=== PATIENT | male | born 1945 | race Caucasian/White ===

== ENCOUNTER 2017-01-08 13:01 | Inpatient (IN) | payer MEDICARE ==
[~2017-01-08] VITALS: Ht 172.7 cm; Wt 83.8 kg
[~2017-01-08 13:01] MED LIST: AMLO5TAB22 PO; CLOP75 PO; CORE25TA PO; LACTATED RINGER'S 1000 ML INJ 1,000 ML IV ONE; LEVO.15 PO; MIRA50TA PO; NEOMYCIN/POLYMYXIN 1 ML G.U. IRRIGANT IRRIGATION ONE; NEOSTIGMINE 3 MG/3 ML SYR IV ONE; ONDANSETRON HCL 4 MG/2 ML VIAL IV PUSH ONE; PAZO200T PO; PERC10TA27 PO; PROPOFOL 200 MG/20 ML AMP IV ONE; PROT40TA PO; ROSU20 PO; VENTAER INH; ZOFR4TAB3 SL
[2017-01-08 13:03] VITALS: BP 168/83; PULSE 63; RESP 18; TEMP 98; O2SAT 98
--- NOTE | 2017-01-08 13:21 | PD ---
Physical Exam Time Seen by Provider: 13:19 Narrative 71yo M c/o head pain and left hand pain. Pulled down by dog onto concrete. Hit head. Denies LOC, neck pain, back pain. Takes Plavix. Denies vomiting. Patient stable. Patient seen in triage. Awaiting bed placement. Data Data Last Documented VS Vital Signs Date Time Temp Pulse Resp B/P Pulse Ox O2 Delivery O2 Flow Rate FiO2 01/08/17 13:03 98.0 63 18 168/83 98 MDM Supervised Visit with WILLY: Lianne Vargas Jan 08, 2017 13:21
--- NOTE | 2017-01-08 14:37 | PD ---
HPI Chief Complaint: Fall Time Seen by Provider: 14:37 Travel History International Travel<30 days: No Contact w/Intl Traveler<30days: No Traveled to known affect area: No History of Present Illness HPI 71-year-old male with history of hypertension, diabetes, CVA, kidney cancer, currently undergoing chemotherapy and radiation, history of CAD with CABG, on Plavix, presents to the emergency department for evaluation following a fall. Patient states that his neighbor's pet. Out and when he attempted to put it back in the canal, the dog leg him and he tripped over a curb. He smacked his head on the concrete and injured his right hand. Patient does not believe that he lost consciousness. Denies any focal deficit or weakness. Reports head painnd 7 out of 10 pain at the right hand. Denies chest or tightness. No difficulty breathing. No nausea or vomiting since yesterday. No symptoms to report at this time. PFSH Past Medical History Hx Anticoagulant Therapy: Yes (PLAVIX) Arthritis: Yes (Hands) Asthma: No Autoimmune Disease: No Blood Disorders: No Anxiety: No Depression: No Heart Rhythm Problems: No Cancer: Yes (bladder, renal) Cardiac Catheterization: Yes Cardiovascular Problems: Yes (CABG X 3 / CHF) Chemotherapy: Yes (2014) Chest Pain: No Congestive Heart Failure: No COPD: No Cerebrovascular Accident: Yes Diabetes: Yes Diminished Hearing: No Endocrine: No Gastrointestinal Disorders: Yes GERD: Yes Glaucoma: No Genitourinary: Yes Headaches: No Hepatitis: No Hiatal Hernia: No Hypertension: Yes Immune Disorder: No Kidney Stones: No Musculoskeletal: Yes Neurologic: Yes Psychiatric: No Reproductive: No Respiratory: No Immunizations Current: No Migraines: No Myocardial Infarction: No Radiation Therapy: Yes ( RXT) Renal Failure: Yes Seizures: No Sickle Cell Disease: No Sleep Apnea: No Ulcer: No Past Surgical History Abdominal Surgery: No AICD: No Appendectomy: No Arteriovenous Shunt: No Cardiac Surgery: Yes Cholecystectomy: No Coronary Artery Bypass Graft: Yes (2008) Ear Surgery: No Endocrine Surgery: No Eye Surgery: No Genitourinary Surgery: Yes (Removed Right Kidney (cancerous tumor) 10/16/09; BLADDER SCRAPING) Gynecologic Surgery: No Insulin Pump: No Joint Replacement: No Neurologic Surgery: Yes Oral Surgery: No Pacemaker: No Thoracic Surgery: No Other Surgery: Yes (PLASTIC SX ON FACE AGE 15) Social History Alcohol Use: No Tobacco Use: No (Quit 19 years ago) Substance Use: No Allergies-Medications (Allergen,Severity, Reaction): Coded Allergies: Cipro (Unverified Allergy, Severe, Swelling, 01/08/17) Reported Meds & Prescriptions Reported Meds & Active Scripts Active Ventolin Hfa (Albuterol Sulfate) 18 Gm Aero 2 Puff INH Q6H PRN Reported Crestor (Rosuvastatin Calcium) 20 Mg Tab 20 Mg PO DAILY Myrbetriq (Mirabegron) 50 Mg Tab 50 Mg PO DAILY Zofran ODT (Ondansetron HCl) 4 Mg Tab 4 Mg SL Q6H PRN FOR NAUSEA/VOMITING Votrient (Pazopanib Hydrochloride) 200 Mg Tab 800 Mg PO DAILY Amlodipine Besylate 5 mg (Amlodipine Besylate) 5 Mg Tab 5 Mg PO DAILY Percocet 10-325 mg (Oxycodone-Acetaminophen 10-325 mg) Oxycodone 10/325 Acetaminophen Tab 1 Tab PO Q6H PRN Synthroid 150 mcg (Levothyroxine Sodium) 150 Mcg Tab 150 Mcg PO DAILY Protonix (Pantoprazole Sodium) 40 Mg Tab 40 Mg PO DAILY Plavix (Clopidogrel Bisulfate) 75 Mg Tab 75 Mg PO DAILY Coreg 25 mg (Carvedilol) 25 Mg Tab 25 Mg PO BID Review of Systems Except as stated in HPI: all other systems reviewed are Neg Physical Exam Narrative GENERAL: Well-nourished elderly male patient, brought in by wheelchair, in no acute distress SKIN: Focused skin assessment warm/dry. There is a pressure dressing over the scalp wound. Patient does have left periorbital ecchymosis developing. He has abrasions on the left elbow and ecchymosis of the left forearm. There are lacerations on the volar surface of the left fourth and fifth digits. Abrasions over the bilateral knees. HEAD: Normocephalic. EYES: Pupils equal and round. No scleral icterus. No injection or drainage. ENT: No nasal bleeding or discharge. Mucous membranes pink and moist. NECK: Trachea midline. No JVD. CARDIOVASCULAR: Regular rate and rhythm. No murmur appreciated. RESPIRATORY: No accessory muscle use. Clear to auscultation. Breath sounds equal bilaterally. GASTROINTESTINAL: Abdomen soft, non-tender, nondistended. Hepatic and splenic margins not palpable. MUSCULOSKELETAL: No obvious deformities. No clubbing. No cyanosis. Edema of the dorsal left hand.. NEUROLOGICAL: Awake and alert. No obvious cranial nerve deficits. Motor grossly within normal limits. Normal speech. PSYCHIATRIC: Appropriate mood and affect; insight and judgment normal. Data Data Last Documented VS Vital Signs Date Time Temp Pulse Resp B/P Pulse Ox O2 Delivery O2 Flow Rate FiO2 01/08/17 13:03 98.0 63 18 168/[address] Brain W/O Iv Contrast(Rout) (01/08/17 ) Ct Facial Bones W/O Iv Cont (01/08/17 ) MDM Medical Decision Making Medical Screen Exam Complete: Yes Emergency Medical Condition: Yes Medical Record Reviewed: Yes Differential Diagnosis Intracranial hemorrhage versus scalp laceration versus scalp hematoma versus minor head injury versus hand fracture versus sprain versus contusion versus dislocation Narrative Course 71-year-old male presents to the emergency department for evaluation following a trip and fall. Patient has pressure dressing of his scalp wound in place. CT imaging of the brain, cervical spine, facial bones was ordered. X-ray imaging of the left hand is ordered. Patient is inappropriate for a split flow pod and will be transferred to a medical bed. Condition: Stable Nhi Campbell Jan 08, 2017 14:37
[2017-01-08 15:33] LABS: AUTOMATED NEUTROPHIL # 3.3 TH/MM3 (1.8-7.7); BASOPHIL % 0.6 % (0.0-2.0); EOSINOPHIL # 0.1 TH/MM3 (0-0.4); EOSINOPHIL % 2.5 % (0.0-4.0); HEMATOCRIT 34.5 % (39.0-51.0); LYMPH % 13.5 % (9.0-44.0); LYMPHOCYTE # 0.6 TH/MM3 (1.0-4.8); MEAN CELL VOLUME 103.3 FL (80.0-100.0); MONO % 3.9 % (0.0-8.0); NEUT % 79.5 % (16.0-70.0); PLATELET COUNT 67 TH/MM3 (150-450); RED BLOOD COUNT 3.34 MIL/MM3 (4.50-5.90); RED CELL DISTRIBUTION WIDTH 15.7 % (11.6-17.2); WHITE BLOOD COUNT 4.2 TH/MM3 (4.0-11.0)
[2017-01-08 15:41] LABS: HEMO FLAGS AUTO DIFF
[2017-01-08 15:48] LABS: APTT (PATIENT) 27.2 SEC (24.3-30.1)
--- NOTE | 2017-01-08 15:48 | RADRPT ---
EXAM DATE/TIME: 01/08/2017 15:31 [facility] COMPARISON: No previous studies available for comparison. INDICATIONS : Left hand pain after fall. MEDICAL HISTORY : None. SURGICAL HISTORY : None. ENCOUNTER: Initial ACUITY: 1 day PAIN SCORE: 10/10 LOCATION: Left hand. FINDINGS: There is a complete fracture of the fifth proximal phalanx with slight angulation. Slight degenerativ e arthritis is present within multiple interphalangeal joints and first carpometacarpal joint. There is slight osteopenia. CONCLUSION: Fifth proximal phalangeal fracture. Britt Kincaid MD on January 08, 2017 at 15:46 Board Certified Radiologist. This report was verified electronically.
[2017-01-08 15:49] LABS: ALT (GPT) 19 U/L (12-78); ANION GAP 8 MEQ/L (5-15); AST (GOT) 25 U/L (15-37); BLOOD UREA NITROGEN 18 MG/DL (7-18); CHLORIDE 109 MEQ/L (98-107); GLOMERULAR FILTRATION RATE 33 ML/MIN (>89); POTASSIUM 4.5 MEQ/L (3.5-5.1); SODIUM (NA) 140 MEQ/L (136-145)
[2017-01-08 15:51] LABS: ALKALINE PHOSPHATASE 88 U/L (45-117); TOTAL BILIRUBIN ADULT 0.6 MG/DL (0.2-1.0)
[2017-01-08] MEDS ORDERED: FURO1TAB60 PO (16:02)
[2017-01-08] MEDS ORDERED: PERC10TA27 PO (16:02)
[2017-01-08] MEDS ORDERED: AMLO5TAB2 PO (16:02)
[2017-01-08] MEDS ORDERED: [UNRECOGNIZED DRUG - CODE] PO (16:02)
[2017-01-08] MEDS ORDERED: ROSU20 PO (16:02)
[2017-01-08] MEDS ORDERED: LEVO25TA4 PO (16:02)
[2017-01-08] MEDS ORDERED: PLAV75TA29 PO (16:02)
[2017-01-08] MEDS ORDERED: LOMO2.5T PO (16:02)
[2017-01-08] MEDS ORDERED: LEVO150T7 PO (16:02)
[2017-01-08] MEDS ORDERED: CORE25TA PO (16:02)
[2017-01-08] MEDS ORDERED: MIRA50TA PO (16:02)
--- NOTE | 2017-01-08 16:11 | RADRPT ---
EXAM DATE/TIME: 01/08/2017 15:21 [facility] COMPARISON: No previous studies available for comparison. INDICATIONS : Chest pain after fall. MEDICAL HISTORY : None. SURGICAL HISTORY : CABG. ENCOUNTER: Initial ACUITY: 1 day PAIN SCORE: 10 LOCATION: Left chest FINDINGS: Bilateral decubitus views of the chest demonstrate a normal thickness to the dependant pleura. No ev idence of free-flowing pleural effusions. CONCLUSION: No evidence of free flowing pleural effusion on either side. Darron Nolan MD on January 08, 2017 at 16:08 Board Certified Radiologist. This report was verified electronically.
[2017-01-08] MEDS ORDERED: LIDOCAINE 1%/EPINEPHrine 1:100,000 SOLN 20 ML VIAL INFIL ONE (16:15)
--- NOTE | 2017-01-08 16:29 | PD ---
Physical Exam Narrative I, Dr. Dominguez, have reviewed the advance practice practitioner's documentation and am in agreement, met with the patient face to face, made the diagnosis, and the medical decision making was done by me. *My assessment and Findings: Laceration vs. fracture vs. ICH 71yo M with PMH of renal carcinoma on chemotherapy, CAD on plavix presents to the ED with c/o laceration on left forehead and left hand after being dragged by his neighbor's dog today. Pt was running after the dog and fell forward. Pt has laceration in left forehead and left hand and is complaining of pain there. Has abrasion on left chest and bilateral knees and left shoulder but denies any pain. Denies any chest pain, sob, n/v, abdominal pain, focal weakness or numbness. Denies any LOC. Forehead laceration repair by my PA. GENERAL: 71yo M not in distress. SKIN: Focused skin assessment warm/dry. HEAD: +5cm laceration above left eyebrow. Left periorbital ecchymoses. EYES: Pupils equal and round at 3mm bilaterally. EOMI. ENT: No nasal bleeding or discharge. Mucous membranes pink and moist. NECK: No midline cervical spine ttp. CARDIOVASCULAR: Regular rate and rhythm. No murmur appreciated. RESPIRATORY: No accessory muscle use. Clear to auscultation. Breath sounds equal bilaterally. GASTROINTESTINAL: Abdomen soft, non-tender, nondistended. MUSCULOSKELETAL: Abrasion in left shoulder. FROM left shoulder. Left hand: + 3cm laceration base of fifth proximal phalange. Able to flex and extend MCP. Unable to extend 5th IP. Sensation intact. Cap refill <2 sec. +3cm laceration mid fourth proximal palange. Radial pulse intact. Bilateral knee abrasion. FROM bilateral knees with distal pulses intact. NEUROLOGICAL: Awake and alert. No obvious cranial nerve deficits. Motor grossly within normal limits. Normal speech. PSYCHIATRIC: Appropriate mood and affect; insight and judgment normal. Labs reviewed, H/H low but at baseline. Elevated creatinine also at baseline. Xray left hand showed proximal phalange fracture fifth digit. There is a laceration over the location of the fracture so this is an open fracture. Dr. Lu from hand surgery was consulted and recommended surgery, ancef and gentamicin which was given. Discussed with Dr. Oh and accepted to his service. CT brain showed no acute finding. CT maxillofacial showed no fracture. CXR negative. Data Data Last Documented VS Vital Signs Date Time Temp Pulse Resp B/P Pulse Ox O2 Delivery O2 Flow Rate FiO2 01/08/17 16:34 17 01/08/17 15:00 68 99 Room Air 01/08/17 13:03 98.0 168/[address] Brain W/O Iv Contrast(Rout) (01/08/17 ) Ct Facial Bones W/O Iv Cont (01/08/17 ) Ct Cerv Spine W/O Contrast (01/08/17 ) Iv Access Insert/Monitor (01/08/17 14:46) Complete Blood Count With Diff (01/08/17 14:46) Comprehensive Metabolic Panel (01/08/17 14:46) Coag Profile (01/08/17 14:46) Hand, Complete ([id number]) (01/08/17 14:53) Electrocardiogram (01/08/17 ) Chest, Bilateral Decubitus (01/08/17 ) Wound Care (01/08/17 16:10) Lidocai-Epi 1%-1:100,000 Inj (Xylocaine- (01/08/17 16:15) Tetanus/Diphtheria Tox Adult (Tetanus/Di (01/08/17 16:30) Morphine Inj (Morphine Inj) (01/08/17 16:30) Cefazolin Inj (Ancef Inj) (01/08/17 16:45) Gentamicin Inj (Gentamicin Inj) (01/08/17 16:45) NPO (01/08/17 16:36) Admit Order (Ed Use Only) (01/08/17 17:08) Labs Laboratory Tests Test 01/08/17 15:00 White Blood Count 4.2 TH/MM3 Red Blood Count 3.34 MIL/MM3 Hemoglobin 11.0 GM/DL Hematocrit 34.5 % Mean Corpuscular Volume 103.3 FL Mean Corpuscular Hemoglobin 33.0 PG Mean Corpuscular Hemoglobin 32.0 % Concent Red Cell Distribution Width 15.7 % Platelet Count 67 TH/MM3 Mean Platelet Volume 9.5 FL Neutrophils (%) (Auto) 79.5 % Lymphocytes (%) (Auto) 13.5 % Monocytes (%) (Auto) 3.9 % Eosinophils (%) (Auto) 2.5 % Basophils (%) (Auto) 0.6 % Neutrophils # (Auto) 3.3 TH/MM3 Lymphocytes # (Auto) 0.6 TH/MM3 Monocytes # (Auto) 0.2 TH/MM3 Eosinophils # (Auto) 0.1 TH/MM3 Basophils # (Auto) 0.0 TH/MM3 CBC Comment AUTO DIFF Differential Comment AUTO DIFF CONFIRMED Platelet Estimate LOW Platelet Morphology Comment NORMAL Ovalocytes 1+ Keratocytes OCC Prothrombin Time 11.0 SEC Prothromb Time International 1.0 RATIO Ratio Activated Partial 27.2 SEC Thromboplast Time Sodium Level 140 MEQ/L Potassium Level 4.5 MEQ/L Chloride Level 109 MEQ/L Carbon Dioxide Level 23.0 MEQ/L Anion Gap 8 MEQ/L Blood Urea Nitrogen 18 MG/DL Creatinine 2.02 MG/DL Estimat Glomerular Filtration 33 ML/MIN Rate Random Glucose 162 MG/DL Calcium Level 8.3 MG/DL Total Bilirubin 0.6 MG/DL Aspartate Amino Transf 25 U/L (AST/SGOT) Alanine Aminotransferase 19 U/L (ALT/SGPT) Alkaline Phosphatase 88 U/L Total Protein 6.3 GM/DL Albumin 2.6 GM/DL MDM Supervised Visit with WILLY: Yes Diagnosis Primary Impression: Open fracture Admitting Information Admitting Physician Requests: Admit Condition: Stable Aura Dominguez DO Jan 08, 2017 16:29
[2017-01-08] MEDS ORDERED: MORPHINE SULFATE 4 MG/ML INJ IV PUSH ONE (16:30)
[2017-01-08] MEDS ORDERED: TETANUS/DIPHTHERIA TOXOID ADULT 0.5 ML VIAL IM ONE (16:30)
--- NOTE | 2017-01-08 16:30 | RADRPT ---
EXAM DATE/TIME: 01/08/2017 15:48 [facility] COMPARISON: No previous studies available for comparison. INDICATIONS : Fell on comcrete now having pain. RADIATION DOSE: 56.37 CTDIvol (mGy) MEDICAL HISTORY : Cerebrovascular disease. Cardiovascular disease Hypertension.Bladder and renal cancer SURGICAL HISTORY : Nephrectomy, right. CABG ENCOUNTER: Initial ACUITY: 1 day PAIN SCALE: 7/10 LOCATION: cranial TECHNIQUE: Multiple contiguous axial images were obtained of the head. Using automated exposure control and adj ustment of the mA and/or kV according to patient size, radiation dose was kept as low as reasonably a chievable to obtain optimal diagnostic quality images. FINDINGS: Old right occipital and bilateral cerebellar infarcts are noted. No acute infarct, acute hemorrhage, mass effect or extra-axial fluid collections are noted. Mild central cerebral atrophy is noted. Mild periventricular and subcortical white matter small vessel ischemic changes are noted bilaterally. Min imal mucosal thickening is noted within the left frontal and anterior ethmoid sinuses. CONCLUSION: 1. Old right occipital and bilateral cerebellar infarcts are noted. 2. No acute infarct, acute hemorrhage, mass effect or extra-axial fluid collections are noted. 3. Mild central cerebral atrophy is noted. 4. Mild periventricular and subcortical white matter small vessel ischemic changes are noted bilatera lly. 5. Minimal mucosal thickening is noted within the left frontal sinus and left anterior ethmoid air ce lls. Darron Nolan MD on January 08, 2017 at 16:25 Board Certified Radiologist. This report was verified electronically.
[2017-01-08] MEDS ORDERED: GENTAMICIN INJ 80 MG in SODIUM CHLORIDE 0.9% INJ 100 ML IV ONE (16:45)
--- NOTE | 2017-01-08 17:02 | RADRPT ---
EXAM DATE/TIME: 01/08/2017 15:52 [facility] COMPARISON: No previous studies available for comparison. INDICATIONS : Fell hit head on concrete,pain. RADIATION DOSE: 24.17 CTDIvol (mGy) MEDICAL HISTORY : Cerebrovascular disease. Cardiovascular disease Hypertension.Bladder and renal cancer SURGICAL HISTORY : Nephrectomy, right. CABG ENCOUNTER: Initial ACUITY: 1 day PAIN SCALE: 7/10 LOCATION: neck TECHNIQUE: Volumetric scanning of the cervical spine was performed. Multiplanar reconstructions in the sagittal, coronal and oblique axial planes were performed. Using automated exposure control and adjustment o f the mA and/or kV according to patient size, radiation dose was kept as low as reasonably achievable to obtain optimal diagnostic quality images. FINDINGS: No significant subluxation or soft tissue swelling is seen. No definite fracture is seen for maria luisa hnique. Slight to moderate degenerative changes are seen within the disc space and facets worse at C4 -5 and C5-6. C2-C3: No appreciable compromised to the thecal sac, exiting nerve roots are seen. The neural elvira bradly are patent bilaterally. No appreciable thecal sac stenosis is seen. C3-C4: There is slight neural foramina compromise on the left due to asymmetrical bulging disc and h ypertrophic changes. C4-C5: No appreciable compromised to the thecal sac, exiting nerve roots are seen. The neural elvira bradly are patent bilaterally. No appreciable thecal sac stenosis is seen. C5-C6: No appreciable compromised to the thecal sac, exiting nerve roots are seen. The neural elvira bradly are patent bilaterally. No appreciable thecal sac stenosis is seen. C6-C7: No appreciable compromised to the thecal sac, exiting nerve roots are seen. The neural elvira bradly are patent bilaterally. No appreciable thecal sac stenosis is seen. C7-T1: No appreciable compromised to the thecal sac, exiting nerve roots are seen. The neural elvira bradly are patent bilaterally. No appreciable thecal sac stenosis is seen CONCLUSION: Slight neural foramina compromise left C3-C4. Britt Kincaid MD on January 08, 2017 at 16:56 Board Certified Radiologist. This report was verified electronically.
--- NOTE | 2017-01-08 17:08 | RADRPT ---
EXAM DATE/TIME: 01/08/2017 15:52 [facility] COMPARISON: No previous studies available for comparison. INDICATIONS : Fell hit face on concrete. RADIATION DOSE: 21.96 CTDIvol (mGy) MEDICAL HISTORY : Cerebrovascular disease. Cardiovascular disease Hypertension.Bladder and renal cancer SURGICAL HISTORY : Nephrectomy, right. CABG ENCOUNTER: Initial ACUITY: 1 day PAIN SCORE: 7/10 LOCATION: facial TECHNIQUE: Volumetric scanning of the facial bones was performed. Using automated exposure control and adjustme nt of the mA and/or kV according to patient size, radiation dose was kept as low as reasonably achiev able to obtain optimal diagnostic quality images. FINDINGS: No definite fractures, or dislocations are identified. No definite lytic or sclerotic lesion is seen . There is slight mucoperiosteal thickening in the left anterior eithmoid air cells. CONCLUSION: No definite fracture is seen for technique. Britt Kincaid MD on January 08, 2017 at 17:00 Board Certified Radiologist. This report was verified electronically.
--- NOTE | 2017-01-08 17:26 | PD ---
Physical Exam Date Seen by Provider: Jan 08, 2017 Time Seen by Provider: 17:25 Narrative 71-year-old male that presents to the ED for evaluation of fall. I was is in my attending properly laceration to the forehead. Please refer to her note. Data Data Last Documented VS Vital Signs Date Time Temp Pulse Resp B/P Pulse Ox O2 Delivery O2 Flow Rate FiO2 01/08/17 16:34 17 01/08/17 15:00 68 99 Room Air 01/08/17 13:03 98.0 168/[address] Brain W/O Iv Contrast(Rout) (01/08/17 ) Ct Facial Bones W/O Iv Cont (01/08/17 ) Ct Cerv Spine W/O Contrast (01/08/17 ) Iv Access Insert/Monitor (01/08/17 14:46) Complete Blood Count With Diff (01/08/17 14:46) Comprehensive Metabolic Panel (01/08/17 14:46) Coag Profile (01/08/17 14:46) Hand, Complete ([id number]) (01/08/17 14:53) Electrocardiogram (01/08/17 ) Chest, Bilateral Decubitus (01/08/17 ) Wound Care (01/08/17 16:10) Lidocai-Epi 1%-1:100,000 Inj (Xylocaine- (01/08/17 16:15) Tetanus/Diphtheria Tox Adult (Tetanus/Di (01/08/17 16:30) Morphine Inj (Morphine Inj) (01/08/17 16:30) Cefazolin Inj (Ancef Inj) (01/08/17 16:45) Gentamicin Inj (Gentamicin Inj) (01/08/17 16:45) NPO (01/08/17 16:36) Admit Order (Ed Use Only) (01/08/17 17:08) Hemoglobin (Hgb) A1c (01/09/17 06:00) Admit To Inpatient (01/08/17 ) Vital Signs (Adult) Q4H (01/08/17 17:17) Activity Oob With Assistance (01/08/17 17:17) Diet Npo (01/08/17 Dinner) Sodium Chlor 0.9% 1000 Ml Inj (Ns 1000 M (01/08/17 17:17) Sodium Chloride 0.9% Flush (Ns Flush) (01/08/17 17:30) Sodium Chloride 0.9% Flush (Ns Flush) (01/08/17 21:00) Acetaminophen (Tylenol) (01/08/17 17:30) Ondansetron Inj (Zofran Inj) (01/08/17 17:30) Basic Metabolic Panel (Bmp) (01/09/17 06:00) Complete Blood Count With Diff (01/09/17 06:00) Heparin Inj (Heparin Inj) (01/08/17 17:30) Naloxone Inj (Narcan Inj) (01/08/17 17:30) Inpatient Certification (01/08/17 ) Amlodipine (Norvasc) (01/09/17 09:00) Carvedilol (Coreg) (01/08/17 21:00) Diphenoxylate/Atropine Tab (Lomotil Tab) (01/08/17 17:30) Furosemide (Lasix) (01/09/17 09:00) Levothyroxine (Synthroid) (01/09/17 09:00) Levothyroxine (Synthroid) (01/09/17 09:00) Oxycodone-Acetamin 10-325 Mg (Percocet 1 (01/08/17 17:30) (Nf) Mirabegron (Myrbetriq) (01/09/17 09:00) (Nf) Pazopanib Hcl (Votrient) (01/09/17 09:00) (Nf) Rosuvastatin (Crestor) (01/09/17 09:00) Labs Laboratory Tests Test 01/08/17 15:00 White Blood Count 4.2 TH/MM3 Red Blood Count 3.34 MIL/MM3 Hemoglobin 11.0 GM/DL Hematocrit 34.5 % Mean Corpuscular Volume 103.3 FL Mean Corpuscular Hemoglobin 33.0 PG Mean Corpuscular Hemoglobin 32.0 % Concent Red Cell Distribution Width 15.7 % Platelet Count 67 TH/MM3 Mean Platelet Volume 9.5 FL Neutrophils (%) (Auto) 79.5 % Lymphocytes (%) (Auto) 13.5 % Monocytes (%) (Auto) 3.9 % Eosinophils (%) (Auto) 2.5 % Basophils (%) (Auto) 0.6 % Neutrophils # (Auto) 3.3 TH/MM3 Lymphocytes # (Auto) 0.6 TH/MM3 Monocytes # (Auto) 0.2 TH/MM3 Eosinophils # (Auto) 0.1 TH/MM3 Basophils # (Auto) 0.0 TH/MM3 CBC Comment AUTO DIFF Prothrombin Time 11.0 SEC Prothromb Time International 1.0 RATIO Ratio Activated Partial 27.2 SEC Thromboplast Time Sodium Level 140 MEQ/L Potassium Level 4.5 MEQ/L Chloride Level 109 MEQ/L Carbon Dioxide Level 23.0 MEQ/L Anion Gap 8 MEQ/L Blood Urea Nitrogen 18 MG/DL Creatinine 2.02 MG/DL Estimat Glomerular Filtration 33 ML/MIN Rate Random Glucose 162 MG/DL Calcium Level 8.3 MG/DL Total Bilirubin 0.6 MG/DL Aspartate Amino Transf 25 U/L (AST/SGOT) Alanine Aminotransferase 19 U/L (ALT/SGPT) Alkaline Phosphatase 88 U/L Total Protein 6.3 GM/DL Albumin 2.6 GM/DL MDM Medical Record Reviewed: Yes Supervised Visit with WILLY: No Procedures Procedure Narrative LACERATION LOCATION: left forehead LENGTH: 7 cm NUMBER OF STITCHES/LUCIANO: 17 sutures REPAIR: The area of the laceration was prepped with Betadine and sterilely draped. The laceration was infiltrated with 1% Xylocaine. The wound was copiously irrigated and explored without evidence of foreign body, tendon injury or neurovascular injury. The wound was closed using 4-0 Ethilone. This was a 1 layer repair. A sterile dressing was applied. The patient was advised to keep the dressing clean and dry. Patient tolerated the procedure well. Condition: Stable Virgil Huang Jan 08, 2017 17:26
[2017-01-08 17:29] LABS: PLATELET ESTIMATE SMEAR LOW (NORMAL); PLATELET MORPHOLOGY NORMAL (NORMAL); SCAN/DIFF AUTO DIFF CONFIRMED
[2017-01-08 17:30] LABS: KERATOCYTES OCC (NORMAL); OVALOCYTES 1+ (NORMAL)
[2017-01-08] MEDS ORDERED: SODIUM CHLORIDE 0.9% FLUSH 10 ML FLUSH IV FLUSH PRN (17:30)
[2017-01-08] MEDS ORDERED: NALOXONE HCL 0.4 MG/ML AMP IV PRN (17:30)
[2017-01-08] MEDS ORDERED: ONDANSETRON HCL 4 MG/2 ML VIAL IVP PRN (17:30)
[2017-01-08] MEDS ORDERED: ACETAMINOPHEN 325 MG TAB PO PRN (17:30)
[2017-01-08] MEDS ORDERED: DIPHENOXYLATE/ATROPINE 2.5 MG/0.025 MG TAB PO PRN (17:30)
--- NOTE | 2017-01-08 17:36 | HHI.HP ---
HPI Service [facility] Primary Care Physician Nicolas Fuller DO Admission Diagnosis Open fracture left fifth proximal phalange Diagnoses: Travel History International Travel<30 Days: No Contact w/Intl Traveler <30 Da: No Traveled to Known Affected Are: No History of Present Illness This 71-year-old gentleman who sees Dr. Nicolas Fuller as his primary physician. He also sees Dr. Yousif as his oncologist. He has renal cell carcinoma. He was following his dog on a leash today. The dog pulled him and patient fell hitting left side of his head also injuring his left hand. He presented to the emergency department at [facility] with a wound at the base of his left fifth finger and the laceration on his left eyebrow. He received 12 sutures in the emergency department for his left eyebrow. He was found to have fractures in both left fourth and fifth fingers. He is being taken to the operating room tonight by the hand surgeon supervisor dairy sanitation to fix his left hand laceration. He was seen by the undersigned in room C26. He is alert and oriented. He does not have any problems with his vision. He had an old stroke. He is documented as diabetic. [facility] which he denies. Review of Systems Other 10 systems reviewed and otherwise negative Past Family Social History Past Medical History Right side Renal cell carcinoma Status post radiation Back pain Hypertension Hypothyroidism Stroke Coronary disease Heart failure Former smoker Blood transfusion of 5 units during kidney surgery Past Surgical History CABG X3 2009 Right nephrectomy in 2009 Bladder scraping in 2009 Back surgery in 2009 Allergies: Coded Allergies: Cipro (Verified Allergy, Severe, Swelling, 01/08/17) Active Ordered Medications Reported Meds & Active Scripts Active Reported Crestor (Rosuvastatin Calcium) 20 Mg Tab 20 Mg PO DAILY Myrbetriq (Mirabegron) 50 Mg Tab 50 Mg PO DAILY Plavix (Clopidogrel Bisulfate) 75 Mg Tab 75 Mg PO DAILY Coreg (Carvedilol) 25 Mg Tab 25 Mg PO BID Votrient (Pazopanib HCl) 200 Mg Tab 800 Mg PO DAILY Lomotil (Diphenoxylate-Atropine) 2.5-0.025 Mg Tab 1 Tab PO Q6H PRN Percocet (Oxycodone-Acetaminophen) 10-325 mg Tab 1 Tab PO QID PRN Amlodipine (Amlodipine Besylate) 5 Mg Tab 5 Mg PO DAILY Lasix (Furosemide) 40 Mg Tab 40 Mg PO DAILY Levothyroxine (Levothyroxine Sodium) 150 Mcg Tab 175 Mcg PO DAILY Take 1 tablet (150mcg) with 25mcg tab for a total dose of 175mcg Levothyroxine (Levothyroxine Sodium) 25 Mcg Tab 175 Mcg PO DAILY Take 1 tablet (25mcg) with 150mcg tab for a total dose of 175mcg Family History Reviewed but not contributory Social History Former smoker, no excessive alcohol or illicit drug use Physical Exam Vital Signs Vital Signs Date Time Temp Pulse Resp B/P Pulse Ox O2 Delivery O2 Flow Rate FiO2 01/08/17 16:34 17 01/08/17 15:00 68 16 99 Room Air 01/08/17 13:03 98.0 63 18 168/83 98 Physical Exam GENERAL: This is a well-nourished, well-developed patient, in no apparent distress. SKIN: No rashes, ecchymoses or lesions. Cool and dry. HEAD: Atraumatic. Normocephalic. No temporal or scalp tenderness. EYES: Pupils equal round and reactive. Extraocular motions intact. No scleral icterus. No injection or drainage. Laceration over his left eyebrow, already sutured ENT: Nose without bleeding, purulent drainage or septal hematoma. Throat without erythema, tonsillar hypertrophy or exudate. Uvula midline. Airway patent. NECK: Trachea midline. No JVD or lymphadenopathy. Supple, nontender, no meningeal signs. CARDIOVASCULAR: Regular rate and rhythm without murmurs, gallops, or rubs. RESPIRATORY: Clear to auscultation. Breath sounds equal bilaterally. No wheezes , rales, or rhonchi. GASTROINTESTINAL: Abdomen soft, non-tender, nondistended. No hepato-splenomegaly , or palpable masses. No guarding. MUSCULOSKELETAL: Laceration of the base of his left fifth finger, swelling and tenderness of both left fourth and fifth fingers NEUROLOGICAL: Awake and alert. Cranial nerves II through XII intact. Normal speech. Laboratory Laboratory Tests Test 01/08/17 15:00 White Blood Count 4.2 Red Blood Count 3.34 Hemoglobin 11.0 Hematocrit 34.5 Mean Corpuscular Volume 103.3 Mean Corpuscular Hemoglobin 33.0 Mean Corpuscular Hemoglobin 32.0 Concent Red Cell Distribution Width 15.7 Platelet Count 67 Mean Platelet Volume 9.5 Neutrophils (%) (Auto) 79.5 Lymphocytes (%) (Auto) 13.5 Monocytes (%) (Auto) 3.9 Eosinophils (%) (Auto) 2.5 Basophils (%) (Auto) 0.6 Neutrophils # (Auto) 3.3 Lymphocytes # (Auto) 0.6 Monocytes # (Auto) 0.2 Eosinophils # (Auto) 0.1 Basophils # (Auto) 0.0 CBC Comment AUTO DIFF Prothrombin Time 11.0 Prothromb Time International 1.0 Ratio Activated Partial 27.2 Thromboplast Time Sodium Level 140 Potassium Level 4.5 Chloride Level 109 Carbon Dioxide Level 23.0 Anion Gap 8 Blood Urea Nitrogen 18 Creatinine 2.02 Estimat Glomerular Filtration 33 Rate Random Glucose 162 Calcium Level 8.3 Total Bilirubin 0.6 Aspartate Amino Transf 25 (AST/SGOT) Alanine Aminotransferase 19 (ALT/SGPT) Alkaline Phosphatase 88 Total Protein 6.3 Albumin 2.6 Result Diagram: 01/08/17 1500 01/08/17 1500 Imaging Last Impressions Hand X-Ray 01/08/17 1453 Signed Impressions: Service Date/Time: December 15:31 - CONCLUSION: Fifth proximal phalangeal fracture. Britt Kincaid MD Maxillofacial CT 01/08/17 0000 Signed Impressions: Service Date/Time: December 15:52 - CONCLUSION: No definite fracture is seen for technique. Britt Kincaid MD Head CT 01/08/17 0000 Signed Impressions: Service Date/Time: December 15:48 - CONCLUSION: 1. Old right occipital and bilateral cerebellar infarcts are noted. 2. No acute infarct, acute hemorrhage, mass effect or extra-axial fluid collections are noted. 3. Mild central cerebral atrophy is noted. 4. Mild periventricular and subcortical white matter small vessel ischemic changes are noted bilaterally. 5. Minimal mucosal thickening is noted within the left frontal sinus and left anterior ethmoid air cells. Darron Nolan MD Chest X-Ray 01/08/17 0000 Signed Impressions: Service Date/Time: December 15:21 - CONCLUSION: No evidence of free flowing pleural effusion on either side. Darron Nolan MD Cervical Spine CT 01/08/17 0000 Signed Impressions: Service Date/Time: December 15:52 - CONCLUSION: Slight neural foramina compromise left C3-C4. K. Fer Kincaid MD Assessment and Plan Assessment and Plan Assessment Status post fall Laceration left eyebrow Status post suturing of the above Laceration base of left fifth finger Fracture of the left fifth proximal phalanx Thrombocytopenia Chronic kidney disease Mild anemia Macrocytosis On Plavix for prior stroke On chemotherapy for history of renal cell carcinoma Management Admit to telemetry Nothing by mouth Surgery tonight Plavix on hold Pain control Antibiotics Continue home medications DVT prophylaxis with low-dose heparin postoperatively Hand surgeon already consulted Discussed with patient Discussed with nurse Discussed with emergency physician 40 minutes Discussed With: Nurse Shwetha Oh MD Jan 08, 2017 17:36
[2017-01-08] MEDS: SODIUM CHLOR 0.9% 1000 ML INJ 1,000 ML IV SCH (17:49)
[2017-01-08 17:55] VITALS: BP 150/68; PULSE 67; RESP 16; TEMP 97.8; O2SAT 99
[2017-01-08] MEDS: VANCOMYCIN INJ 1,000 MG in SODIUM CHLOR 0.9% 250 ML INJ 250 ML IV SCH (18:05)
[2017-01-08] MEDS ORDERED: BUPIVACAINE HCL PF 0.5% 30 ML VIAL ONE (19:05)
[2017-01-08] MEDS ORDERED: LIDOCAINE HCL 2% 50 ML VIAL ONE (19:05)
[2017-01-08] MEDS ORDERED: fentaNYL CITRATE 250 MCG/5 ML AMP ONE (19:24)
[2017-01-08] MEDS ORDERED: SUGAMMADEX SODIUM 200 MG/2 ML VIAL IV PUSH ONE ×2 (20:53)
[2017-01-08] MEDS: SODIUM CHLORIDE 0.9% FLUSH 10 ML FLUSH IV FLUSH SCH (21:00)
--- NOTE | 2017-01-08 21:21 | MB ---
cc: JOSE ALEXANDRE MD DATE OF CONSULTATION 01/08/17 HISTORY OF PRESENT ILLNESS The patient is a 71-year old [id number] with an extensive medical history who presented to the emergency room for evaluation after a fall. He was walking a pit bull when the dog pulled and he tripped on a curb, fell down and hit his head on the curb but denies losing any consciousness. He states the injury to his left hand is from the leash handle which was molded plastic. He has an open fracture of the left fifth proximal phalanx and then a laceration to the ring finger. He states all his sensation is intact. PAST MEDICAL HISTORY 1. Arthritis. 2. Kidney and bladder cancer, 3. Coronary artery bypass grafting for coronary artery disease 4. History of chemotherapy and radiation therapy 5. Diabetes, 6. Gastroesophageal reflux PAST SURGICAL HISTORY 1. Coronary artery bypass grafting x3 in 2008 2. Right nephrectomy in 2009 3. Bladder scraping surgery 4. Facial plastic surgery at the age of 15. SOCIAL HISTORY He does not smoke. He did not drink alcohol. Does not use any illicit drugs. ALLERGIES CIPRO. MEDICATIONS 1. Ventolin 2. Crestor 3. 4. Zofran 5. Votrient 6. Amlodipine 7. Percocet 10 mg 8. Synthroid 150 mcg. 9. Protonix. 10. Plavix 75 mg p.o. daily. 11. Coreg 25 mg p.o. b.i.d. REVIEW OF SYSTEMS The patient is not complaining of any headaches, blurry or double vision. He is not complaining of any coughing, wheezing or shortness breath. He is not complaining of any chest pain or palpitations. He is not complaining of any nausea, vomiting or abdominal pain. He is not complaining of any burning, frequency or urgency with urination. He is not complaining of spine, neck or back pain. He is not complaining of any weakness or dizziness. He is not complaining of any anxiety, depression or suicidal ideations. He is not complaining of any lesions, rashes or eruptions on his skin. IMAGING STUDIES X-rays were performed and reviewed here in the hospital today. X-ray of his left hand reveals fifth proximal phalangeal fracture with slight angulation and slight osteopenia. CT of the cervical spine revealed slight neural foramina compromise left C3-C4. Chest x-ray reveals no evidence of free flowing pleural effusion on either side. A head CT revealed old right occipital and bilateral cerebellar infarcts noted. No acute infarct, acute hemorrhage, mass effect or extra-axial fluid collections are noted. Mild central cerebral atrophy is noted. Mild periventricular and subcortical white matter small vessel ischemic changes are noted bilaterally. Minimal mucosal thickening is noted within the left frontal sinus and left anterior ethmoid air cells. LABORATORY DATA White blood cell count 4.2000, H&H 11.0 and 34.5, platelet count of 67,000. Coagulation studies are within normal limits. BUN, creatinine are 18 and 2.02. PHYSICAL EXAMINATION General: He is well-developed, well-nourished in no apparent distress very pleasant, lying in his bed awake, alert and oriented. VITAL SIGNS: Temperature max 98.0, blood pressure 150/68, heart rate 67, respiratory rate 16, pulse ox 99% on room air. Examination of left upper extremity reveals he is moving his shoulder, elbow and wrist. His left small finger is slightly ecchymotic volarly. There is a tear om the skin volarly at the MP flexion crease. There is a another tear in the ring finger over the proximal phalanx volarly. Flexor and extensor tendons appear to be intact when isolated and functional. Capillary refill is 2 seconds in all fingertips. There is a fainted palpable radial pulse. (There is microcalcification noted in the vessels and hand x-ray). There is no concern at all for compartment syndrome. There are no other areas of injury that I can identify. IMPRESSION 1. Left fifth finger proximal phalangeal open fracture. 2. Left ring finger laceration. PLAN Go emergently to the operating room. I have discussed this with the patient and his daughter and they agree and wish to proceed. He is being admitted. I agree with his for 24 hours for IV antibiotics as well as for observation. I explained the operative plan and he agrees and requests that we proceed. MD MONICO Mcgrath III/ /7:28 PM /8:54 PM
[2017-01-08] MEDS ORDERED: *RESP: ALBUTEROL 2.5 MG/3 ML NEB (PRN) PERIprocedural Use ONLY NEB ONE (21:22)
[2017-01-08] MEDS ORDERED: hydrALAZINE HCL 20 MG/ML VIAL ONE (21:25)
[2017-01-08] MEDS ORDERED: hydrALAZINE HCL 20 MG/ML VIAL IV ONE (21:25)
[2017-01-08] MEDS ORDERED: *morphine SULFATE 8 MG/ML PERIprocedure ONLY ONE (21:26)
[2017-01-08] MEDS ORDERED: DO NOT ADM ANY ANTICOAGULANT DRUGS PRN (22:00)
[2017-01-08] MEDS: CARVEDILOL 12.5 MG TAB PO SCH (23:13)
[2017-01-08] MEDS: MORPHINE SULFATE 4 MG/ML INJ IV PUSH PRN (23:14)
[2017-01-09 00:50] VITALS: BP 160/70; PULSE 79; RESP 17; TEMP 96.8; O2SAT 93
[2017-01-09] MEDS: MORPHINE SULFATE 4 MG/ML INJ IV PUSH PRN ×3 (02:15→08:19)
[2017-01-09] MEDS: SODIUM CHLOR 0.9% 1000 ML INJ 1,000 ML IV SCH ×2 (03:17→13:17)
[2017-01-09] MEDS: oxyCODONE/ACETAMINOPHEN 10 MG/325 MG TAB PO PRN ×3 (04:17→16:22)
[2017-01-09 04:46] LABS: AUTOMATED NEUTROPHIL # 3.6 TH/MM3 (1.8-7.7); BASOPHIL % 0.6 % (0.0-2.0); EOSINOPHIL % 0.2 % (0.0-4.0); HEMATOCRIT 32.2 % (39.0-51.0); LYMPH % 12.5 % (9.0-44.0); LYMPHOCYTE # 0.5 TH/MM3 (1.0-4.8); MEAN CELL VOLUME 104.1 FL (80.0-100.0); MEAN CORPUSCULAR HEMOGLOBIN 33.9 PG (27.0-34.0); MEAN CORPUSCULAR HGB CONC 32.6 % (32.0-36.0); MONO % 5.5 % (0.0-8.0); NEUT % 81.2 % (16.0-70.0); PLATELET COUNT 60 TH/MM3 (150-450); RED CELL DISTRIBUTION WIDTH 15.6 % (11.6-17.2); WHITE BLOOD COUNT 4.4 TH/MM3 (4.0-11.0)
[2017-01-09 04:47] LABS: HEMO FLAGS AUTO DIFF
[2017-01-09 04:50] VITALS: BP 152/73; PULSE 75; RESP 17; TEMP 98.3; O2SAT 93
[2017-01-09 05:10] LABS: ANION GAP 8 MEQ/L (5-15); BICARBONATE 22.4 MEQ/L (21.0-32.0); BLOOD UREA NITROGEN 18 MG/DL (7-18); CHLORIDE 111 MEQ/L (98-107); GLOMERULAR FILTRATION RATE 38 ML/MIN (>89); POTASSIUM 4.5 MEQ/L (3.5-5.1); SODIUM (NA) 141 MEQ/L (136-145)
[2017-01-09] MEDS ORDERED: LEVOTHYROXINE SODIUM 25 MCG TAB PO SCH (06:00)
[2017-01-09] MEDS ORDERED: LEVOTHYROXINE SODIUM 150 MCG TAB PO SCH (06:00)
[2017-01-09 06:51] LABS: BANDS 1 % (0-6); EOSINOPHILS 1 % (0-4); NEUTROPHIL # MANUAL DIFF 3.8 TH/MM3 (1.8-7.7); PLATELET ESTIMATE SMEAR LOW (NORMAL); PLATELET MORPHOLOGY NORMAL (NORMAL); POLYS (SEG NEUTROPHILS) 85 % (16-70); SCAN/DIFF FINAL DIFF MANUAL; WBC DIFF SAMPLE 100
[2017-01-09 07:36] VITALS: BP 147/67; PULSE 70; RESP 19; TEMP 98.3; O2SAT 92
[2017-01-09] MEDS: CARVEDILOL 12.5 MG TAB PO SCH (08:19)
[2017-01-09] MEDS: PIPERACIL-TAZO 2.25 GM PREMIX 50 ML IV SCH ×2 (08:20→16:22)
[2017-01-09] MEDS: SODIUM CHLORIDE 0.9% FLUSH 10 ML FLUSH IV FLUSH SCH (08:23)
[2017-01-09] MEDS ORDERED: amLODIPine BESYLATE 5 MG TAB PO SCH (09:00)
[2017-01-09] MEDS ORDERED: FUROSEMIDE 40 MG TAB PO SCH (09:00)
[2017-01-09] MEDS ORDERED: ATORVASTATIN 40 MG TAB PO SCH (09:00)
[2017-01-09] MEDS ORDERED: TOLTERODINE TARTRATE 4 MG CAP LA PO SCH (09:00)
[2017-01-09] MEDS ORDERED: HEPARIN SODIUM - SQ 10,000 UNITS/ML VIAL SQ SCH (09:00)
[2017-01-09] MEDS ORDERED: VOTRIENT 200 MG PO SCH (09:00)
[2017-01-09 10:37] VITALS: BP 143/63; PULSE 67; RESP 16; TEMP 97; O2SAT 92
--- NOTE | 2017-01-09 13:27 | HHI.PR ---
Subjective Subjective Remarks sitting up in chair left hand pain improved no fever no cp no sob asking if he's going home today Review of Systems Constitutional Constitutional Remarks 12 point ROS completed, neg. except as noted above Vitals/Results Intake & Output 01/08/17 01/08/17 01/09/17 15:00 23:00 07:00 Intake Total 1550 ml 240 ml Output Total 25 ml Balance 1525 ml 240 ml Intake Oral 350 ml 240 ml Other 1200 ml Output Stool Total 0 ml Estimated Blood Loss 25 ml # Voids 5 # Bowel Movements 0 Vital Signs Vital Signs Date Time Temp Pulse Resp B/P Pulse Ox O2 Delivery O2 Flow Rate FiO2 01/09/17 10:37 97.0 67 16 143/63 92 01/09/17 07:36 98.3 70 19 147/67 92 01/09/17 04:50 98.3 75 17 152/73 93 01/09/17 00:50 96.8 79 17 160/70 93 01/08/17 22:20 98.3 89 16 161/75 94 Nasal Cannula 3 01/08/17 22:10 82 14 149/77 92 Nasal Cannula 3 01/08/17 22:00 95 15 156/75 93 Nasal Cannula 4 01/08/17 22:00 17 01/08/17 21:45 98 14 173/81 93 Nasal Cannula 4 01/08/17 21:30 90 15 190/87 94 Simple Mask 8 01/08/17 21:15 89 18 187/85 88 Aerosol Mask 8 01/08/17 21:05 97.5 96 16 177/95 86 Simple Mask 8 01/08/17 17:55 97.8 67 16 150/68 99 Room Air 01/08/17 16:34 17 01/08/17 15:00 68 16 99 Room Air CBC/BMP: 01/09/17 0420 01/09/17 0420 Lab Results Laboratory Tests Test 01/08/17 01/09/17 15:00 04:20 White Blood Count 4.2 TH/MM3 4.4 TH/MM3 Red Blood Count 3.34 MIL/MM3 3.10 MIL/MM3 Hemoglobin 11.0 GM/DL 10.5 GM/DL Hematocrit 34.5 % 32.2 % Mean Corpuscular Volume 103.3 FL 104.1 FL Mean Corpuscular Hemoglobin 33.0 PG 33.9 PG Mean Corpuscular Hemoglobin 32.0 % 32.6 % Concent Red Cell Distribution Width 15.7 % 15.6 % Platelet Count 67 TH/MM3 60 TH/MM3 Mean Platelet Volume 9.5 FL 9.8 FL Neutrophils (%) (Auto) 79.5 % 81.2 % Lymphocytes (%) (Auto) 13.5 % 12.5 % Monocytes (%) (Auto) 3.9 % 5.5 % Eosinophils (%) (Auto) 2.5 % 0.2 % Basophils (%) (Auto) 0.6 % 0.6 % Neutrophils # (Auto) 3.3 TH/MM3 3.6 TH/MM3 Lymphocytes # (Auto) 0.6 TH/MM3 0.5 TH/MM3 Monocytes # (Auto) 0.2 TH/MM3 0.2 TH/MM3 Eosinophils # (Auto) 0.1 TH/MM3 0.0 TH/MM3 Basophils # (Auto) 0.0 TH/MM3 0.0 TH/MM3 CBC Comment AUTO DIFF AUTO DIFF Differential Comment AUTO DIFF FINAL DIFF CONFIRMED MANUAL Platelet Estimate LOW LOW Platelet Morphology Comment NORMAL NORMAL Ovalocytes 1+ Keratocytes OCC Prothrombin Time 11.0 SEC Prothromb Time International 1.0 RATIO Ratio Activated Partial 27.2 SEC Thromboplast Time Sodium Level 140 MEQ/L 141 MEQ/L Potassium Level 4.5 MEQ/L 4.5 MEQ/L Chloride Level 109 MEQ/L 111 MEQ/L Carbon Dioxide Level 23.0 MEQ/L 22.4 MEQ/L Anion Gap 8 MEQ/L 8 MEQ/L Blood Urea Nitrogen 18 MG/DL 18 MG/DL Creatinine 2.02 MG/DL 1.77 MG/DL Estimat Glomerular Filtration 33 ML/MIN 38 ML/MIN Rate Random Glucose 162 MG/DL 111 MG/DL Calcium Level 8.3 MG/DL 7.8 MG/DL Total Bilirubin 0.6 MG/DL Aspartate Amino Transf 25 U/L (AST/SGOT) Alanine Aminotransferase 19 U/L (ALT/SGPT) Alkaline Phosphatase 88 U/L Total Protein 6.3 GM/DL Albumin 2.6 GM/DL Differential Total Cells 100 Counted Neutrophils % (Manual) 85 % Band Neutrophils % 1 % Lymphocytes % 10 % Monocytes % 3 % Eosinophils % 1 % Neutrophils # (Manual) 3.8 TH/MM3 Physical Exam General General Appearance: Well Developed, Well Nourished, No Acute Distress, Comfortable Eyes Eye Exam: Pupils Equal, Pupils Reactive Eye Remarks left eyebrow laceration, sutured, left periorbital swelling and bruising Ears & Nose Ears & Nose Exam: Nasal Mucosa [place] Throat Throat Exam: Oral Mucosa [place] & Moist Neck Neck Exam: Neck Supple, Trachea Midline Pulmonary Resp Exam: Clear Bilaterally, No Distress Cardiology CV Exam: Regular, Good Perfusion, Murmur Gastrointestinal/Abdomen GI Exam: Soft, Non-Tender, Bowel Sounds Present, Non-Distended Musculoskeletal MS Remarks left hand with bulky dressing and splint intact Integumentary Skin Exam: Warm, Dry Skin Remarks bruising to left chest wall Extremeties Extremities Exam: No Edema, Pedal Pulses Palpable Neurologic Neuro Exam: Alert, Awake, Oriented, Speech Clear Psychiatric Psych Exam: Appropriate Responses VTE Prophylaxis VTE Prophylaxis Device: SCDs VTE Prophylaxis Meds: Heparin Assessment/Plan Assessment/Plan Status post fall Laceration left eyebrow, Status post suturing of the above Laceration base of left fifth finger Fracture of the left fifth proximal phalanx S/P Open reduction, pinning and I/D of left fifth prox phalanx 01/08 Thrombocytopenia Chronic kidney disease Mild anemia Macrocytosis On Plavix for prior stroke On chemotherapy for history of renal cell carcinoma Management Laceration base of left fifth finger & Fracture of the left fifth proximal phalanx S/P Open reduction, pinning and I/D of left fifth prox phalanx 01/[address] Lu's input continue with pain management continue abx Continuous telemetry continue to hold Plavix Continue home meds Monitor platelets, 60,000 renal function stable, improving continue with IVF DVT prophylaxis with low-dose heparin postoperatively Monitor CBC CM for dc planning, poss. home tomorrow when cleared by hand surgery Discussed with patient Discussed with nurse Discussed with Dr. Oh This patient was seen by myself and Dr. Oh, this note is written on his behalf. Michelle Brito Jan 09, 2017 13:27
--- NOTE | 2017-01-09 13:28 | HHI.FF ---
Face to Face Verification Diagnosis: (1) Open fracture Home Health Nursing Order: Medical education Wound care and dressing changes Nursing assessment with vital signs I have seen patient Israel Solano on 01/09/17. My clinical findings support the need for the requested home health care services because: Limited ability to care for self High risk of falls I certify that my clinical findings support that this patient is homebound because: Unsteady gait/balance Need for psychosocial assistance Michelle BritoP Jan 09, 2017 13:28
[2017-01-09] MEDS ORDERED: HYDR-3288 PO (13:46)
[2017-01-09] MEDS ORDERED: CEPH-460 PO (13:46)
--- NOTE | 2017-01-09 13:49 | HHI.PR ---
Subjective Remarks pt is comfortable; no new complaints Objective Vital Signs Date Time Temp Pulse Resp B/P Pulse Ox O2 Delivery O2 Flow Rate FiO2 01/09/17 10:37 97.0 67 16 143/63 92 01/09/17 07:36 98.3 70 19 147/67 92 01/09/17 04:50 98.3 75 17 152/73 93 01/09/17 00:50 96.8 79 17 160/70 93 01/08/17 22:20 98.3 89 16 161/75 94 Nasal Cannula 3 01/08/17 22:10 82 14 149/77 92 Nasal Cannula 3 01/08/17 22:00 95 15 156/75 93 Nasal Cannula 4 01/08/17 22:00 17 01/08/17 21:45 98 14 173/81 93 Nasal Cannula 4 01/08/17 21:30 90 15 190/87 94 Simple Mask 8 01/08/17 21:15 89 18 187/85 88 Aerosol Mask 8 01/08/17 21:05 97.5 96 16 177/95 86 Simple Mask 8 01/08/17 17:55 97.8 67 16 150/68 99 Room Air 01/08/17 16:34 17 01/08/17 15:00 68 16 99 Room Air I/O 01/08/17 01/08/17 01/08/17 01/09/17 01/09/17 01/09/17 07:00 15:00 23:00 07:00 15:00 23:00 Intake Total 1550 ml 240 ml Output Total 25 ml Balance 1525 ml 240 ml Intake Oral 350 ml 240 ml Other 1200 ml Output Stool Total 0 ml Estimated Blood Loss 25 ml # Voids 5 # Bowel Movements 0 Result Diagram: 01/09/17 0420 01/09/17 0420 Objective Remarks sitting comfortably in chair eating; comfortable able to wiggle left hand fingers all finger tips pink, soft CR<2 sec splint completely intact Assessment and Plan Problem List: (1) Open fracture Status: Acute Plan: ok to d/c from hand surgery standpoint and f/u in office in about 10 days po abx for7 days; RX on chart pain meds prn; RX on chart keep left hand elevated Tony Lu III, MD Jan 09, 2017 13:49
[2017-01-09 14:43] LABS: HEMOGLOBIN A1a 1.2 %; HEMOGLOBIN A1b 0.8 %; HEMOGLOBIN Ao 84.5 %; HEMOGLOBIN LA1C 2.1 %; HEMOGLOBIN P3 5.5 %
--- NOTE | 2017-01-09 14:45 | HHI.DCPOC ---
Discharge Care Plan Diagnosis: (1) Open fracture Your Health Problems Are: Skin Breakdown Inflammation Swelling Goals to Promote Your Health * To prevent worsening of your condition and complications * To maintain your health at the optimal level Directions to Meet Your Goals Take your medications as prescribed Follow your dietary instruction Follow activity as directed Keep your appointments as scheduled Take your immunizations and boosters as scheduled If your symptoms worsen call your PCP, if no PCP go to Urgent Care Center or Emergency Room Smoking is Dangerous to Your Health. Avoid second hand smoke Call the 24-hour hour crisis hotline for domestic abuse at Michelle Brito [facility] Jan 09, 2017 14:45
[2017-01-09 15:22] VITALS: BP 112/56; PULSE 67; RESP 19; TEMP 96.1; O2SAT 99
[2017-01-09] MEDS: VANCOMYCIN INJ 1,000 MG in SODIUM CHLOR 0.9% 250 ML INJ 250 ML IV SCH (16:25)
--- NOTE | 2017-01-09 19:50 | EKG ---
Date Performed: 01/08/2017 Time Performed: 15:05:49 PTAGE: 71 years EKG: Sinus rhythm with First Degree AV Block MODERATE INTRAVENTRICULAR CONDUCTION DELAY MINIMAL ST DEPRESSION Compared to prior tracing no significant change ABNORMAL ECG PREVIOUS TRACING : 08/12/2015 16.27 DOCTOR: Gabriel Holley Interpretating Date/Time 01/09/2017 19:49:32
--- NOTE | 2017-01-10 17:23 | HHI.DS ---
Discharge Summary Admission Date Jan 08, 2017 at 17:10 Discharge Date: Jan 09, 2017 Admitting Diagnosis Open fracture left fifth proximal phalange Procedures Hand surgery Brief History This was a 71-year-old gentleman who saw Dr. Nicolas Fuller as his primary physician. He also saw Dr. Yousif as his oncologist. He had renal cell carcinoma. He was following his dog on a leash today. The dog pulled him and patient fell hitting left side of his head also injuring his left hand. He presented to the emergency department at [facility] with a wound at the base of his left fifth finger and the laceration on his left eyebrow. He received 12 sutures in the emergency department for his left eyebrow. He was found to have fractures in both left fourth and fifth fingers. He was being taken to the operating room tonight by the hand surgeon infection control coordinator to fix his left hand laceration. He was seen by the undersigned in room C26. He was alert and oriented. He did not have any problems with his vision. He had an old stroke. He was documented as diabetic. CBC/BMP: 01/09/17 0420 01/09/17 0420 Significant Findings Laboratory Tests Test 01/08/17 01/09/17 15:00 04:20 Red Blood Count 3.34 MIL/MM3 3.10 MIL/MM3 (4.50-5.90) (4.50-5.90) Hemoglobin 11.0 GM/DL 10.5 GM/DL (13.0-17.0) (13.0-17.0) Hematocrit 34.5 % 32.2 % (39.0-51.0) (39.0-51.0) Mean Corpuscular Volume 103.3 FL 104.1 FL (80.0-100.0) (80.0-100.0) Platelet Count 67 TH/MM3 60 TH/MM3 (150-450) (150-450) Neutrophils (%) (Auto) 79.5 % 81.2 % (16.0-70.0) (16.0-70.0) Lymphocytes # (Auto) 0.6 TH/MM3 0.5 TH/MM3 (1.0-4.8) (1.0-4.8) Platelet Estimate LOW (NORMAL) LOW (NORMAL) Ovalocytes 1+ (NORMAL) Chloride Level 109 MEQ/L 111 MEQ/L (98-107) (98-107) Creatinine 2.02 MG/DL 1.77 MG/DL (0.60-1.30) (0.60-1.30) Estimat Glomerular Filtration 33 ML/MIN (>89) 38 ML/MIN (>89) Rate Random Glucose 162 MG/DL 111 MG/DL (74-106) (74-106) Calcium Level 8.3 MG/DL 7.8 MG/DL (8.5-10.1) (8.5-10.1) Total Protein 6.3 GM/DL (6.4-8.2) Albumin 2.6 GM/DL (3.4-5.0) Neutrophils % (Manual) 85 % (16-70) Imaging Last Impressions Hand X-Ray 01/08/17 1453 Signed Impressions: Service Date/Time: December 15:31 - CONCLUSION: Fifth proximal phalangeal fracture. Britt Kincaid MD Maxillofacial CT 01/08/17 0000 Signed Impressions: Service Date/Time: December 15:52 - CONCLUSION: No definite fracture is seen for technique. Britt Kincaid MD Head CT 01/08/17 0000 Signed Impressions: Service Date/Time: December 15:48 - CONCLUSION: 1. Old right occipital and bilateral cerebellar infarcts are noted. 2. No acute infarct, acute hemorrhage, mass effect or extra-axial fluid collections are noted. 3. Mild central cerebral atrophy is noted. 4. Mild periventricular and subcortical white matter small vessel ischemic changes are noted bilaterally. 5. Minimal mucosal thickening is noted within the left frontal sinus and left anterior ethmoid air cells. Darron Nolan MD Chest X-Ray 01/08/17 0000 Signed Impressions: Service Date/Time: December 15:21 - CONCLUSION: No evidence of free flowing pleural effusion on either side. Darron Nolan MD Cervical Spine CT 01/08/17 0000 Signed Impressions: Service Date/Time: December 15:52 - CONCLUSION: Slight neural foramina compromise left C3-C4. Britt Kincaid MD PE at Discharge General Appearance: Well Developed, Well Nourished, No Acute Distress, Comfortable Eyes Eye Exam: Pupils Equal, Pupils Reactive Eye Remarks left eyebrow laceration, sutured, left periorbital swelling and bruising Ears & Nose Ears & Nose Exam: Nasal Mucosa [place] Throat Throat Exam: Oral Mucosa [place] & Moist Neck Neck Exam: Neck Supple, Trachea Midline Pulmonary Resp Exam: Clear Bilaterally, No Distress Cardiology CV Exam: Regular, Good Perfusion, Murmur Gastrointestinal/Abdomen GI Exam: Soft, Non-Tender, Bowel Sounds Present, Non-Distended Musculoskeletal MS Remarks left hand with bulky dressing and splint intact Integumentary Skin Exam: Warm, Dry Skin Remarks bruising to left chest wall Extremeties Extremities Exam: No Edema, Pedal Pulses Palpable Neurologic Neuro Exam: Alert, Awake, Oriented, Speech Clear Psychiatric Psych Exam: Appropriate Responses VTE Prophylaxis VTE Prophylaxis Device: SCDs VTE Prophylaxis Meds: Heparin Assessment/Plan Assessment/Plan Status post fall Laceration left eyebrow, Status post suturing of the above Laceration base of left fifth finger Fracture of the left fifth proximal phalanx S/P Open reduction, pinning and I/D of left fifth prox phalanx 01/08 Thrombocytopenia Chronic kidney disease Mild anemia Macrocytosis On Plavix for prior stroke On chemotherapy for history of renal cell carcinoma Management Laceration base of left fifth finger & Fracture of the left fifth proximal phalanx S/P Open reduction, pinning and I/D of left fifth prox phalanx 01/[address] Lu's input continue with pain management continue abx Continuous telemetry continue to hold Plavix Continue home meds Monitor platelets, 60,000 renal function stable, improving continue with IVF DVT prophylaxis with low-dose heparin postoperatively Monitor CBC CM for dc planning, poss. home tomorrow when cleared by hand surgery Discussed with patient Discussed with nurse Discussed with Dr. Oh This patient was seen by myself and Dr. Oh, this note is written on his behalf. Michelle Brito Jan 09, 2017 13:27 Addendum: Shwetha Oh MD on 01/09/17 @ 17:59 seen, examined by myself, Dr Oh, today Discussed with patient He is to be on Keflex for 1 week Follow-up with hand surgeon Follow-up with his own primary physician next week to remove the sutures from the left eyebrow He needs to have a workup for his microcytosis with his paper finisher if not already done He was recommended to at least make sure that he has a B-12 and a folate level done soon, he verbalized understanding Discussed with mid level provider The exam, history, and the medical decision-making described in the above note were completed with the assistance of the mid-level provider. I reviewed the findings presented. I attest that I had a [id number] encounter with the patient on the same day, and personally performed and documented my assessment and findings in the medical record. Hospital Course These are the diagnoses that were used for the plan of care and treatment for this patient during this hospital stay. Status post fall Laceration left eyebrow, Status post suturing of the above Laceration base of left fifth finger Fracture of the left fifth proximal phalanx S/P Open reduction, pinning and I/D of left fifth prox phalanx 01/08 Thrombocytopenia Chronic kidney disease Mild anemia Macrocytosis On Plavix for prior stroke On chemotherapy for history of renal cell carcinoma Management used; Laceration base of left fifth finger & Fracture of the left fifth proximal phalanx S/P Open reduction, pinning and I/D of left fifth prox phalanx done on 01/[address] 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 home tomorrow when cleared by hand surgery Patient was seen, examined by myself, Dr Oh, today Discussed with patient He is to be on Keflex for 1 week Follow-up with hand surgeon Follow-up with his own primary physician next week to remove the sutures from the left eyebrow He needs to have a workup for his microcytosis with his paper finisher if not already done He was recommended to at least make sure that he has a B-12 and a folate level done soon, he verbalized understanding Discussed with mid level provider The exam, history, and the medical decision-making described in the above note were completed with the assistance of the mid-level provider. I reviewed the findings presented. I attest that I had a [id number] encounter with the patient on the same day, and personally performed and documented my assessment and findings in the medical record. Patient was medically stable for discharge. Pt Condition on Discharge: Stable Discharge Disposition: Discharge Home Discharge Instructions DIET: Follow Instructions for: Heart Healthy Diet Activities you can perform: Weight Bearing as Terrie Other Activity Instructions: fall risk Follow up Referrals: Hand Surgery - 1 Week with Tony Lu III, MD PCP Follow-up - 1 Week New Medications: Cephalexin (Keflex) 500 Mg Cap 500 MG PO Q8H Infection #21 Ref 0 CAP Hydrocodone-Acetaminophen ([place]) 7.5-325 mg Tab 1 TAB PO Q6H PRN PAIN #15 Ref 0 TAB Continued Medications: Amlodipine (Amlodipine) 5 Mg Tab 5 MG PO DAILY Blood Pressure Management #30 Ref 0 TAB Carvedilol (Coreg) 25 Mg Tab 25 MG PO BID #60 Ref 0 TAB Clopidogrel (Plavix) 75 Mg Tab 75 MG PO DAILY Blood Clot Prevention #30 Ref 0 TAB Diphenoxylate-Atropine (Lomotil) 2.5-0.025 Mg Tab 1 TAB PO Q6H PRN DIARRHEA Ref 0 TAB Furosemide (Lasix) 40 Mg Tab 40 MG PO DAILY #30 Ref 0 TAB Levothyroxine (Levothyroxine) 25 Mcg Tab 175 MCG PO DAILY Take 1 tablet (25mcg) with 150mcg tab for a total dose of 175mcg Thyroid #30 Ref 0 TAB Levothyroxine (Levothyroxine) 150 Mcg Tab 175 MCG PO DAILY Take 1 tablet (150mcg) with 25mcg tab for a total dose of 175mcg Thyroid #30 Ref 0 TAB Mirabegron (Myrbetriq) 50 Mg Tab 50 MG PO DAILY Urinary Symptom Managemen #30 Ref 0 TAB Oxycodone-Acetaminophen (Percocet) 10-325 mg Tab 1 TAB PO QID PRN BREAKTHROUGH PAIN Ref 0 TAB Pazopanib HCl (Votrient) 200 Mg Tab 800 MG PO DAILY Rosuvastatin (Crestor) 20 Mg Tab 20 MG PO DAILY Cholesterol Management #30 Ref 0 TAB Emily Alegre Jan 10, 2017 17:23
--- NOTE | 2017-01-11 20:30 | MP ---
cc: TONY LU III, M.D. DATE OF SURGERY: 01/08/2017. PREOPERATIVE DIAGNOSIS: 1. Left proximal phalanx open fracture. 2. Left ring finger complex wound. OPERATIVE PROCEDURE PERFORMED: 1. Debridement of open fracture, left fifth finger. 2. Left fifth proximal phalanx open reduction and pinning. 3. Left ring finger complex wound closure 2 cm. 4. Use of image intensifier SURGEON: Tony Lu III, MD. DESCRIPTION OF THE PROCEDURE IN DETAIL: The patient was brought to the operating room and placed supine on the operating table. After the correct site and side of surgery were verified by members of each team in the room multiple times including the patient and myself and after adequate preoperative markings and preoperative written consent were verified by everyone and after adequate preoperative time-out was performed to everyone's satisfaction and after adequate general anesthesia had been achieved, the left upper extremity was prepped and draped in the traditional sterile surgical fashion. Using a mini C-arm, the site of the intended procedure was verified. The wounds in the fourth and fifth fingers were retracted open and the 2 liters-worth of saline irrigation was used to thoroughly flush out the wounds. There was no vital structure injured deep to the skin in the ring finger and this was then closed using interrupted 4-0 chromic sutures piecing the edges of the wound back together carefully. The devitalized skin was excised. Exploration into the fifth finger of the volar wound was performed and it did appear that there was connection between the outside world and the proximal phalanx but it did not appear that the bone could have traversed the distance and come out and then back in. In either event, it was treated the same way as a savage fracture and the devitalized area therefore debrided. The fracture site itself was exposed and thoroughly irrigated and gently debrided. All devitalized tissue which was minimal was excised. The skin edges were cleaned and the skin edges reapproximated using running and interrupted 4-0 chromic sutures. Using the 0.035-cm and 0.045-cm K-wires in an antegrade fashion, the proximal phalanx was reduced and the three K-wires were at differing angles. They were tailored to length, cut and bent. Mikhail balls were applied. Final x-rays were obtained. Reduction was near anatomic. Additional local anesthetic was injected deeply to provide for postoperative pain control. Xeroform was applied around the pin sites. Betadine and Adaptic was applied around the dressings. The axillary tourniquet was released and the hand and all the fingers became immediately soft, pink, warm and had brisk capillary refill of less than 2 seconds. There was no evidence of any hematoma anywhere. A bulky soft dressing was then applied to the whole hand and then a volar immobilizing ulnar-sided splint out to the tips of the third, fourth and fifth fingers was made in the usual fashion. The patient was awakened from anesthesia and transported to the post-anesthesia care unit awake and in stable condition at the end of the case. Sponge, needle and instrument counts were correct at the end of the case as reported by the nurses in the room. MD MONICO Mcgrath III/[place] /9:13 PM /8:21 PM
[2017-02-25] MEDS ORDERED: PRIL20TA2 PO (13:49)
[2017-02-25] MEDS ORDERED: ZOFR4TAB PO (13:49)
== END 2017-01-09 17:51 | disposition home or self-care (01) | DRG 513 ==
LOC: HOR 13:01 → NEDA 17:10 → HPAC 19:03 → N06B 22:56
PROVIDERS: ADMIT Specialist; ATTEND Specialist
PROC: 0HQGXZZ Repair Left Hand Skin, External Approach (ICD-10-PCS; 2017-01-08)
PROC: 0HQ1XZZ Repair Face Skin, External Approach (ICD-10-PCS; 2017-01-08)
PROC: 0PSV04Z Reposition Left Finger Phalanx with Internal Fixation Device, Open Approach (ICD-10-PCS; principal; 2017-01-08 19:32)
DX: S62.611A Displaced fracture of proximal phalanx of left index finger, initial encounter for closed fracture (principal); C64.9 Malignant neoplasm of unspecified kidney, except renal pelvis; E11.9 Type 2 diabetes mellitus without complications; I12.9 Hypertensive chronic kidney disease with stage 1 through stage 4 chronic kidney disease, or unspecified chronic kidney disease; E03.9 Hypothyroidism, unspecified; D63.1 Anemia in chronic kidney disease; S61.215A Laceration without foreign body of left ring finger without damage to nail, initial encounter; S01.81XA Laceration without foreign body of other part of head, initial encounter; W18.39XA Other fall on same level, initial encounter; Y93.K1 Activity, walking an animal; N18.9 Chronic kidney disease, unspecified; I25.10 Atherosclerotic heart disease of native coronary artery without angina pectoris; Z95.1 Presence of aortocoronary bypass graft; Z92.21 Personal history of antineoplastic chemotherapy; Z92.3 Personal history of irradiation; K21.9 Gastro-esophageal reflux disease without esophagitis; Z90.5 Acquired absence of kidney; Z86.73 Personal history of transient ischemic attack (TIA), and cerebral infarction without residual deficits; Z87.891 Personal history of nicotine dependence; Z79.899 Other long term (current) drug therapy; Z85.51 Personal history of malignant neoplasm of bladder
CPT/HCPCS: 12014; 36415; 36591; 70450; 70486; 71035; 72125; 73130; 76000; 80048; 80053; 83036; 84443; 85007; 85025; 85027; 85610; 85730; 90471; 90714; 93005; 94664; 96365; 96368; 96375; 99212; 99214; G0463; J0360; J0690; J1580; J1644; J2270; J2405; J2543; J2710; J3010; J3370; J7030; J7050; J7120; J7613

== ENCOUNTER → 2017-03-30 | Day surgery (SDC) | payer MEDICARE ==
[~2017-03-30] VITALS: Ht 172.7 cm; Wt 81.8 kg
[~2017-03-30] MED LIST changes: +AMLO5TAB2 PO; -AMLO5TAB22 PO; +CEPH-459 PO; +CHLORHEXIDINE GLUCONATE 2 % 1 PACK (2 CLOTHS) TOPICAL PRN; -CLOP75 PO; +DO NOT ADM ANY ANTICOAGULANT DRUGS PRN; +INSULIN HUMAN REGULAR 1,000 UNITS/10 ML VIAL SQ PRN; +IOHEXOL 350 MG/ML 10 ML VIAL (for RAD DIAG) ONE; -LACTATED RINGER'S 1000 ML INJ 1,000 ML IV ONE; +LACTATED RINGER'S 1000 ML IV PRN; -LEVO.15 PO; +LEVO150T7 PO; +LEVO175T2 PO; +LOMO2.5T PO; +METOPROLOL TARTRATE 25 MG TAB PO PRN; +MORPHINE SULFATE 4 MG/ML INJ ONE; -NEOMYCIN/POLYMYXIN 1 ML G.U. IRRIGANT IRRIGATION ONE; -NEOSTIGMINE 3 MG/3 ML SYR IV ONE; +ONDANSETRON HCL 4 MG/2 ML VIAL IV PUSH PRN; -PAZO200T PO; +PERC5TAB12 PO; +PHENYLEPH/NS 1000 MCG/10 ML SYR IV ONE; +PLAV75TA29 PO; +POVIDONE IODINE 5% (ANTISEPSIS KIT) 4 APPLICATIONS EACH NARE PRN; +PRIL20TA2 PO; -PROT40TA PO; +SODIUM CHLORID 0.9% 500 ML IV PRN; +SODIUM CHLORIDE 0.9% FLUSH 10 ML FLUSH IV FLUSH PRN; -VENTAER INH; +ZOFR4TAB PO; -ZOFR4TAB3 SL; +[UNRECOGNIZED DRUG - CODE] PO; +ceFAZolin 2 GM PREMIX 50 ML IV SCH; +oxyCODONE/ACETAMINOPHEN 5 MG/325 MG TAB PO PRN
[2017-03-30 06:51] VITALS: BP 164/68; PULSE 70; RESP 22; TEMP 97.6; O2SAT 93
[2017-03-30 07:04] LABS: AUTOMATED NEUTROPHIL # 2.2 TH/MM3 (1.8-7.7); BASOPHIL % 0.4 % (0.0-2.0); EOSINOPHIL # 0.1 TH/MM3 (0-0.4); EOSINOPHIL % 3.9 % (0.0-4.0); HEMATOCRIT 32.9 % (39.0-51.0); LYMPH % 17.8 % (9.0-44.0); LYMPHOCYTE # 0.6 TH/MM3 (1.0-4.8); MEAN CELL VOLUME 102.3 FL (80.0-100.0); MEAN CORPUSCULAR HEMOGLOBIN 32.8 PG (27.0-34.0); MEAN CORPUSCULAR HGB CONC 32.1 % (32.0-36.0); NEUT % 70.9 % (16.0-70.0); PLATELET COUNT 59 TH/MM3 (150-450); RED BLOOD COUNT 3.21 MIL/MM3 (4.50-5.90); RED CELL DISTRIBUTION WIDTH 16.3 % (11.6-17.2); WHITE BLOOD COUNT 3.1 TH/MM3 (4.0-11.0)
[2017-03-30 07:08] LABS: HEMO FLAGS AUTO DIFF
[2017-03-30 07:35] LABS: SCAN/DIFF AUTO DIFF CONFIRMED
--- NOTE | 2017-03-30 09:07 | PD.OP ---
Operative Report Date of Surgery: Mar 30, 2017 Preoperative Diagnosis: (1) History of bladder cancer Postoperative Diagnosis: (1) History of bladder cancer Procedure: Cystoscopy Anesthesia: General Surgeon: Richie Vallejo Editor In Chief(s): None Operation and Findings: Indication for procedure: Case of a pleasant 71-year-old gentleman with history metastatic renal CA as well as bladder cancer treated with chemotherapy and radiation therapy approximately 2 years ago. Patient presents now for follow up cystoscopic evaluation. His last cystoscopy was greater than 1 year ago. Preoperative laboratory studies performed earlier this morning demonstrated a persistently low platelet count thus a biopsy will not be performed unless there is a suspicious finding on today's exam. Operative procedure in detail: Patient was brought to the operating room suite and placed supine on the cystoscopy table. He was then placed under general anesthesia. He was then repositioned in the dorsolithotomy position and prepped and draped in normal sterile fashion. After appropriate timeout was undertaken I proceeded with cystoscopic evaluation utilizing the rigid cystoscope with the 30 lens and 20 [place] sheath. There was some mild narrowing of the pendulous urethra which was easily dilated with male sounds. This narrowed segment was sequentially dilated starting at 14 [place] and dilating to 20 [place] without difficulty. I next was easily able to advance the cystoscope. The prostatic urethra was nonobstructing. Further passage of the scope within the urinary bladder revealed a single remaining ureteral orifice to be effluxing clear yellow urine. There were no bladder mucosal lesions suspicious for recurrent bladder tumor formation. No calculi were seen. The bladder wall was somewhat thickened consistent with prior radiation therapy. The bladder was drained of irrigant fluid and the cystoscope was withdrawn. The patient tolerated the procedure without complications and was transferred to the PACU in satisfactory condition. Richie Vallejo MD Mar 30, 2017 09:07
[2017-03-30 11:16] VITALS: BP 135/56; PULSE 76; RESP 18; TEMP 97.4; O2SAT 96
== END | disposition home or self-care (01) ==
LOC: HSDC 05:46
PROVIDERS: ATTEND Urology
DX: Z85.51 Personal history of malignant neoplasm of bladder (principal); Z85.528 Personal history of other malignant neoplasm of kidney; J44.9 Chronic obstructive pulmonary disease, unspecified; K21.9 Gastro-esophageal reflux disease without esophagitis; E03.9 Hypothyroidism, unspecified; N18.9 Chronic kidney disease, unspecified; Z92.21 Personal history of antineoplastic chemotherapy; Z92.3 Personal history of irradiation
CPT/HCPCS: 00910; 52000; 85025; J0690; J1642; J2270; J2370; J2405; J3010; J7120; Q9967

== ENCOUNTER → 2017-11-30 | Day surgery (SDC) | payer MEDICARE, MEDICAID ==
[~2017-11-30] VITALS: Ht 172.7 cm; Wt 79.4 kg
[~2017-11-30] MED LIST changes: +DEXAMETHASONE SOD PHOS 4 MG/ML VIAL IV ONE; -INSULIN HUMAN REGULAR 1,000 UNITS/10 ML VIAL SQ PRN; -IOHEXOL 350 MG/ML 10 ML VIAL (for RAD DIAG) ONE; -MORPHINE SULFATE 4 MG/ML INJ ONE; +ONDANSETRON HCL 4 MG/2 ML VIAL IV ONE; -ONDANSETRON HCL 4 MG/2 ML VIAL IV PUSH ONE; -PHENYLEPH/NS 1000 MCG/10 ML SYR IV ONE; +TIOT1AER INH; +TRIAM.1%T TOPICAL
[2017-11-30 08:03] LABS: AUTOMATED NEUTROPHIL # 3.4 TH/MM3 (1.8-7.7); BASOPHIL % 0.4 % (0.0-2.0); EOSINOPHIL # 0.1 TH/MM3 (0-0.4); EOSINOPHIL % 2.4 % (0.0-4.0); HEMATOCRIT 27.3 % (39.0-51.0); HEMOGLOBIN 9.2 GM/DL (13.0-17.0); LYMPH % 14.1 % (9.0-44.0); LYMPHOCYTE # 0.6 TH/MM3 (1.0-4.8); MEAN CELL VOLUME 108.1 FL (80.0-100.0); MEAN CORPUSCULAR HEMOGLOBIN 36.5 PG (27.0-34.0); MEAN CORPUSCULAR HGB CONC 33.7 % (32.0-36.0); MEAN PLATELET VOLUME 9.7 FL (7.0-11.0); MONO % 4.7 % (0.0-8.0); MONOCYTE # 0.2 TH/MM3 (0-0.9); NEUT % 78.4 % (16.0-70.0); PLATELET COUNT 63 TH/MM3 (150-450); RED BLOOD COUNT 2.52 MIL/MM3 (4.50-5.90); RED CELL DISTRIBUTION WIDTH 18.1 % (11.6-17.2); WHITE BLOOD COUNT 4.3 TH/MM3 (4.0-11.0)
--- NOTE | 2017-11-30 09:02 | PD.OP ---
Operative Report Date of Surgery: Nov 30, 2017 Preoperative Diagnosis: (1) Urethral stricture Postoperative Diagnosis: (1) Urethral stricture Procedure: Cystoscopy, direct visual internal urethrotomy, bladder biopsy with fulguration Anesthesia: General Surgeon: Richie Vallejo Computer Customer Support Specialist(s): None Operation and Findings: Indication for procedures: Case of a pleasant 72-year-old gentleman with history metastatic renal CA as well as bladder cancer status post radiation therapy who was recently discovered to have a urethral stricture during office cystoscopic evaluation. Patient presents today for cystoscopy with direct visual internal urethrotomy. Operative procedure in detail: Patient was brought to the operating room suite and placed supine on the OR table. He was then placed under general anesthesia. He was then repositioned in the dorsolithotomy position and prepped and draped in normal sterile fashion. After appropriate timeout was undertaken I proceeded with cystoscopic evaluation utilizing the rigid cystoscope with the 19 [place] sheath and 30 lens. Once again the patient was noted to have a circumferential urethral stricture involving the anterior urethra. I next exchanged the cystoscope for the direct visual internal urethrotome with the straight blade and proceeded to perform a direct visual internal urethrotomy by cutting at the 12 o'clock position. Subsequent to this the cystoscope was reintroduced and a full cystoscopic evaluation performed. There was a area of mildly heaped up tissue involving the right posterior wall of the bladder which I was uncertain whether this was inflammatory nature or a recurrent bladder tumor. I proceeded with a biopsy of this area with subsequent fulguration. The remainder of the bladder had patchy erythema consistent with patient's known history of radiation therapy. The bladder was drained of all irrigant fluid and the cystoscope was withdrawn. A 16 [place] 10 cc Blas catheter was then placed and connected to gravity drainage. The patient tolerated the procedures without complications and was transferred to the PACU in satisfactory condition. Richie Vallejo MD Nov 30, 2017 09:02
[2017-11-30 10:25] VITALS: BP 146/56; PULSE 67; RESP 20; TEMP 98; O2SAT 92
== END | disposition home or self-care (01) ==
LOC: HSDC 05:46
PROVIDERS: ATTEND Urology
DX: N35.9 Urethral stricture, unspecified (principal); D49.4 Neoplasm of unspecified behavior of bladder
CPT/HCPCS: 00910; 52276; 85025; 88305; J0690; J1100; J2405; J3010

== ENCOUNTER 2017-12-23 11:41 | Inpatient (IN) | payer MEDICAID, MEDICARE ==
[2017-12-23] VITALS (8 sets, daily range): BP systolic 133–159; BP diastolic 63–76; PULSE 73–95; RESP 18–25; TEMP 97.4–98.9; O2SAT 91–96
[~2017-12-23] VITALS: Ht 172.7 cm; Wt 86.1 kg
[~2017-12-23 11:41] MED LIST changes: -CHLORHEXIDINE GLUCONATE 2 % 1 PACK (2 CLOTHS) TOPICAL PRN; -DEXAMETHASONE SOD PHOS 4 MG/ML VIAL IV ONE; -DO NOT ADM ANY ANTICOAGULANT DRUGS PRN; -LACTATED RINGER'S 1000 ML IV PRN; -METOPROLOL TARTRATE 25 MG TAB PO PRN; -ONDANSETRON HCL 4 MG/2 ML VIAL IV ONE; -ONDANSETRON HCL 4 MG/2 ML VIAL IV PUSH PRN; -POVIDONE IODINE 5% (ANTISEPSIS KIT) 4 APPLICATIONS EACH NARE PRN; -PROPOFOL 200 MG/20 ML AMP IV ONE; -SODIUM CHLORID 0.9% 500 ML IV PRN; -SODIUM CHLORIDE 0.9% FLUSH 10 ML FLUSH IV FLUSH PRN; -ceFAZolin 2 GM PREMIX 50 ML IV SCH; -oxyCODONE/ACETAMINOPHEN 5 MG/325 MG TAB PO PRN
--- NOTE | 2017-12-23 12:22 | PD ---
HPI Chief Complaint: Edema Time Seen by Provider: 12:02 Travel History International Travel<30 days: No Contact w/Intl Traveler<30days: No Traveled to known affect area: No History of Present Illness HPI Patient family member gives a history of a bladder surgery open (sounds like a possible cystoscopy with removal of scar tissue and biopsy, per Dr. Matthews biopsies negative for recurrence of cancer) that was performed earlier in November , after which he had a Blas placed and has been placed since then. Initially there was some bleeding which resolved. But now the bleeding has restarted and the Blas seems to be clogged over the last few days. However the family has been noted that over the last 3 weeks the patient has increased in weight and swelling to his extremities has been noted. Today she went to the patient's primary care physician who measured his weight and he is 30 pounds heavier than he was [address] Matthews who is the urologist advised the patient to come to the emergency department to get some blood work and evaluate if there is some sort of a platelet dysfunction and may be leading to him now having blood in his Blas bag.... Although patient is not complaining off he is noted to be short of breath States allergic to Cipro Past medical history significant for hypothyroidism, tonsillectomy, CVA, CABG, congestive heart failure, hyperlipidemia, hypertension, COPD, GERD, irritable bowel syndrome, kidney cancer with nephrectomy, now he only has one kidney left. PFSH Past Medical History Hx Anticoagulant Therapy: Yes (PLAVIX) Arthritis: Yes (Hands) Asthma: No Autoimmune Disease: No Blood Disorders: No Anxiety: No Depression: No Heart Rhythm Problems: No Cancer: Yes (KIDNEY) Cardiac Catheterization: Yes Cardiovascular Problems: Yes Chemotherapy: Yes (2014) Chest Pain: No Congestive Heart Failure: Yes COPD: No Cerebrovascular Accident: Yes Diabetes: No Diminished Hearing: No Endocrine: Yes Gastrointestinal Disorders: Yes GERD: Yes Glaucoma: No Genitourinary: Yes Headaches: No Hepatitis: No Hiatal Hernia: No Hypertension: Yes Immune Disorder: No Kidney Stones: No Musculoskeletal: Yes (ARTHRITIS) Neurologic: Yes (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) Psychiatric: Yes Reproductive: No Respiratory: Yes Immunizations Current: No Migraines: No Myocardial Infarction: No Radiation Therapy: Yes ( RXT) Renal Failure: Yes Seizures: No Sickle Cell Disease: No Sleep Apnea: No Thyroid Disease: Yes Ulcer: No Past Surgical History Abdominal Surgery: No AICD: No Appendectomy: No Arteriovenous Shunt: No Body Medical Devices: STERNAL WIRES Cardiac Surgery: Yes (CABG X3 VES) Cholecystectomy: No Coronary Artery Bypass Graft: Yes (triple 2009) Ear Surgery: No Endocrine Surgery: No Eye Surgery: Yes (CATARACT SURGERY) Genitourinary Surgery: Yes (R NEPHRECTOMY FOR CANCER, BLADDER) Gynecologic Surgery: No Insulin Pump: No Joint Replacement: No Neurologic Surgery: Yes Oral Surgery: No Pacemaker: No Thoracic Surgery: No Other Surgery: Yes (PLASTIC SX ON FACE AGE 15) Social History Alcohol Use: No Tobacco Use: No (Quit 19 years ago) Substance Use: No Allergies-Medications (Allergen,Severity, Reaction): Coded Allergies: ciprofloxacin (Verified Allergy, Severe, Swelling, 12/23/17) Reported Meds & Prescriptions Reported Meds & Active Scripts Active Reported Triamcinolone Topical (Triamcinolone Acetonide) 0.1 % Oint 1 Applic TOPICAL QID RASH ON BACK,ABD,LEGS Stiolto Respimat Inh (Tiotropium-Olodaterol Inh) 2.5-2.5 Mcg/Act Aero 1 Puff INH DAILY Levothyroxine (Levothyroxine Sodium) 175 Mcg Tab 175 Mcg PO SUTUTHSA Take 1 tablet (175mcg) daily on Thursday,Thursday, and Thursday Prilosec (Omeprazole Magnesium) 20 Mg Tab 20 Mg PO DAILY Zofran (Ondansetron HCl) 4 Mg Tab 4 Mg PO Q12HR PRN Crestor (Rosuvastatin Calcium) 20 Mg Tab 20 Mg PO DAILY Myrbetriq (Mirabegron) 50 Mg Tab 50 Mg PO DAILY Plavix (Clopidogrel Bisulfate) 75 Mg Tab 75 Mg PO DAILY Coreg (Carvedilol) 25 Mg Tab 25 Mg PO BID Lomotil (Diphenoxylate-Atropine) 2.5-0.025 Mg Tab 1 Tab PO Q6H PRN Percocet (Oxycodone-Acetaminophen) 10-325 mg Tab 1 Tab PO QID PRN Amlodipine (Amlodipine Besylate) 5 Mg Tab 5 Mg PO DAILY Levothyroxine (Levothyroxine Sodium) 150 Mcg Tab 150 Mcg PO MOWEFR Take 1 tablet (150mcg) daily on Thursday,Thursday and Thursday Review of Systems General / Constitutional: No: Fever Eyes: No: Visual changes HENT: No: Headaches Cardiovascular: Positive: Dyspnea on exertion, Edema Respiratory: No: Shortness of Breath Gastrointestinal: No: Abdominal Pain Genitourinary: Positive: Hematuria Musculoskeletal: No: Pain Skin: No Rash Neurologic: No: Weakness Psychiatric: No: Depression Endocrine: No: Polydipsia Hematologic/Lymphatic: No: Easy Bruising Physical Exam Narrative GENERAL: SKIN: Warm and dry. HEAD: Atraumatic. Normocephalic. EYES: Pupils equal and round. No scleral icterus. No injection or drainage. ENT: No nasal bleeding or discharge. Mucous membranes pink and moist. NECK: Trachea midline. No JVD. CARDIOVASCULAR: Regular rate and rhythm. 3+ pitting edema but laterally to lower extremities, upper extremities also noted to have 1+ edema, his abdomen also seems to have pitting edema as well of 1+. No apparent fluid wave to suggest ascites. RESPIRATORY: accessory muscle use. BIbasilar crackles heard. 3 word dyspnea, tripoding GASTROINTESTINAL: Abdomen soft, non-tender, nondistended. MUSCULOSKELETAL: Extremities without clubbing, cyanosis, or edema. No obvious deformities. NEUROLOGICAL: Awake and alert. No obvious cranial nerve deficits. Motor grossly within normal limits. Five out of 5 muscle strength in the arms and legs. Normal speech. PSYCHIATRIC: Appropriate mood and affect; insight and judgment normal. Data Data Last Documented VS Vital Signs Date Time Temp Pulse Resp B/P (MAP) Pulse Ox O2 Delivery O2 Flow Rate FiO2 12/23/17 14:00 75 22 133/63 (86) 94 Nasal Cannula 2.00 12/23/17 11:53 98.9 Orders Orders Complete Blood Count With Diff (12/23/17 12:08) Comprehensive Metabolic Panel (12/23/17 12:08) Troponin I (12/23/17 12:08) B-Type Natriuretic Peptide (12/23/17 12:08) Prothrombin Time / Inr (Pt) (12/23/17 12:08) Act Partial Throm Time (Ptt) (12/23/17 12:08) Lipase (12/23/17 12:08) Urinalysis - C+S If Indicated (12/23/17 12:08) Bladder/Catheter Irrigation (12/23/17 12:22) Furosemide Inj (Lasix Inj) (12/23/17 12:30) Nitroglycerin 2% Oint (Nitroglycerin 2% (12/23/17 12:30) Urine Culture (12/23/17 12:31) Chest, Single Ap (12/23/17 13:34) Ceftriaxone Inj (Rocephin Inj) (12/23/17 14:05) Place In Observation (12/23/17 ) Vital Signs (Adult) Q4H (12/23/17 14:16) Historic Preservationist / Telemetry CARLOS.Q8H (12/23/17 14:16) Intake + Output CARLOS.Q8H (12/23/17 14:16) ^ Restrictions (12/23/17 14:16) Teaching Record: Cardiac Educa CARLOS.Q12H (12/23/17 14:16) Diet Heart Healthy (12/23/17 Dinner) Echo 2d Comp With Doppler (12/23/17 ) Resp Oxygen Dheeraj C Titrat 1-4 L (12/23/17 ) Sodium Chloride 0.9% Flush (Ns Flush) (12/23/17 14:30) Sodium Chloride 0.9% Flush (Ns Flush) (12/23/17 21:00) Furosemide Inj (Lasix Inj) (12/23/17 18:00) Scd Bilateral/Knee High CARLOS.BID (12/23/17 14:16) Consult Urology (12/23/17 ) ^ Other Nursing Orders (12/23/17 14:16) Activity Oob With Assistance (12/23/17 14:26) Consult Pt Eval & Tx Oob (12/23/17 14:26) Piperacil-Tazo 2.25 Gm Premix (Zosyn 2.2 (12/23/17 18:00) Acetaminophen (Tylenol) (12/23/17 14:30) Ondansetron Inj (Zofran Inj) (12/23/17 14:30) Basic Metabolic Panel (Bmp) (12/24/17 06:00) Complete Blood Count With Diff (12/24/17 06:00) Acetaminophen (Tylenol) (12/23/17 14:30) Naloxone Inj (Narcan Inj) (12/23/17 14:30) Docusate Sodium-Senna (Chikis-Colace) (12/23/17 21:00) Sennosides (Senokot) (12/23/17 14:30) Bisacodyl Supp (Dulcolax Supp) (12/23/17 14:30) Lactulose Liq (Lactulose Liq) (12/23/17 14:30) Admit Order (Ed Use Only) (12/23/17 14:29) Amlodipine (Norvasc) (12/24/17 09:00) Carvedilol (Coreg) (12/23/17 21:00) Diphenoxylate/Atropine Tab (Lomotil Tab) (12/23/17 14:30) Levothyroxine (Synthroid) (12/23/17 14:30) Oxycodone-Acetamin 10-325 Mg (Percocet 1 (12/23/17 14:30) Triamcinolone 0.1% Oint (Aristocort 0.1% (12/23/17 18:00) (Nf) Levothyroxine (12/24/17 14:30) (Nf) Mirabegron (Myrbetriq) (12/24/17 09:00) (Nf) Omeprazole Magnesium (Prilosec) (12/24/17 09:00) (Nf) Rosuvastatin (Crestor) (12/24/17 09:00) (Nf) Tiotropium-Olodaterol Inh (Stiolto (12/24/17 09:00) Labs Laboratory Tests Test 12/23/17 12:31 White Blood Count 4.2 TH/MM3 Red Blood Count 2.24 MIL/MM3 Hemoglobin 8.0 GM/DL Hematocrit 23.6 % Mean Corpuscular Volume 105.4 FL Mean Corpuscular Hemoglobin 35.6 PG Mean Corpuscular Hemoglobin Concent 33.8 % Red Cell Distribution Width 17.1 % Platelet Count 83 TH/MM3 Mean Platelet Volume 9.4 FL Neutrophils (%) (Auto) 78.6 % Lymphocytes (%) (Auto) 9.9 % Monocytes (%) (Auto) 9.4 % Eosinophils (%) (Auto) 1.4 % Basophils (%) (Auto) 0.7 % Neutrophils # (Auto) 3.3 TH/MM3 Lymphocytes # (Auto) 0.4 TH/MM3 Monocytes # (Auto) 0.4 TH/MM3 Eosinophils # (Auto) 0.1 TH/MM3 Basophils # (Auto) 0.0 TH/MM3 CBC Comment AUTO DIFF Differential Comment AUTO DIFF CONFIRMED Platelet Estimate LOW Platelet Morphology Comment NORMAL Prothrombin Time 10.7 SEC Prothromb Time International Ratio 1.1 RATIO Activated Partial Thromboplast Time 32.7 SEC Urine Color DARK-RED Urine Turbidity HAZY Urine pH 7.0 Urine Specific [place] 1.013 Urine Protein 100 mg/dL Urine Glucose (UA) NEG mg/dL Urine Ketones 40 mg/dL Urine Occult Blood LARGE Urine Nitrite POS Urine Bilirubin NEG Urine Urobilinogen 4.0 MG/DL Urine Leukocyte Esterase LARGE Urine RBC /hpf Urine WBC /hpf Urine Bacteria RARE /hpf Microscopic Urinalysis Comment CULTURE INDICATED Blood Urea Nitrogen 35 MG/DL Creatinine 2.49 MG/DL Random Glucose 107 MG/DL Total Protein 5.9 GM/DL Albumin 2.2 GM/DL Calcium Level 8.4 MG/DL Alkaline Phosphatase 95 U/L Aspartate Amino Transf (AST/SGOT) 38 U/L Alanine Aminotransferase (ALT/SGPT) 24 U/L Total Bilirubin 0.5 MG/DL Sodium Level 127 MEQ/L Potassium Level 3.8 MEQ/L Chloride Level 90 MEQ/L Carbon Dioxide Level 29.6 MEQ/L Anion Gap 7 MEQ/L Estimat Glomerular Filtration Rate 26 ML/MIN Troponin I LESS THAN 0.02 NG/ML B-Type Natriuretic Peptide 798 PG/ML Lipase 47 U/L MDM Medical Decision Making Medical Screen Exam Complete: Yes Emergency Medical Condition: Yes Medical Record Reviewed: Yes Differential Diagnosis Gross hematuria due to UTI versus platelet dysfunction versus mechanical cause of the bleeding Pitting edema secondary to renal failure versus congestive heart failure Narrative Course CBC shows no leukocytosis, however there is anemia of 8/24, megaloblastic with an MCV of 105, no left shift, and relative thrombocYtopenia of 83,000 Coagulation profile is within normal limits patient was found to have hyponatremia 127, hypochloremia of 90, BUN and creatinine that were elevated BUN of 35, creatinine of 2.49, GFR 26, troponin negative at point less than 0.02, however low albumin of 2.2, and an elevated beta natruretic peptide is 798 UA shows large blood nitrite positive large leukocyte esterase, culture is recommended Chest x-ray as read by the radiologist shows asymmetric interstitial prominence on the left mid and lower lobe without focal areas of consolidation Diagnosis Primary Impression: Acute exacerbation of CHF (congestive heart failure) Qualified Codes: I50.9 - Heart failure, unspecified Additional Impression: Gross hematuria with indwelling Blas Admitting Information Admitting Physician Requests: Admit Jona Roe MD Dec 23, 2017 12:22
[2017-12-23] MEDS ORDERED: NITROGLYCERIN 2% OINT 1 GM PACKET TOP ONE (12:30)
[2017-12-23] MEDS ORDERED: FUROSEMIDE 20 MG/2 ML VIAL IV PUSH ONE (12:30)
[2017-12-23 12:44] LABS: AUTOMATED NEUTROPHIL # 3.3 TH/MM3 (1.8-7.7); BASOPHIL % 0.7 % (0.0-2.0); EOSINOPHIL # 0.1 TH/MM3 (0-0.4); EOSINOPHIL % 1.4 % (0.0-4.0); HEMATOCRIT 23.6 % (39.0-51.0); LYMPH % 9.9 % (9.0-44.0); LYMPHOCYTE # 0.4 TH/MM3 (1.0-4.8); MEAN CELL VOLUME 105.4 FL (80.0-100.0); MEAN CORPUSCULAR HEMOGLOBIN 35.6 PG (27.0-34.0); MEAN CORPUSCULAR HGB CONC 33.8 % (32.0-36.0); MEAN PLATELET VOLUME 9.4 FL (7.0-11.0); MONO % 9.4 % (0.0-8.0); MONOCYTE # 0.4 TH/MM3 (0-0.9); NEUT % 78.6 % (16.0-70.0); PLATELET COUNT 83 TH/MM3 (150-450); RED BLOOD COUNT 2.24 MIL/MM3 (4.50-5.90); RED CELL DISTRIBUTION WIDTH 17.1 % (11.6-17.2); WHITE BLOOD COUNT 4.2 TH/MM3 (4.0-11.0)
[2017-12-23 12:50] LABS: INTERNATIONAL NORMALIZED RATIO 1.1 RATIO; PROTHROMBIN TIME - PATIENT 10.7 SEC (9.8-11.6)
[2017-12-23 12:59] LABS: ALBUMIN 2.2 GM/DL (3.4-5.0); AST (GOT) 38 U/L (15-37); BICARBONATE 29.6 MEQ/L (21.0-32.0); BLOOD UREA NITROGEN 35 MG/DL (7-18); CALCIUM 8.4 MG/DL (8.5-10.1); CHLORIDE 90 MEQ/L (98-107); CREATININE 2.49 MG/DL (0.60-1.30); GLOMERULAR FILTRATION RATE 26 ML/MIN (>89); GLUCOSE,RANDOM 107 MG/DL (74-106); SODIUM (NA) 127 MEQ/L (136-145)
[2017-12-23 13:00] LABS: ALT (GPT) 24 U/L (12-78)
[2017-12-23 13:04] LABS: ALKALINE PHOSPHATASE 95 U/L (45-117); TOTAL BILIRUBIN ADULT 0.5 MG/DL (0.2-1.0); TOTAL PROTEIN 5.9 GM/DL (6.4-8.2); TROPONIN I LESS THAN 0.02 NG/ML (0.02-0.05)
[2017-12-23 13:08] LABS: BACTERIA, URINE RARE /hpf; BLOOD, URINE LARGE (NEG); GLUCOSE,URINE NEG (NEG); KETONE, URINE 40 mg/dL (NEG); NITRITE,URINE POS (NEG); URINE LEUKOCYTE ESTERASE LARGE (NEG)
[2017-12-23 13:10] LABS: BILIRUBIN, URINE NEG (NEG); URINE COLOR DARK-RED (YELLW/STRAW)
[2017-12-23] MEDS ORDERED: cefTRIAXone INJ 1,000 MG in SODIUM CHLORIDE 0.9% INJ 100 ML IV ONE (14:05)
--- NOTE | 2017-12-23 14:18 | RADRPT ---
EXAM DATE/TIME: 12/23/2017 13:38 [facility] COMPARISON: CHEST SINGLE AP, August 12, 2015, 17:04. INDICATIONS : Short of breath. MEDICAL HISTORY : Cerebrovascular disease. Cardiovascular disease Hypertension.Bladder and renal cancer SURGICAL HISTORY : Nephrectomy, right. CABG ENCOUNTER: Initial ACUITY: 1 day PAIN SCORE: 0/10 LOCATION: Bilateral chest FINDINGS: [id number] catheter tip in the distal superior vena cava. Evidence of prior median sternotomy. T he right lung is clear. There is scattered areas of prominent interstitial markings in the mid and l ower left lung, similar to prior, with out focal areas of consolidation or infiltrate. Both hemidiap hragms are well delineated. The heart is mildly enlarged. CONCLUSION: Asymmetric interstitial prominence left mid and lower lobe without focal areas of consolidation. Flaquito Velasquez MD on December 23, 2017 at 14:15 Board Certified Radiologist. This report was verified electronically.
[2017-12-23] MEDS ORDERED: SENNOSIDES 8.6 MG TAB PO PRN (14:30)
[2017-12-23] MEDS ORDERED: LACTULOSE SYRUP 20 GM/30 ML CUP PO PRN (14:30)
[2017-12-23] MEDS ORDERED: BISACODYL 10 MG SUPP RECTAL PRN (14:30)
[2017-12-23] MEDS ORDERED: ONDANSETRON HCL 4 MG/2 ML VIAL IVP PRN (14:30)
[2017-12-23] MEDS ORDERED: SODIUM CHLORIDE 0.9% FLUSH 10 ML FLUSH IV FLUSH PRN (14:30)
[2017-12-23] MEDS ORDERED: DIPHENOXYLATE/ATROPINE 2.5 MG/0.025 MG TAB PO PRN (14:30)
[2017-12-23] MEDS ORDERED: ACETAMINOPHEN 325 MG TAB PO PRN ×2 (14:30)
[2017-12-23] MEDS ORDERED: NALOXONE HCL 0.4 MG/ML AMP IV PUSH PRN (14:30)
[2017-12-23] MEDS: LEVOTHYROXINE SODIUM 150 MCG TAB PO SCH (16:34)
[2017-12-23] MEDS: oxyCODONE/ACETAMINOPHEN 10 MG/325 MG TAB PO PRN (16:34)
--- NOTE | 2017-12-23 16:52 | PD.CONS ---
[facility] Service Urology Consult Requested By Dr. Macias Reason for Consult Gross hematuria Primary Care Physician Nicolas Fuller DO Diagnosis: History of Present Illness 72-year-old gentleman with history metastatic renal cell carcinoma who status post a right radical nephrectomy with removal of tumor thrombus back in September 2009. Patient also was noted to have a small mass involving the left kidney confirmed to be renal cell carcinoma via biopsy and managed since that time with chemotherapy. Patient was diagnosed with bladder cancer approximately 2-1/ 2 years ago and treated with both radiation and chemotherapy. Patient recently underwent cystoscopic evaluation several weeks ago and was noted to have a urethral stricture which was subsequently treated with a direct visual internal urethrotomy. He also was noted to have a small bladder lesion which was biopsied during the same operative setting with final pathology negative for malignancy. Since the recent urologic procedures were performed the patient has been having problems with intermittent gross hematuria and ended up having a Blas catheter replaced. Patient presented to my office this morning for follow-up and did not appear well. He was using oxygen to facilitate breathing and was noted to have market edema involving the genitalia and lower extremities. The patient also appeared very pale. I suggested that he go to the emergency room for further evaluation. He agreed to my suggestion and preliminary workup in the emergency room was consistent with exacerbation of CHF with anemia and thrombocytopenia. Patient also was noted to have metabolic abnormalities with low serum sodium levels. A urology consult is now placed regarding recommendations regarding the ongoing hematuria. Review of Systems Constitutional: COMPLAINS OF: Fatigue, Weight gain (30 pounds) Cardiovascular: DENIES: Chest pain Gastrointestinal: DENIES: Abdominal pain Genitourinary: COMPLAINS OF: Hematuria, Testicular Swelling Except as stated in HPI: all other systems reviewed are Neg Past Family Social History Past Medical History Metastatic renal cell cancer Bladder cancer Hypothyroidism COPD Hypertension Hyperlipidemia GERD IBS Gout Osteoarthritis Past Surgical History Status post right radical nephrectomy with removal of tumor thrombus Status post coronary artery bypass grafting surgery Reported Medications Refer to EMR Allergies: Coded Allergies: ciprofloxacin (Verified Allergy, Severe, Swelling, 12/23/17) Active Ordered Medications Refer to EMR Family History Family history significant for ovarian cancer in patient's mother and hypertension in patient's father Social History Denies tobacco, alcohol or intravenous drug abuse Physical Exam Vital Signs Date Time Temp Pulse Resp B/P (MAP) Pulse Ox O2 Delivery O2 Flow Rate FiO2 12/23/17 16:09 97.4 95 20 137/64 (88) 94 12/23/17 15:37 76 24 134/76 (95) 92 Nasal Cannula 2.00 12/23/17 14:00 75 22 133/63 (86) 94 Nasal Cannula 2.00 12/23/17 13:00 75 18 133/63 (86) 93 Nasal Cannula 2.00 12/23/17 12:30 81 22 147/67 (93) 91 Nasal Cannula 2.00 12/23/17 12:10 77 25 159/71 (100) 96 Room Air 12/23/17 12:10 100 Nasal Cannula 2.00 12/23/17 11:53 98.9 73 18 144/63 (90) 93 Physical Exam GENERAL: Appears older than stated age and looks chronically ill SKIN: Pale HEAD: Atraumatic. Normocephalic. No temporal or scalp tenderness. EYES: Pupils equal round and reactive. Extraocular motions intact. No scleral icterus. No injection or drainage. ENT: Nose without bleeding, purulent drainage or septal hematoma. Throat without erythema, tonsillar hypertrophy or exudate. Uvula midline. Airway patent. NECK: Trachea midline. No JVD or lymphadenopathy. Supple, nontender, no meningeal signs. GASTROINTESTINAL: Abdomen soft, non-tender, nondistended. GENITOURINARY: Indwelling Blas catheter draining light red urine without clots , genitalia edematous MUSCULOSKELETAL: Marked pitting edema to bilateral lower extremities NEUROLOGICAL: Awake and alert. Motor and sensory grossly within normal limits. Normal speech. Lab results reviewed: Yes Laboratory Tests Test 12/23/17 12:31 White Blood Count 4.2 Red Blood Count 2.24 Hemoglobin 8.0 Hematocrit 23.6 Mean Corpuscular Volume 105.4 Mean Corpuscular Hemoglobin 35.6 Mean Corpuscular Hemoglobin Concent 33.8 Red Cell Distribution Width 17.1 Platelet Count 83 Mean Platelet Volume 9.4 Neutrophils (%) (Auto) 78.6 Lymphocytes (%) (Auto) 9.9 Monocytes (%) (Auto) 9.4 Eosinophils (%) (Auto) 1.4 Basophils (%) (Auto) 0.7 Neutrophils # (Auto) 3.3 Lymphocytes # (Auto) 0.4 Monocytes # (Auto) 0.4 Eosinophils # (Auto) 0.1 Basophils # (Auto) 0.0 CBC Comment AUTO DIFF Differential Comment AUTO DIFF CONFIRMED Platelet Estimate LOW Platelet Morphology Comment NORMAL Prothrombin Time 10.7 Prothromb Time International Ratio 1.1 Activated Partial Thromboplast Time 32.7 Urine Color DARK-RED Urine Turbidity HAZY Urine pH 7.0 Urine Specific [place] 1.013 Urine Protein 100 Urine Glucose (UA) NEG Urine Ketones 40 Urine Occult Blood LARGE Urine Nitrite POS Urine Bilirubin NEG Urine Urobilinogen 4.0 Urine Leukocyte Esterase LARGE Urine RBC Urine WBC Urine Bacteria RARE Microscopic Urinalysis Comment CULTURE INDICATED Blood Urea Nitrogen 35 Creatinine 2.49 Random Glucose 107 Total Protein 5.9 Albumin 2.2 Calcium Level 8.4 Alkaline Phosphatase 95 Aspartate Amino Transf (AST/SGOT) 38 Alanine Aminotransferase (ALT/SGPT) 24 Total Bilirubin 0.5 Sodium Level 127 Potassium Level 3.8 Chloride Level 90 Carbon Dioxide Level 29.6 Anion Gap 7 Estimat Glomerular Filtration Rate 26 Troponin I LESS THAN 0.02 B-Type Natriuretic Peptide 798 Lipase 47 Date/Time Source Procedure Growth Status 12/23/17 12:31 Urine Random Urine Urine Culture Pending Received Result Diagram: 12/23/17 1231 12/23/17 1231 Imaging Last Impressions Chest X-Ray 12/23/17 1334 Signed Impressions: Service Date/Time: Saturday, December 23, 2017 13:38 - CONCLUSION: Asymmetric interstitial prominence left mid and lower lobe without focal areas of consolidation. Flaquito Velasquez MD Assessment and Plan Assessment and Plan Urologic impression: 1. History metastatic renal CA being followed by oncology 2. History bladder cancer status post chemo and radiation therapy 3. Status post recent direct visual internal urethrotomy of urethral stricture and bladder biopsy which was negative 4. Ongoing intermittent gross hematuria since his recent urologic procedures likely related to low platelet count Recommendations: 1. Continue with indwelling Blas catheter until urine remains clear yellow for at least 48 hours 2. Irrigate Blas catheter as needed 3. Consider hematology evaluation for thrombocytopenia Richei Vallejo MD Dec 23, 2017 16:52
[2017-12-23] MEDS ORDERED: MORPHINE SULFATE 2 MG/ML SYRINGE IV PUSH ONE (17:45)
--- NOTE | 2017-12-23 18:16 | HHI.HP ---
[facility] Nicolas Fuller DO Admission Diagnosis CHF EXACERBATION, GROSS HEMATURIA WITH MICHAEL Diagnoses: Chief Complaint: SOB Travel History International Travel<30 Days: No Contact w/Intl Traveler <30 Da: No Traveled to Known Affected Are: No Sepsis Criteria SIRS Criteria (2 or more): Heart rate over 90, RR > 20 or PaCO2 < 32 Sepsis Criteria (SIRS+source): Infect source susp/known Criteria Outcome: Meets sepsis criteria History of Present Illness This is a 72-year-old male who was sent from his urologist office because of edema. Patient states that for the past 3 weeks he has developed bilateral lower extremity edema including his genitalia. He also complains of dyspnea on exertion. States he has been advised to increase fluid intake secondary to hematuria in his Michael catheter. He is compliant with salt restriction and has been taking Lasix daily. He has a history of chronic respiratory failure on nasal cannula, CHF and COPD. Denies fever, chills, cough, wheezing and chest pain. Patient has a history of metastatic renal cell carcinoma status post right radical nephrectomy with removal of tumor thrombus in September 2009. Also noted to have left renal cell carcinoma on chemotherapy. He also has bladder cancer diagnosed over 2 years ago and received radiation and chemotherapy. Last November 30, 2017, he underwent cystoscopy and was noted to have urethral stricture status post urethrotomy. He also had a small bladder lesion was biopsied negative for malignancy. Since the procedure, patient has been having intermittent gross hematuria. Denies being on antiplatelets and anticoagulants. He was taken off Plavix 1 week before the procedure. All other systems reviewed negative Past Family Social History Past Medical History As previously mentioned. Pancytopenia secondary to chemotherapy (Votrient) hypothyroidism, hypertension, hyperlipidemia, GERD, IBS, gout and osteoarthritis Past Surgical History As previously mentioned, coronary artery bypass grafting Reported Medications Triamcinolone Topical (Triamcinolone Acetonide) 0.1 % Oint 1 Applic TOPICAL QID RASH ON BACK,ABD,LEGS Stiolto Respimat Inh (Tiotropium-Olodaterol Inh) 2.5-2.5 Mcg/Act Aero 1 Puff INH DAILY Levothyroxine (Levothyroxine Sodium) 175 Mcg Tab 175 Mcg PO SUTUTHSA Take 1 tablet (175mcg) daily on Thursday,Thursday, and Thursday Prilosec (Omeprazole Magnesium) 20 Mg Tab 20 Mg PO DAILY Zofran (Ondansetron HCl) 4 Mg Tab 4 Mg PO Q12HR PRN Crestor (Rosuvastatin Calcium) 20 Mg Tab 20 Mg PO DAILY Myrbetriq (Mirabegron) 50 Mg Tab 50 Mg PO DAILY Plavix (Clopidogrel Bisulfate) 75 Mg Tab 75 Mg PO DAILY Coreg (Carvedilol) 25 Mg Tab 25 Mg PO BID Lomotil (Diphenoxylate-Atropine) 2.5-0.025 Mg Tab 1 Tab PO Q6H PRN Percocet (Oxycodone-Acetaminophen) 10-325 mg Tab 1 Tab PO QID PRN Amlodipine (Amlodipine Besylate) 5 Mg Tab 5 Mg PO DAILY Levothyroxine (Levothyroxine Sodium) 150 Mcg Tab 150 Mcg PO MOWEFR Take 1 tablet (150mcg) daily on Thursday,Thursday and Thursday Allergies: Coded Allergies: ciprofloxacin (Verified Allergy, Severe, Swelling, 12/23/17) Family History Hypertension Social History Does not smoke or drink anymore Physical Exam Vital Signs Vital Signs Date Time Temp Pulse Resp B/P (MAP) Pulse Ox O2 Delivery O2 Flow Rate FiO2 12/23/17 16:09 97.4 95 20 137/64 (88) 94 12/23/17 15:37 76 24 134/76 (95) 92 Nasal Cannula 2.00 12/23/17 14:00 75 22 133/63 (86) 94 Nasal Cannula 2.00 12/23/17 13:00 75 18 133/63 (86) 93 Nasal Cannula 2.00 12/23/17 12:30 81 22 147/67 (93) 91 Nasal Cannula 2.00 12/23/17 12:10 77 25 159/71 (100) 96 Room Air 12/23/17 12:10 100 Nasal Cannula 2.00 12/23/17 11:53 98.9 73 18 144/63 (90) 93 Physical Exam GENERAL: This is a well-nourished, well-developed patient, in no apparent distress. SKIN: No rashes, ecchymoses or lesions. Cool and dry. HEAD: Atraumatic. Normocephalic. No temporal or scalp tenderness. EYES: Pupils equal round and reactive. Extraocular motions intact. No scleral icterus. No injection or drainage. ENT: Nose without bleeding, purulent drainage or septal hematoma. Throat without erythema, tonsillar hypertrophy or exudate. Uvula midline. Airway patent. NECK: Trachea midline. No JVD or lymphadenopathy. Supple, nontender, no meningeal signs. CARDIOVASCULAR: Regular rate and rhythm without murmurs, gallops, or rubs. RESPIRATORY: Clear to auscultation. Breath sounds equal bilaterally. No wheezes , rales, or rhonchi. GASTROINTESTINAL: Abdomen soft, non-tender, nondistended. No hepato-splenomegaly , or palpable masses. No guarding. MUSCULOSKELETAL: Extremities without clubbing, cyanosis, or edema. No joint tenderness, effusion, or edema noted. No calf tenderness. Negative Homans sign bilaterally. NEUROLOGICAL: Awake and alert. Cranial nerves II through XII intact. Motor and sensory grossly within normal limits. Five out of 5 muscle strength in all muscle groups. Normal speech. Laboratory Laboratory Tests Test 12/23/17 12:31 White Blood Count 4.2 Red Blood Count 2.24 Hemoglobin 8.0 Hematocrit 23.6 Mean Corpuscular Volume 105.4 Mean Corpuscular Hemoglobin 35.6 Mean Corpuscular Hemoglobin Concent 33.8 Red Cell Distribution Width 17.1 Platelet Count 83 Mean Platelet Volume 9.4 Neutrophils (%) (Auto) 78.6 Lymphocytes (%) (Auto) 9.9 Monocytes (%) (Auto) 9.4 Eosinophils (%) (Auto) 1.4 Basophils (%) (Auto) 0.7 Neutrophils # (Auto) 3.3 Lymphocytes # (Auto) 0.4 Monocytes # (Auto) 0.4 Eosinophils # (Auto) 0.1 Basophils # (Auto) 0.0 CBC Comment AUTO DIFF Differential Comment AUTO DIFF CONFIRMED Platelet Estimate LOW Platelet Morphology Comment NORMAL Prothrombin Time 10.7 Prothromb Time International Ratio 1.1 Activated Partial Thromboplast Time 32.7 Urine Color DARK-RED Urine Turbidity HAZY Urine pH 7.0 Urine Specific [place] 1.013 Urine Protein 100 Urine Glucose (UA) NEG Urine Ketones 40 Urine Occult Blood LARGE Urine Nitrite POS Urine Bilirubin NEG Urine Urobilinogen 4.0 Urine Leukocyte Esterase LARGE Urine RBC Urine WBC Urine Bacteria RARE Microscopic Urinalysis Comment CULTURE INDICATED Blood Urea Nitrogen 35 Creatinine 2.49 Random Glucose 107 Total Protein 5.9 Albumin 2.2 Calcium Level 8.4 Alkaline Phosphatase 95 Aspartate Amino Transf (AST/SGOT) 38 Alanine Aminotransferase (ALT/SGPT) 24 Total Bilirubin 0.5 Sodium Level 127 Potassium Level 3.8 Chloride Level 90 Carbon Dioxide Level 29.6 Anion Gap 7 Estimat Glomerular Filtration Rate 26 Troponin I LESS THAN 0.02 B-Type Natriuretic Peptide 798 Lipase 47 Date/Time Source Procedure Growth Status 12/23/17 12:31 Urine Random Urine Urine Culture Pending Received Result Diagram: 12/23/17 1231 12/23/17 1231 Caprini VTE Risk Assessment Caprini VTE Risk Assessment: Mod/High Risk (score >= 2) Caprini Risk Assessment Model Point Value = 1 Point Value = 2 Point Value = 3 Point Value = 5 Age 41-60 Minor surgery BMI > 25 kg/m2 Swollen legs Varicose veins or History of unexplained or recurrent spontaneous Oral contraceptives or hormone replacement Sepsis (< 1 month) Serious lung disease, including pneumonia (< 1 month) Abnormal pulmonary function Acute myocardial infarction Congestive heart failure (< 1 month) History of inflammatory bowel disease Medical patient at bed rest Age 61-74 Arthroscopic surgery Major open surgery (> 45 min) Laparoscopic surgery (> 45 min) Malignancy Confined to bed (> 72 hours) Immobilizing plaster cast Central venous access Age >= 75 History of VTE Family history of VTE Factor V Leiden Prothrombin [id number] Lupus anticoagulant Anticardiolipin antibodies Elevated serum homocysteine Heparin-induced thrombocytopenia Other congenital or acquired thrombophilia Stroke (< 1 month) Elective arthroplasty Hip, pelvis, or leg fracture Acute spinal cord injury (< 1 month) Prophylaxis Regimen Total Risk Factor Score Risk Level Prophylaxis Regimen 0-1 Low Early ambulation 2 Moderate Order ONE of the following: *Sequential Compression Device (SCD) *Heparin 5000 units SQ BID 3-4 Higher Order ONE of the following medications: *Heparin 5000 units SQ TID *Enoxaparin/Lovenox 40 mg SQ daily (WT < 150 kg, CrCl > 30 mL/min) *Enoxaparin/Lovenox 30 mg SQ daily (WT < 150 kg, CrCl > 10-29 mL/min) *Enoxaparin/Lovenox 30 mg SQ BID (WT < 150 kg, CrCl > 30 mL/min) AND/OR *Sequential Compression Device (SCD) 5 or more Highest Order ONE of the following medications: *Heparin 5000 units SQ TID (Preferred with Epidurals) *Enoxaparin/Lovenox 40 mg SQ daily (WT < 150 kg, CrCl > 30 mL/min) *Enoxaparin/Lovenox 30 mg SQ daily (WT < 150 kg, CrCl > 10-29 mL/min) *Enoxaparin/Lovenox 30 mg SQ BID (WT < 150 kg, CrCl > 30 mL/min) AND *Sequential Compression Device (SCD) Assessment and Plan Problem List: (1) Hematuria, gross ICD Code: R31.0 - Gross hematuria Status: Acute Assessment and Plan This is a 72-year-old male who was sent from his urologist office because of edema. Patient states that for the past 3 weeks he has developed bilateral lower extremity edema including his genitalia. He also complains of dyspnea on exertion. States he has been advised to increase fluid intake secondary to hematuria in his Michael catheter. He is compliant with salt restriction and has been taking Lasix daily. CHF exacerbation likely secondary to increased fluid intake. Continue diuresis with IV Lasix, CHF education, I/O and monitor weight. 1.5 L fluid restriction. Obtain 2D echo Chronic kidney disease stage IV with hyponatremia. He is asymptomatic. Nonoliguric. Consider nephrology consult. Avoid nephrotoxins Pancytopenia on Votrient with worsening anemia secondary to acute blood loss. Repeat CBC in the morning keep hemoglobin at least 8 with history of CAD Chronic respiratory failure on nasal cannula, CHF and COPD. Continue oxygen keep saturations at least 92% Gross hematuria with a history of metastatic renal cell carcinoma status post right radical nephrectomy with removal of tumor thrombus in September 2009. left renal cell carcinoma on chemotherapy Votrient and bladder cancer diagnosed over 2 years ago and received radiation and chemotherapy. Last November 30, 2017, he underwent cystoscopy and was noted to have urethral stricture status post urethrotomy. He also had a small bladder lesion was biopsied negative for malignancy. Since the procedure, patient has been having intermittent gross hematuria. Denies being on antiplatelets and anticoagulants. He was taken off Plavix 1 week before the procedure. Patient had a Michael exchanged by Dr. Huddleston today. He also has abnormal urinalysis suggestive of UTI and meets criteria for sepsis. Will start IV Zosyn. I will not be able to hydrate patient because of CHF exacerbation. Check blood cultures Multiple medical conditions PAD, hypothyroidism, hypertension, hyperlipidemia, GERD, IBS, gout and osteoarthritis. Continue outpatient medications as appropriate DVT prophylaxis with SCD. Pharmacological prophylaxis contraindicated at this time secondary to gross bleeding Discussed Condition With Patient, , ER staff and Vasu Castro MD Dec 23, 2017 18:16
[2017-12-23] MEDS: FUROSEMIDE 40 MG/4 ML VIAL IVP SCH (19:17)
[2017-12-23] MEDS: PIPERACIL-TAZO 2.25 GM PREMIX 50 ML IV SCH (19:17)
[2017-12-23] MEDS: CARVEDILOL 12.5 MG TAB PO SCH (20:38)
[2017-12-23] MEDS: DOCUSATE SODIUM 50 MG/SENNA 8.6 MG TAB PO SCH (20:39)
[2017-12-23] MEDS: SODIUM CHLORIDE 0.9% FLUSH 10 ML FLUSH IV FLUSH SCH (20:39)
[2017-12-23] MEDS: TRIAMCINOLONE ACETONIDE 0.1% OINT 15 GM TUBE TOPICAL SCH ×2 (20:39→20:40)
[2017-12-24] VITALS (11 sets, daily range): BP systolic 116–140; BP diastolic 56–83; PULSE 67–99; RESP 16–22; TEMP 98.1–98.8; O2SAT 92–97
[2017-12-24] MEDS: PIPERACIL-TAZO 2.25 GM PREMIX 50 ML IV SCH ×4 (01:13→18:03)
[2017-12-24] MEDS: oxyCODONE/ACETAMINOPHEN 10 MG/325 MG TAB PO PRN ×4 (01:13→23:54)
[2017-12-24] MEDS: LEVOTHYROXINE SODIUM 75 MCG TAB PO SCH (06:02)
[2017-12-24] MEDS: LEVOTHYROXINE SODIUM 100 MCG TAB PO SCH (06:03)
[2017-12-24 06:59] LABS: AUTOMATED NEUTROPHIL # 2.6 TH/MM3 (1.8-7.7); BASOPHIL % 0.9 % (0.0-2.0); EOSINOPHIL # 0.1 TH/MM3 (0-0.4); EOSINOPHIL % 2.9 % (0.0-4.0); HEMATOCRIT 22.8 % (39.0-51.0); HEMOGLOBIN 7.8 GM/DL (13.0-17.0); LYMPH % 12.7 % (9.0-44.0); LYMPHOCYTE # 0.4 TH/MM3 (1.0-4.8); MEAN CELL VOLUME 106.2 FL (80.0-100.0); MEAN CORPUSCULAR HEMOGLOBIN 36.3 PG (27.0-34.0); MEAN CORPUSCULAR HGB CONC 34.2 % (32.0-36.0); MEAN PLATELET VOLUME 8.5 FL (7.0-11.0); MONO % 9.9 % (0.0-8.0); MONOCYTE # 0.3 TH/MM3 (0-0.9); NEUT % 73.6 % (16.0-70.0); PLATELET COUNT 78 TH/MM3 (150-450); RED BLOOD COUNT 2.15 MIL/MM3 (4.50-5.90); RED CELL DISTRIBUTION WIDTH 16.9 % (11.6-17.2); WHITE BLOOD COUNT 3.5 TH/MM3 (4.0-11.0)
[2017-12-24 07:39] LABS: BICARBONATE 30.7 MEQ/L (21.0-32.0); CALCIUM 8.1 MG/DL (8.5-10.1); CREATININE 2.5 MG/DL (0.60-1.30)
[2017-12-24 08:17] LABS: OVALOCYTES 1+ (NORMAL)
[2017-12-24] MEDS ORDERED: NON-FORMULARY DRUG (Omeprazole Magnesium (Prilosec) 20 MG) PO SCH (09:00)
[2017-12-24] MEDS ORDERED: TIOTROPIUM OLODATEROL INH SCH (09:00)
[2017-12-24] MEDS ORDERED: NON-FORMULARY DRUG (Rosuvastatin (Crestor) 20 MG) PO SCH (09:00)
[2017-12-24] MEDS ORDERED: NON-FORMULARY DRUG (Mirabegron (Myrbetriq) 50 MG) PO SCH (09:00)
[2017-12-24] MEDS ORDERED: PT:MYRBETRIQ 50 MG PO SCH (09:00)
[2017-12-24] MEDS ORDERED: PT:STIOLTO RESPIMAT INH SCH (09:00)
[2017-12-24] MEDS: ATORVASTATIN 40 MG TAB PO SCH (09:28)
[2017-12-24] MEDS: CARVEDILOL 12.5 MG TAB PO SCH ×2 (09:28→22:46)
[2017-12-24] MEDS: PANTOPRAZOLE SOD 20 MG DELAYED RELEASE TAB PO SCH (09:28)
[2017-12-24] MEDS: amLODIPine BESYLATE 5 MG TAB PO SCH (09:28)
[2017-12-24] MEDS: SODIUM CHLORIDE 0.9% FLUSH 10 ML FLUSH IV FLUSH SCH ×2 (09:29→22:46)
[2017-12-24] MEDS: FUROSEMIDE 40 MG/4 ML VIAL IVP SCH ×2 (09:29→18:03)
[2017-12-24] MEDS: DOCUSATE SODIUM 50 MG/SENNA 8.6 MG TAB PO SCH ×2 (09:30→21:00)
[2017-12-24] MEDS: TRIAMCINOLONE ACETONIDE 0.1% OINT 15 GM TUBE TOPICAL SCH ×4 (09:31→22:46)
--- NOTE | 2017-12-24 13:56 | HHI.PR ---
Subjective Patient symptoms today Lying quietly in bed. Does not appear to be in any distress. Objective Vital Signs Vital Signs Date Time Temp Pulse Resp B/P (MAP) Pulse Ox O2 Delivery O2 Flow Rate FiO2 12/24/17 13:01 98.2 77 20 137/62 (87) 97 12/24/17 09:24 98.1 81 18 123/58 (79) 94 12/24/17 08:18 96 Nasal Cannula 3.00 12/24/17 07:44 79 12/24/17 04:56 67 12/24/17 03:51 98.8 74 16 116/56 (76) 92 12/24/17 03:20 73 12/23/17 20:23 97.8 88 18 135/65 (88) 95 12/23/17 16:09 97.4 95 20 137/64 (88) 94 12/23/17 15:37 76 24 134/76 (95) 92 Nasal Cannula 2.00 12/23/17 14:00 75 22 133/63 (86) 94 Nasal Cannula 2.00 Intake & Output 12/24/17 12/24/17 07:00 19:00 Intake Total 50 ml Output Total 8000 ml Balance -7950 ml Intake Oral 50 ml Output Urine Total 8000 ml Result Diagram: 12/24/17 0630 12/24/17 0630 Objective Remarks Blas catheter draining blood-tinged urine without clots Bladder not distended Medications and IVs Current Medications Medications (Trade) Dose Ordered Sig/Richie Route Start Time Stop Time Status Last Admin (NS Flush) 2 ml UNSCH PRN IV FLUSH 12/23/17 14:30 (NS Flush) 2 ml BID IV FLUSH 12/23/17 21:00 12/24/17 09:29 (Lasix Inj) 40 mg BID@09,18 IVP 12/23/17 18:00 12/24/17 09:29 Piperacillin Sod/ Tazobactam Sod 50 ml @ 100 mls/hr Q6H IV 12/23/17 18:00 12/24/17 12:42 (Tylenol) 650 mg Q4H PRN PO 12/23/17 14:30 (Zofran Inj) 4 mg Q6H PRN IVP 12/23/17 14:30 (Tylenol) 650 mg Q6H PRN PO 12/23/17 14:30 (Narcan Inj) 0.4 mg UNSCH PRN IV PUSH 12/23/17 14:30 (Chikis-Colace) 1 tab BID PO 12/23/17 21:00 (Senokot) 17.2 mg Q12H PRN PO 12/23/17 14:30 (Dulcolax Supp) 10 mg DAILY PRN RECTAL 12/23/17 14:30 (Lactulose Liq) 30 ml DAILY PRN PO 12/23/17 14:30 (Norvasc) 5 mg DAILY PO 12/24/17 09:00 12/24/17 09:28 (Coreg) 25 mg BID PO 12/23/17 21:00 12/24/17 09:28 (Lomotil Tab) 1 tab Q6H PRN PO 12/23/17 14:30 (Synthroid) 150 mcg MoWeFr@0600 PO 12/23/17 16:30 12/23/17 16:34 (Percocet 10-325 Mg) 1 tab QID PRN PO 12/23/17 14:30 12/24/17 07:30 (Aristocort 0.1% Oint) 1 applic QID TOPICAL 12/23/17 18:00 12/24/17 09:31 (Synthroid) 75 mcg SuTuThSa@0600 PO 12/24/17 06:00 12/24/17 06:02 (Synthroid) 100 mcg SuTuThSa@0600 PO 12/24/17 06:00 12/24/17 06:03 Patient Own Medication PT OWN MED: MYRBET... DAILY PO 12/24/17 09:00 Future Hold (Protonix) 20 mg DAILY PO 12/24/17 09:00 12/24/17 09:28 (Lipitor) 40 mg DAILY PO 12/24/17 09:00 12/24/17 09:28 Patient Own Medication PT OWN MED: STIOLTO RESPIMAT--... DAILY INH 12/24/17 09:00 Future Hold (B & O Supp) 60 mg Q6H PRN RECTAL 12/23/17 18:00 Assessment and Plan Assessment and Plan Urologic impression: 1. History metastatic renal CA being followed by oncology 2. History bladder cancer status post chemo and radiation therapy 3. Status post recent direct visual internal urethrotomy of urethral stricture and bladder biopsy which was negative 4. Slowly resolving gross hematuria related to his recent urologic procedures and exacerbated by a low platelet count Recommendations: 1. Continue with indwelling Blas catheter until urine remains clear yellow for at least 48 hours 2. Irrigate Blas catheter as needed 3. Consider hematology evaluation for thrombocytopenia Richie Vallejo MD Dec 24, 2017 13:56
[2017-12-24] MEDS ORDERED: NON-FORMULARY DRUG (Levothyroxine 175 MCG) PO SCH (14:30)
[2017-12-24] MEDS ORDERED: MORPHINE SULFATE 4 MG/ML INJ IV PUSH ONE (15:35)
--- NOTE | 2017-12-24 17:57 | HHI.PR ---
Subjective Remarks Patient says he is feeling all right. Reports Blas pain. Denies any chest pain or shortness of breath. Denies any nausea or vomiting Objective Vital Signs Date Time Temp Pulse Resp B/P (MAP) Pulse Ox O2 Delivery O2 Flow Rate FiO2 12/24/17 17:14 98.1 87 22 140/65 (90) 93 12/24/17 13:01 98.2 77 20 137/62 (87) 97 12/24/17 09:24 98.1 81 18 123/58 (79) 94 12/24/17 08:18 96 Nasal Cannula 3.00 12/24/17 07:44 79 12/24/17 04:56 67 12/24/17 03:51 98.8 74 16 116/56 (76) 92 12/24/17 03:20 73 12/23/17 20:23 97.8 88 18 135/65 (88) 95 I/O 12/23/17 12/23/17 12/23/17 12/24/17 12/24/17 12/24/17 07:00 15:00 23:00 07:00 15:00 23:00 Intake Total 50 ml Output Total 450 ml 2500 ml 5500 ml Balance -450 ml -2500 ml -5450 ml Intake Oral 50 ml Output Urine Total 450 ml 2500 ml 5500 ml Result Diagram: 12/24/17 0630 12/24/17 0630 Objective Remarks GENERAL: sitting up in bed. Appears comfortable. SKIN: Warm and dry. HEAD: Normocephalic. EYES: No scleral icterus. No injection or drainage. NECK: Supple, trachea midline. No JVD. CARDIOVASCULAR: Regular rate and rhythm without murmurs, gallops, or rubs. RESPIRATORY: Breath sounds equal bilaterally. No accessory muscle use. GASTROINTESTINAL: Abdomen soft, non-tender, nondistended. MUSCULOSKELETAL: No cyanosis. trace bilateral lower extremity edema. BACK: Nontender without obvious deformity. No CVA tenderness. A/P Assessment and Plan This is a 72-year-old male who was sent from his urologist office because of edema. Patient states that for the past 3 weeks he has developed bilateral lower extremity edema including his genitalia. He also complains of dyspnea on exertion. States he has been advised to increase fluid intake secondary to hematuria in his Blas catheter. He is compliant with salt restriction and has been taking Lasix daily. //CHF exacerbation likely secondary to increased fluid intake. Continue diuresis with IV Lasix, CHF education, I/O and monitor weight. 1.5 L fluid restriction. Obtain 2D echo = Echo pending. Continue IV Lasix, fluid restrictions. Continue to monitor closely. //Chronic kidney disease stage IV with hyponatremia. He is asymptomatic. Nonoliguric. Consider nephrology consult. Avoid nephrotoxins = Creatinine stable. //Pancytopenia on Votrient with worsening anemia secondary to acute blood loss. Repeat CBC in the morning keep hemoglobin at least 8 with history of CAD = Consult patient's oncologist for pancytopenia. Appreciate assistance. //Chronic respiratory failure on nasal cannula, CHF and COPD. Continue oxygen keep saturations at least 92% //Gross hematuria //Sepsis //complex UTI =with a history of metastatic renal cell carcinoma status post right radical nephrectomy with removal of tumor thrombus in September 2009. left renal cell carcinoma on chemotherapy Votrient and bladder cancer diagnosed over 2 years ago and received radiation and chemotherapy. Last November 30, 2017, he underwent cystoscopy and was noted to have urethral stricture status post urethrotomy. He also had a small bladder lesion was biopsied negative for malignancy. Since the procedure, patient has been having intermittent gross hematuria. Denies being on antiplatelets and anticoagulants. He was taken off Plavix 1 week before the procedure. Patient had a Blas exchanged by Dr. Huddleston today. He also has abnormal urinalysis suggestive of UTI and meets criteria for sepsis. Will start IV Zosyn. I will not be able to hydrate patient because of CHF exacerbation. Check blood cultures = 12/24. Sepsis Leukopenia, tachypnea, complicated UTI. Continue Zosyn. gram- negative rods on urine culture.Follow up cultures. Continue bladder irrigation. Still with blood. //Multiple medical conditions PAD, hypothyroidism, hypertension, hyperlipidemia , GERD, IBS, gout and osteoarthritis. Continue outpatient medications as appropriate //DVT prophylaxis with SCD. Pharmacological prophylaxi Discharge Planning admit due to sepsis. Bladder irrigation We'll need hemoglobin stable Will need antibiotics for UTI Hematology and urology following Trevon Barrow MD Dec 24, 2017 17:57
[2017-12-24 18:45] LABS: RETIC % 3.3 % (0.4-3.0)
[2017-12-24 18:47] LABS: % SATURATION IRON PROFILE 11.5 % (20-50); IRON (FE) 27 MCG/DL (65-175); TOTAL IRON BINDING CAPACITY 235 MCG/DL (250-450)
--- NOTE | 2017-12-24 18:47 | MB ---
cc: Ernesto Yousif MD DATE: 12/24/2017 REASON FOR CONSULTATION: Hematology concerned. The patient with thrombocytopenia, anemia, as well as history of metastatic renal cell cancer. HISTORY OF PRESENT ILLNESS: The patient is a very pleasant 72-year-old male with a history of metastatic renal cell carcinoma and bladder cancer, admitted to the hospital with increased edema of the lower extremities and scrotum. He had a cystoscopy on 11/30/2017. He had a urethrotomy. After the procedure, he had persistent hematuria. He stated he was told to drink fluid to flush the bladder and he started having increased edema. He put on 30 pounds. He went to his urologist's office and was directed to the emergency room. He has increased shortness of breath and occasional cough, mostly nonproductive. Denies any chest pain. He stopped taking the Votrient and Plavix before his procedure. He denies taking any [id number] NSAIDs. He has no fever or chills. He denies any nausea, vomiting or diarrhea. PAST MEDICAL HISTORY: 1. Metastatic renal cell carcinoma. 2. Congestive heart failure. 3. Chronic obstructive pulmonary disease, oxygen dependent. 4. Bladder cancer. 5. Urethral stricture. 6. Pancytopenia. 7. Hypertension. 8. Hypothyroidism. 9. Hyperlipidemia. 10. Gastroesophageal reflux disease. 11. Osteoarthritis. 12. Gout. PAST SURGICAL HISTORY: 1. Right radical nephrectomy. 2. Coronary artery bypass graft surgery. 3. Multiple cystoscopy. 4. Urethrotomy. 5. Tonsillectomy. 6. Facial plastic surgery. FAMILY HISTORY: Father of lung cancer. Mother of renal cell carcinoma. SOCIAL HISTORY: He has a [id number] smoking history, quit 36 years ago. He also quit alcohol. ALLERGIES: CIPROFLOXACIN. CURRENT MEDICATIONS: Norvasc, Protonix, Lipitor, Synthroid, Chikis-Colace, Coreg, Lasix, Zosyn. REVIEW OF SYSTEMS: CONSTITUTIONAL: As above. EYES: Negative. ENT: Negative. CARDIOVASCULAR: As above. RESPIRATORY: As above. GASTROINTESTINAL: Denies nausea, vomiting, diarrhea or abdominal pain. GENITOURINARY: As above. MUSCULOSKELETAL: Negative. HEMATOLOGIC: As above. ENDOCRINE: Negative. DERMATOLOGIC: Negative. PSYCHIATRIC: Negative. NEUROLOGIC: Negative. PHYSICAL EXAMINATION: VITAL SIGNS: Temperature 98.1, blood pressure 140/65, O2 saturation 93%. GENERAL: He is alert, oriented x3, in no acute distress. HEENT: Atraumatic, normocephalic. Pupils are equal, round, regular, reactive to light. Extraocular muscles intact. No scleral icterus. Oropharynx: Dry mucosa, no lesion, no thrush or mucositis. NECK: No thyromegaly. No palpable mass. LYMPHATIC: No palpable cervical, clavicular, axillary or inguinal lymph node. CARDIOVASCULAR: Regular S1, S2. No murmur. LUNGS: Clear to auscultation anteriorly. ABDOMEN: Soft, nontender. Could not palpate liver or spleen. EXTREMITIES: He has 2+ lower extremity edema. No calf tenderness. SKIN: No rash or petechiae. NEUROLOGIC: Nonfocal. LABORATORY DATA: WBC 3.5, hemoglobin 7.8, platelet count of 78,000. INR 1.1, aPTT 32.7, creatinine 2.5. ASSESSMENT AND PLAN: 1. Pancytopenia which is chronic. It is partly due to Votrient. The Votrient, however, was stopped about 3 weeks ago. He also has significant anemia, which I think is due to chronic kidney disease as well as chronic inflammatory disease. The hemoglobin may have trended lower because of the hematuria. His white blood cell count is fluctuating. His platelet count has been quite stable over the last 1 year. I think he likely also has a consumptive process with the hematuria. I am going to repeat his iron study and vitamin study. We can also give him Epogen for anemia of chronic kidney disease. At this point, his hematuria seems to have improved. If he still has bleeding, can consider giving him a platelet transfusion. 2. Metastatic renal cell carcinoma. He presented with bilateral renal cell carcinoma and had right nephrectomy in February 2010. 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 There was extensive tumor thrombus in the vena cava. He had a biopsy of the left kidney mass, which also showed renal cell carcinoma. He started Votrient, with good response. The Votrient was held for awhile when he was receiving treatment for bladder cancer. He recently was found to have progression of disease and restarted Votrient at the end of 2014. He had CT scan done in early November which did not show clear evidence of progression of disease. The Votrient has been on hold since the urologic procedure. Continue monitoring for now. 3. Bladder invasive transitional cell carcinoma, treated with radiation and chemotherapy. He had another cystoscopy 3 weeks ago with biopsy which did not show any recurrent disease. 4. Hematuria due to recent cystoscopy and urethrotomy. He is now on bladder irrigation. Some clot was extracted earlier today. His catheter output now is clear. Urology is following. 5. Congestive heart failure exacerbation: He has been increasing oral fluid intake and he gained 30 pounds. He is now on a diuretic. 6. Chronic kidney disease. 7. Chronic obstructive pulmonary disease, on chronic oxygen. PLAN: 1. Check iron and vitamin study. 2. Will give him Epogen. 3. Consider giving him platelet transfusion if he has persistent hematuria. 4. Review of CT scan with the patient. 5. SCDs for deep venous thrombosis prophylaxis. Thank you, Dr. Macias, for asking me to see this patient. MD MOISÉS Atkinson/MARILYN , 05:42 PM , 06:46 PM [facility]
[2017-12-24 19:12] LABS: FERRITIN 144 NG/ML (26-388); FOLATE 17.1 NG/ML (3.1-17.5)
--- NOTE | 2017-12-24 19:27 | ECHRPT ---
Indication: Heart Failure CONCLUSIONS Normal left ventricular size. Mild concentric left ventricular hypertrophy. The left ventricular systolic function is normal with an estimated ejection fraction in the range of 60-65%. No definite wall motion abnormalities. Probably trileaflet aortic valve. Diffuse moderate calcification and thickening of the aortic valve. Moderate aortic valve stenosis. Aortic valve mean gradient is 30 mmHg. Trace aortic valve regurgitation. Structurally normal tricuspid valve. There is mild tricuspid regurgitation. The estimated pulmonary arterial pressure is 55 mmHg. BP: / HR: 83 Rhythm: Sinus MEASUREMENTS (Male / Female) Normal Values Technical Quality:Fair 2D ECHO LV Diastolic Diameter PLAX 5.1 cm 4.2 - 5.9 / 3.9 - 5.3 cm LV Systolic Diameter PLAX 4.2 cm IVS Diastolic Thickness 1.0 cm 0.6 - 1.0 / 0.6 - 0.9 cm LVPW Diastolic Thickness 1.0 cm 0.6 - 1.0 / 0.6 - 0.9 cm LV Relative Wall Thickness 0.4 RV Internal Dim ED PLAX 4.4 cm LVOT Diameter 2.5 cm LA Systolic Diameter LX 4.9 cm 3.0 - 4.0 / 2.7 - 3.8 cm M-MODE Aortic Root Diameter MM 3.4 cm LA Systolic Diameter MM 4.4 cm LA Ao Ratio MM 1.3 AV Cusp Separation MM 1.2 cm DOPPLER AV Peak Velocity 363.0 cm/s AV Peak Gradient 52.7 mmHg AV Mean Gradient 30.0 mmHg AV Velocity Time Integral 89.4 cm AI Peak Velocity 372.5 cm/s AI Peak Gradient 55.5 mmHg AI Pressure Half Time 237.7 ms LVOT Peak Velocity 88.7 cm/s LVOT Peak Gradient 3.1 mmHg LVOT Velocity Time Integral 22.5 cm LVOT Cardiac Index 4340.4 cm/minm AV Area Cont Eq vti 1.2 cm AV Area Cont Eq pk 1.2 cm MV Area PHT 4.5 cm Mitral E Point Velocity 111.0 cm/s Mitral A Point Velocity 110.0 cm/s Mitral E to A Ratio 1.0 LV E' Lateral Velocity 11.3 cm/s Mitral E to LV E' Lateral Ratio 9.8 LV E' Septal Velocity 9.8 cm/s Mitral E to LV E' Septal Ratio 11.3 TR Peak Velocity 344.0 cm/s TR Peak Gradient 47.3 mmHg Right Atrial Pressure 10.0 mmHg Pulmonary Artery Systolic Pressu 57.3 mmHg Right Ventricular Systolic Press 57.3 mmHg FINDINGS LEFT VENTRICLE Normal left ventricular size. Mild concentric left ventricular hypertrophy. The left ventricular systolic function is normal with an estimated ejection fraction in the range of 60-65%. No definite wall motion abnormalities. RIGHT VENTRICLE Normal right ventricular size and systolic function. LEFT ATRIUM The left atrial size is mildly dilated. RIGHT ATRIUM The right atrial size is normal. ATRIAL SEPTUM Normal atrial septal thickness without atrial level shunting by limited color doppler interrogation. AORTA The aortic root and proximal ascending aorta are normal in size on limited imaging. MITRAL VALVE Structurally normal mitral valve. Trace mitral valve regurgitation. AORTIC VALVE Probably trileaflet aortic valve. Diffuse moderate calcification and thickening of the aortic valve. Moderate aortic valve stenosis. Aortic valve mean gradient is 30 mmHg. Trace aortic valve regurgitation. TRICUSPID VALVE Structurally normal tricuspid valve. There is mild tricuspid regurgitation. The estimated pulmonary arterial pressure is 55 mmHg. PULMONARY VALVE Trivial pulmonary valve regurgitation. VESSELS The inferior vena cava is normal in size. PERICARDIUM No pericardial effusion. Alexys Sanchez MD (Electronically Signed) Final Date:24 December 2017 19:26
[2017-12-24] MEDS ORDERED: EPOETIN ALFA 20,000 UNITS/ML VIAL SQ ONE (20:00)
[2017-12-24] MEDS: CALCIUM CARBONATE 500 MG CHEWABLE TAB CHEW PRN (23:53)
[2017-12-25] VITALS (8 sets, daily range): BP systolic 125–159; BP diastolic 58–72; PULSE 74–100; RESP 16–20; TEMP 96.7–99.3; O2SAT 90–98
[2017-12-25] MEDS: PIPERACIL-TAZO 2.25 GM PREMIX 50 ML IV SCH ×4 (00:31→18:14)
[2017-12-25 05:50] LABS: AUTOMATED NEUTROPHIL # 2.2 TH/MM3 (1.8-7.7); EOSINOPHIL # 0.2 TH/MM3 (0-0.4); HEMOGLOBIN 8.1 GM/DL (13.0-17.0); LYMPH % 14.8 % (9.0-44.0); LYMPHOCYTE # 0.5 TH/MM3 (1.0-4.8); MEAN CELL VOLUME 107.1 FL (80.0-100.0); MEAN CORPUSCULAR HEMOGLOBIN 35.9 PG (27.0-34.0); MEAN CORPUSCULAR HGB CONC 33.6 % (32.0-36.0); MEAN PLATELET VOLUME 8.5 FL (7.0-11.0); MONO % 10.9 % (0.0-8.0); MONOCYTE # 0.4 TH/MM3 (0-0.9); NEUT % 67.3 % (16.0-70.0); PLATELET COUNT 84 TH/MM3 (150-450); RED BLOOD COUNT 2.24 MIL/MM3 (4.50-5.90); RED CELL DISTRIBUTION WIDTH 17.4 % (11.6-17.2); WHITE BLOOD COUNT 3.3 TH/MM3 (4.0-11.0)
[2017-12-25] MEDS: oxyCODONE/ACETAMINOPHEN 10 MG/325 MG TAB PO PRN ×2 (06:02→11:20)
[2017-12-25] MEDS: LEVOTHYROXINE SODIUM 150 MCG TAB PO SCH (06:02)
[2017-12-25 06:15] LABS: ALBUMIN 1.9 GM/DL (3.4-5.0); CREATININE 2.66 MG/DL (0.60-1.30); PHOSPHORUS 3.9 MG/DL (2.5-4.9)
[2017-12-25] MEDS: PANTOPRAZOLE SOD 20 MG DELAYED RELEASE TAB PO SCH (09:11)
[2017-12-25] MEDS: ATORVASTATIN 40 MG TAB PO SCH (09:11)
[2017-12-25] MEDS: FUROSEMIDE 40 MG/4 ML VIAL IVP SCH ×2 (09:11→18:14)
[2017-12-25] MEDS: DOCUSATE SODIUM 50 MG/SENNA 8.6 MG TAB PO SCH ×2 (09:11→21:00)
[2017-12-25] MEDS: amLODIPine BESYLATE 5 MG TAB PO SCH (09:12)
[2017-12-25] MEDS: CARVEDILOL 12.5 MG TAB PO SCH (09:12)
[2017-12-25] MEDS: TRIAMCINOLONE ACETONIDE 0.1% OINT 15 GM TUBE TOPICAL SCH ×3 (09:13→18:15)
[2017-12-25] MEDS: SODIUM CHLORIDE 0.9% FLUSH 10 ML FLUSH IV FLUSH SCH (09:13)
--- NOTE | 2017-12-25 09:57 | HHI.PR ---
Subjective Patient symptoms today Blas replaced yesterday. Presently reports feeling better. Objective Vital Signs Vital Signs Date Time Temp Pulse Resp B/P (MAP) Pulse Ox O2 Delivery O2 Flow Rate FiO2 12/25/17 07:30 93 Nasal Cannula 4.00 12/25/17 04:35 99.0 77 16 125/58 (80) 96 12/25/17 03:22 86 12/25/17 00:58 18 12/25/17 00:07 86 12/24/17 23:49 85 18 138/64 (88) 95 12/24/17 20:04 86 12/24/17 20:02 98.7 99 18 127/83 (98) 94 12/24/17 17:14 98.1 87 22 140/65 (90) 93 12/24/17 13:01 98.2 77 20 137/62 (87) 97 Intake & Output 12/25/17 12/25/17 07:00 19:00 Intake Total 290 ml Output Total 6200 ml Balance -5910 ml Intake Oral 240 ml IV Total 50 ml Output Urine Total 6200 ml Result Diagram: 12/25/17 0529 12/25/17 05 Objective Remarks Blas catheter draining blood-tinged urine without clots Bladder not distended Lower extremities less edematous Medications and IVs Current Medications Medications (Trade) Dose Ordered Sig/Richie Route Start Time Stop Time Status Last Admin (NS Flush) 2 ml UNSCH PRN IV FLUSH 12/23/17 14:30 (NS Flush) 2 ml BID IV FLUSH 12/23/17 21:00 12/25/17 09:13 (Lasix Inj) 40 mg BID@,18 IVP 12/23/17 18:00 12/25/17 09:11 Piperacillin Sod/ Tazobactam Sod 50 ml @ 100 mls/hr Q6H IV 12/23/17 18:00 12/25/17 06:03 (Tylenol) 650 mg Q4H PRN PO 12/23/17 14:30 (Zofran Inj) 4 mg Q6H PRN IVP 12/23/17 14:30 (Tylenol) 650 mg Q6H PRN PO 12/23/17 14:30 (Narcan Inj) 0.4 mg UNSCH PRN IV PUSH 12/23/17 14:30 (Chikis-Colace) 1 tab BID PO 12/23/17 21:00 12/25/17 09:11 (Senokot) 17.2 mg Q12H PRN PO 12/23/17 14:30 (Dulcolax Supp) 10 mg DAILY PRN RECTAL 12/23/17 14:30 (Lactulose Liq) 30 ml DAILY PRN PO 12/23/17 14:30 (Norvasc) 5 mg DAILY PO 12/24/17 09:00 12/25/17 09:12 (Coreg) 25 mg BID PO 12/23/17 21:00 12/25/17 09:12 (Lomotil Tab) 1 tab Q6H PRN PO 12/23/17 14:30 (Synthroid) 150 mcg MoWeFr@0600 PO 12/23/17 16:30 12/25/17 06:02 (Percocet 10-325 Mg) 1 tab QID PRN PO 12/23/17 14:30 12/25/17 06:02 (Aristocort 0.1% Oint) 1 applic QID TOPICAL 12/23/17 18:00 12/24/17 22:46 (Synthroid) 75 mcg SuTuThSa@0600 PO 12/24/17 06:00 12/24/17 06:02 (Synthroid) 100 mcg SuTuThSa@0600 PO 12/24/17 06:00 12/24/17 06:03 Patient Own Medication PT OWN MED: MYRBET... DAILY PO 12/24/17 09:00 Future Hold (Protonix) 20 mg DAILY PO 12/24/17 09:00 12/25/17 09:11 (Lipitor) 40 mg DAILY PO 12/24/17 09:00 12/25/17 09:11 Patient Own Medication PT OWN MED: STIOLTO RESPIMAT--... DAILY INH 12/24/17 09:00 Future Hold (B & O Supp) 60 mg Q6H PRN RECTAL 12/23/17 18:00 (Tums Chew) 500 mg Q2H PRN CHEW 12/24/17 23:45 12/24/17 23:53 Assessment and Plan Assessment and Plan Urologic impression: 1. History metastatic renal CA being followed by oncology 2. History bladder cancer status post chemo and radiation therapy 3. Status post recent direct visual internal urethrotomy of urethral stricture and bladder biopsy which was negative 4. Slowly resolving gross hematuria related to his recent urologic procedures and exacerbated by a low platelet count Recommendations: 1. Continue with indwelling Blas catheter until urine remains clear yellow for at least 48 hours 2. Irrigate Blas catheter as necessary 3. Nothing further to add at this time. Richie Vallejo MD Dec 25, 2017 09:57
[2017-12-25] MEDS ORDERED: NALOXONE HCL 0.4 MG/ML AMP IV PUSH PRN (10:15)
--- NOTE | 2017-12-25 10:19 | HHI.PR ---
Subjective Remarks Patient says he is feeling all right. Reports Blas pain continues, but has not received any belladonna suppositories. Denies any chest pain or shortness of breath. Objective Vital Signs Date Time Temp Pulse Resp B/P (MAP) Pulse Ox O2 Delivery O2 Flow Rate FiO2 12/25/17 07:30 93 Nasal Cannula 4.00 12/25/17 04:35 99.0 77 16 125/58 (80) 96 12/25/17 03:22 86 12/25/17 00:58 18 12/25/17 00:07 86 12/24/17 23:49 85 18 138/64 (88) 95 12/24/17 20:04 86 12/24/17 20:02 98.7 99 18 127/83 (98) 94 12/24/17 17:14 98.1 87 22 140/65 (90) 93 12/24/17 13:01 98.2 77 20 137/62 (87) 97 I/O 12/24/17 12/24/17 12/24/17 12/25/17 12/25/17 12/25/17 07:00 15:00 23:00 07:00 15:00 23:00 Intake Total 50 ml 290 ml Output Total 5500 ml 1600 ml 6200 ml Balance -5450 ml -1600 ml -5910 ml Intake Oral 50 ml 240 ml IV Total 50 ml Output Urine Total 5500 ml 1600 ml 6200 ml Result Diagram: 12/25/17 0529 12/25/17 0529 Objective Remarks GENERAL: sitting up in bed. Appears comfortable. SKIN: Warm and dry. HEAD: Normocephalic. EYES: No scleral icterus. No injection or drainage. NECK: Supple, trachea midline. No JVD. CARDIOVASCULAR: Regular rate and rhythm without murmurs, gallops, or rubs. RESPIRATORY: Breath sounds equal bilaterally. No accessory muscle use. GASTROINTESTINAL: Abdomen soft, non-tender, nondistended. MUSCULOSKELETAL: No cyanosis. trace bilateral lower extremity edema. Genitourinary. Still with hematuria, however improving. BACK: Nontender without obvious deformity. No CVA tenderness. A/P Assessment and Plan This is a 72-year-old male who was sent from his urologist office because of edema. Patient states that for the past 3 weeks he has developed bilateral lower extremity edema including his genitalia. He also complains of dyspnea on exertion. States he has been advised to increase fluid intake secondary to hematuria in his Blas catheter. He is compliant with salt restriction and has been taking Lasix daily. //CHF exacerbation likely secondary to increased fluid intake. Continue diuresis with IV Lasix, CHF education, I/O and monitor weight. 1.5 L fluid restriction. Obtain 2D echo = Echo pending. Continue IV Lasix, fluid restrictions. Continue to monitor closely. = 12/25. Moderate aortic stenosis on echo. Consult cardiology. //Chronic kidney disease stage IV with hyponatremia. He is asymptomatic. Nonoliguric. Consider nephrology consult. Avoid nephrotoxins = Creatinine continues stable around previous baseline. //Pancytopenia on Votrient with worsening anemia secondary to acute blood loss. Repeat CBC in the morning keep hemoglobin at least 8 with history of CAD = Consult patient's oncologist for pancytopenia. Appreciate assistance. = 12/25. Oncology following. Appreciate assistance. //Chronic respiratory failure on nasal cannula, CHF and COPD. Continue oxygen keep saturations at least 92% //Hypokalemia. 3.3. Replace. Magnesium WNL //Gross hematuria //Sepsis //complex UTI =with a history of metastatic renal cell carcinoma status post right radical nephrectomy with removal of tumor thrombus in September 2009. left renal cell carcinoma on chemotherapy Votrient and bladder cancer diagnosed over 2 years ago and received radiation and chemotherapy. Last November 30, 2017, he underwent cystoscopy and was noted to have urethral stricture status post urethrotomy. He also had a small bladder lesion was biopsied negative for malignancy. Since the procedure, patient has been having intermittent gross hematuria. Denies being on antiplatelets and anticoagulants. He was taken off Plavix 1 week before the procedure. Patient had a Blas exchanged by Dr. Huddleston today. He also has abnormal urinalysis suggestive of UTI and meets criteria for sepsis. Will start IV Zosyn. I will not be able to hydrate patient because of CHF exacerbation. Check blood cultures = 12/24. Sepsis Leukopenia, tachypnea, complicated UTI. Continue Zosyn. gram- negative rods on urine culture.Follow up cultures. Continue bladder irrigation. Still with blood. = 12/25. Hematuria improving. Urology following. Follow-up urine culture results. //Multiple medical conditions PAD, hypothyroidism, hypertension, hyperlipidemia , GERD, IBS, gout and osteoarthritis. Continue outpatient medications as appropriate //DVT prophylaxis with SCD. Pharmacological prophylaxis held due to bleeding Discharge Planning Bladder irrigation We'll need hemoglobin stable Will need antibiotics for UTI Cardiology following for aortic stenosis Hematology and urology following Trevon Barrow MD Dec 25, 2017 10:19
[2017-12-25] MEDS ORDERED: POTASSIUM CHLORIDE 10 MEQ CAP PO ONE (11:00)
[2017-12-25] MEDS: BELLADONNA ALKALOIDS/OPIUM 60 MG SUPP RECTAL PRN ×2 (11:16→18:14)
--- NOTE | 2017-12-25 11:33 | PD.CONS ---
HPI Consult Requested By Primary Care Physician Nicolas Fuller DO History of Present Illness 72-year-old male with a past medical history CAD status post CABG 2008, HTN, HLD , hypothyroidism, GERD COPD, diastolic CHF, heart murmur, solitary kidney who was sent from urologist office for lower extremity and scrotal edema. The patient states he has been receiving IV Lasix here and reports his lower extremity swelling is much improved. He reports his breathing was doing well except for his last cystoscopy here and reports his breathing is a little worse after the anesthesia. He reports his coronary disease has been stable and has not required any stenting, follows with Dr. Valle. He has some dyspepsia and chest discomfort last night, had an EKG done which he reports was unremarkable. EKG on my review shows some minimal lateral ST depressions. Initial troponin upon admission was 0.02, no repeat troponins drawn since then. Patient reports he is not having any further chest discomfort and has had no chest discomfort prior to last night. An echocardiogram was done which shows moderate , normal EF, patient reports history of heart murmur. We are consulted for CHF exacerbation and . Of note patient is having gross hematuria and being followed by urology here and currently receiving bladder irrigation. Review of Systems Negative except as stated in the HPI Past Family Social History Allergies: Coded Allergies: ciprofloxacin (Verified Allergy, Severe, Swelling, 12/23/17) Past Medical History CAD status post CABG 2008, HTN, HLD, hypothyroidism, GERD COPD, diastolic CHF, heart murmur, solitary kidney Past Surgical History Patient has a history of metastatic renal cell carcinoma status post right radical nephrectomy with removal of tumor thrombus in September 2009. Also noted to have left renal cell carcinoma on chemotherapy. He also has bladder cancer diagnosed over 2 years ago and received radiation and chemotherapy. Last November 30, 2017, he underwent cystoscopy and was noted to have urethral stricture status post urethrotomy. He also had a small bladder lesion was biopsied negative for malignancy. Reported Medications Reported Meds & Active Scripts Active Reported Triamcinolone Topical (Triamcinolone Acetonide) 0.1 % Oint 1 Applic TOPICAL QID RASH ON BACK,ABD,LEGS Stiolto Respimat Inh (Tiotropium-Olodaterol Inh) 2.5-2.5 Mcg/Act Aero 1 Puff INH DAILY Levothyroxine (Levothyroxine Sodium) 175 Mcg Tab 175 Mcg PO SUTUTHSA Take 1 tablet (175mcg) daily on Thursday,Thursday, and Thursday Prilosec (Omeprazole Magnesium) 20 Mg Tab 20 Mg PO DAILY Zofran (Ondansetron HCl) 4 Mg Tab 4 Mg PO Q12HR PRN Crestor (Rosuvastatin Calcium) 20 Mg Tab 20 Mg PO DAILY Myrbetriq (Mirabegron) 50 Mg Tab 50 Mg PO DAILY Plavix (Clopidogrel Bisulfate) 75 Mg Tab 75 Mg PO DAILY Coreg (Carvedilol) 25 Mg Tab 25 Mg PO BID Lomotil (Diphenoxylate-Atropine) 2.5-0.025 Mg Tab 1 Tab PO Q6H PRN Percocet (Oxycodone-Acetaminophen) 10-325 mg Tab 1 Tab PO QID PRN Amlodipine (Amlodipine Besylate) 5 Mg Tab 5 Mg PO DAILY Levothyroxine (Levothyroxine Sodium) 150 Mcg Tab 150 Mcg PO MOWEFR Take 1 tablet (150mcg) daily on Thursday,Thursday and Thursday Active Ordered Medications Current Medications Medications (Trade) Dose Ordered Sig/Richie Route Start Time Stop Time Status Last Admin (NS Flush) 2 ml UNSCH PRN IV FLUSH 12/23/17 14:30 (NS Flush) 2 ml BID IV FLUSH 12/23/17 21:00 12/25/17 09:13 (Lasix Inj) 40 mg BID@,18 IVP 12/23/17 18:00 12/25/17 09:11 Piperacillin Sod/ Tazobactam Sod 50 ml @ 100 mls/hr Q6H IV 12/23/17 18:00 12/25/17 06:03 (Tylenol) 650 mg Q4H PRN PO 12/23/17 14:30 (Zofran Inj) 4 mg Q6H PRN IVP 12/23/17 14:30 (Tylenol) 650 mg Q6H PRN PO 12/23/17 14:30 (Chikis-Colace) 1 tab BID PO 12/23/17 21:00 12/25/17 09:11 (Senokot) 17.2 mg Q12H PRN PO 12/23/17 14:30 (Dulcolax Supp) 10 mg DAILY PRN RECTAL 12/23/17 14:30 (Lactulose Liq) 30 ml DAILY PRN PO 12/23/17 14:30 (Norvasc) 5 mg DAILY PO 12/24/17 09:00 12/25/17 09:12 (Coreg) 25 mg BID PO 12/23/17 21:00 12/25/17 09:12 (Lomotil Tab) 1 tab Q6H PRN PO 12/23/17 14:30 (Synthroid) 150 mcg MoWeFr@0600 PO 12/23/17 16:30 12/25/17 06:02 (Aristocort 0.1% Oint) 1 applic QID TOPICAL 12/23/17 18:00 12/24/17 22:46 (Synthroid) 75 mcg SuTuThSa@0600 PO 12/24/17 06:00 12/24/17 06:02 (Synthroid) 100 mcg SuTuThSa@0600 PO 12/24/17 06:00 12/24/17 06:03 Patient Own Medication PT OWN MED: MYRBET... DAILY PO 12/24/17 09:00 Future Hold (Protonix) 20 mg DAILY PO 12/24/17 09:00 12/25/17 09:11 (Lipitor) 40 mg DAILY PO 12/24/17 09:00 12/25/17 09:11 Patient Own Medication PT OWN MED: STIOLTO RESPIMAT--... DAILY INH 12/24/17 09:00 Future Hold (B & O Supp) 60 mg Q6H PRN RECTAL 12/23/17 18:00 12/25/17 11:16 (Tums Chew) 500 mg Q2H PRN CHEW 12/24/17 23:45 12/24/17 23:53 (Percocet 5-325 Mg) 1 tab Q6H PRN PO 12/25/17 11:00 (Percocet 10-325 Mg) 1 tab Q6H PRN PO 12/25/17 11:00 (Morphine Inj) 4 mg Q3H PRN IV PUSH 12/25/17 11:00 (Narcan Inj) 0.4 mg UNSCH PRN IV PUSH 12/25/17 10:15 Family History Hypertension Social History Does not smoke or drink anymore Physical Exam Vital Signs Vital Signs Date Time Temp Pulse Resp B/P (MAP) Pulse Ox O2 Delivery O2 Flow Rate FiO2 4/6/18 07:30 93 Nasal Cannula 4.00 12/25/17 04:35 99.0 77 16 125/58 (80) 96 12/25/17 03:22 86 12/25/17 00:58 18 12/25/17 00:07 86 12/24/17 23:49 85 18 138/64 (88) 95 12/24/17 20:04 86 12/24/17 20:02 98.7 99 18 127/83 (98) 94 12/24/17 17:14 98.1 87 22 140/65 (90) 93 12/24/17 13:01 98.2 77 20 137/62 (87) 97 Physical Exam GENERAL: Well-developed well-nourished. In no acute distress. NECK: No carotid bruits. No JVD. CARDIOVASCULAR: Regular rate and rhythm. 2/6 systolic ejection murmur appreciated. RESPIRATORY: No accessory muscle use. Clear to auscultation. Breath sounds equal bilaterally. MUSCULOSKELETAL: Venous stasis changes lower extremity. Trace edema. NEUROLOGICAL: Awake and alert. Normal speech. Laboratory Laboratory Tests Test 12/25/17 05:29 White Blood Count 3.3 Red Blood Count 2.24 Hemoglobin 8.1 Hematocrit 24.0 Mean Corpuscular Volume 107.1 Mean Corpuscular Hemoglobin 35.9 Mean Corpuscular Hemoglobin Concent 33.6 Red Cell Distribution Width 17.4 Platelet Count 84 Mean Platelet Volume 8.5 Neutrophils (%) (Auto) 67.3 Lymphocytes (%) (Auto) 14.8 Monocytes (%) (Auto) 10.9 Eosinophils (%) (Auto) 6.0 Basophils (%) (Auto) 1.0 Neutrophils # (Auto) 2.2 Lymphocytes # (Auto) 0.5 Monocytes # (Auto) 0.4 Eosinophils # (Auto) 0.2 Basophils # (Auto) 0.0 CBC Comment AUTO DIFF Differential Comment AUTO DIFF CONFIRMED Platelet Estimate LOW Platelet Morphology Comment NORMAL Blood Urea Nitrogen 37 Creatinine 2.66 Random Glucose 99 Albumin 1.9 Calcium Level 8.0 Phosphorus Level 3.9 Magnesium Level 2.0 Sodium Level 133 Potassium Level 3.3 Chloride Level 92 Carbon Dioxide Level 32.0 Anion Gap 9 Estimat Glomerular Filtration Rate 24 Date/Time Source Procedure Growth Status 12/24/17 08:55 Blood Peripheral Aerobic Blood Culture - Preliminary NO GROWTH IN 1 DAY Resulted 4/5/18 08:55 Blood Peripheral Anaerobic Blood Culture - Preliminary NO GROWTH IN 1 DAY Resulted 12/23/17 12:31 Urine Random Urine Urine Culture - Preliminary Klebsiella Pneumoniae Group D Enterococcus Resulted Result Diagram: 12/25/17 0529 12/25/17 0529 Imaging Last Impressions Chest X-Ray 12/23/17 1334 Signed Impressions: Service Date/Time: Saturday, December 23, 2017 13:38 - CONCLUSION: Asymmetric interstitial prominence left mid and lower lobe without focal areas of consolidation. Flaquito Velasquez MD Assessment and Plan Assessment and Plan 72-year-old male with a past medical history CAD status post CABG 2008, HTN, HLD , hypothyroidism, GERD COPD, diastolic CHF, heart murmur, solitary kidney who was sent from urologist office for lower extremity and scrotal edema Possible diastolic CHF exacerbation: Currently patient appears well compensated after diuresis. Will stop amlodipine with lower extremity edema. Continue cautious diuresis with CKD 4. Moderate aortic stenosis: Echocardiogram with only moderate aortic stenosis, continue follow-up with patient's primary shell grader. Atypical chest discomfort: Possibly GI related. Regardless, patient is a poor interventional candidate with advanced renal disease and urologic bleeding. Recommend medical management at this time and will add Imdur. Nothing further to add from a cardiology standpoint at this time, will sign off. Please feel free to call with any questions Asaf Dominguez Dec 25, 2017 11:33
--- NOTE | 2017-12-25 14:25 | PD.ONC.PN ---
Subjective Subjective Remarks Afebrile overnight. patient resting in room. tired of being in the hospital. +persistent hematuria. Objective Data Date Time Temp Pulse Resp B/P (MAP) Pulse Ox O2 Delivery O2 Flow Rate FiO2 12/25/17 13:57 96.8 87 16 138/67 (90) 92 12/25/17 07:30 93 Nasal Cannula 4.00 12/25/17 04:35 99.0 77 16 125/58 (80) 96 12/25/17 03:22 86 12/25/17 00:58 18 12/25/17 00:07 86 12/24/17 23:49 85 18 138/64 (88) 95 12/24/17 20:04 86 12/24/17 20:02 98.7 99 18 127/83 (98) 94 12/24/17 17:14 98.1 87 22 140/65 (90) 93 12/25/17 12/25/17 12/25/17 07:00 15:00 23:00 Intake Total 290 ml Output Total 6200 ml Balance -5910 ml Result Diagram: 12/25/17 0529 12/25/17 0529 Laboratory Results Laboratory Tests Test 12/25/17 05:29 White Blood Count 3.3 TH/MM3 Red Blood Count 2.24 MIL/MM3 Hemoglobin 8.1 GM/DL Hematocrit 24.0 % Mean Corpuscular Volume 107.1 FL Mean Corpuscular Hemoglobin 35.9 PG Mean Corpuscular Hemoglobin Concent 33.6 % Red Cell Distribution Width 17.4 % Platelet Count 84 TH/MM3 Mean Platelet Volume 8.5 FL Neutrophils (%) (Auto) 67.3 % Lymphocytes (%) (Auto) 14.8 % Monocytes (%) (Auto) 10.9 % Eosinophils (%) (Auto) 6.0 % Basophils (%) (Auto) 1.0 % Neutrophils # (Auto) 2.2 TH/MM3 Lymphocytes # (Auto) 0.5 TH/MM3 Monocytes # (Auto) 0.4 TH/MM3 Eosinophils # (Auto) 0.2 TH/MM3 Basophils # (Auto) 0.0 TH/MM3 CBC Comment AUTO DIFF Differential Comment AUTO DIFF CONFIRMED Platelet Estimate LOW Platelet Morphology Comment NORMAL Blood Urea Nitrogen 37 MG/DL Creatinine 2.66 MG/DL Random Glucose 99 MG/DL Albumin 1.9 GM/DL Calcium Level 8.0 MG/DL Phosphorus Level 3.9 MG/DL Magnesium Level 2.0 MG/DL Sodium Level 133 MEQ/L Potassium Level 3.3 MEQ/L Chloride Level 92 MEQ/L Carbon Dioxide Level 32.0 MEQ/L Anion Gap 9 MEQ/L Estimat Glomerular Filtration Rate 24 ML/MIN Culture Results Microbiology Date/Time Source Procedure Growth Status 12/24/17 08:55 Blood Peripheral Aerobic Blood Culture - Preliminary NO GROWTH IN 1 DAY Resulted 12/24/17 08:55 Blood Peripheral Anaerobic Blood Culture - Preliminary NO GROWTH IN 1 DAY Resulted 12/24/17 08:50 Blood Peripheral Aerobic Blood Culture - Preliminary NO GROWTH IN 1 DAY Resulted 12/24/17 08:50 Blood Peripheral Anaerobic Blood Culture - Preliminary NO GROWTH IN 1 DAY Resulted 12/23/17 12:31 Urine Random Urine Urine Culture - Preliminary Klebsiella Pneumoniae Group D Enterococcus Resulted Administered Medications Medications (Trade) Dose Ordered Sig/Richie Route PRN Reason Start Time Stop Time Status Last Admin Dose Admin Sodium Chloride (NS Flush) 2 ml BID IV FLUSH 12/23/17 21:00 12/25/17 09:13 Furosemide (Lasix Inj) 40 mg BID@ IVP 12/23/17 18:00 12/25/17 09:11 Piperacillin Sod/ Tazobactam Sod 50 ml @ 100 mls/hr Q6H IV 12/23/17 18:00 12/25/17 12:15 Senna/Docusate Sodium (Chikis-Colace) 1 tab BID PO 12/23/17 21:00 12/25/17 09:11 Carvedilol (Coreg) 25 mg BID PO 12/23/17 21:00 12/25/17 09:12 Levothyroxine Sodium (Synthroid) 150 mcg MoWeFr@0600 PO 12/23/17 16:30 12/25/17 06:02 Triamcinolone Acetonide (Aristocort 0.1% Oint) 1 applic QID TOPICAL 12/23/17 18:00 12/25/17 12:58 Levothyroxine Sodium (Synthroid) 75 mcg SuTuThSa@0600 PO 12/24/17 06:00 12/24/17 06:02 Levothyroxine Sodium (Synthroid) 100 mcg SuTuThSa@0600 PO 12/24/17 06:00 12/24/17 06:03 Pantoprazole Sodium (Protonix) 20 mg DAILY PO 12/24/17 09:00 12/25/17 09:11 Atorvastatin Calcium (Lipitor) 40 mg DAILY PO 12/24/17 09:00 12/25/17 09:11 Belladonna Alkaloids/Opium (B & O Supp) 60 mg Q6H PRN RECTAL bladder spasm 12/23/17 18:00 12/25/17 11:16 Calcium Carbonate (Tums Chew) 500 mg Q2H PRN CHEW indigestion 12/24/17 23:45 12/24/17 23:53 Oxycodone/ Acetaminophen (Percocet 10-325 Mg) 1 tab Q6H PRN PO PAIN SCALE 6 TO 10 12/25/17 11:00 12/25/17 11:20 Objective Remarks GENERAL: Elderly male, lying in bed in nad. SKIN: Warm and dry. HEAD: Normocephalic. EYES: No injection or drainage. NECK: Supple, trachea midline. CARDIOVASCULAR: Regular rate and rhythm : gill in place, +bloody urine RESPIRATORY: anterior garcia clear. GASTROINTESTINAL: Abdomen soft, non-tender, nondistended. EXTREMITIES: No cyanosis NEUROLOGICAL: awake and alert. normal speech. moving extremities. Assessment/Plan Problem List: (1) Hematuria, gross ICD Codes: R31.0 - Gross hematuria Status: Acute Plan: --due to recent cystoscopy and urethrotomy. --on bladder irrigation. Urology following. (2) Pancytopenia ICD Codes: D61.818 - Other pancytopenia Plan: ++partly due to Votrient-->Votrient was stopped about 3 weeks ago. ++significant anemia likely due to chronic kidney disease as well as chronic inflammatory disease. --given Epogen on 12/24 --B12 low, will replace and start on folate daily (3) Metastatic renal cell carcinoma ICD Codes: C64.9 - Malignant neoplasm of unspecified kidney, except renal pelvis Plan: --continue monitoring for now. History: --presented with bilateral renal cell carcinoma and had right nephrectomy in February 2010. 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 --had a biopsy of the left kidney mass, which also showed renal cell carcinoma. He started Votrient, with good response. The Votrient was held for awhile when he was receiving treatment for bladder cancer. --recently was found to have progression of disease and restarted Votrient at the end of 2014. CT scan done in early November which did not show clear evidence of progression of disease. The Votrient has been on hold since the urologic procedure. (4) Bladder cancer ICD Codes: C67.9 - Malignant neoplasm of urinary bladder Status: Acute Plan: -- Bladder invasive transitional cell carcinoma, treated with radiation and chemotherapy. --had another cystoscopy 3 weeks ago with biopsy which did not show any recurrent disease. Assessment 72y/o male with thrombocytopenia, anemia and history of metastatic renal cell cancer. h/o Congestive heart failure. Chronic obstructive pulmonary disease, oxygen dependent. Bladder cancer. Urethral stricture. Pancytopenia. Hypertension. Hypothyroidism. Hyperlipidemia. Gastroesophageal reflux disease. Osteoarthritis. Gout Plan 1. monitor CBC 2. give B12 3. patient can be discharged from hematology/oncology perspective when cleared by urology and cardiology. Attending Statement The exam, history, and the medical decision-making described in the above note were completed with the assistance of the mid-level provider. I reviewed and agree with the findings presented. I attest that I had a [id number] encounter with the patient on the same day, and personally performed and documented my assessment and findings in the medical record. Urine is pinkish, no clots. Hgb trended up slightly. Had Epogen x1 yesterday. B12 is low and start B12 supplement. Monitor CBC. Can transfuse platelet if he has worsening bleed. Can be d/c when clear by urology. Continue to hold Votrient. Desire Samuels Dec 25, 2017 14:25 Ernesto Yousif MD Dec 25, 2017 18:11
[2017-12-25] MEDS: MORPHINE SULFATE 2 MG/ML SYRINGE IV PUSH PRN ×2 (14:38→18:15)
[2017-12-25] MEDS ORDERED: CYANOCOBALAMIN 1000 MCG/ML VIAL IM SCH (15:00)
--- NOTE | 2017-12-25 16:16 | EKG ---
Date Performed: 12/24/2017 Time Performed: 22:44:08 PTAGE: 72 years EKG: Sinus rhythm WITH FIRST DEGREE AV BLOCK WITH OCCASIONAL VENTRICULAR PREMATURE COMPLEXES NONSPECIFIC INTRAVENTRICU LAR CONDUCTION DELAY NONSPECIFIC ST ABNORMALITY ABNORMAL ECG NO PREVIOUS TRACING DOCTOR: Alexys Sanchez Interpretating Date/Time 12/25/2017 16:14:37
[2017-12-26] VITALS (17 sets, daily range): BP systolic 95–140; BP diastolic 51–67; PULSE 76–110; RESP 18–24; TEMP 97.3–98.6; O2SAT 90–98
[2017-12-26] MEDS: CALCIUM CARBONATE 500 MG CHEWABLE TAB CHEW PRN ×3 (00:03→20:02)
[2017-12-26] MEDS: SODIUM CHLORIDE 0.9% FLUSH 10 ML FLUSH IV FLUSH SCH ×3 (00:18→19:58)
[2017-12-26] MEDS: TRIAMCINOLONE ACETONIDE 0.1% OINT 15 GM TUBE TOPICAL SCH ×5 (00:19→19:59)
[2017-12-26] MEDS: CARVEDILOL 12.5 MG TAB PO SCH ×3 (00:19→19:58)
[2017-12-26] MEDS: PIPERACIL-TAZO 2.25 GM PREMIX 50 ML IV SCH ×5 (01:04→23:13)
[2017-12-26] MEDS ORDERED: RESP: ALBUTEROL 2.5 MG/IPRATROPIUM 0.5 MG NEB (PRN) NEB (05:45)
[2017-12-26] MEDS: oxyCODONE/ACETAMINOPHEN 10 MG/325 MG TAB PO PRN ×3 (06:12→17:36)
--- NOTE | 2017-12-26 06:26 | RADRPT ---
EXAM DATE/TIME: 12/26/2017 05:42 [facility] COMPARISON: CHEST SINGLE AP, December 23, 2017, 13:38. INDICATIONS : Short of breath. MEDICAL HISTORY : Cerebrovascular disease. Cardiovascular disease Hypertension.Bladder and renal cancer SURGICAL HISTORY : Nephrectomy, right. CABG ENCOUNTER: Initial ACUITY: 1 day PAIN SCORE: 0/10 LOCATION: Bilateral chest FINDINGS: 2 AP views of the chest. Right IJ central venous catheter remains in place. Median sternotomy wires a re present. Mild cardiac silhouette enlargement. Bilateral lower lung zone opacity and central pulmon jayden vasculature prominence likely representing pulmonary edema, slightly more prominent on the compar kristi study. CONCLUSION: Bilateral pulmonary opacity likely representing pulmonary edema, slightly increased from the comparis on study. Adrian Black MD on December 26, 2017 at 6:24 Board Certified Radiologist. This report was verified electronically.
[2017-12-26] MEDS: FUROSEMIDE 40 MG/4 ML VIAL IVP SCH ×2 (06:38→17:29)
[2017-12-26] MEDS: LEVOTHYROXINE SODIUM 75 MCG TAB PO SCH (07:06)
[2017-12-26] MEDS: ISOSORBIDE MONONITRATE 30 MG CR TAB (IMDUR) PO SCH (07:06)
[2017-12-26] MEDS: LEVOTHYROXINE SODIUM 100 MCG TAB PO SCH (07:06)
[2017-12-26] MEDS: DOCUSATE SODIUM 50 MG/SENNA 8.6 MG TAB PO SCH ×2 (09:00→19:58)
[2017-12-26] MEDS: FOLIC ACID 1 MG TAB PO SCH (09:50)
[2017-12-26] MEDS: ATORVASTATIN 40 MG TAB PO SCH (09:50)
[2017-12-26] MEDS: PANTOPRAZOLE SOD 20 MG DELAYED RELEASE TAB PO SCH (09:50)
[2017-12-26] MEDS: CYANOCOBALAMIN 1,000 MCG TAB PO SCH (09:50)
--- NOTE | 2017-12-26 10:31 | PD.CARD.PN ---
Subjective Subjective Remarks Had episode of worsening shortness of breath last night and has been on Venti mask. Had 10 minutes of chest discomfort as well. I's and O's show large negative fluid balance since admission, however unsure if this is secondary to bladder irrigation as well. 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 Objective Medications Current Medications Medications (Trade) Dose Ordered Sig/Richie Route Start Time Stop Time Status Last Admin (NS Flush) 2 ml UNSCH PRN IV FLUSH 12/23/17 14:30 (NS Flush) 2 ml BID IV FLUSH 12/23/17 21:00 12/26/17 09:51 (Lasix Inj) 40 mg BID@,18 IVP 12/23/17 18:00 12/26/17 06:38 Piperacillin Sod/ Tazobactam Sod 50 ml @ 100 mls/hr Q6H IV 12/23/17 18:00 12/26/17 06:45 (Tylenol) 650 mg Q4H PRN PO 12/23/17 14:30 (Zofran Inj) 4 mg Q6H PRN IVP 12/23/17 14:30 (Tylenol) 650 mg Q6H PRN PO 12/23/17 14:30 (Chikis-Colace) 1 tab BID PO 12/23/17 21:00 12/25/17 09:11 (Senokot) 17.2 mg Q12H PRN PO 12/23/17 14:30 (Dulcolax Supp) 10 mg DAILY PRN RECTAL 12/23/17 14:30 (Lactulose Liq) 30 ml DAILY PRN PO 12/23/17 14:30 (Coreg) 25 mg BID PO 12/23/17 21:00 12/26/17 09:51 (Lomotil Tab) 1 tab Q6H PRN PO 12/23/17 14:30 (Synthroid) 150 mcg MoWeFr@0600 PO 12/23/17 16:30 12/25/17 06:02 (Aristocort 0.1% Oint) 1 applic QID TOPICAL 12/23/17 18:00 12/26/17 00:19 (Synthroid) 75 mcg SuTuThSa@0600 PO 12/24/17 06:00 12/26/17 07:06 (Synthroid) 100 mcg SuTuThSa@0600 PO 12/24/17 06:00 12/26/17 07:06 Patient Own Medication PT OWN MED: MYRBET... DAILY PO 12/24/17 09:00 Future Hold (Protonix) 20 mg DAILY PO 12/24/17 09:00 12/26/17 09:50 (Lipitor) 40 mg DAILY PO 12/24/17 09:00 12/26/17 09:50 Patient Own Medication PT OWN MED: STIOLTO RESPIMAT--... DAILY INH 12/24/17 09:00 Future Hold (B & O Supp) 60 mg Q6H PRN RECTAL 12/23/17 18:00 12/25/17 18:14 (Tums Chew) 500 mg Q2H PRN CHEW 12/24/17 23:45 12/26/17 06:12 (Percocet 5-325 Mg) 1 tab Q6H PRN PO 12/25/17 11:00 (Percocet 10-325 Mg) 1 tab Q6H PRN PO 12/25/17 11:00 12/26/17 06:12 (Morphine Inj) 4 mg Q3H PRN IV PUSH 12/25/17 11:00 12/25/17 18:15 (Narcan Inj) 0.4 mg UNSCH PRN IV PUSH 12/25/17 10:15 (Imdur) 30 mg DAILY@07 PO 12/26/17 07:00 12/26/17 07:06 (Vitamin B12 Inj) 1,000 mcg Q30D IM 12/25/17 15:00 12/25/17 14:45 (Folate) 1 mg DAILY PO 12/26/17 09:00 12/26/17 09:50 (Vitamin B12) 1,000 mcg DAILY PO 12/26/17 09:00 12/26/17 09:50 (Duoneb Neb) 1 ampule Q4HR NEB PRN NEB 12/26/17 05:45 Vital Signs / I&O Vital Signs Date Time Temp Pulse Resp B/P (MAP) Pulse Ox O2 Delivery O2 Flow Rate FiO2 12/26/17 09:05 90 Venturi Mask 6.00 50 12/26/17 08:15 97.9 88 24 119/59 (79) 90 12/26/17 08:15 88 12/26/17 04:31 97.7 90 18 140/64 (89) 98 12/26/17 00:15 91 Venturi Mask 50 12/26/17 00:00 97.3 110 24 140/64 (89) 92 12/25/17 21:58 99.3 100 20 159/72 (101) 95 12/25/17 20:55 90 Nasal Cannula 5.00 12/25/17 18:18 96.7 74 16 152/71 (98) 98 12/25/17 13:57 96.8 87 16 138/67 (90) 92 I/O 12/25/17 12/25/17 12/25/17 12/26/17 12/26/17 12/26/17 07:00 15:00 23:00 07:00 15:00 23:00 Intake Total 290 ml Output Total 6200 ml 1900 ml 6400 ml 1200 ml Balance -5910 ml -1900 ml -6400 ml -1200 ml Intake Oral 240 ml IV Total 50 ml Output Urine Total 6200 ml 1900 ml 6400 ml 1200 ml # Bowel Movements 1 1 Physical Exam GENERAL: Well-developed well-nourished. In no acute distress. NECK: No carotid bruits. No JVD. CARDIOVASCULAR: Regular rate and rhythm. 2/6 systolic ejection murmur appreciated. RESPIRATORY: No accessory muscle use. Clear to auscultation. Breath sounds equal bilaterally. MUSCULOSKELETAL: Venous stasis changes lower extremity. Trace edema. NEUROLOGICAL: Awake and alert. Normal speech. Laboratory Laboratory Tests Test 12/26/17 05:50 Blood Gas Puncture Site RT FEMORAL Blood Gas Patient Temperature 98.6 Blood Gas HCO3 35 mmol/L Blood Gas Base Excess 10.9 mmol/L Blood Gas Oxygen Saturation 89 % Arterial Blood pH 7.51 Arterial Blood Partial Pressure CO2 44 mmHg Arterial Blood Partial Pressure O2 56 mmHG Arterial Blood Oxygen Content 10.9 Vol % Arterial Blood Carboxyhemoglobin 2.4 % Arterial Blood Methemoglobin 0.4 % Blood Gas Hemoglobin 8.7 G/DL Oxygen Delivery Device Venti Mask Blood Gas Inspired Oxygen 50 % Imaging Last 24 hours Impressions Chest X-Ray 12/26/17 0000 Signed Impressions: Service Date/Time: Tuesday, December 26, 2017 05:42 - CONCLUSION: Bilateral pulmonary opacity likely representing pulmonary edema, slightly increased from the comparison study. Adrian Black MD Assessment and Plan Assessment and Plan 72-year-old male with a past medical history CAD status post CABG 2008, HTN, HLD , hypothyroidism, GERD COPD, diastolic CHF, heart murmur, solitary kidney who was sent from urologist office for lower extremity and scrotal edema ARDS vs Diastolic CHF exacerbation: Episode of respiratory distress last night with chest x-ray showing diffuse edema, however reportedly good output with diuresis. Continue cautious diuresis with CKD 4 and consult nephrology. Moderate aortic stenosis: Echocardiogram with only moderate aortic stenosis, continue follow-up with patient's primary before school. Atypical chest discomfort: Possibly GI related. Regardless, patient is a poor interventional candidate with advanced renal disease and urologic bleeding. Recommend medical management at this time, added Imdur. Discussed Condition With Patient seen with Asaf Arboleda Dec 26, 2017 10:30
--- NOTE | 2017-12-26 13:03 | PD.ONC.PN ---
Subjective Subjective Remarks Afebrile Breathing improved Happy to have food from outside of the hospital brought into him Objective Data Date Time Temp Pulse Resp B/P (MAP) Pulse Ox O2 Delivery O2 Flow Rate FiO2 12/26/17 12:56 22 12/26/17 09:05 90 Venturi Mask 6.00 50 12/26/17 08:15 97.9 88 24 119/59 (79) 90 12/26/17 08:15 88 12/26/17 04:31 97.7 90 18 140/64 (89) 98 12/26/17 00:15 91 Venturi Mask 50 12/26/17 00:00 97.3 110 24 140/64 (89) 92 12/25/17 21:58 99.3 100 20 159/72 (101) 95 12/25/17 20:55 90 Nasal Cannula 5.00 12/25/17 18:18 96.7 74 16 152/71 (98) 98 12/25/17 13:57 96.8 87 16 138/67 (90) 92 12/26/17 12/26/17 12/26/17 07:00 15:00 23:00 Output Total 6400 ml 1200 ml Balance -6400 ml -1200 ml Result Diagram: 12/25/17 0529 12/25/17 0529 Laboratory Results Laboratory Tests Test 12/26/17 05:50 Blood Gas Puncture Site RT FEMORAL Blood Gas Patient Temperature 98.6 Blood Gas HCO3 35 mmol/L Blood Gas Base Excess 10.9 mmol/L Blood Gas Oxygen Saturation 89 % Arterial Blood pH 7.51 Arterial Blood Partial Pressure CO2 44 mmHg Arterial Blood Partial Pressure O2 56 mmHG Arterial Blood Oxygen Content 10.9 Vol % Arterial Blood Carboxyhemoglobin 2.4 % Arterial Blood Methemoglobin 0.4 % Blood Gas Hemoglobin 8.7 G/DL Oxygen Delivery Device Venti Mask Blood Gas Inspired Oxygen 50 % Culture Results Microbiology Date/Time Source Procedure Growth Status 12/24/17 08:55 Blood Peripheral Aerobic Blood Culture - Preliminary NO GROWTH IN 2 DAYS Resulted 12/24/17 08:55 Blood Peripheral Anaerobic Blood Culture - Preliminary NO GROWTH IN 2 DAYS Resulted 12/24/17 08:50 Blood Peripheral Aerobic Blood Culture - Preliminary NO GROWTH IN 2 DAYS Resulted 12/24/17 08:50 Blood Peripheral Anaerobic Blood Culture - Preliminary NO GROWTH IN 2 DAYS Resulted Imaging Studies Last 24 hours Impressions Chest X-Ray 12/26/17 0000 Signed Impressions: Service Date/Time: Tuesday, December 26, 2017 05:42 - CONCLUSION: Bilateral pulmonary opacity likely representing pulmonary edema, slightly increased from the comparison study. Adrian Black MD Administered Medications Medications (Trade) Dose Ordered Sig/Richie Route PRN Reason Start Time Stop Time Status Last Admin Dose Admin Sodium Chloride (NS Flush) 2 ml BID IV FLUSH 12/23/17 21:00 12/26/17 09:51 Furosemide (Lasix Inj) 40 mg BID@ IVP 12/23/17 18:00 12/26/17 06:38 Piperacillin Sod/ Tazobactam Sod 50 ml @ 100 mls/hr Q6H IV 12/23/17 18:00 12/26/17 12:05 Senna/Docusate Sodium (Chikis-Colace) 1 tab BID PO 12/23/17 21:00 12/25/17 09:11 Carvedilol (Coreg) 25 mg BID PO 12/23/17 21:00 12/26/17 09:51 Levothyroxine Sodium (Synthroid) 150 mcg MoWeFr@0600 PO 12/23/17 16:30 12/25/17 06:02 Triamcinolone Acetonide (Aristocort 0.1% Oint) 1 applic QID TOPICAL 12/23/17 18:00 12/26/17 12:07 Levothyroxine Sodium (Synthroid) 75 mcg SuTuThSa@0600 PO 12/24/17 06:00 12/26/17 07:06 Levothyroxine Sodium (Synthroid) 100 mcg SuTuThSa@0600 PO 12/24/17 06:00 12/26/17 07:06 Pantoprazole Sodium (Protonix) 20 mg DAILY PO 12/24/17 09:00 12/26/17 09:50 Atorvastatin Calcium (Lipitor) 40 mg DAILY PO 12/24/17 09:00 12/26/17 09:50 Belladonna Alkaloids/Opium (B & O Supp) 60 mg Q6H PRN RECTAL bladder spasm 12/23/17 18:00 12/25/17 18:14 Calcium Carbonate (Tums Chew) 500 mg Q2H PRN CHEW indigestion 12/24/17 23:45 12/26/17 06:12 Oxycodone/ Acetaminophen (Percocet 10-325 Mg) 1 tab Q6H PRN PO PAIN SCALE 6 TO 10 12/25/17 11:00 12/26/17 12:03 Morphine Sulfate (Morphine Inj) 4 mg Q3H PRN IV PUSH BREAKTHROUGH PAIN 12/25/17 11:00 12/25/17 18:15 Isosorbide Mononitrate (Imdur) 30 mg DAILY@07 PO 12/26/17 07:00 12/26/17 07:06 Cyanocobalamin (Vitamin B12 Inj) 1,000 mcg Q30D IM 12/25/17 15:00 12/25/17 14:45 Folic Acid (Folate) 1 mg DAILY PO 12/26/17 09:00 12/26/17 09:50 Cyanocobalamin (Vitamin B12) 1,000 mcg DAILY PO 12/26/17 09:00 12/26/17 09:50 Objective Remarks GENERAL: Elderly male, lying in bed eating a chicken sandwich that his has brought in SKIN: Warm and dry. HEAD: Normocephalic. EYES: No injection or drainage. NECK: Supple, trachea midline. CARDIOVASCULAR: Regular rate and rhythm : Continuous irrigation ongoing. He continues to have hematuria RESPIRATORY: Clear anteriorly. On 50% Ventimask. GASTROINTESTINAL: Abdomen soft, non-tender, nondistended. EXTREMITIES: Swelling much improved. He has purpura on bilateral lower extremities NEUROLOGICAL: Moving all extremities. No obvious focal deficit. Assessment/Plan Problem List: (1) Hematuria, gross ICD Codes: R31.0 - Gross hematuria Status: Acute Plan: --due to recent cystoscopy and urethrotomy. --on bladder irrigation. Urology following. (2) Pancytopenia ICD Codes: D61.818 - Other pancytopenia Plan: ++partly due to Votrient-->Votrient was stopped about 3 weeks ago. ++significant anemia likely due to chronic kidney disease as well as chronic inflammatory disease. --given Epogen on 12/24 --B12 low, will replace and start on folate daily (3) Metastatic renal cell carcinoma ICD Codes: C64.9 - Malignant neoplasm of unspecified kidney, except renal pelvis Plan: --continue monitoring for now. History: --presented with bilateral renal cell carcinoma and had right nephrectomy in February 2010. 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 --had a biopsy of the left kidney mass, which also showed renal cell carcinoma. He started Votrient, with good response. The Votrient was held for awhile when he was receiving treatment for bladder cancer. --recently was found to have progression of disease and restarted Votrient at the end of 2014. CT scan done in early November which did not show clear evidence of progression of disease. The Votrient has been on hold since the urologic procedure. (4) Bladder cancer ICD Codes: C67.9 - Malignant neoplasm of urinary bladder Status: Acute Plan: -- Bladder invasive transitional cell carcinoma, treated with radiation and chemotherapy. --had another cystoscopy 3 weeks ago with biopsy which did not show any recurrent disease. Assessment 72y/o male with thrombocytopenia, anemia and history of metastatic renal cell cancer. h/o Congestive heart failure. Chronic obstructive pulmonary disease, oxygen dependent. Bladder cancer. Urethral stricture. Pancytopenia. Hypertension. Hypothyroidism. Hyperlipidemia. Gastroesophageal reflux disease. Osteoarthritis. Gout Plan 1. Continue to monitor CBC 2. Hold off on resuming Votrient until hematuria is cleared-will discuss outpatient 3. Clear for discharge from oncology standpoint Attending Statement The exam, history, and the medical decision-making described in the above note were completed with the assistance of the mid-level provider. I reviewed and agree with the findings presented. I attest that I had a [id number] encounter with the patient on the same day, and personally performed and documented my assessment and findings in the medical record. PT seen and examined. Resting, happy to be in a room not in ED. Follow thrombocytopenia- hematuria with [facility]. Votrient on hold. Ruba Thomas Dec 26, 2017 13:03 Florinda Cantrell MD Dec 26, 2017 17:24
[2017-12-26 13:25] LABS: AUTOMATED NEUTROPHIL # 2.2 TH/MM3 (1.8-7.7); BASOPHIL % 0.8 % (0.0-2.0); EOSINOPHIL # 0.3 TH/MM3 (0-0.4); EOSINOPHIL % 9.3 % (0.0-4.0); HEMATOCRIT 22.9 % (39.0-51.0); HEMOGLOBIN 7.5 GM/DL (13.0-17.0); LYMPH % 10.3 % (9.0-44.0); LYMPHOCYTE # 0.3 TH/MM3 (1.0-4.8); MEAN CELL VOLUME 107.9 FL (80.0-100.0); MEAN CORPUSCULAR HEMOGLOBIN 35.3 PG (27.0-34.0); MEAN CORPUSCULAR HGB CONC 32.7 % (32.0-36.0); MEAN PLATELET VOLUME 8.5 FL (7.0-11.0); MONO % 11.1 % (0.0-8.0); MONOCYTE # 0.4 TH/MM3 (0-0.9); NEUT % 68.5 % (16.0-70.0); PLATELET COUNT 88 TH/MM3 (150-450); RED BLOOD COUNT 2.13 MIL/MM3 (4.50-5.90); RED CELL DISTRIBUTION WIDTH 17.5 % (11.6-17.2); WHITE BLOOD COUNT 3.2 TH/MM3 (4.0-11.0)
[2017-12-26 13:43] LABS: ALBUMIN 1.8 GM/DL (3.4-5.0); BICARBONATE 37.7 MEQ/L (21.0-32.0); CALCIUM 8.2 MG/DL (8.5-10.1); CREATININE 2.6 MG/DL (0.60-1.30); MAGNESIUM 2.1 MG/DL (1.5-2.5); PHOSPHORUS 3.5 MG/DL (2.5-4.9)
--- NOTE | 2017-12-26 14:56 | EKG ---
Date Performed: 12/25/2017 Time Performed: 14:55:59 PTAGE: 72 years EKG: Sinus rhythm WITH FIRST DEGREE AV BLOCK MODERATE INTRAVENTRICULAR CONDUCTION DELAY MINIMAL ST DEPRESSION ABNORMAL ECG PREVIOUS TRACING : 12/25/2017 14.53 Since previous tracing, the PVCs are no longer present, oth erwise no significant change. DOCTOR: Dominic Loyd Interpretating Date/Time 12/28/2017 07:18:54
[2017-12-26] MEDS ORDERED: POTASSIUM CHLORIDE 20 MEQ CONTROLLED RELEASE TAB PO ONE (15:00)
--- NOTE | 2017-12-26 15:00 | HHI.PR ---
Subjective Remarks This is a 72-year-old male who was sent from his urologist office because of edema. Patient states that for the past 3 weeks he has developed bilateral lower extremity edema including his genitalia. He also complains of dyspnea on exertion. States he has been advised to increase fluid intake secondary to hematuria in his Blas catheter. He is compliant with salt restriction and has been taking Lasix daily. He has a history of chronic respiratory failure on nasal cannula, CHF and COPD. Denies fever, chills, cough, wheezing and chest pain. Patient has a history of metastatic renal cell carcinoma status post right radical nephrectomy with removal of tumor thrombus in September 2009. Also noted to have left renal cell carcinoma on chemotherapy. He also has bladder cancer diagnosed over 2 years ago and received radiation and chemotherapy. Last November 30, 2017, he underwent cystoscopy and was noted to have urethral stricture status post urethrotomy. He also had a small bladder lesion was biopsied negative for malignancy. Since the procedure, patient has been having intermittent gross hematuria. Denies being on antiplatelets and anticoagulants. He was taken off Plavix 1 week before the procedure. All other systems reviewed negative 4-5 Patient says he is feeling all right. Reports Blas pain. Denies any chest pain or shortness of breath. Denies any nausea or vomiting 4-6 Patient says he is feeling all right. Reports Blas pain continues, but has not received any belladonna suppositories. Denies any chest pain or shortness of breath. 4-7 off of bipap BREATHING A LITTLE BETTER LEGS LESS RED STILL HAS CBI IN PLACE FRUIT PUNCH APPEARANCE AM LABS INCREASE ACTIVITY DW RN AND PT INCENTIVE SPIROMETRY MUCINEX Objective Vitals Vital Signs Date Time Temp Pulse Resp B/P (MAP) Pulse Ox O2 Delivery O2 Flow Rate FiO2 12/26/17 14:01 89 12/26/17 13:52 84 12/26/17 12:56 22 12/26/17 12:00 82 12/26/17 11:50 84 12/26/17 11:50 98 Venturi Mask 6.00 50 12/26/17 11:50 98.2 84 22 127/63 (84) 98 12/26/17 09:05 90 Venturi Mask 6.00 50 12/26/17 08:15 97.9 88 24 119/59 (79) 90 12/26/17 08:15 88 12/26/17 04:31 97.7 90 18 140/64 (89) 98 12/26/17 00:15 91 Venturi Mask 50 12/26/17 00:00 97.3 110 24 140/64 (89) 92 12/25/17 21:58 99.3 100 20 159/72 (101) 95 12/25/17 20:55 90 Nasal Cannula 5.00 12/25/17 18:18 96.7 74 16 152/71 (98) 98 I/O 12/25/17 12/25/17 12/25/17 12/26/17 12/26/17 12/26/17 07:00 15:00 23:00 07:00 15:00 23:00 Intake Total 290 ml Output Total 6200 ml 1900 ml 6400 ml 1200 ml Balance -5910 ml -1900 ml -6400 ml -1200 ml Intake Oral 240 ml IV Total 50 ml Output Urine Total 6200 ml 1900 ml 6400 ml 1200 ml # Bowel Movements 1 1 Result Diagram: 12/26/17 1208 12/26/17 1208 Other Results Laboratory Tests Test 12/24/17 06:30 12/25/17 05:29 12/26/17 05:50 12/26/17 12:08 White Blood Count 3.5 TH/MM3 3.3 TH/MM3 3.2 TH/MM3 Red Blood Count 2.15 MIL/MM3 2.24 MIL/MM3 2.13 MIL/MM3 Hemoglobin 7.8 GM/DL 8.1 GM/DL 7.5 GM/DL Hematocrit 22.8 % 24.0 % 22.9 % Mean Corpuscular Volume 106.2 FL 107.1 FL 107.9 FL Mean Corpuscular Hemoglobin 36.3 PG 35.9 PG 35.3 PG Mean Corpuscular Hemoglobin Concent 34.2 % 33.6 % 32.7 % Red Cell Distribution Width 16.9 % 17.4 % 17.5 % Platelet Count 78 TH/MM3 84 TH/MM3 88 TH/MM3 Mean Platelet Volume 8.5 FL 8.5 FL 8.5 FL Neutrophils (%) (Auto) 73.6 % 67.3 % 68.5 % Lymphocytes (%) (Auto) 12.7 % 14.8 % 10.3 % Monocytes (%) (Auto) 9.9 % 10.9 % 11.1 % Eosinophils (%) (Auto) 2.9 % 6.0 % 9.3 % Basophils (%) (Auto) 0.9 % 1.0 % 0.8 % Neutrophils # (Auto) 2.6 TH/MM3 2.2 TH/MM3 2.2 TH/MM3 Lymphocytes # (Auto) 0.4 TH/MM3 0.5 TH/MM3 0.3 TH/MM3 Monocytes # (Auto) 0.3 TH/MM3 0.4 TH/MM3 0.4 TH/MM3 Eosinophils # (Auto) 0.1 TH/MM3 0.2 TH/MM3 0.3 TH/MM3 Basophils # (Auto) 0.0 TH/MM3 0.0 TH/MM3 0.0 TH/MM3 CBC Comment AUTO DIFF AUTO DIFF AUTO DIFF Differential Comment AUTO DIFF CONFIRMED AUTO DIFF CONFIRMED AUTO DIFF CONFIRMED Platelet Estimate LOW LOW LOW Platelet Morphology Comment NORMAL NORMAL ENLARGED Ovalocytes 1+ Reticulocyte Count 3.3 % Absolute Reticulocyte Count 72.0 MIL/L Blood Urea Nitrogen 38 MG/DL 37 MG/DL 35 MG/DL Creatinine 2.50 MG/DL 2.66 MG/DL 2.60 MG/DL Random Glucose 96 MG/DL 99 MG/DL 128 MG/DL Calcium Level 8.1 MG/DL 8.0 MG/DL 8.2 MG/DL Sodium Level 132 MEQ/L 133 MEQ/L 136 MEQ/L Potassium Level 3.7 MEQ/L 3.3 MEQ/L 3.3 MEQ/L Chloride Level 91 MEQ/L 92 MEQ/L 92 MEQ/L Carbon Dioxide Level 30.7 MEQ/L 32.0 MEQ/L 37.7 MEQ/L Anion Gap 10 MEQ/L 9 MEQ/L 6 MEQ/L Estimat Glomerular Filtration Rate 25 ML/MIN 24 ML/MIN 24 ML/MIN Iron Level 27 MCG/DL Total Iron Binding Capacity 235 MCG/DL Percent Iron Saturation 11.5 % Ferritin 144 NG/ML Vitamin B12 Level 214 PG/ML Folate 17.1 NG/ML Albumin 1.9 GM/DL 1.8 GM/DL Phosphorus Level 3.9 MG/DL 3.5 MG/DL Magnesium Level 2.0 MG/DL 2.1 MG/DL Blood Gas Puncture Site RT FEMORAL Blood Gas Patient Temperature 98.6 Blood Gas HCO3 35 mmol/L Blood Gas Base Excess 10.9 mmol/L Blood Gas Oxygen Saturation 89 % Arterial Blood pH 7.51 Arterial Blood Partial Pressure CO2 44 mmHg Arterial Blood Partial Pressure O2 56 mmHG Arterial Blood Oxygen Content 10.9 Vol % Arterial Blood Carboxyhemoglobin 2.4 % Arterial Blood Methemoglobin 0.4 % Blood Gas Hemoglobin 8.7 G/DL Oxygen Delivery Device Venti Mask Blood Gas Inspired Oxygen 50 % Imaging Last Impressions Chest X-Ray 12/26/17 0000 Signed Impressions: Service Date/Time: Tuesday, December 26, 2017 05:42 - CONCLUSION: Bilateral pulmonary opacity likely representing pulmonary edema, slightly increased from the comparison study. Adrian Black MD Objective Remarks GENERAL: Awake alert and oriented 3 talkative and cooperative in mild distress SKIN: Warm and dry. Bilateral lower extremity erythema and skin changes appears peripheral vascular occlusive disease HEAD: Atraumatic. Normocephalic. EYES: Pupils equal and round. No scleral icterus. No injection or drainage. Extraocular muscles intact ENT: No nasal bleeding or discharge. Mucous membranes pink and moist. Tongue is midline NECK: Trachea midline. No JVD. Supple CARDIOVASCULAR: Regular rate and rhythm. S1-S2 no S3 or S4 RESPIRATORY: No accessory muscle use. Clear to auscultation. Breath sounds equal bilaterally. Few scattered rhonchi and some rales at base GASTROINTESTINAL: Abdomen soft, non-tender, nondistended. Hepatic and splenic margins not palpable. MUSCULOSKELETAL: Extremities without clubbing, cyanosis, or edema. No obvious deformities. Maybe +1 lower extremity edema with some redness and erythema bilateral lower extremities NEUROLOGICAL: Awake and alert. No obvious cranial nerve deficits. Motor grossly within normal limits. 4 out of 5 muscle strength in the arms and legs. Normal speech. PSYCHIATRIC: Appropriate mood and affect; insight and judgment normal. Procedures CBI BIPAP Medications and IVs Current Medications Furosemide (Lasix Inj) 60 mg ONCE ONCE IV PUSH Last administered on 12/23/17at 13:21; Start 12/23/17 at 12:30; Stop 12/23/17 at 12:31; Status DC Nitroglycerin (Nitroglycerin 2% Oint) 0.5 inch ONCE ONCE TOP Last administered on 12/23/17at 13:21; Start 12/23/17 at 12:30; Stop 12/23/17 at 12:31; Status DC Ceftriaxone Sodium 1000 mg/ Sodium Chloride 100 ml @ 200 mls/hr ONCE ONCE IV Last administered on 12/23/17at 14:44; Start 12/23/17 at 14:05; Stop 12/23/17 at 14: 34; Status DC Sodium Chloride (NS Flush) 2 ml UNSCH PRN IV FLUSH FLUSH AFTER USING IV ACCESS ; Start 12/23/17 at 14:30 Sodium Chloride (NS Flush) 2 ml BID IV FLUSH Last administered on 12/26/17at 09: 51; Start 12/23/17 at 21:00 Furosemide (Lasix Inj) 40 mg BID@,18 IVP Last administered on 12/26/17at 06:38 ; Start 12/23/17 at 18:00 Piperacillin Sod/ Tazobactam Sod 50 ml @ 100 mls/hr Q6H IV Last administered on 12/26/17at 12:05; Start 12/23/17 at 18:00 Acetaminophen (Tylenol) 650 mg Q4H PRN PO TEMP > 100.4; Start 12/23/17 at 14:30 Ondansetron HCl (Zofran Inj) 4 mg Q6H PRN IVP NAUSEA OR VOMITING; Start at 14:30 Acetaminophen (Tylenol) 650 mg Q6H PRN PO PAIN SCALE 1 TO 2; Start 12/23/17 at 14:30 Naloxone HCl (Narcan Inj) 0.4 mg UNSCH PRN IV PUSH SEE LABEL COMMENTS; Start at 14:30; Stop 12/25/17 at 10:55; Status DC Senna/Docusate Sodium (Chikis-Colace) 1 tab BID PO Last administered on 12/25/17at 09:11; Start 12/23/17 at 21:00 Sennosides (Senokot) 17.2 mg Q12H PRN PO Moderate constipation; Start 12/23/17 at 14:30 Bisacodyl (Dulcolax Supp) 10 mg DAILY PRN RECTAL SEVERE CONSITIPATION; Start at 14:30 Lactulose (Lactulose Liq) 30 ml DAILY PRN PO SEVERE CONSITIPATION; Start at 14:30 Amlodipine Besylate (Norvasc) 5 mg DAILY PO Last administered on 12/25/17at 09:12 ; Start 12/24/17 at 09:00; Stop 12/25/17 at 11:26; Status DC Carvedilol (Coreg) 25 mg BID PO Last administered on 12/26/17at 09:51; Start 12/23 at 21:00 Diphenoxylate HCl/ Atropine (Lomotil Tab) 1 tab Q6H PRN PO DIARRHEA; Start 12/23 at 14:30 Levothyroxine Sodium (Synthroid) 150 mcg MoWeFr@0600 PO Last administered on 12/25/17at 06:02; Start 12/23/17 at 16:30 Oxycodone/ Acetaminophen (Percocet 10-325 Mg) 1 tab QID PRN PO BREAKTHROUGH PAIN Last administered on 12/25/17at 06:02; Start 12/23/17 at 14:30; Stop 12/25/17 at 10:13; Status DC Triamcinolone Acetonide (Aristocort 0.1% Oint) 1 applic QID TOPICAL Last administered on 12/26/17at 12:07; Start 12/23/17 at 18:00 Non-Formulary Medication 175 mcg SuTuThSa PO ; Start 12/24/17 at 14:30; Stop 12/24 at 14:30; Status DC Non-Formulary Medication 50 mg DAILY PO ; Start 12/24/17 at 09:00; Status UNV Non-Formulary Medication 20 mg DAILY PO ; Start 12/24/17 at 09:00; Status UNV Non-Formulary Medication 20 mg DAILY PO ; Start 12/24/17 at 09:00; Status UNV Non-Formulary Medication 1 puff DAILY INH ; Start 12/24/17 at 09:00; Status UNV Levothyroxine Sodium (Synthroid) 75 mcg SuTuThSa@0600 PO Last administered on at 07:06; Start 12/24/17 at 06:00 Levothyroxine Sodium (Synthroid) 100 mcg SuTuThSa@0600 PO Last administered on 12/26/17at 07:06; Start 12/24/17 at 06:00 Patient Own Medication PT OWN MED: MYRBET... DAILY PO ; Start 12/24/17 at 09:00; Status Future Hold Pantoprazole Sodium (Protonix) 20 mg DAILY PO Last administered on 12/26/17at 09: 50; Start 12/24/17 at 09:00 Atorvastatin Calcium (Lipitor) 40 mg DAILY PO Last administered on 12/26/17 09: 50; Start 12/24/17 at 09:00 Patient Own Medication PT OWN MED: STIOLTO RESPIMAT--... DAILY INH ; Start at 09:00; Status Future Hold Morphine Sulfate (Morphine Inj) 2 mg ONCE ONCE IV PUSH Last administered on 17:54; Start 12/23/17 at 17:45; Stop 12/23/17 at 17:49; Status DC Belladonna Alkaloids/Opium (B & O Supp) 60 mg Q6H PRN RECTAL bladder spasm Last administered on 12/25/17at 18:14; Start 12/23/17 at 18:00 Morphine Sulfate (Morphine Inj) 4 mg ONCE ONCE IV PUSH Last administered on 15:57; Start 12/24/17 at 15:35; Stop 12/24/17 at 15:36; Status DC Epoetin [place] (Epogen Inj) 20,000 units ONCE ONCE SQ Last administered on at 22:47; Start 12/24/17 at 20:00; Stop 12/24/17 at 20:01; Status DC Calcium Carbonate (Tums Chew) 500 mg Q2H PRN CHEW indigestion Last administered on 12/26/17at 06:12; Start 12/24/17 at 23:45 Oxycodone/ Acetaminophen (Percocet 5-325 Mg) 1 tab Q6H PRN PO PAIN SCALE 3 TO 5; Start 12/25/17 at 11:00 Oxycodone/ Acetaminophen (Percocet 10-325 Mg) 1 tab Q6H PRN PO PAIN SCALE 6 TO 10 Last administered on 12/26/17at 12:03; Start 12/25/17 at 11:00 Morphine Sulfate (Morphine Inj) 4 mg Q3H PRN IV PUSH BREAKTHROUGH PAIN Last administered on 12/25/17at 18:15; Start 12/25/17 at 11:00 Naloxone HCl (Narcan Inj) 0.4 mg UNSCH PRN IV PUSH SEE LABEL COMMENTS; Start at 10:15 Potassium Chloride (KCl) 10 meq ONCE ONCE PO Last administered on 12/25/17at 11: 20; Start 12/25/17 at 11:00; Stop 12/25/17 at 11:01; Status DC Isosorbide Mononitrate (Imdur) 30 mg DAILY@07 PO Last administered on 12/26/17at 07:06; Start 12/26/17 at 07:00 Cyanocobalamin (Vitamin B12 Inj) 1,000 mcg Q30D IM Last administered on at 14:45; Start 12/25/17 at 15:00 Folic Acid (Folate) 1 mg DAILY PO Last administered on 12/26/17at 09:50; Start at 09:00 Cyanocobalamin (Vitamin B12) 1,000 mcg DAILY PO Last administered on 12/26/17at 09:50; Start 12/26/17 at 09:00 Albuterol/ Ipratropium (Duoneb Neb) 1 ampule Q4HR NEB PRN NEB SOB/WHEEZING; Start 12/26/17 at 05:45 A/P Problem List: (1) Hematuria, gross ICD Code: R31.0 - Gross hematuria Status: Acute (2) Chronic kidney disease (CKD) ICD Code: N18.9 - Chronic kidney disease Status: Acute (3) Acute exacerbation of CHF (congestive heart failure) ICD Code: I50.9 - Heart failure, unspecified Status: Acute Assessment and Plan This is a 72-year-old male who was sent from his urologist office because of edema. Patient states that for the past 3 weeks he has developed bilateral lower extremity edema including his genitalia. He also complains of dyspnea on exertion. States he has been advised to increase fluid intake secondary to hematuria in his Blas catheter. He is compliant with salt restriction and has been taking Lasix daily. //CHF exacerbation likely secondary to increased fluid intake. Continue diuresis with IV Lasix, CHF education, I/O and monitor weight. 1.5 L fluid restriction. Obtain 2D echo = Echo pending. Continue IV Lasix, fluid restrictions. Continue to monitor closely. = 12/25. Moderate aortic stenosis on echo. Consult cardiology. Recommended continued medical management //Chronic kidney disease stage IV with hyponatremia. He is asymptomatic. Nonoliguric. Consider nephrology consult. Avoid nephrotoxins = Creatinine continues stable around previous baseline. //Pancytopenia on Votrient with worsening anemia secondary to acute blood loss. Repeat CBC in the morning keep hemoglobin at least 8 with history of CAD = Consult patient's oncologist for pancytopenia. Appreciate assistance. = 4/6. Oncology following. Appreciate assistance. //Chronic respiratory failure on nasal cannula, CHF and COPD. Continue oxygen keep saturations at least 92% //Hypokalemia. 3.3. Replace. Will replace again magnesium WNL //Gross hematuria //Sepsis //complex UTI =with a history of metastatic renal cell carcinoma status post right radical nephrectomy with removal of tumor thrombus in September 2009. left renal cell carcinoma on chemotherapy Votrient and bladder cancer diagnosed over 2 years ago and received radiation and chemotherapy. Last November 30, 2017, he underwent cystoscopy and was noted to have urethral stricture status post urethrotomy. He also had a small bladder lesion was biopsied negative for malignancy. Since the procedure, patient has been having intermittent gross hematuria. Denies being on antiplatelets and anticoagulants. He was taken off Plavix 1 week before the procedure. Patient had a Blas exchanged by Dr. Huddleston today. He also has abnormal urinalysis suggestive of UTI and meets criteria for sepsis. Will start IV Zosyn. I will not be able to hydrate patient because of CHF exacerbation. Check blood cultures = 12/24. Sepsis Leukopenia, tachypnea, complicated UTI. Continue Zosyn. gram- negative rods on urine culture.Follow up cultures. Continue bladder irrigation. Still with blood. = 12/25. Hematuria improving. Urology following. Follow-up urine culture results. //Multiple medical conditions PAD, hypothyroidism, hypertension, hyperlipidemia , GERD, IBS, gout and osteoarthritis. Continue outpatient medications as appropriate //DVT prophylaxis with SCD. Pharmacological prophylaxis held due to bleeding Discharge Planning Bladder irrigation We'll need hemoglobin stable Will need antibiotics for UTI Cardiology following for aortic stenosis recommend continue same Hematology and urology following Discharge Planning Await clearance from urology already has clearance from cardiology no clearance yet from nephrology Problem Qualifiers (1) Acute exacerbation of CHF (congestive heart failure): Qualified Codes: I50.9 - Heart failure, unspecified Evens Butcher DO Dec 26, 2017 15:00
--- NOTE | 2017-12-26 19:01 | PD.CONS ---
HPI Service Nephrology Consult Requested By Dr. Butcher Reason for Consult Acute renal disease and chronic kidney disease Primary Care Physician Nicolas Fuller DO History of Present Illness Patient is 72-year-old white male with history of metastatic kidney cancer, renal cell carcinoma in the left kidney as well he is status post right nephrectomy he was under care of oncology and treated with Votrient, he has been diagnosed in 2009 with RCC and then he developed bladder cancer recently, this was treated with radiation and chemotherapy and restarted on Votrient, and it is on hold for the past 3 weeks due to low blood counts Patient now has hematuria Creatinine is 2.5-2.6 He is getting bladder irrigation Review of Systems Constitutional: COMPLAINS OF: Fatigue Respiratory: COMPLAINS OF: Shortness of breath Cardiovascular: COMPLAINS OF: Lower Extremity Edema Genitourinary: COMPLAINS OF: Hematuria Neurologic: COMPLAINS OF: Abnormal gait Past Family Social History Allergies: Coded Allergies: ciprofloxacin (Verified Allergy, Severe, Swelling, 12/23/17) Past Medical History Chronic kidney disease Renal cell cancer bladder cancer History of smoking Rheumatoid arthritis Anemia Hematuria Coronary artery disease Hypertension Past Surgical History Right nephrectomy Bladder tumor resection I&D left hand Cataract CABG Back surgery Facial surgery Reported Medications Reported Meds & Active Scripts Active Reported Triamcinolone Topical (Triamcinolone Acetonide) 0.1 % Oint 1 Applic TOPICAL QID RASH ON BACK,ABD,LEGS Stiolto Respimat Inh (Tiotropium-Olodaterol Inh) 2.5-2.5 Mcg/Act Aero 1 Puff INH DAILY Levothyroxine (Levothyroxine Sodium) 175 Mcg Tab 175 Mcg PO SUTUTHSA Take 1 tablet (175mcg) daily on Thursday,Thursday, and Thursday Prilosec (Omeprazole Magnesium) 20 Mg Tab 20 Mg PO DAILY Zofran (Ondansetron HCl) 4 Mg Tab 4 Mg PO Q12HR PRN Crestor (Rosuvastatin Calcium) 20 Mg Tab 20 Mg PO DAILY Myrbetriq (Mirabegron) 50 Mg Tab 50 Mg PO DAILY Plavix (Clopidogrel Bisulfate) 75 Mg Tab 75 Mg PO DAILY Coreg (Carvedilol) 25 Mg Tab 25 Mg PO BID Lomotil (Diphenoxylate-Atropine) 2.5-0.025 Mg Tab 1 Tab PO Q6H PRN Percocet (Oxycodone-Acetaminophen) 10-325 mg Tab 1 Tab PO QID PRN Amlodipine (Amlodipine Besylate) 5 Mg Tab 5 Mg PO DAILY Levothyroxine (Levothyroxine Sodium) 150 Mcg Tab 150 Mcg PO MOWEFR Take 1 tablet (150mcg) daily on Thursday,Thursday and Thursday Active Ordered Medications Current Medications Medications (Trade) Dose Ordered Sig/Richie Route Start Time Stop Time Status Last Admin (NS Flush) 2 ml UNSCH PRN IV FLUSH 12/23/17 14:30 (NS Flush) 2 ml BID IV FLUSH 12/23/17 21:00 12/26/17 09:51 (Lasix Inj) 40 mg BID@ IVP 12/23/17 18:00 12/26/17 17:29 Piperacillin Sod/ Tazobactam Sod 50 ml @ 100 mls/hr Q6H IV 12/23/17 18:00 12/26/17 17:29 (Tylenol) 650 mg Q4H PRN PO 12/23/17 14:30 (Zofran Inj) 4 mg Q6H PRN IVP 12/23/17 14:30 (Tylenol) 650 mg Q6H PRN PO 12/23/17 14:30 (Chikis-Colace) 1 tab BID PO 12/23/17 21:00 12/25/17 09:11 (Senokot) 17.2 mg Q12H PRN PO 12/23/17 14:30 (Dulcolax Supp) 10 mg DAILY PRN RECTAL 12/23/17 14:30 (Lactulose Liq) 30 ml DAILY PRN PO 12/23/17 14:30 (Coreg) 25 mg BID PO 12/23/17 21:00 12/26/17 09:51 (Lomotil Tab) 1 tab Q6H PRN PO 12/23/17 14:30 (Synthroid) 150 mcg MoWeFr@0600 PO 12/23/17 16:30 12/25/17 06:02 (Aristocort 0.1% Oint) 1 applic QID TOPICAL 12/23/17 18:00 12/26/17 17:29 (Synthroid) 75 mcg SuTuThSa@0600 PO 12/24/17 06:00 4/7/18 07:06 (Synthroid) 100 mcg SuTuThSa@0600 PO 12/24/17 06:00 12/26/17 07:06 Patient Own Medication PT OWN MED: MYRBET... DAILY PO 12/24/17 09:00 Future Hold (Protonix) 20 mg DAILY PO 12/24/17 09:00 12/26/17 09:50 (Lipitor) 40 mg DAILY PO 12/24/17 09:00 12/26/17 09:50 Patient Own Medication PT OWN MED: STIOLTO RESPIMAT--... DAILY INH 12/24/17 09:00 Future Hold (B & O Supp) 60 mg Q6H PRN RECTAL 12/23/17 18:00 12/25/17 18:14 (Tums Chew) 500 mg Q2H PRN CHEW 12/24/17 23:45 12/26/17 06:12 (Percocet 5-325 Mg) 1 tab Q6H PRN PO 12/25/17 11:00 (Percocet 10-325 Mg) 1 tab Q6H PRN PO 12/25/17 11:00 12/26/17 17:36 (Morphine Inj) 4 mg Q3H PRN IV PUSH 12/25/17 11:00 12/25/17 18:15 (Narcan Inj) 0.4 mg UNSCH PRN IV PUSH 12/25/17 10:15 (Imdur) 30 mg DAILY@07 PO 12/26/17 07:00 12/26/17 07:06 (Vitamin B12 Inj) 1,000 mcg Q30D IM 12/25/17 15:00 12/25/17 14:45 (Folate) 1 mg DAILY PO 12/26/17 09:00 12/26/17 09:50 (Vitamin B12) 1,000 mcg DAILY PO 12/26/17 09:00 12/26/17 09:50 (Duoneb Neb) 1 ampule Q4HR NEB PRN NEB 12/26/17 05:45 (Mucinex Er) 600 mg BID PO 12/26/17 21:00 Family History Noncontributory Social History Remote history of smoking Physical Exam Vital Signs Vital Signs Date Time Temp Pulse Resp B/P (MAP) Pulse Ox O2 Delivery O2 Flow Rate FiO2 12/26/17 18:21 16 12/26/17 18:15 81 12/26/17 17:07 82 12/26/17 16:19 76 12/26/17 15:04 81 12/26/17 15:04 98.6 84 18 95/51 (66) 98 12/26/17 15:04 98 Nasal Cannula 5.00 12/26/17 14:01 89 12/26/17 13:52 84 12/26/17 12:00 82 12/26/17 11:50 84 12/26/17 11:50 98 Venturi Mask 6.00 50 12/26/17 11:50 98.2 84 22 127/63 (84) 98 12/26/17 09:05 90 Venturi Mask 6.00 50 12/26/17 08:15 97.9 88 24 119/59 (79) 90 12/26/17 08:15 88 12/26/17 04:31 97.7 90 18 140/64 (89) 98 12/26/17 00:15 91 Venturi Mask 50 12/26/17 00:00 97.3 110 24 140/64 (89) 92 12/25/17 21:58 99.3 100 20 159/72 (101) 95 12/25/17 20:55 90 Nasal Cannula 5.00 Physical Exam GENERAL: Well-nourished, well-developed patient. SKIN: Warm and dry. HEAD: Normocephalic. EYES: No scleral icterus. No injection or drainage. NECK: Supple, trachea midline. No JVD or lymphadenopathy. CARDIOVASCULAR: Regular rate and rhythm 3 / 6 systolic murmurs, gallops, or rubs. RESPIRATORY: Breath diminished at bases with crepitations GASTROINTESTINAL: Abdomen soft, non-tender, nondistended. EXTREMITIES: No cyanosis, chronic 2+ edema. NEUROLOGICAL: Awake, alert, and oriented x 3. Non-focal. Laboratory Laboratory Tests Test 12/26/17 05:50 12/26/17 12:08 Blood Gas Puncture Site RT FEMORAL Blood Gas Patient Temperature 98.6 Blood Gas HCO3 35 Blood Gas Base Excess 10.9 Blood Gas Oxygen Saturation 89 Arterial Blood pH 7.51 Arterial Blood Partial Pressure CO2 44 Arterial Blood Partial Pressure O2 56 Arterial Blood Oxygen Content 10.9 Arterial Blood Carboxyhemoglobin 2.4 Arterial Blood Methemoglobin 0.4 Blood Gas Hemoglobin 8.7 Oxygen Delivery Device Venti Mask Blood Gas Inspired Oxygen 50 White Blood Count 3.2 Red Blood Count 2.13 Hemoglobin 7.5 Hematocrit 22.9 Mean Corpuscular Volume 107.9 Mean Corpuscular Hemoglobin 35.3 Mean Corpuscular Hemoglobin Concent 32.7 Red Cell Distribution Width 17.5 Platelet Count 88 Mean Platelet Volume 8.5 Neutrophils (%) (Auto) 68.5 Lymphocytes (%) (Auto) 10.3 Monocytes (%) (Auto) 11.1 Eosinophils (%) (Auto) 9.3 Basophils (%) (Auto) 0.8 Neutrophils # (Auto) 2.2 Lymphocytes # (Auto) 0.3 Monocytes # (Auto) 0.4 Eosinophils # (Auto) 0.3 Basophils # (Auto) 0.0 CBC Comment AUTO DIFF Differential Comment AUTO DIFF CONFIRMED Platelet Estimate LOW Platelet Morphology Comment ENLARGED Blood Urea Nitrogen 35 Creatinine 2.60 Random Glucose 128 Albumin 1.8 Calcium Level 8.2 Phosphorus Level 3.5 Magnesium Level 2.1 Sodium Level 136 Potassium Level 3.3 Chloride Level 92 Carbon Dioxide Level 37.7 Anion Gap 6 Estimat Glomerular Filtration Rate 24 Date/Time Source Procedure Growth Status 12/24/17 08:55 Blood Peripheral Aerobic Blood Culture - Preliminary NO GROWTH IN 2 DAYS Resulted 12/24/17 08:55 Blood Peripheral Anaerobic Blood Culture - Preliminary NO GROWTH IN 2 DAYS Resulted 12/23/17 12:31 Urine Random Urine Urine Culture - Final Klebsiella Pneumoniae Enterococcus Faecalis Complete Result Diagram: 12/26/17 1208 12/26/17 1208 Imaging Last Impressions Chest X-Ray 12/26/17 0000 Signed Impressions: Service Date/Time: Tuesday, December 26, 2017 05:42 - CONCLUSION: Bilateral pulmonary opacity likely representing pulmonary edema, slightly increased from the comparison study. Adrian Black MD Assessment and Plan Problem List: (1) Acute renal failure ICD Codes: N17.9 - Acute kidney failure, unspecified Plan: Patient is on Lasix 40 mg IV twice a day He is on bladder irrigation Potassium was replaced Hematuria continues He has advanced metastatic renal cell cancer Prognosis appears guarded to poor (2) Metastatic renal cell carcinoma ICD Codes: C64.9 - Malignant neoplasm of unspecified kidney, except renal pelvis Plan: Treated by oncology (3) Hyponatremia ICD Codes: E87.1 - Hyponatremia Status: Acute Plan: Improved to 136 (4) Hematuria, gross ICD Codes: R31.0 - Gross hematuria Status: Acute Plan: On continuous bladder irrigation Noel Dykes MD Dec 26, 2017 19:01
[2017-12-26] MEDS: guaiFENesin E.R. 600 MG TAB PO SCH (19:57)
[2017-12-26] MEDS: MORPHINE SULFATE 2 MG/ML SYRINGE IV PUSH PRN ×2 (20:03→23:22)
[2017-12-27] VITALS (23 sets, daily range): BP systolic 102–141; BP diastolic 47–72; PULSE 76–95; RESP 17–20; TEMP 98–98.6; O2SAT 92–100
[2017-12-27] MEDS: LEVOTHYROXINE SODIUM 150 MCG TAB PO SCH (05:27)
[2017-12-27] MEDS: PIPERACIL-TAZO 2.25 GM PREMIX 50 ML IV SCH ×3 (05:27→18:00)
[2017-12-27] MEDS: LEVOTHYROXINE SODIUM 75 MCG TAB PO SCH (05:27)
[2017-12-27] MEDS: LEVOTHYROXINE SODIUM 100 MCG TAB PO SCH (05:30)
[2017-12-27] MEDS: ISOSORBIDE MONONITRATE 30 MG CR TAB (IMDUR) PO SCH (05:31)
[2017-12-27] MEDS: MORPHINE SULFATE 2 MG/ML SYRINGE IV PUSH PRN ×2 (05:32→12:24)
[2017-12-27 07:58] LABS: AUTOMATED NEUTROPHIL # 1.7 TH/MM3 (1.8-7.7); BASOPHIL % 1.2 % (0.0-2.0); EOSINOPHIL # 0.4 TH/MM3 (0-0.4); EOSINOPHIL % 12.8 % (0.0-4.0); HEMATOCRIT 21.3 % (39.0-51.0); LYMPH % 18.7 % (9.0-44.0); LYMPHOCYTE # 0.6 TH/MM3 (1.0-4.8); MEAN CELL VOLUME 107.1 FL (80.0-100.0); MEAN CORPUSCULAR HEMOGLOBIN 35.2 PG (27.0-34.0); MEAN CORPUSCULAR HGB CONC 32.9 % (32.0-36.0); MEAN PLATELET VOLUME 8.4 FL (7.0-11.0); MONO % 11.5 % (0.0-8.0); MONOCYTE # 0.3 TH/MM3 (0-0.9); NEUT % 55.8 % (16.0-70.0); PLATELET COUNT 80 TH/MM3 (150-450); RED BLOOD COUNT 1.99 MIL/MM3 (4.50-5.90); RED CELL DISTRIBUTION WIDTH 17.2 % (11.6-17.2)
[2017-12-27 08:06] LABS: INTERNATIONAL NORMALIZED RATIO 1.1 RATIO; PROTHROMBIN TIME - PATIENT 11.3 SEC (9.8-11.6)
[2017-12-27 08:27] LABS: ALBUMIN 1.8 GM/DL (3.4-5.0); ALT (GPT) 18 U/L (12-78); AST (GOT) 23 U/L (15-37); BICARBONATE 33.8 MEQ/L (21.0-32.0); BLOOD UREA NITROGEN 35 MG/DL (7-18); CALCIUM 7.8 MG/DL (8.5-10.1); CHLORIDE 93 MEQ/L (98-107); CREATININE 2.84 MG/DL (0.60-1.30); GLOMERULAR FILTRATION RATE 22 ML/MIN (>89); GLUCOSE,RANDOM 137 MG/DL (74-106); MAGNESIUM 1.9 MG/DL (1.5-2.5); PHOSPHORUS 2.9 MG/DL (2.5-4.9); SODIUM (NA) 135 MEQ/L (136-145)
[2017-12-27] MEDS ORDERED: SODIUM CHLOR 0.9% 250 ML INJ 250 ML IV ONE (08:30)
[2017-12-27] MEDS ORDERED: ACETAMINOPHEN 325 MG TAB PO PRN (08:30)
[2017-12-27] MEDS ORDERED: diphenhydrAMINE HCL 25 MG CAP PO PRN (08:30)
[2017-12-27 08:36] LABS: ALKALINE PHOSPHATASE 79 U/L (45-117); FREE T4 1.58 NG/DL (0.76-1.46); TOTAL BILIRUBIN ADULT 0.5 MG/DL (0.2-1.0); TOTAL PROTEIN 5.5 GM/DL (6.4-8.2)
[2017-12-27] MEDS: TRIAMCINOLONE ACETONIDE 0.1% OINT 15 GM TUBE TOPICAL SCH ×4 (09:00→20:22)
[2017-12-27] MEDS: FUROSEMIDE 40 MG/4 ML VIAL IVP SCH (09:00)
[2017-12-27] MEDS: ATORVASTATIN 40 MG TAB PO SCH (09:03)
[2017-12-27] MEDS: CARVEDILOL 12.5 MG TAB PO SCH ×2 (09:03→20:21)
[2017-12-27] MEDS: DOCUSATE SODIUM 50 MG/SENNA 8.6 MG TAB PO SCH ×2 (09:03→20:21)
[2017-12-27] MEDS: FOLIC ACID 1 MG TAB PO SCH (09:03)
[2017-12-27] MEDS: CYANOCOBALAMIN 1,000 MCG TAB PO SCH (09:03)
[2017-12-27] MEDS: PANTOPRAZOLE SOD 20 MG DELAYED RELEASE TAB PO SCH (09:03)
[2017-12-27] MEDS: SODIUM CHLORIDE 0.9% FLUSH 10 ML FLUSH IV FLUSH SCH ×2 (09:03→20:21)
[2017-12-27] MEDS: guaiFENesin E.R. 600 MG TAB PO SCH ×2 (09:03→20:21)
[2017-12-27] MEDS: oxyCODONE/ACETAMINOPHEN 10 MG/325 MG TAB PO PRN ×2 (09:04→20:25)
--- NOTE | 2017-12-27 09:09 | PD.CARD.PN ---
Subjective Subjective Remarks Breathing is improved some and now on nasal cannula. No further chest pain. Edema has improved some. Getting transfused 1 unit PRBCs this morning. (Asaf Dominguez) Objective Medications Current Medications Medications (Trade) Dose Ordered Sig/Richie Route Start Time Stop Time Status Last Admin (NS Flush) 2 ml UNSCH PRN IV FLUSH 12/23/17 14:30 (NS Flush) 2 ml BID IV FLUSH 12/23/17 21:00 12/26/17 19:58 (Lasix Inj) 40 mg BID@,18 IVP 12/23/17 18:00 12/26/17 17:29 Piperacillin Sod/ Tazobactam Sod 50 ml @ 100 mls/hr Q6H IV 12/23/17 18:00 12/27/17 05:27 (Tylenol) 650 mg Q4H PRN PO 12/23/17 14:30 (Zofran Inj) 4 mg Q6H PRN IVP 12/23/17 14:30 (Tylenol) 650 mg Q6H PRN PO 12/23/17 14:30 (Chikis-Colace) 1 tab BID PO 12/23/17 21:00 12/25/17 09:11 (Senokot) 17.2 mg Q12H PRN PO 12/23/17 14:30 (Dulcolax Supp) 10 mg DAILY PRN RECTAL 12/23/17 14:30 (Lactulose Liq) 30 ml DAILY PRN PO 12/23/17 14:30 (Coreg) 25 mg BID PO 12/23/17 21:00 12/26/17 19:58 (Lomotil Tab) 1 tab Q6H PRN PO 12/23/17 14:30 (Synthroid) 150 mcg MoWeFr@0600 PO 12/23/17 16:30 12/27/17 05:27 (Aristocort 0.1% Oint) 1 applic QID TOPICAL 12/23/17 18:00 12/26/17 19:59 (Synthroid) 75 mcg SuTuThSa@0600 PO 12/24/17 06:00 12/27/17 05:27 (Synthroid) 100 mcg SuTuThSa@0600 PO 12/24/17 06:00 12/27/17 05:30 Patient Own Medication PT OWN MED: MYRBET... DAILY PO 12/24/17 09:00 Future Hold (Protonix) 20 mg DAILY PO 12/24/17 09:00 12/26/17 09:50 (Lipitor) 40 mg DAILY PO 12/24/17 09:00 12/26/17 09:50 Patient Own Medication PT OWN MED: STIOLTO RESPIMAT--... DAILY INH 12/24/17 09:00 Future Hold (B & O Supp) 60 mg Q6H PRN RECTAL 12/23/17 18:00 12/25/17 18:14 (Tums Chew) 500 mg Q2H PRN CHEW 12/24/17 23:45 12/26/17 20:02 (Percocet 5-325 Mg) 1 tab Q6H PRN PO 12/25/17 11:00 (Percocet 10-325 Mg) 1 tab Q6H PRN PO 12/25/17 11:00 12/26/17 17:36 (Morphine Inj) 4 mg Q3H PRN IV PUSH 12/25/17 11:00 12/27/17 05:32 (Narcan Inj) 0.4 mg UNSCH PRN IV PUSH 12/25/17 10:15 (Imdur) 30 mg DAILY@07 PO 12/26/17 07:00 12/27/17 05:31 (Vitamin B12 Inj) 1,000 mcg Q30D IM 12/25/17 15:00 12/25/17 14:45 (Folate) 1 mg DAILY PO 12/26/17 09:00 12/26/17 09:50 (Vitamin B12) 1,000 mcg DAILY PO 12/26/17 09:00 12/26/17 09:50 (Duoneb Neb) 1 ampule Q4HR NEB PRN NEB 12/26/17 05:45 (Mucinex Er) 600 mg BID PO 12/26/17 21:00 12/26/17 19:57 Sodium Chloride 250 ml @ 15 mls/hr ONCE ONCE IV 12/27/17 08:30 12/28/17 01:09 12/27/17 08:30 (Tylenol) 650 mg Q4H PRN PO 12/27/17 08:30 12/27/17 23:59 (Benadryl) 25 mg Q4H PRN PO 12/27/17 08:30 12/27/17 23:59 Vital Signs / I&O Vital Signs Date Time Temp Pulse Resp B/P (MAP) Pulse Ox O2 Delivery O2 Flow Rate FiO2 12/27/17 06:00 78 12/27/17 05:00 88 12/27/17 04:00 90 12/27/17 04:00 98.0 90 20 120/72 (88) 94 12/27/17 04:00 Nasal Cannula 5.00 12/27/17 03:00 84 12/27/17 02:00 80 12/27/17 01:00 82 12/27/17 00:00 81 12/27/17 00:00 Nasal Cannula 5.00 12/27/17 00:00 98.2 81 20 141/66 (91) 92 12/26/17 23:00 80 12/26/17 22:00 78 12/26/17 21:00 87 12/26/17 20:00 78 12/26/17 20:00 98 Nasal Cannula 5.00 12/26/17 20:00 98.1 78 20 137/67 (90) 96 12/26/17 19:12 98 Nasal Cannula 5.00 12/26/17 18:21 16 12/26/17 18:15 81 12/26/17 17:07 82 12/26/17 16:19 76 12/26/17 15:04 81 12/26/17 15:04 98.6 84 18 95/51 (66) 98 12/26/17 15:04 98 Nasal Cannula 5.00 12/26/17 14:01 89 12/26/17 13:52 84 12/26/17 12:00 82 12/26/17 11:50 84 12/26/17 11:50 98 Venturi Mask 6.00 50 12/26/17 11:50 98.2 84 22 127/63 (84) 98 I/O 12/26/17 12/26/17 12/26/17 12/27/17 12/27/17 12/27/17 07:00 15:00 23:00 07:00 15:00 23:00 Intake Total 530 ml 300 ml Output Total 6400 ml 950 ml Balance -6400 ml -420 ml 300 ml Intake Oral 480 ml 200 ml IV Total 50 ml 100 ml Output Urine Total 6400 ml 950 ml # Bowel Movements 1 1 0 Physical Exam GENERAL: Well-developed well-nourished. In no acute distress. NECK: No carotid bruits. No JVD. CARDIOVASCULAR: Regular rate and rhythm. 2/6 systolic ejection murmur appreciated. RESPIRATORY: No accessory muscle use. Clear to auscultation with better aeration today. No crackles MUSCULOSKELETAL: Venous stasis changes lower extremities. No edema. NEUROLOGICAL: Awake and alert. Normal speech. Laboratory Laboratory Tests Test 12/26/17 12:08 12/27/17 07:40 White Blood Count 3.2 TH/MM3 3.0 TH/MM3 Red Blood Count 2.13 MIL/MM3 1.99 MIL/MM3 Hemoglobin 7.5 GM/DL 7.0 GM/DL Hematocrit 22.9 % 21.3 % Mean Corpuscular Volume 107.9 FL 107.1 FL Mean Corpuscular Hemoglobin 35.3 PG 35.2 PG Mean Corpuscular Hemoglobin Concent 32.7 % 32.9 % Red Cell Distribution Width 17.5 % 17.2 % Platelet Count 88 TH/MM3 80 TH/MM3 Mean Platelet Volume 8.5 FL 8.4 FL Neutrophils (%) (Auto) 68.5 % 55.8 % Lymphocytes (%) (Auto) 10.3 % 18.7 % Monocytes (%) (Auto) 11.1 % 11.5 % Eosinophils (%) (Auto) 9.3 % 12.8 % Basophils (%) (Auto) 0.8 % 1.2 % Neutrophils # (Auto) 2.2 TH/MM3 1.7 TH/MM3 Lymphocytes # (Auto) 0.3 TH/MM3 0.6 TH/MM3 Monocytes # (Auto) 0.4 TH/MM3 0.3 TH/MM3 Eosinophils # (Auto) 0.3 TH/MM3 0.4 TH/MM3 Basophils # (Auto) 0.0 TH/MM3 0.0 TH/MM3 CBC Comment AUTO DIFF AUTO DIFF Differential Comment AUTO DIFF CONFIRMED AUTO DIFF CONFIRMED Platelet Estimate LOW Platelet Morphology Comment ENLARGED Blood Urea Nitrogen 35 MG/DL 35 MG/DL Creatinine 2.60 MG/DL 2.84 MG/DL Random Glucose 128 MG/DL 137 MG/DL Albumin 1.8 GM/DL 1.8 GM/DL Calcium Level 8.2 MG/DL 7.8 MG/DL Phosphorus Level 3.5 MG/DL 2.9 MG/DL Magnesium Level 2.1 MG/DL 1.9 MG/DL Sodium Level 136 MEQ/L 135 MEQ/L Potassium Level 3.3 MEQ/L 3.5 MEQ/L Chloride Level 92 MEQ/L 93 MEQ/L Carbon Dioxide Level 37.7 MEQ/L 33.8 MEQ/L Anion Gap 6 MEQ/L 8 MEQ/L Estimat Glomerular Filtration Rate 24 ML/MIN 22 ML/MIN Prothrombin Time 11.3 SEC Prothromb Time International Ratio 1.1 RATIO Activated Partial Thromboplast Time 31.0 SEC Total Protein 5.5 GM/DL Alkaline Phosphatase 79 U/L Aspartate Amino Transf (AST/SGOT) 23 U/L Alanine Aminotransferase (ALT/SGPT) 18 U/L Total Bilirubin 0.5 MG/DL B-Type Natriuretic Peptide 932 PG/ML Free Thyroxine 1.58 NG/DL Thyroid Stimulating Hormone 3rd Gen 4.030 uIU/ML Imaging Last Impressions Chest X-Ray 12/26/17 0000 Signed Impressions: Service Date/Time: Tuesday, December 26, 2017 05:42 - CONCLUSION: Bilateral pulmonary opacity likely representing pulmonary edema, slightly increased from the comparison study. Adrian Black MD (Asaf Dominguez) Assessment and Plan Assessment and Plan 72-year-old male with a past medical history CAD status post CABG 2008, HTN, HLD , hypothyroidism, GERD COPD, diastolic CHF, heart murmur, solitary kidney who was sent from urologist office for lower extremity and scrotal edema ARDS vs Diastolic CHF exacerbation: Dyspnea and edema are improving and creatinine is increasing, decrease Lasix dose. Nephrology on board with CKD 4 and solitary kidney. Moderate aortic stenosis: Echocardiogram with only moderate aortic stenosis, continue follow-up with patient's primary account management specialist. Atypical chest discomfort: No further episodes overnight. Primarily related with dyspepsia and patient feels this is GI related. Patient is a poor interventional candidate with advanced renal disease, anemia, and continued urologic bleeding. Recommend medical management at this time, added Imdur. Discussed Condition With Patient with RN at bedside (Asaf Dominguez) Assessment and Plan will sign off call with further questions (Nico Hart MD) Asaf Dominguez Dec 27, 2017 09:09 Nico Hart MD Dec 27, 2017 12:10
[2017-12-27] MEDS: FUROSEMIDE 20 MG/2 ML VIAL IV PUSH SCH ×2 (09:18→18:00)
--- NOTE | 2017-12-27 11:38 | HHI.PR ---
Subjective Remarks This is a 72-year-old male who was sent from his urologist office because of edema. Patient states that for the past 3 weeks he has developed bilateral lower extremity edema including his genitalia. He also complains of dyspnea on exertion. States he has been advised to increase fluid intake secondary to hematuria in his Blas catheter. He is compliant with salt restriction and has been taking Lasix daily. He has a history of chronic respiratory failure on nasal cannula, CHF and COPD. Denies fever, chills, cough, wheezing and chest pain. Patient has a history of metastatic renal cell carcinoma status post right radical nephrectomy with removal of tumor thrombus in September 2009. Also noted to have left renal cell carcinoma on chemotherapy. He also has bladder cancer diagnosed over 2 years ago and received radiation and chemotherapy. Last November 30, 2017, he underwent cystoscopy and was noted to have urethral stricture status post urethrotomy. He also had a small bladder lesion was biopsied negative for malignancy. Since the procedure, patient has been having intermittent gross hematuria. Denies being on antiplatelets and anticoagulants. He was taken off Plavix 1 week before the procedure. All other systems reviewed negative 4-5 Patient says he is feeling all right. Reports Blas pain. Denies any chest pain or shortness of breath. Denies any nausea or vomiting 4-6 Patient says he is feeling all right. Reports Blas pain continues, but has not received any belladonna suppositories. Denies any chest pain or shortness of breath. 4-7 off of bipap BREATHING A LITTLE BETTER LEGS LESS RED STILL HAS CBI IN PLACE FRUIT PUNCH APPEARANCE AM LABS INCREASE ACTIVITY SHAW RN AND PT INCENTIVE SPIROMETRY MUCINEX 4-8 SEEN BY CARDIOLOGY BEING TRANSFUSED STILL HAS CBI SHAW RN AND PT AND FAMILY AND AM LABS Objective Vitals Vital Signs Date Time Temp Pulse Resp B/P (MAP) Pulse Ox O2 Delivery O2 Flow Rate FiO2 12/27/17 11:20 98.3 76 18 104/54 98 12/27/17 11:15 98.4 81 18 104/47 94 12/27/17 11:10 98.1 77 18 110/51 98 12/27/17 11:07 98.1 78 18 102/54 100 12/27/17 10:41 95 Nasal Cannula 5.00 12/27/17 10:06 94 12/27/17 09:58 18 12/27/17 09:57 92 12/27/17 08:00 90 12/27/17 08:00 98.5 91 20 130/66 (87) 95 12/27/17 08:00 95 Nasal Cannula 5.00 12/27/17 06:00 78 12/27/17 05:00 88 12/27/17 04:00 90 12/27/17 04:00 98.0 90 20 120/72 (88) 94 12/27/17 04:00 Nasal Cannula 5.00 12/27/17 03:00 84 12/27/17 02:00 80 12/27/17 01:00 82 12/27/17 00:00 81 12/27/17 00:00 Nasal Cannula 5.00 12/27/17 00:00 98.2 81 20 141/66 (91) 92 12/26/17 23:00 80 12/26/17 22:00 78 12/26/17 21:00 87 12/26/17 20:00 78 12/26/17 20:00 98 Nasal Cannula 5.00 12/26/17 20:00 98.1 78 20 137/67 (90) 96 12/26/17 19:12 98 Nasal Cannula 5.00 12/26/17 18:15 81 12/26/17 17:07 82 12/26/17 16:19 76 12/26/17 15:04 81 12/26/17 15:04 98.6 84 18 95/51 (66) 98 12/26/17 15:04 98 Nasal Cannula 5.00 12/26/17 14:01 89 12/26/17 13:52 84 12/26/17 12:00 82 12/26/17 11:50 84 12/26/17 11:50 98 Venturi Mask 6.00 50 12/26/17 11:50 98.2 84 22 127/63 (84) 98 I/O 12/26/17 12/26/17 12/26/17 12/27/17 12/27/17 12/27/17 07:00 15:00 23:00 07:00 15:00 23:00 Intake Total 530 ml 300 ml 100 ml Output Total 6400 ml 950 ml Balance -6400 ml -420 ml 300 ml 100 ml Intake Oral 480 ml 200 ml IV Total 50 ml 100 ml Blood Product IV Normal Saline Flush 100 ml Output Urine Total 6400 ml 950 ml # Bowel Movements 1 1 0 1 Result Diagram: 12/27/17 0740 12/27/17 0740 Other Results Laboratory Tests Test 12/25/17 05:29 12/26/17 05:50 12/26/17 12:08 12/27/17 07:40 White Blood Count 3.3 TH/MM3 3.2 TH/MM3 3.0 TH/MM3 Red Blood Count 2.24 MIL/MM3 2.13 MIL/MM3 1.99 MIL/MM3 Hemoglobin 8.1 GM/DL 7.5 GM/DL 7.0 GM/DL Hematocrit 24.0 % 22.9 % 21.3 % Mean Corpuscular Volume 107.1 FL 107.9 FL 107.1 FL Mean Corpuscular Hemoglobin 35.9 PG 35.3 PG 35.2 PG Mean Corpuscular Hemoglobin Concent 33.6 % 32.7 % 32.9 % Red Cell Distribution Width 17.4 % 17.5 % 17.2 % Platelet Count 84 TH/MM3 88 TH/MM3 80 TH/MM3 Mean Platelet Volume 8.5 FL 8.5 FL 8.4 FL Neutrophils (%) (Auto) 67.3 % 68.5 % 55.8 % Lymphocytes (%) (Auto) 14.8 % 10.3 % 18.7 % Monocytes (%) (Auto) 10.9 % 11.1 % 11.5 % Eosinophils (%) (Auto) 6.0 % 9.3 % 12.8 % Basophils (%) (Auto) 1.0 % 0.8 % 1.2 % Neutrophils # (Auto) 2.2 TH/MM3 2.2 TH/MM3 1.7 TH/MM3 Lymphocytes # (Auto) 0.5 TH/MM3 0.3 TH/MM3 0.6 TH/MM3 Monocytes # (Auto) 0.4 TH/MM3 0.4 TH/MM3 0.3 TH/MM3 Eosinophils # (Auto) 0.2 TH/MM3 0.3 TH/MM3 0.4 TH/MM3 Basophils # (Auto) 0.0 TH/MM3 0.0 TH/MM3 0.0 TH/MM3 CBC Comment AUTO DIFF AUTO DIFF AUTO DIFF Differential Comment AUTO DIFF CONFIRMED AUTO DIFF CONFIRMED AUTO DIFF CONFIRMED Platelet Estimate LOW LOW Platelet Morphology Comment NORMAL ENLARGED Blood Urea Nitrogen 37 MG/DL 35 MG/DL 35 MG/DL Creatinine 2.66 MG/DL 2.60 MG/DL 2.84 MG/DL Random Glucose 99 MG/DL 128 MG/DL 137 MG/DL Albumin 1.9 GM/DL 1.8 GM/DL 1.8 GM/DL Calcium Level 8.0 MG/DL 8.2 MG/DL 7.8 MG/DL Phosphorus Level 3.9 MG/DL 3.5 MG/DL 2.9 MG/DL Magnesium Level 2.0 MG/DL 2.1 MG/DL 1.9 MG/DL Sodium Level 133 MEQ/L 136 MEQ/L 135 MEQ/L Potassium Level 3.3 MEQ/L 3.3 MEQ/L 3.5 MEQ/L Chloride Level 92 MEQ/L 92 MEQ/L 93 MEQ/L Carbon Dioxide Level 32.0 MEQ/L 37.7 MEQ/L 33.8 MEQ/L Anion Gap 9 MEQ/L 6 MEQ/L 8 MEQ/L Estimat Glomerular Filtration Rate 24 ML/MIN 24 ML/MIN 22 ML/MIN Blood Gas Puncture Site RT FEMORAL Blood Gas Patient Temperature 98.6 Blood Gas HCO3 35 mmol/L Blood Gas Base Excess 10.9 mmol/L Blood Gas Oxygen Saturation 89 % Arterial Blood pH 7.51 Arterial Blood Partial Pressure CO2 44 mmHg Arterial Blood Partial Pressure O2 56 mmHG Arterial Blood Oxygen Content 10.9 Vol % Arterial Blood Carboxyhemoglobin 2.4 % Arterial Blood Methemoglobin 0.4 % Blood Gas Hemoglobin 8.7 G/DL Oxygen Delivery Device Venti Mask Blood Gas Inspired Oxygen 50 % Prothrombin Time 11.3 SEC Prothromb Time International Ratio 1.1 RATIO Activated Partial Thromboplast Time 31.0 SEC Total Protein 5.5 GM/DL Alkaline Phosphatase 79 U/L Aspartate Amino Transf (AST/SGOT) 23 U/L Alanine Aminotransferase (ALT/SGPT) 18 U/L Total Bilirubin 0.5 MG/DL B-Type Natriuretic Peptide 932 PG/ML Free Thyroxine 1.58 NG/DL Thyroid Stimulating Hormone 3rd Gen 4.030 uIU/ML Imaging Last Impressions Chest X-Ray 12/26/17 0000 Signed Impressions: Service Date/Time: Tuesday, December 26, 2017 05:42 - CONCLUSION: Bilateral pulmonary opacity likely representing pulmonary edema, slightly increased from the comparison study. Adrian Black MD Objective Remarks GENERAL: Awake alert and oriented 3 talkative and cooperative in mild distress SKIN: Warm and dry. Bilateral lower extremity erythema and skin changes appears peripheral vascular occlusive disease HEAD: Atraumatic. Normocephalic. EYES: Pupils equal and round. No scleral icterus. No injection or drainage. Extraocular muscles intact ENT: No nasal bleeding or discharge. Mucous membranes pink and moist. Tongue is midline NECK: Trachea midline. No JVD. Supple CARDIOVASCULAR: Regular rate and rhythm. S1-S2 no S3 or S4 RESPIRATORY: No accessory muscle use. Clear to auscultation. Breath sounds equal bilaterally. Few scattered rhonchi and some rales at base GASTROINTESTINAL: Abdomen soft, non-tender, nondistended. Hepatic and splenic margins not palpable. MUSCULOSKELETAL: Extremities without clubbing, cyanosis, or edema. No obvious deformities. Maybe +1 lower extremity edema with some redness and erythema bilateral lower extremities NEUROLOGICAL: Awake and alert. No obvious cranial nerve deficits. Motor grossly within normal limits. 4 out of 5 muscle strength in the arms and legs. Normal speech. PSYCHIATRIC: Appropriate mood and affect; insight and judgment normal. Procedures CBI BIPAP Medications and IVs Current Medications Furosemide (Lasix Inj) 60 mg ONCE ONCE IV PUSH Last administered on 12/23/17 13:21; Start 12/23/17 at 12:30; Stop 12/23/17 at 12:31; Status DC Nitroglycerin (Nitroglycerin 2% Oint) 0.5 inch ONCE ONCE TOP Last administered on 12/23/17 13:21; Start 12/23/17 at 12:30; Stop 12/23/17 at 12:31; Status DC Ceftriaxone Sodium 1000 mg/ Sodium Chloride 100 ml @ 200 mls/hr ONCE ONCE IV Last administered on 12/23/17at 14:44; Start 12/23/17 at 14:05; Stop 12/23/17 at 14: 34; Status DC Sodium Chloride (NS Flush) 2 ml UNSCH PRN IV FLUSH FLUSH AFTER USING IV ACCESS ; Start 12/23/17 at 14:30 Sodium Chloride (NS Flush) 2 ml BID IV FLUSH Last administered on 12/27/17at 09: 03; Start 12/23/17 at 21:00 Furosemide (Lasix Inj) 40 mg BID@09,18 IVP Last administered on 12/26/17at 17:29 ; Start 12/23/17 at 18:00; Stop 12/27/17 at 09:06; Status DC Piperacillin Sod/ Tazobactam Sod 50 ml @ 100 mls/hr Q6H IV Last administered on 12/27/17at 05:27; Start 12/23/17 at 18:00 Acetaminophen (Tylenol) 650 mg Q4H PRN PO TEMP > 100.4; Start 12/23/17 at 14:30 Ondansetron HCl (Zofran Inj) 4 mg Q6H PRN IVP NAUSEA OR VOMITING; Start at 14:30 Acetaminophen (Tylenol) 650 mg Q6H PRN PO PAIN SCALE 1 TO 2; Start 12/23/17 at 14:30 Naloxone HCl (Narcan Inj) 0.4 mg UNSCH PRN IV PUSH SEE LABEL COMMENTS; Start at 14:30; Stop 12/25/17 at 10:55; Status DC Senna/Docusate Sodium (Chikis-Colace) 1 tab BID PO Last administered on 12/27/17at 09:03; Start 12/23/17 at 21:00 Sennosides (Senokot) 17.2 mg Q12H PRN PO Moderate constipation; Start 12/23/17 at 14:30 Bisacodyl (Dulcolax Supp) 10 mg DAILY PRN RECTAL SEVERE CONSITIPATION; Start at 14:30 Lactulose (Lactulose Liq) 30 ml DAILY PRN PO SEVERE CONSITIPATION; Start at 14:30 Amlodipine Besylate (Norvasc) 5 mg DAILY PO Last administered on 12/25/17at 09:12 ; Start 12/24/17 at 09:00; Stop 12/25/17 at 11:26; Status DC Carvedilol (Coreg) 25 mg BID PO Last administered on 12/27/17at 09:03; Start 12/23 at 21:00 Diphenoxylate HCl/ Atropine (Lomotil Tab) 1 tab Q6H PRN PO DIARRHEA; Start 12/23 at 14:30 Levothyroxine Sodium (Synthroid) 150 mcg MoWeFr@0600 PO Last administered on 12/27/17at 05:27; Start 12/23/17 at 16:30 Oxycodone/ Acetaminophen (Percocet 10-325 Mg) 1 tab QID PRN PO BREAKTHROUGH PAIN Last administered on 12/25/17at 06:02; Start 12/23/17 at 14:30; Stop 12/25/17 at 10:13; Status DC Triamcinolone Acetonide (Aristocort 0.1% Oint) 1 applic QID TOPICAL Last administered on 12/27/17at 09:00; Start 12/23/17 at 18:00 Non-Formulary Medication 175 mcg SuTuThSa PO ; Start 12/24/17 at 14:30; Stop 12/24 at 14:30; Status DC Non-Formulary Medication 50 mg DAILY PO ; Start 12/24/17 at 09:00; Status UNV Non-Formulary Medication 20 mg DAILY PO ; Start 12/24/17 at 09:00; Status UNV Non-Formulary Medication 20 mg DAILY PO ; Start 12/24/17 at 09:00; Status UNV Non-Formulary Medication 1 puff DAILY INH ; Start 12/24/17 at 09:00; Status UNV Levothyroxine Sodium (Synthroid) 75 mcg SuTuThSa@0600 PO Last administered on at 05:27; Start 12/24/17 at 06:00 Levothyroxine Sodium (Synthroid) 100 mcg SuTuThSa@0600 PO Last administered on 12/27/17at 05:30; Start 12/24/17 at 06:00 Patient Own Medication PT OWN MED: MYRBET... DAILY PO ; Start 12/24/17 at 09:00; Status Future Hold Pantoprazole Sodium (Protonix) 20 mg DAILY PO Last administered on 12/27/17at 09: 03; Start 12/24/17 at 09:00 Atorvastatin Calcium (Lipitor) 40 mg DAILY PO Last administered on 12/27/17at 09: 03; Start 12/24/17 at 09:00 Patient Own Medication PT OWN MED: STIOLTO RESPIMAT--... DAILY INH ; Start at 09:00; Status Future Hold Morphine Sulfate (Morphine Inj) 2 mg ONCE ONCE IV PUSH Last administered on 12/23/17at 17:54; Start 12/23/17 at 17:45; Stop 12/23/17 at 17:49; Status DC Belladonna Alkaloids/Opium (B & O Supp) 60 mg Q6H PRN RECTAL bladder spasm Last administered on 12/25/17 18:14; Start 12/23/17 at 18:00 Morphine Sulfate (Morphine Inj) 4 mg ONCE ONCE IV PUSH Last administered on 15:57; Start 12/24/17 at 15:35; Stop 12/24/17 at 15:36; Status DC Epoetin Alton (Epogen Inj) 20,000 units ONCE ONCE SQ Last administered on 22:47; Start 12/24/17 at 20:00; Stop 12/24/17 at 20:01; Status DC Calcium Carbonate (Tums Chew) 500 mg Q2H PRN CHEW indigestion Last administered on 12/26/17 20:02; Start 12/24/17 at 23:45 Oxycodone/ Acetaminophen (Percocet 5-325 Mg) 1 tab Q6H PRN PO PAIN SCALE 3 TO 5; Start 12/25/17 at 11:00 Oxycodone/ Acetaminophen (Percocet 10-325 Mg) 1 tab Q6H PRN PO PAIN SCALE 6 TO 10 Last administered on 12/27/17 09:04; Start 12/25/17 at 11:00 Morphine Sulfate (Morphine Inj) 4 mg Q3H PRN IV PUSH BREAKTHROUGH PAIN Last administered on 12/27/17 05:32; Start 12/25/17 at 11:00 Naloxone HCl (Narcan Inj) 0.4 mg UNSCH PRN IV PUSH SEE LABEL COMMENTS; Start at 10:15 Potassium Chloride (KCl) 10 meq ONCE ONCE PO Last administered on 12/25/17at 11: 20; Start 12/25/17 at 11:00; Stop 12/25/17 at 11:01; Status DC Isosorbide Mononitrate (Imdur) 30 mg DAILY@07 PO Last administered on 12/27/17 05:31; Start 12/26/17 at 07:00 Cyanocobalamin (Vitamin B12 Inj) 1,000 mcg Q30D IM Last administered on 14:45; Start 12/25/17 at 15:00 Folic Acid (Folate) 1 mg DAILY PO Last administered on 12/27/17 09:03; Start at 09:00 Cyanocobalamin (Vitamin B12) 1,000 mcg DAILY PO Last administered on 12/27/17at 09:03; Start 12/26/17 at 09:00 Albuterol/ Ipratropium (Duoneb Neb) 1 ampule Q4HR NEB PRN NEB SOB/WHEEZING; Start 12/26/17 at 05:45 Potassium Chloride (KCl) 60 meq ONCE ONCE PO Last administered on 12/26/17at 15: 00; Start 12/26/17 at 15:00; Stop 12/26/17 at 15:04; Status DC Guaifenesin (Mucinex Er) 600 mg BID PO Last administered on 12/27/17at 09:03; Start 12/26/17 at 21:00 Sodium Chloride 250 ml @ 15 mls/hr ONCE ONCE IV Last administered on at 08:30; Start 12/27/17 at 08:30; Stop 12/28/17 at 01:09 Acetaminophen (Tylenol) 650 mg Q4H PRN PO SEE LABEL COMMENTS; Start 12/27/17 at 08:30; Stop 12/27/17 at 23:59 Diphenhydramine HCl (Benadryl) 25 mg Q4H PRN PO SEE LABEL COMMENTS; Start at 08:30; Stop 12/27/17 at 23:59 Furosemide (Lasix Inj) 20 mg BID@0900,1800 IV PUSH Last administered on at 09:18; Start 12/27/17 at 18:00 A/P Problem List: (1) Hematuria, gross ICD Code: R31.0 - Gross hematuria Status: Acute (2) Chronic kidney disease (CKD) ICD Code: N18.9 - Chronic kidney disease Status: Acute (3) Acute exacerbation of CHF (congestive heart failure) ICD Code: I50.9 - Heart failure, unspecified Status: Acute Assessment and Plan This is a 72-year-old male who was sent from his urologist office because of edema. Patient states that for the past 3 weeks he has developed bilateral lower extremity edema including his genitalia. He also complains of dyspnea on exertion. States he has been advised to increase fluid intake secondary to hematuria in his Blas catheter. He is compliant with salt restriction and has been taking Lasix daily. //CHF exacerbation likely secondary to increased fluid intake. Continue diuresis with IV Lasix, CHF education, I/O and monitor weight. 1.5 L fluid restriction. Obtain 2D echo = Echo pending. Continue IV Lasix, fluid restrictions. Continue to monitor closely. = 12/25. Moderate aortic stenosis on echo. Consult cardiology. Recommended continued medical management //Chronic kidney disease stage IV with hyponatremia. He is asymptomatic. Nonoliguric. nephrology consult. Avoid nephrotoxins = Creatinine continues stable around previous baseline. //Pancytopenia on Votrient with worsening anemia secondary to acute blood loss. Repeat CBC in the morning keep hemoglobin at least 8 with history of CAD = Consult patient's oncologist for pancytopenia. Appreciate assistance. = 12/25. Oncology following. Appreciate assistance. //Chronic respiratory failure on nasal cannula, CHF and COPD. Continue oxygen keep saturations at least 92% //Hypokalemia. 3.3. Replace. Will replace again magnesium WNL //Gross hematuria //Sepsis //complex UTI =with a history of metastatic renal cell carcinoma status post right radical nephrectomy with removal of tumor thrombus in September 2009. left renal cell carcinoma on chemotherapy Votrient and bladder cancer diagnosed over 2 years ago and received radiation and chemotherapy. Last November 30, 2017, he underwent cystoscopy and was noted to have urethral stricture status post urethrotomy. He also had a small bladder lesion was biopsied negative for malignancy. Since the procedure, patient has been having intermittent gross hematuria. Denies being on antiplatelets and anticoagulants. He was taken off Plavix 1 week before the procedure. Patient had a Blas exchanged by Dr. Huddleston today. He also has abnormal urinalysis suggestive of UTI and meets criteria for sepsis. Will start IV Zosyn. I will not be able to hydrate patient because of CHF exacerbation. Check blood cultures = 12/24. Sepsis Leukopenia, tachypnea, complicated UTI. Continue Zosyn. gram- negative rods on urine culture.Follow up cultures. Continue bladder irrigation. Still with blood. = 12/25. Hematuria improving. Urology following. Follow-up urine culture results. //Multiple medical conditions PAD, hypothyroidism, hypertension, hyperlipidemia , GERD, IBS, gout and osteoarthritis. Continue outpatient medications as appropriate ANEMIA DUE TO BLOOD LOSS FROM HEMATURIA- WILL BE TRANSFUSED //DVT prophylaxis with SCD. Pharmacological prophylaxis held due to bleeding Discharge Planning Bladder irrigation We'll need hemoglobin stable Will need antibiotics for UTI Cardiology following for aortic stenosis recommend continue same Hematology and urology following Discharge Planning Await clearance from urology already has clearance from cardiology no clearance yet from nephrology Problem Qualifiers (1) Acute exacerbation of CHF (congestive heart failure): Qualified Codes: I50.9 - Heart failure, unspecified Evens Butcher DO Dec 27, 2017 11:38
[2017-12-27 12:46] LABS: HEMOGLOBIN A1C 5.5 % (4.3-6.0)
--- NOTE | 2017-12-27 16:59 | HHI.NPPN ---
Subjective History of Present Illness 72-year-old with metastatic renal cell cancer, acute renal failure, previous nephrectomy, hematuria on CBI Objective Data Data 12/27/17 12/28/17 19:00 07:00 Intake Total 880 ml Output Total 1050 ml Balance -170 ml Intake Oral 480 ml IV Total 50 ml Packed Cells 250 ml Blood Product IV Normal Saline Flush 100 ml Output Urine Total 1050 ml # Bowel Movements 4 Vital Signs Date Time Temp Pulse Resp B/P (MAP) Pulse Ox O2 Delivery O2 Flow Rate FiO2 12/27/17 15:09 98.6 86 18 136/61 (86) 97 12/27/17 15:09 88 12/27/17 15:09 97 Nasal Cannula 4.00 12/27/17 14:15 95 12/27/17 13:19 98.4 81 18 121/55 97 12/27/17 13:09 79 12/27/17 12:32 18 12/27/17 12:03 80 12/27/17 11:20 98.3 76 18 104/54 98 12/27/17 11:15 97 Nasal Cannula 4.00 12/27/17 11:15 98.4 81 18 104/47 94 12/27/17 11:15 85 12/27/17 11:15 98.6 81 18 110/51 (70) 97 12/27/17 11:10 98.1 77 18 110/51 98 12/27/17 11:07 98.1 78 18 102/54 100 12/27/17 10:41 95 Nasal Cannula 5.00 12/27/17 10:06 94 12/27/17 09:58 18 12/27/17 09:57 92 12/27/17 08:00 90 12/27/17 08:00 98.5 91 20 130/66 (87) 95 12/27/17 08:00 95 Nasal Cannula 5.00 12/27/17 06:00 78 12/27/17 05:00 88 12/27/17 04:00 90 12/27/17 04:00 98.0 90 20 120/72 (88) 94 12/27/17 04:00 Nasal Cannula 5.00 12/27/17 03:00 84 12/27/17 02:00 80 12/27/17 01:00 82 12/27/17 00:00 81 12/27/17 00:00 Nasal Cannula 5.00 12/27/17 00:00 98.2 81 20 141/66 (91) 92 12/26/17 23:00 80 12/26/17 22:00 78 12/26/17 21:00 87 12/26/17 20:00 78 12/26/17 20:00 98 Nasal Cannula 5.00 12/26/17 20:00 98.1 78 20 137/67 (90) 96 12/26/17 19:12 98 Nasal Cannula 5.00 12/26/17 18:15 81 12/26/17 17:07 82 -: 12/27/17 0740 12/27/17 0740 Physical Exam General Appearance: Well Developed, Well Nourished Neck Neck Exam: Neck Supple Pulmonary Resp Exam: Decreased Bases Cardiology CV Exam: Tachycardia Gastrointestinal/Abdomen GI Exam: Soft, Non-Tender, Bowel Sounds Present Extremeties Extremities Exam: Moderate Edema Assessment/Plan Problem List: (1) Acute renal failure ICD Codes: N17.9 - Acute kidney failure, unspecified Plan: Patient is on Lasix 20 mg IV twice a day. He uses his creatinine is 2.8 He is on bladder irrigation Hematuria continues Packed RBC ordered He has advanced metastatic renal cell cancer Prognosis appears guarded to poor (2) Metastatic renal cell carcinoma ICD Codes: C64.9 - Malignant neoplasm of unspecified kidney, except renal pelvis Plan: Treated by oncology (3) Hyponatremia ICD Codes: E87.1 - Hyponatremia Status: Acute Plan: Improved to 136 (4) Hematuria, gross ICD Codes: R31.0 - Gross hematuria Status: Acute Plan: On continuous bladder irrigation Noel Dykes MD Dec 27, 2017 16:59
--- NOTE | 2017-12-27 18:00 | PD.ONC.PN ---
Subjective Subjective Remarks c/o cold food, no nause or vomiting. Objective Data Date Time Temp Pulse Resp B/P (MAP) Pulse Ox O2 Delivery O2 Flow Rate FiO2 12/27/17 15:09 98.6 86 18 136/61 (86) 97 12/27/17 15:09 88 12/27/17 15:09 97 Nasal Cannula 4.00 12/27/17 14:15 95 12/27/17 13:19 98.4 81 18 121/55 97 12/27/17 13:09 79 12/27/17 12:32 18 12/27/17 12:03 80 12/27/17 11:20 98.3 76 18 104/54 98 12/27/17 11:15 97 Nasal Cannula 4.00 12/27/17 11:15 98.4 81 18 104/47 94 12/27/17 11:15 85 12/27/17 11:15 98.6 81 18 110/51 (70) 97 12/27/17 11:10 98.1 77 18 110/51 98 12/27/17 11:07 98.1 78 18 102/54 100 12/27/17 10:41 95 Nasal Cannula 5.00 12/27/17 10:06 94 12/27/17 09:58 18 12/27/17 09:57 92 12/27/17 08:00 90 12/27/17 08:00 98.5 91 20 130/66 (87) 95 12/27/17 08:00 95 Nasal Cannula 5.00 12/27/17 06:00 78 12/27/17 05:00 88 12/27/17 04:00 90 12/27/17 04:00 98.0 90 20 120/72 (88) 94 12/27/17 04:00 Nasal Cannula 5.00 12/27/17 03:00 84 12/27/17 02:00 80 12/27/17 01:00 82 12/27/17 00:00 81 12/27/17 00:00 Nasal Cannula 5.00 12/27/17 00:00 98.2 81 20 141/66 (91) 92 12/26/17 23:00 80 12/26/17 22:00 78 12/26/17 21:00 87 12/26/17 20:00 78 12/26/17 20:00 98 Nasal Cannula 5.00 12/26/17 20:00 98.1 78 20 137/67 (90) 96 12/26/17 19:12 98 Nasal Cannula 5.00 12/26/17 18:15 81 12/27/17 12/27/17 12/27/17 07:00 15:00 23:00 Intake Total 300 ml 350 ml 530 ml Output Total 1050 ml Balance 300 ml 350 ml -520 ml Result Diagram: 12/27/17 0740 12/27/17 0740 Laboratory Results Laboratory Tests Test 12/27/17 07:40 White Blood Count 3.0 TH/MM3 Red Blood Count 1.99 MIL/MM3 Hemoglobin 7.0 GM/DL Hematocrit 21.3 % Mean Corpuscular Volume 107.1 FL Mean Corpuscular Hemoglobin 35.2 PG Mean Corpuscular Hemoglobin Concent 32.9 % Red Cell Distribution Width 17.2 % Platelet Count 80 TH/MM3 Mean Platelet Volume 8.4 FL Neutrophils (%) (Auto) 55.8 % Lymphocytes (%) (Auto) 18.7 % Monocytes (%) (Auto) 11.5 % Eosinophils (%) (Auto) 12.8 % Basophils (%) (Auto) 1.2 % Neutrophils # (Auto) 1.7 TH/MM3 Lymphocytes # (Auto) 0.6 TH/MM3 Monocytes # (Auto) 0.3 TH/MM3 Eosinophils # (Auto) 0.4 TH/MM3 Basophils # (Auto) 0.0 TH/MM3 CBC Comment AUTO DIFF Differential Comment AUTO DIFF CONFIRMED Prothrombin Time 11.3 SEC Prothromb Time International Ratio 1.1 RATIO Activated Partial Thromboplast Time 31.0 SEC Blood Urea Nitrogen 35 MG/DL Creatinine 2.84 MG/DL Random Glucose 137 MG/DL Total Protein 5.5 GM/DL Albumin 1.8 GM/DL Calcium Level 7.8 MG/DL Phosphorus Level 2.9 MG/DL Magnesium Level 1.9 MG/DL Alkaline Phosphatase 79 U/L Aspartate Amino Transf (AST/SGOT) 23 U/L Alanine Aminotransferase (ALT/SGPT) 18 U/L Total Bilirubin 0.5 MG/DL Sodium Level 135 MEQ/L Potassium Level 3.5 MEQ/L Chloride Level 93 MEQ/L Carbon Dioxide Level 33.8 MEQ/L Anion Gap 8 MEQ/L Estimat Glomerular Filtration Rate 22 ML/MIN Hemoglobin A1c 5.5 % B-Type Natriuretic Peptide 932 PG/ML Free Thyroxine 1.58 NG/DL Thyroid Stimulating Hormone 3rd Gen 4.030 uIU/ML Administered Medications Medications (Trade) Dose Ordered Sig/Richie Route PRN Reason Start Time Stop Time Status Last Admin Dose Admin Sodium Chloride (NS Flush) 2 ml BID IV FLUSH 12/23/17 21:00 12/27/17 09:03 Piperacillin Sod/ Tazobactam Sod 50 ml @ 100 mls/hr Q6H IV 12/23/17 18:00 12/27/17 12:23 Senna/Docusate Sodium (Chikis-Colace) 1 tab BID PO 12/23/17 21:00 12/27/17 09:03 Carvedilol (Coreg) 25 mg BID PO 12/23/17 21:00 12/27/17 09:03 Levothyroxine Sodium (Synthroid) 150 mcg MoWeFr@0600 PO 12/23/17 16:30 12/27/17 05:27 Triamcinolone Acetonide (Aristocort 0.1% Oint) 1 applic QID TOPICAL 12/23/17 18:00 12/27/17 09:00 Levothyroxine Sodium (Synthroid) 75 mcg SuTuThSa@0600 PO 12/24/17 06:00 12/27/17 05:27 Levothyroxine Sodium (Synthroid) 100 mcg SuTuThSa@0600 PO 12/24/17 06:00 12/27/17 05:30 Pantoprazole Sodium (Protonix) 20 mg DAILY PO 12/24/17 09:00 12/27/17 09:03 Atorvastatin Calcium (Lipitor) 40 mg DAILY PO 12/24/17 09:00 12/27/17 09:03 Belladonna Alkaloids/Opium (B & O Supp) 60 mg Q6H PRN RECTAL bladder spasm 12/23/17 18:00 12/25/17 18:14 Calcium Carbonate (Tums Chew) 500 mg Q2H PRN CHEW indigestion 12/24/17 23:45 12/26/17 20:02 Oxycodone/ Acetaminophen (Percocet 10-325 Mg) 1 tab Q6H PRN PO PAIN SCALE 6 TO 10 12/25/17 11:00 12/27/17 09:04 Morphine Sulfate (Morphine Inj) 4 mg Q3H PRN IV PUSH BREAKTHROUGH PAIN 4/6/18 11:00 12/27/17 12:24 Isosorbide Mononitrate (Imdur) 30 mg DAILY@07 PO 12/26/17 07:00 12/27/17 05:31 Cyanocobalamin (Vitamin B12 Inj) 1,000 mcg Q30D IM 12/25/17 15:00 12/25/17 14:45 Folic Acid (Folate) 1 mg DAILY PO 12/26/17 09:00 12/27/17 09:03 Cyanocobalamin (Vitamin B12) 1,000 mcg DAILY PO 12/26/17 09:00 12/27/17 09:03 Guaifenesin (Mucinex Er) 600 mg BID PO 12/26/17 21:00 12/27/17 09:03 Sodium Chloride 250 ml @ 15 mls/hr ONCE ONCE IV 12/27/17 08:30 12/28/17 01:09 12/27/17 08:30 Furosemide (Lasix Inj) 20 mg BID@0900,1800 IV PUSH 12/27/17 18:00 12/27/17 09:18 Objective Remarks GENERAL: Elderly male, lying in bed eating a chicken sandwich that his has brought in SKIN: Warm and dry. HEAD: Normocephalic. EYES: No injection or drainage. NECK: Supple, trachea midline. CARDIOVASCULAR: Regular rate and rhythm : Continuous irrigation ongoing. He continues to have hematuria RESPIRATORY: Clear anteriorly. On 50% Ventimask. GASTROINTESTINAL: Abdomen soft, non-tender, nondistended. EXTREMITIES: Swelling much improved. He has purpura on bilateral lower extremities NEUROLOGICAL: Moving all extremities. No obvious focal deficit. Assessment/Plan Problem List: (1) Hematuria, gross ICD Codes: R31.0 - Gross hematuria Status: Acute Plan: 12/27/17. Gross hematuria, cont CBI. Anemia secondary to hematuria. --due to recent cystoscopy and urethrotomy. --on bladder irrigation. Urology following. (2) Pancytopenia ICD Codes: D61.818 - Other pancytopenia Plan: 12/27/17. Anemia likely due to hematuria and thrombocytopenia due to consumption from hematuria. Platelet count stable. Transfuse PRBC for anemia. ++partly due to Votrient-->Votrient was stopped about 3 weeks ago. ++significant anemia likely due to chronic kidney disease as well as chronic inflammatory disease. --given Epogen on 12/24 --B12 low, will replace and start on folate daily (3) Metastatic renal cell carcinoma ICD Codes: C64.9 - Malignant neoplasm of unspecified kidney, except renal pelvis Plan: --continue monitoring for now. History: --presented with bilateral renal cell carcinoma and had right nephrectomy in February 2010. 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 --had a biopsy of the left kidney mass, which also showed renal cell carcinoma. He started Votrient, with good response. The Votrient was held for awhile when he was receiving treatment for bladder cancer. --recently was found to have progression of disease and restarted Votrient at the end of 2014. CT scan done in early November which did not show clear evidence of progression of disease. The Votrient has been on hold since the urologic procedure. (4) Bladder cancer ICD Codes: C67.9 - Malignant neoplasm of urinary bladder Status: Acute Plan: -- Bladder invasive transitional cell carcinoma, treated with radiation and chemotherapy. --had another cystoscopy 3 weeks ago with biopsy which did not show any recurrent disease. Assessment 72y/o male with thrombocytopenia, anemia and history of metastatic renal cell cancer. h/o Congestive heart failure. Chronic obstructive pulmonary disease, oxygen dependent. Bladder cancer. Urethral stricture. Pancytopenia. Hypertension. Hypothyroidism. Hyperlipidemia. Gastroesophageal reflux disease. Osteoarthritis. Gout Plan 1. Transfuse today 2. Hold Votrient until hematuria resolved Florinda Cantrell MD Dec 27, 2017 18:00
[2017-12-28] VITALS (17 sets, daily range): BP systolic 121–146; BP diastolic 55–65; PULSE 67–89; RESP 16–18; TEMP 96.4–98.5; O2SAT 93–100
[2017-12-28] MEDS: PIPERACIL-TAZO 2.25 GM PREMIX 50 ML IV SCH ×4 (00:47→18:21)
[2017-12-28] MEDS: oxyCODONE/ACETAMINOPHEN 10 MG/325 MG TAB PO PRN ×4 (01:50→22:22)
[2017-12-28] MEDS: LEVOTHYROXINE SODIUM 150 MCG TAB PO SCH (05:11)
[2017-12-28] MEDS: ISOSORBIDE MONONITRATE 30 MG CR TAB (IMDUR) PO SCH (06:14)
[2017-12-28 06:24] LABS: AUTOMATED NEUTROPHIL # 1.8 TH/MM3 (1.8-7.7); BASOPHIL % 0.7 % (0.0-2.0); EOSINOPHIL # 0.3 TH/MM3 (0-0.4); EOSINOPHIL % 10.2 % (0.0-4.0); HEMATOCRIT 22.2 % (39.0-51.0); HEMOGLOBIN 7.5 GM/DL (13.0-17.0); LYMPH % 20.2 % (9.0-44.0); LYMPHOCYTE # 0.6 TH/MM3 (1.0-4.8); MEAN CELL VOLUME 103.5 FL (80.0-100.0); MEAN CORPUSCULAR HEMOGLOBIN 35.1 PG (27.0-34.0); MEAN CORPUSCULAR HGB CONC 33.9 % (32.0-36.0); MEAN PLATELET VOLUME 8.9 FL (7.0-11.0); MONO % 12.2 % (0.0-8.0); MONOCYTE # 0.4 TH/MM3 (0-0.9); NEUT % 56.7 % (16.0-70.0); PLATELET COUNT 83 TH/MM3 (150-450); RED BLOOD COUNT 2.14 MIL/MM3 (4.50-5.90); RED CELL DISTRIBUTION WIDTH 19.6 % (11.6-17.2); WHITE BLOOD COUNT 3.2 TH/MM3 (4.0-11.0)
[2017-12-28 06:46] LABS: ALT (GPT) 20 U/L (12-78); AST (GOT) 25 U/L (15-37); BICARBONATE 35.9 MEQ/L (21.0-32.0); BLOOD UREA NITROGEN 36 MG/DL (7-18); CHLORIDE 94 MEQ/L (98-107); CREATININE 2.91 MG/DL (0.60-1.30); GLOMERULAR FILTRATION RATE 21 ML/MIN (>89); GLUCOSE,RANDOM 113 MG/DL (74-106); PHOSPHORUS 3.4 MG/DL (2.5-4.9); SODIUM (NA) 137 MEQ/L (136-145)
[2017-12-28 06:48] LABS: ALKALINE PHOSPHATASE 82 U/L (45-117); MAGNESIUM 2.1 MG/DL (1.5-2.5); TOTAL BILIRUBIN ADULT 0.5 MG/DL (0.2-1.0); TOTAL PROTEIN 5.7 GM/DL (6.4-8.2)
[2017-12-28] MEDS ORDERED: SODIUM CHLOR 0.9% 250 ML INJ 250 ML IV ONE ×2 (08:00→10:45)
[2017-12-28] MEDS: ATORVASTATIN 40 MG TAB PO SCH (08:36)
[2017-12-28] MEDS: FOLIC ACID 1 MG TAB PO SCH (08:36)
[2017-12-28] MEDS: guaiFENesin E.R. 600 MG TAB PO SCH ×2 (08:36→22:21)
[2017-12-28] MEDS: CARVEDILOL 12.5 MG TAB PO SCH ×2 (08:36→22:21)
[2017-12-28] MEDS: PANTOPRAZOLE SOD 20 MG DELAYED RELEASE TAB PO SCH (08:37)
[2017-12-28] MEDS: SODIUM CHLORIDE 0.9% FLUSH 10 ML FLUSH IV FLUSH SCH ×2 (08:39→22:16)
[2017-12-28] MEDS: DOCUSATE SODIUM 50 MG/SENNA 8.6 MG TAB PO SCH ×2 (08:49→22:21)
[2017-12-28] MEDS: FUROSEMIDE 20 MG/2 ML VIAL IV PUSH SCH ×2 (08:49→18:22)
[2017-12-28] MEDS: TRIAMCINOLONE ACETONIDE 0.1% OINT 15 GM TUBE TOPICAL SCH ×4 (08:49→22:18)
--- NOTE | 2017-12-28 09:16 | PD.ONC.PN ---
Subjective Subjective Remarks Afebrile overnight. Patient reports he feels he has a clot in his bladder. the gill catheter continues to drain clear sanguinous urine. states the bladder irrigation is sometimes painful. Objective Data Date Time Temp Pulse Resp B/P (MAP) Pulse Ox O2 Delivery O2 Flow Rate FiO2 12/28/17 07:00 86 12/28/17 05:07 97.9 80 18 146/65 (92) 99 12/28/17 04:00 70 12/28/17 03:38 Nasal Cannula 4.00 12/28/17 01:19 97 Nasal Cannula 4.00 12/28/17 00:46 Nasal Cannula 4.00 12/28/17 00:46 98.5 67 16 131/64 (86) 97 12/28/17 00:00 89 12/27/17 20:07 94 Nasal Cannula 4.00 12/27/17 20:07 98.4 87 17 140/63 (88) 94 12/27/17 20:00 88 12/27/17 19:49 83 12/27/17 15:09 98.6 86 18 136/61 (86) 97 12/27/17 15:09 88 12/27/17 15:09 97 Nasal Cannula 4.00 12/27/17 14:15 95 12/27/17 13:19 98.4 81 18 121/55 97 12/27/17 13:09 79 12/27/17 12:32 18 12/27/17 12:03 80 12/27/17 11:20 98.3 76 18 104/54 98 12/27/17 11:15 97 Nasal Cannula 4.00 12/27/17 11:15 98.4 81 18 104/47 94 12/27/17 11:15 85 12/27/17 11:15 98.6 81 18 110/51 (70) 97 12/27/17 11:10 98.1 77 18 110/51 98 12/27/17 11:07 98.1 78 18 102/54 100 12/27/17 10:41 95 Nasal Cannula 5.00 12/27/17 10:06 94 12/27/17 09:58 18 12/27/17 09:57 92 12/28/17 12/28/17 12/28/17 07:00 15:00 23:00 Intake Total 100 ml Output Total 3000 ml Balance -2900 ml Result Diagram: 12/28/17 0511 12/28/17 0511 Laboratory Results Laboratory Tests Test 12/28/17 05:11 White Blood Count 3.2 TH/MM3 Red Blood Count 2.14 MIL/MM3 Hemoglobin 7.5 GM/DL Hematocrit 22.2 % Mean Corpuscular Volume 103.5 FL Mean Corpuscular Hemoglobin 35.1 PG Mean Corpuscular Hemoglobin Concent 33.9 % Red Cell Distribution Width 19.6 % Platelet Count 83 TH/MM3 Mean Platelet Volume 8.9 FL Neutrophils (%) (Auto) 56.7 % Lymphocytes (%) (Auto) 20.2 % Monocytes (%) (Auto) 12.2 % Eosinophils (%) (Auto) 10.2 % Basophils (%) (Auto) 0.7 % Neutrophils # (Auto) 1.8 TH/MM3 Lymphocytes # (Auto) 0.6 TH/MM3 Monocytes # (Auto) 0.4 TH/MM3 Eosinophils # (Auto) 0.3 TH/MM3 Basophils # (Auto) 0.0 TH/MM3 CBC Comment AUTO DIFF Blood Urea Nitrogen 36 MG/DL Creatinine 2.91 MG/DL Random Glucose 113 MG/DL Total Protein 5.7 GM/DL Albumin 2.0 GM/DL Calcium Level 8.0 MG/DL Phosphorus Level 3.4 MG/DL Magnesium Level 2.1 MG/DL Alkaline Phosphatase 82 U/L Aspartate Amino Transf (AST/SGOT) 25 U/L Alanine Aminotransferase (ALT/SGPT) 20 U/L Total Bilirubin 0.5 MG/DL Sodium Level 137 MEQ/L Potassium Level 3.4 MEQ/L Chloride Level 94 MEQ/L Carbon Dioxide Level 35.9 MEQ/L Anion Gap 7 MEQ/L Estimat Glomerular Filtration Rate 21 ML/MIN Administered Medications Medications (Trade) Dose Ordered Sig/Richie Route PRN Reason Start Time Stop Time Status Last Admin Dose Admin Sodium Chloride (NS Flush) 2 ml BID IV FLUSH 12/23/17 21:00 12/28/17 08:39 Piperacillin Sod/ Tazobactam Sod 50 ml @ 100 mls/hr Q6H IV 12/23/17 18:00 12/28/17 06:14 Senna/Docusate Sodium (Chikis-Colace) 1 tab BID PO 12/23/17 21:00 12/28/17 08:49 Carvedilol (Coreg) 25 mg BID PO 12/23/17 21:00 12/28/17 08:36 Levothyroxine Sodium (Synthroid) 150 mcg MoWeFr@0600 PO 12/23/17 16:30 12/28/17 05:11 Triamcinolone Acetonide (Aristocort 0.1% Oint) 1 applic QID TOPICAL 12/23/17 18:00 12/28/17 08:49 Levothyroxine Sodium (Synthroid) 75 mcg SuTuThSa@0600 PO 12/24/17 06:00 12/27/17 05:27 Levothyroxine Sodium (Synthroid) 100 mcg SuTuThSa@0600 PO 12/24/17 06:00 12/27/17 05:30 Pantoprazole Sodium (Protonix) 20 mg DAILY PO 12/24/17 09:00 12/28/17 08:37 Atorvastatin Calcium (Lipitor) 40 mg DAILY PO 12/24/17 09:00 12/28/17 08:36 Belladonna Alkaloids/Opium (B & O Supp) 60 mg Q6H PRN RECTAL bladder spasm 12/23/17 18:00 12/25/17 18:14 Calcium Carbonate (Tums Chew) 500 mg Q2H PRN CHEW indigestion 12/24/17 23:45 12/26/17 20:02 Oxycodone/ Acetaminophen (Percocet 10-325 Mg) 1 tab Q6H PRN PO PAIN SCALE 6 TO 10 12/25/17 11:00 12/28/17 08:36 Morphine Sulfate (Morphine Inj) 4 mg Q3H PRN IV PUSH BREAKTHROUGH PAIN 12/25/17 11:00 12/27/17 12:24 Isosorbide Mononitrate (Imdur) 30 mg DAILY@07 PO 12/26/17 07:00 12/28/17 06:14 Cyanocobalamin (Vitamin B12 Inj) 1,000 mcg Q30D IM 12/25/17 15:00 12/25/17 14:45 Folic Acid (Folate) 1 mg DAILY PO 12/26/17 09:00 12/28/17 08:36 Cyanocobalamin (Vitamin B12) 1,000 mcg DAILY PO 12/26/17 09:00 12/27/17 09:03 Guaifenesin (Mucinex Er) 600 mg BID PO 12/26/17 21:00 12/28/17 08:36 Furosemide (Lasix Inj) 20 mg BID@0900,1800 IV PUSH 12/27/17 18:00 12/28/17 08:49 Objective Remarks GENERAL: Elderly male, sitting up in chair next to bed. he appears comfortable and in nad. SKIN: Warm and dry. HEAD: Normocephalic. EYES: No injection or drainage. NECK: Supple, trachea midline. CARDIOVASCULAR: Regular rate and rhythm RESPIRATORY: Breath sounds equal bilaterally. No accessory muscle use. GASTROINTESTINAL: Abdomen soft, non-tender, nondistended. EXTREMITIES: No cyanosis MUSCULOSKELETAL: Adequate muscle tone. NEUROLOGICAL: awake and alert. normal speech. Assessment/Plan Problem List: (1) Hematuria, gross ICD Codes: R31.0 - Gross hematuria Status: Acute Plan: 12/28/17. continue bladder irrigation per urology. --due to recent cystoscopy and urethrotomy. --on bladder irrigation. Urology following. (2) Pancytopenia ICD Codes: D61.818 - Other pancytopenia Plan: 12/28: give one unit platelets today in attempt to assist cessation of hematuria. ++partly due to Votrient-->Votrient was stopped about 3 weeks ago. ++significant anemia likely due to chronic kidney disease as well as chronic inflammatory disease. --given Epogen on 12/24 --B12 low, will replace and start on folate daily (3) Metastatic renal cell carcinoma ICD Codes: C64.9 - Malignant neoplasm of unspecified kidney, except renal pelvis Plan: --continue monitoring for now. History: --presented with bilateral renal cell carcinoma and had right nephrectomy in February 2010. 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 --had a biopsy of the left kidney mass, which also showed renal cell carcinoma. He started Votrient, with good response. The Votrient was held for awhile when he was receiving treatment for bladder cancer. --recently was found to have progression of disease and restarted Votrient at the end of 2014. CT scan done in early November which did not show clear evidence of progression of disease. The Votrient has been on hold since the urologic procedure. (4) Bladder cancer ICD Codes: C67.9 - Malignant neoplasm of urinary bladder Status: Acute Plan: -- Bladder invasive transitional cell carcinoma, treated with radiation and chemotherapy. --had another cystoscopy 3 weeks ago with biopsy which did not show any recurrent disease. Assessment 72y/o male with thrombocytopenia, anemia and history of metastatic renal cell cancer. h/o Congestive heart failure. Chronic obstructive pulmonary disease, oxygen dependent. Bladder cancer. Urethral stricture. Pancytopenia. Hypertension. Hypothyroidism. Hyperlipidemia. Gastroesophageal reflux disease. Osteoarthritis. Gout Plan 1. Transfuse one unit platelets 2. management of 3 way gill catheter/bladder irrigation per urology Attending Statement The exam, history, and the medical decision-making described in the above note were completed with the assistance of the mid-level provider. I reviewed and agree with the findings presented. I attest that I had a [id number] encounter with the patient on the same day, and personally performed and documented my assessment and findings in the medical record. LE edema has improved. Still has pinkish urine. Will give 1u of platelet to see if it will help slow down the hematuria. Can consider adding Amicar to bladder irrigation but urology can decide if it is appropriate. Desire Samuels Dec 28, 2017 09:16 Ernesto Yousif MD Dec 28, 2017 19:05
[2017-12-28] MEDS: MORPHINE SULFATE 2 MG/ML SYRINGE IV PUSH PRN ×2 (09:53→19:28)
[2017-12-28] MEDS ORDERED: ACETAMINOPHEN 325 MG TAB PO PRN (10:00)
[2017-12-28] MEDS ORDERED: diphenhydrAMINE HCL 25 MG CAP PO PRN (10:00)
--- NOTE | 2017-12-28 10:34 | HHI.PR ---
Subjective Remarks This is a 72-year-old male who was sent from his urologist office because of edema. Patient states that for the past 3 weeks he has developed bilateral lower extremity edema including his genitalia. He also complains of dyspnea on exertion. States he has been advised to increase fluid intake secondary to hematuria in his Michael catheter. He is compliant with salt restriction and has been taking Lasix daily. He has a history of chronic respiratory failure on nasal cannula, CHF and COPD. Denies fever, chills, cough, wheezing and chest pain. Patient has a history of metastatic renal cell carcinoma status post right radical nephrectomy with removal of tumor thrombus in September 2009. Also noted to have left renal cell carcinoma on chemotherapy. He also has bladder cancer diagnosed over 2 years ago and received radiation and chemotherapy. Last November 30, 2017, he underwent cystoscopy and was noted to have urethral stricture status post urethrotomy. He also had a small bladder lesion was biopsied negative for malignancy. Since the procedure, patient has been having intermittent gross hematuria. Denies being on antiplatelets and anticoagulants. He was taken off Plavix 1 week before the procedure. All other systems reviewed negative 4-5 Patient says he is feeling all right. Reports Michael pain. Denies any chest pain or shortness of breath. Denies any nausea or vomiting 4-6 Patient says he is feeling all right. Reports Michael pain continues, but has not received any belladonna suppositories. Denies any chest pain or shortness of breath. 4-7 off of bipap BREATHING A LITTLE BETTER LEGS LESS RED STILL HAS CBI IN PLACE FRUIT PUNCH APPEARANCE AM LABS INCREASE ACTIVITY DW RN AND PT INCENTIVE SPIROMETRY MUCINEX 4-8 SEEN BY CARDIOLOGY BEING TRANSFUSED STILL HAS CBI DW RN AND PT AND FAMILY AND CM AM LABS 4-9 WILL TRANSFUSE 2 UNIT PRBC HAVING CLOTS IN MICHAEL URINE IS SOIL FERTILITY EXTENSION SPECIALIST IN COLOR BUT MAY BE DUE TO CLOTS DW RN AND PT AND CM Objective Vitals Vital Signs Date Time Temp Pulse Resp B/P (MAP) Pulse Ox O2 Delivery O2 Flow Rate FiO2 12/28/17 09:08 93 Nasal Cannula 4.00 12/28/17 08:30 97.6 89 18 131/60 (83) 93 12/28/17 07:00 86 12/28/17 05:07 97.9 80 18 146/65 (92) 99 12/28/17 04:00 70 12/28/17 03:38 Nasal Cannula 4.00 12/28/17 01:19 97 Nasal Cannula 4.00 12/28/17 00:46 Nasal Cannula 4.00 12/28/17 00:46 98.5 67 16 131/64 (86) 97 12/28/17 00:00 89 12/27/17 20:07 94 Nasal Cannula 4.00 12/27/17 20:07 98.4 87 17 140/63 (88) 94 12/27/17 20:00 88 12/27/17 19:49 83 12/27/17 15:09 98.6 86 18 136/61 (86) 97 12/27/17 15:09 88 12/27/17 15:09 97 Nasal Cannula 4.00 12/27/17 14:15 95 12/27/17 13:19 98.4 81 18 121/55 97 12/27/17 13:09 79 12/27/17 12:32 18 12/27/17 12:03 80 12/27/17 11:20 98.3 76 18 104/54 98 12/27/17 11:15 97 Nasal Cannula 4.00 12/27/17 11:15 98.4 81 18 104/47 94 12/27/17 11:15 85 12/27/17 11:15 98.6 81 18 110/51 (70) 97 12/27/17 11:10 98.1 77 18 110/51 98 12/27/17 11:07 98.1 78 18 102/54 100 12/27/17 10:41 95 Nasal Cannula 5.00 I/O 12/27/17 12/27/17 12/27/17 12/28/17 12/28/17 12/28/17 07:00 15:00 23:00 07:00 15:00 23:00 Intake Total 300 ml 350 ml 985 ml 100 ml Output Total 2750 ml 3000 ml Balance 300 ml 350 ml -1765 ml -2900 ml Intake Oral 200 ml 935 ml IV Total 100 ml 50 ml 100 ml Packed Cells 250 ml Blood Product IV Normal Saline Flush 100 ml Output Urine Total 2750 ml 3000 ml # Bowel Movements 0 1 3 Result Diagram: 12/28/17 0511 12/28/17 0511 Other Results Laboratory Tests Test 12/26/17 05:50 12/26/17 12:08 4/8/18 07:40 12/28/17 05:11 Blood Gas Puncture Site RT FEMORAL Blood Gas Patient Temperature 98.6 Blood Gas HCO3 35 mmol/L Blood Gas Base Excess 10.9 mmol/L Blood Gas Oxygen Saturation 89 % Arterial Blood pH 7.51 Arterial Blood Partial Pressure CO2 44 mmHg Arterial Blood Partial Pressure O2 56 mmHG Arterial Blood Oxygen Content 10.9 Vol % Arterial Blood Carboxyhemoglobin 2.4 % Arterial Blood Methemoglobin 0.4 % Blood Gas Hemoglobin 8.7 G/DL Oxygen Delivery Device Venti Mask Blood Gas Inspired Oxygen 50 % White Blood Count 3.2 TH/MM3 3.0 TH/MM3 3.2 TH/MM3 Red Blood Count 2.13 MIL/MM3 1.99 MIL/MM3 2.14 MIL/MM3 Hemoglobin 7.5 GM/DL 7.0 GM/DL 7.5 GM/DL Hematocrit 22.9 % 21.3 % 22.2 % Mean Corpuscular Volume 107.9 FL 107.1 FL 103.5 FL Mean Corpuscular Hemoglobin 35.3 PG 35.2 PG 35.1 PG Mean Corpuscular Hemoglobin Concent 32.7 % 32.9 % 33.9 % Red Cell Distribution Width 17.5 % 17.2 % 19.6 % Platelet Count 88 TH/MM3 80 TH/MM3 83 TH/MM3 Mean Platelet Volume 8.5 FL 8.4 FL 8.9 FL Neutrophils (%) (Auto) 68.5 % 55.8 % 56.7 % Lymphocytes (%) (Auto) 10.3 % 18.7 % 20.2 % Monocytes (%) (Auto) 11.1 % 11.5 % 12.2 % Eosinophils (%) (Auto) 9.3 % 12.8 % 10.2 % Basophils (%) (Auto) 0.8 % 1.2 % 0.7 % Neutrophils # (Auto) 2.2 TH/MM3 1.7 TH/MM3 1.8 TH/MM3 Lymphocytes # (Auto) 0.3 TH/MM3 0.6 TH/MM3 0.6 TH/MM3 Monocytes # (Auto) 0.4 TH/MM3 0.3 TH/MM3 0.4 TH/MM3 Eosinophils # (Auto) 0.3 TH/MM3 0.4 TH/MM3 0.3 TH/MM3 Basophils # (Auto) 0.0 TH/MM3 0.0 TH/MM3 0.0 TH/MM3 CBC Comment AUTO DIFF AUTO DIFF AUTO DIFF Differential Comment AUTO DIFF CONFIRMED AUTO DIFF CONFIRMED AUTO DIFF CONFIRMED Platelet Estimate LOW LOW Platelet Morphology Comment ENLARGED NORMAL Blood Urea Nitrogen 35 MG/DL 35 MG/DL 36 MG/DL Creatinine 2.60 MG/DL 2.84 MG/DL 2.91 MG/DL Random Glucose 128 MG/DL 137 MG/DL 113 MG/DL Albumin 1.8 GM/DL 1.8 GM/DL 2.0 GM/DL Calcium Level 8.2 MG/DL 7.8 MG/DL 8.0 MG/DL Phosphorus Level 3.5 MG/DL 2.9 MG/DL 3.4 MG/DL Magnesium Level 2.1 MG/DL 1.9 MG/DL 2.1 MG/DL Sodium Level 136 MEQ/L 135 MEQ/L 137 MEQ/L Potassium Level 3.3 MEQ/L 3.5 MEQ/L 3.4 MEQ/L Chloride Level 92 MEQ/L 93 MEQ/L 94 MEQ/L Carbon Dioxide Level 37.7 MEQ/L 33.8 MEQ/L 35.9 MEQ/L Anion Gap 6 MEQ/L 8 MEQ/L 7 MEQ/L Estimat Glomerular Filtration Rate 24 ML/MIN 22 ML/MIN 21 ML/MIN Prothrombin Time 11.3 SEC Prothromb Time International Ratio 1.1 RATIO Activated Partial Thromboplast Time 31.0 SEC Total Protein 5.5 GM/DL 5.7 GM/DL Alkaline Phosphatase 79 U/L 82 U/L Aspartate Amino Transf (AST/SGOT) 23 U/L 25 U/L Alanine Aminotransferase (ALT/SGPT) 18 U/L 20 U/L Total Bilirubin 0.5 MG/DL 0.5 MG/DL Hemoglobin A1c 5.5 % B-Type Natriuretic Peptide 932 PG/ML Free Thyroxine 1.58 NG/DL Thyroid Stimulating Hormone 3rd Gen 4.030 uIU/ML Imaging Last Impressions Chest X-Ray 12/26/17 0000 Signed Impressions: Service Date/Time: Tuesday, December 26, 2017 05:42 - CONCLUSION: Bilateral pulmonary opacity likely representing pulmonary edema, slightly increased from the comparison study. Adrian Black MD Objective Remarks GENERAL: Awake alert and oriented 3 talkative and cooperative in mild distress SKIN: Warm and dry. Bilateral lower extremity erythema and skin changes appears peripheral vascular occlusive disease HEAD: Atraumatic. Normocephalic. EYES: Pupils equal and round. No scleral icterus. No injection or drainage. Extraocular muscles intact ENT: No nasal bleeding or discharge. Mucous membranes pink and moist. Tongue is midline NECK: Trachea midline. No JVD. Supple CARDIOVASCULAR: Regular rate and rhythm. S1-S2 no S3 or S4 RESPIRATORY: No accessory muscle use. Clear to auscultation. Breath sounds equal bilaterally. Few scattered rhonchi and some rales at base GASTROINTESTINAL: Abdomen soft, non-tender, nondistended. Hepatic and splenic margins not palpable. MUSCULOSKELETAL: Extremities without clubbing, cyanosis, or edema. No obvious deformities. Maybe +1 lower extremity edema with some redness and erythema bilateral lower extremities NEUROLOGICAL: Awake and alert. No obvious cranial nerve deficits. Motor grossly within normal limits. 4 out of 5 muscle strength in the arms and legs. Normal speech. PSYCHIATRIC: Appropriate mood and affect; insight and judgment normal. Procedures CBI BIPAP Medications and IVs Current Medications Furosemide (Lasix Inj) 60 mg ONCE ONCE IV PUSH Last administered on 12/23/17at 13:21; Start 12/23/17 at 12:30; Stop 12/23/17 at 12:31; Status DC Nitroglycerin (Nitroglycerin 2% Oint) 0.5 inch ONCE ONCE TOP Last administered on 12/23/17at 13:21; Start 12/23/17 at 12:30; Stop 12/23/17 at 12:31; Status DC Ceftriaxone Sodium 1000 mg/ Sodium Chloride 100 ml @ 200 mls/hr ONCE ONCE IV Last administered on 12/23/17at 14:44; Start 12/23/17 at 14:05; Stop 12/23/17 at 14: 34; Status DC Sodium Chloride (NS Flush) 2 ml UNSCH PRN IV FLUSH FLUSH AFTER USING IV ACCESS ; Start 12/23/17 at 14:30 Sodium Chloride (NS Flush) 2 ml BID IV FLUSH Last administered on 12/28/17at 08: 39; Start 12/23/17 at 21:00 Furosemide (Lasix Inj) 40 mg BID@09,18 IVP Last administered on 12/26/17at 17:29 ; Start 12/23/17 at 18:00; Stop 12/27/17 at 09:06; Status DC Piperacillin Sod/ Tazobactam Sod 50 ml @ 100 mls/hr Q6H IV Last administered on 12/28/17at 06:14; Start 12/23/17 at 18:00 Acetaminophen (Tylenol) 650 mg Q4H PRN PO TEMP > 100.4; Start 12/23/17 at 14:30 Ondansetron HCl (Zofran Inj) 4 mg Q6H PRN IVP NAUSEA OR VOMITING; Start at 14:30 Acetaminophen (Tylenol) 650 mg Q6H PRN PO PAIN SCALE 1 TO 2; Start 12/23/17 at 14:30 Naloxone HCl (Narcan Inj) 0.4 mg UNSCH PRN IV PUSH SEE LABEL COMMENTS; Start at 14:30; Stop 12/25/17 at 10:55; Status DC Senna/Docusate Sodium (Chikis-Colace) 1 tab BID PO Last administered on 12/28/17at 08:49; Start 12/23/17 at 21:00 Sennosides (Senokot) 17.2 mg Q12H PRN PO Moderate constipation; Start 12/23/17 at 14:30 Bisacodyl (Dulcolax Supp) 10 mg DAILY PRN RECTAL SEVERE CONSITIPATION; Start at 14:30 Lactulose (Lactulose Liq) 30 ml DAILY PRN PO SEVERE CONSITIPATION; Start at 14:30 Amlodipine Besylate (Norvasc) 5 mg DAILY PO Last administered on 12/25/17at 09:12 ; Start 12/24/17 at 09:00; Stop 12/25/17 at 11:26; Status DC Carvedilol (Coreg) 25 mg BID PO Last administered on 12/28/17at 08:36; Start 12/23 at 21:00 Diphenoxylate HCl/ Atropine (Lomotil Tab) 1 tab Q6H PRN PO DIARRHEA; Start 12/23 at 14:30 Levothyroxine Sodium (Synthroid) 150 mcg MoWeFr@0600 PO Last administered on 12/28/17at 05:11; Start 12/23/17 at 16:30 Oxycodone/ Acetaminophen (Percocet 10-325 Mg) 1 tab QID PRN PO BREAKTHROUGH PAIN Last administered on 12/25/17at 06:02; Start 12/23/17 at 14:30; Stop 12/25/17 at 10:13; Status DC Triamcinolone Acetonide (Aristocort 0.1% Oint) 1 applic QID TOPICAL Last administered on 12/28/17at 08:49; Start 12/23/17 at 18:00 Non-Formulary Medication 175 mcg SuTuThSa PO ; Start 12/24/17 at 14:30; Stop 12/24 at 14:30; Status DC Non-Formulary Medication 50 mg DAILY PO ; Start 12/24/17 at 09:00; Status UNV Non-Formulary Medication 20 mg DAILY PO ; Start 12/24/17 at 09:00; Status UNV Non-Formulary Medication 20 mg DAILY PO ; Start 12/24/17 at 09:00; Status UNV Non-Formulary Medication 1 puff DAILY INH ; Start 12/24/17 at 09:00; Status UNV Levothyroxine Sodium (Synthroid) 75 mcg SuTuThSa@0600 PO Last administered on at 05:27; Start 12/24/17 at 06:00 Levothyroxine Sodium (Synthroid) 100 mcg SuTuThSa@0600 PO Last administered on 12/27/17at 05:30; Start 12/24/17 at 06:00 Patient Own Medication PT OWN MED: MYRBET... DAILY PO ; Start 12/24/17 at 09:00; Status Future Hold Pantoprazole Sodium (Protonix) 20 mg DAILY PO Last administered on 12/28/17at 08: 37; Start 12/24/17 at 09:00 Atorvastatin Calcium (Lipitor) 40 mg DAILY PO Last administered on 12/28/17at 08: 36; Start 12/24/17 at 09:00 Patient Own Medication PT OWN MED: STIOLTO RESPIMAT--... DAILY INH ; Start at 09:00; Status Future Hold Morphine Sulfate (Morphine Inj) 2 mg ONCE ONCE IV PUSH Last administered on 12/23/17at 17:54; Start 12/23/17 at 17:45; Stop 12/23/17 at 17:49; Status DC Belladonna Alkaloids/Opium (B & O Supp) 60 mg Q6H PRN RECTAL bladder spasm Last administered on 12/25/17at 18:14; Start 12/23/17 at 18:00 Morphine Sulfate (Morphine Inj) 4 mg ONCE ONCE IV PUSH Last administered on 15:57; Start 12/24/17 at 15:35; Stop 12/24/17 at 15:36; Status DC Epoetin Alton (Epogen Inj) 20,000 units ONCE ONCE SQ Last administered on at 22:47; Start 12/24/17 at 20:00; Stop 12/24/17 at 20:01; Status DC Calcium Carbonate (Tums Chew) 500 mg Q2H PRN CHEW indigestion Last administered on 12/26/17 20:02; Start 12/24/17 at 23:45 Oxycodone/ Acetaminophen (Percocet 5-325 Mg) 1 tab Q6H PRN PO PAIN SCALE 3 TO 5; Start 12/25/17 at 11:00 Oxycodone/ Acetaminophen (Percocet 10-325 Mg) 1 tab Q6H PRN PO PAIN SCALE 6 TO 10 Last administered on 12/28/17 08:36; Start 12/25/17 at 11:00 Morphine Sulfate (Morphine Inj) 4 mg Q3H PRN IV PUSH BREAKTHROUGH PAIN Last administered on 12/28/17 09:53; Start 12/25/17 at 11:00 Naloxone HCl (Narcan Inj) 0.4 mg UNSCH PRN IV PUSH SEE LABEL COMMENTS; Start at 10:15 Potassium Chloride (KCl) 10 meq ONCE ONCE PO Last administered on 12/25/17 11: 20; Start 12/25/17 at 11:00; Stop 12/25/17 at 11:01; Status DC Isosorbide Mononitrate (Imdur) 30 mg DAILY@07 PO Last administered on 12/28/17 06:14; Start 12/26/17 at 07:00 Cyanocobalamin (Vitamin B12 Inj) 1,000 mcg Q30D IM Last administered on 14:45; Start 12/25/17 at 15:00 Folic Acid (Folate) 1 mg DAILY PO Last administered on 12/28/17 08:36; Start at 09:00 Cyanocobalamin (Vitamin B12) 1,000 mcg DAILY PO Last administered on 12/27/17 09:03; Start 12/26/17 at 09:00 Albuterol/ Ipratropium (Duoneb Neb) 1 ampule Q4HR NEB PRN NEB SOB/WHEEZING; Start 12/26/17 at 05:45 Potassium Chloride (KCl) 60 meq ONCE ONCE PO Last administered on 12/26/17at 15: 00; Start 12/26/17 at 15:00; Stop 12/26/17 at 15:04; Status DC Guaifenesin (Mucinex Er) 600 mg BID PO Last administered on 12/28/17at 08:36; Start 12/26/17 at 21:00 Sodium Chloride 250 ml @ 15 mls/hr ONCE ONCE IV Last administered on at 08:30; Start 12/27/17 at 08:30; Stop 12/28/17 at 01:09; Status DC Acetaminophen (Tylenol) 650 mg Q4H PRN PO SEE LABEL COMMENTS; Start 12/27/17 at 08:30; Stop 12/27/17 at 23:59; Status DC Diphenhydramine HCl (Benadryl) 25 mg Q4H PRN PO SEE LABEL COMMENTS; Start at 08:30; Stop 12/27/17 at 23:59; Status DC Furosemide (Lasix Inj) 20 mg BID@0900,1800 IV PUSH Last administered on at 08:49; Start 12/27/17 at 18:00 Sodium Chloride 250 ml @ 15 mls/hr ONCE ONCE IV ; Start 12/28/17 at 08:00; Stop 12/29/17 at 00:39 Diphenhydramine HCl (Benadryl) 25 mg Q4H PRN PO BLOOD PRODUCT TRANSFUSION Last administered on 12/28/17at 10:04; Start 12/28/17 at 10:00 Acetaminophen (Tylenol) 650 mg Q4H PRN PO BLOOD PRODUCT TRANSFUSION Last administered on 12/28/17at 10:05; Start 12/28/17 at 10:00 A/P Problem List: (1) Hematuria, gross ICD Code: R31.0 - Gross hematuria Status: Acute (2) Chronic kidney disease (CKD) ICD Code: N18.9 - Chronic kidney disease Status: Acute (3) Acute exacerbation of CHF (congestive heart failure) ICD Code: I50.9 - Heart failure, unspecified Status: Acute Assessment and Plan This is a 72-year-old male who was sent from his urologist office because of edema. Patient states that for the past 3 weeks he has developed bilateral lower extremity edema including his genitalia. He also complains of dyspnea on exertion. States he has been advised to increase fluid intake secondary to hematuria in his Michael catheter. He is compliant with salt restriction and has been taking Lasix daily. //CHF exacerbation likely secondary to increased fluid intake. Continue diuresis with IV Lasix, CHF education, I/O and monitor weight. 1.5 L fluid restriction. Obtain 2D echo = Echo pending. Continue IV Lasix, fluid restrictions. Continue to monitor closely. = 12/25. Moderate aortic stenosis on echo. Consult cardiology. Recommended continued medical management //Chronic kidney disease stage IV with hyponatremia. He is asymptomatic. Nonoliguric. nephrology consult. Avoid nephrotoxins = Creatinine continues stable around previous baseline. //Pancytopenia on Votrient with worsening anemia secondary to acute blood loss. Repeat CBC in the morning keep hemoglobin at least 8 with history of CAD = Consult patient's oncologist for pancytopenia. Appreciate assistance. = 12/25. Oncology following. Appreciate assistance. //Chronic respiratory failure on nasal cannula, CHF and COPD. Continue oxygen keep saturations at least 92% //Hypokalemia. 3.3. Replace. Will replace again magnesium WNL //Gross hematuria //Sepsis //complex UTI =with a history of metastatic renal cell carcinoma status post right radical nephrectomy with removal of tumor thrombus in September 2009. left renal cell carcinoma on chemotherapy Votrient and bladder cancer diagnosed over 2 years ago and received radiation and chemotherapy. Last November 30, 2017, he underwent cystoscopy and was noted to have urethral stricture status post urethrotomy. He also had a small bladder lesion was biopsied negative for malignancy. Since the procedure, patient has been having intermittent gross hematuria. Denies being on antiplatelets and anticoagulants. He was taken off Plavix 1 week before the procedure. Patient had a Michael exchanged by Dr. Huddleston today. He also has abnormal urinalysis suggestive of UTI and meets criteria for sepsis. Will start IV Zosyn. I will not be able to hydrate patient because of CHF exacerbation. Check blood cultures = 12/24. Sepsis Leukopenia, tachypnea, complicated UTI. Continue Zosyn. gram- negative rods on urine culture.Follow up cultures. Continue bladder irrigation. Still with blood. = 4/6. Hematuria improving. Urology following. Follow-up urine culture results. //Multiple medical conditions PAD, hypothyroidism, hypertension, hyperlipidemia , GERD, IBS, gout and osteoarthritis. Continue outpatient medications as appropriate ANEMIA DUE TO BLOOD LOSS FROM HEMATURIA- WILL BE TRANSFUSED AGAIN 4-9 HYPOKALEMIA REPLACE //DVT prophylaxis with SCD. Pharmacological prophylaxis held due to bleeding Discharge Planning Bladder irrigation We'll need hemoglobin stable Will need antibiotics for UTI Cardiology following for aortic stenosis recommend continue same Hematology and urology following Discharge Planning Await clearance from urology already has clearance from cardiology no clearance yet from nephrology Problem Qualifiers (1) Acute exacerbation of CHF (congestive heart failure): Qualified Codes: I50.9 - Heart failure, unspecified Evens Butcher DO Dec 28, 2017 10:34
[2017-12-28] MEDS ORDERED: POTASSIUM CHLORIDE 20 MEQ CONTROLLED RELEASE TAB PO ONE (10:45)
[2017-12-28] MEDS: CYANOCOBALAMIN 1,000 MCG TAB PO SCH (10:48)
[2017-12-28] MEDS: ACETAMINOPHEN 325 MG TAB PO PRN (14:07)
[2017-12-28] MEDS: diphenhydrAMINE HCL 25 MG CAP PO PRN (14:07)
--- NOTE | 2017-12-28 18:45 | HHI.NPPN ---
Subjective History of Present Illness 72-year-old with metastatic renal cell cancer, acute renal failure, previous nephrectomy, hematuria on CBI Objective Data Data 12/28/17 12/29/17 19:00 07:00 Intake Total 2177 ml Output Total 6900 ml Balance -4723 ml Intake Oral 960 ml Packed Cells 800 ml Platelets 217 ml Blood Product IV Normal Saline Flush 200 ml Output Urine Total 6900 ml # Bowel Movements 1 Vital Signs Date Time Temp Pulse Resp B/P (MAP) Pulse Ox O2 Delivery O2 Flow Rate FiO2 12/28/17 18:18 97.8 81 18 132/62 98 12/28/17 15:49 97.6 75 18 129/58 100 12/28/17 15:38 97 Nasal Cannula 4.00 12/28/17 15:20 96.5 77 18 123/60 98 12/28/17 15:00 80 12/28/17 12:41 96.4 79 18 121/56 95 12/28/17 12:10 96.7 76 18 125/58 95 12/28/17 11:12 94 Nasal Cannula 4.00 12/28/17 11:04 97.6 81 18 132/60 96 12/28/17 11:00 73 12/28/17 10:44 97.3 76 18 131/55 94 12/28/17 09:08 93 Nasal Cannula 4.00 12/28/17 08:30 97.6 89 18 131/60 (83) 93 12/28/17 07:00 86 12/28/17 05:07 97.9 80 18 146/65 (92) 99 12/28/17 04:00 70 12/28/17 03:38 Nasal Cannula 4.00 12/28/17 01:19 97 Nasal Cannula 4.00 12/28/17 00:46 Nasal Cannula 4.00 12/28/17 00:46 98.5 67 16 131/64 (86) 97 12/28/17 00:00 89 12/27/17 20:07 94 Nasal Cannula 4.00 12/27/17 20:07 98.4 87 17 140/63 (88) 94 12/27/17 20:00 88 12/27/17 19:49 83 -: 12/28/17 0511 12/28/17 0511 Physical Exam General Appearance: Well Developed, Well Nourished Neck Neck Exam: Neck Supple Pulmonary Resp Exam: Decreased Bases Cardiology CV Exam: Tachycardia Gastrointestinal/Abdomen GI Exam: Soft, Non-Tender, Bowel Sounds Present Extremeties Extremities Exam: Moderate Edema Assessment/Plan Problem List: (1) Acute renal failure ICD Codes: N17.9 - Acute kidney failure, unspecified Plan: Patient is on Lasix 20 mg IV twice a day. He uses his creatinine is 2.9 He is on bladder irrigation Hematuria continues Packed RBC ordered He has advanced metastatic renal cell cancer Prognosis appears guarded to poor Patient hematuria continues he is on CBI (2) Metastatic renal cell carcinoma ICD Codes: C64.9 - Malignant neoplasm of unspecified kidney, except renal pelvis Plan: Treated by oncology (3) Hyponatremia ICD Codes: E87.1 - Hyponatremia Status: Acute Plan: Improved to 136 (4) Hematuria, gross ICD Codes: R31.0 - Gross hematuria Status: Acute Plan: On continuous bladder irrigation Noel Dykes MD Dec 28, 2017 18:45
[2017-12-29] VITALS (20 sets, daily range): BP systolic 132–155; BP diastolic 57–81; PULSE 73–97; RESP 17–21; TEMP 96.1–99; O2SAT 91–98
[2017-12-29] MEDS: PIPERACIL-TAZO 2.25 GM PREMIX 50 ML IV SCH ×2 (00:13→06:45)
[2017-12-29] MEDS: ISOSORBIDE MONONITRATE 30 MG CR TAB (IMDUR) PO SCH (06:45)
[2017-12-29] MEDS: LEVOTHYROXINE SODIUM 75 MCG TAB PO SCH (06:46)
[2017-12-29 06:49] LABS: AUTOMATED NEUTROPHIL # 1.7 TH/MM3 (1.8-7.7); BASOPHIL % 0.6 % (0.0-2.0); EOSINOPHIL # 0.3 TH/MM3 (0-0.4); EOSINOPHIL % 11.1 % (0.0-4.0); HEMATOCRIT 21.2 % (39.0-51.0); LYMPHOCYTE # 0.6 TH/MM3 (1.0-4.8); MEAN CELL VOLUME 99.9 FL (80.0-100.0); MEAN CORPUSCULAR HEMOGLOBIN 33.2 PG (27.0-34.0); MEAN CORPUSCULAR HGB CONC 33.2 % (32.0-36.0); MEAN PLATELET VOLUME 8.6 FL (7.0-11.0); MONO % 9.8 % (0.0-8.0); MONOCYTE # 0.3 TH/MM3 (0-0.9); NEUT % 58.5 % (16.0-70.0); PLATELET COUNT 82 TH/MM3 (150-450); RED BLOOD COUNT 2.12 MIL/MM3 (4.50-5.90); RED CELL DISTRIBUTION WIDTH 22.5 % (11.6-17.2)
[2017-12-29] MEDS: LEVOTHYROXINE SODIUM 100 MCG TAB PO SCH (06:49)
[2017-12-29] MEDS: oxyCODONE/ACETAMINOPHEN 10 MG/325 MG TAB PO PRN ×3 (06:56→23:10)
[2017-12-29 07:07] LABS: ALBUMIN 2.3 GM/DL (3.4-5.0); AST (GOT) 36 U/L (15-37); BICARBONATE 31.1 MEQ/L (21.0-32.0); BLOOD UREA NITROGEN 36 MG/DL (7-18); CALCIUM 8.3 MG/DL (8.5-10.1); CHLORIDE 95 MEQ/L (98-107); CREATININE 3.06 MG/DL (0.60-1.30); GLOMERULAR FILTRATION RATE 20 ML/MIN (>89); GLUCOSE,RANDOM 107 MG/DL (74-106); MAGNESIUM 2.1 MG/DL (1.5-2.5); SODIUM (NA) 133 MEQ/L (136-145)
[2017-12-29 07:08] LABS: ALT (GPT) 24 U/L (12-78); PHOSPHORUS 4.1 MG/DL (2.5-4.9)
[2017-12-29 07:10] LABS: ALKALINE PHOSPHATASE 87 U/L (45-117); TOTAL BILIRUBIN ADULT 0.7 MG/DL (0.2-1.0); TOTAL PROTEIN 6.5 GM/DL (6.4-8.2)
--- NOTE | 2017-12-29 08:09 | HHI.PR ---
Subjective Patient symptoms today No specific complaints. Reports ongoing hematuria. Objective Vital Signs Vital Signs Date Time Temp Pulse Resp B/P (MAP) Pulse Ox O2 Delivery O2 Flow Rate FiO2 12/29/17 06:50 95 Nasal Cannula 3.00 12/29/17 04:40 96.1 73 17 137/81 (99) 94 12/29/17 01:49 74 12/29/17 00:28 95 Nasal Cannula 3.00 Humidified 12/29/17 00:14 98.1 76 18 135/57 (83) 95 12/28/17 23:29 18 12/28/17 22:22 18 12/28/17 21:48 96 Nasal Cannula 3.00 12/28/17 18:18 97.8 81 18 132/62 98 12/28/17 15:49 97.6 75 18 129/58 100 12/28/17 15:38 97 Nasal Cannula 4.00 12/28/17 15:20 96.5 77 18 123/60 98 12/28/17 15:00 80 12/28/17 12:41 96.4 79 18 121/56 95 12/28/17 12:10 96.7 76 18 125/58 95 12/28/17 11:12 94 Nasal Cannula 4.00 12/28/17 11:04 97.6 81 18 132/60 96 12/28/17 11:00 73 12/28/17 10:44 97.3 76 18 131/55 94 12/28/17 09:08 93 Nasal Cannula 4.00 12/28/17 08:30 97.6 89 18 131/60 (83) 93 Intake & Output 12/29/17 12/29/17 07:00 19:00 Intake Total 290 ml 50 ml Output Total 150 ml Balance 140 ml 50 ml Intake Oral 240 ml IV Total 50 ml 50 ml Output Urine Total 150 ml # Bowel Movements 2 Result Diagram: 12/29/17 0545 12/29/17 0545 Objective Remarks Continuous bladder irrigation running at a slow rate with light red output Bladder not distended Pitting edema to lower extremities Medications and IVs Current Medications Medications (Trade) Dose Ordered Sig/Richie Route Start Time Stop Time Status Last Admin (NS Flush) 2 ml UNSCH PRN IV FLUSH 12/23/17 14:30 (NS Flush) 2 ml BID IV FLUSH 12/23/17 21:00 12/28/17 22:16 Piperacillin Sod/ Tazobactam Sod 50 ml @ 100 mls/hr Q6H IV 12/23/17 18:00 12/29/17 06:45 (Tylenol) 650 mg Q4H PRN PO 12/23/17 14:30 (Zofran Inj) 4 mg Q6H PRN IVP 12/23/17 14:30 (Tylenol) 650 mg Q6H PRN PO 12/23/17 14:30 (Chikis-Colace) 1 tab BID PO 12/23/17 21:00 12/28/17 22:21 (Senokot) 17.2 mg Q12H PRN PO 12/23/17 14:30 (Dulcolax Supp) 10 mg DAILY PRN RECTAL 12/23/17 14:30 (Lactulose Liq) 30 ml DAILY PRN PO 12/23/17 14:30 (Coreg) 25 mg BID PO 12/23/17 21:00 12/28/17 22:21 (Lomotil Tab) 1 tab Q6H PRN PO 12/23/17 14:30 (Synthroid) 150 mcg MoWeFr@0600 PO 12/23/17 16:30 12/28/17 05:11 (Aristocort 0.1% Oint) 1 applic QID TOPICAL 12/23/17 18:00 12/28/17 22:18 (Synthroid) 75 mcg SuTuThSa@0600 PO 12/24/17 06:00 12/29/17 06:46 (Synthroid) 100 mcg SuTuThSa@0600 PO 12/24/17 06:00 12/29/17 06:49 Patient Own Medication PT OWN MED: MYRBET... DAILY PO 12/24/17 09:00 Future Hold (Protonix) 20 mg DAILY PO 12/24/17 09:00 12/28/17 08:37 (Lipitor) 40 mg DAILY PO 12/24/17 09:00 12/28/17 08:36 Patient Own Medication PT OWN MED: STIOLTO RESPIMAT--... DAILY INH 12/24/17 09:00 Future Hold (B & O Supp) 60 mg Q6H PRN RECTAL 12/23/17 18:00 12/25/17 18:14 (Tums Chew) 500 mg Q2H PRN CHEW 12/24/17 23:45 12/26/17 20:02 (Percocet 5-325 Mg) 1 tab Q6H PRN PO 12/25/17 11:00 (Percocet 10-325 Mg) 1 tab Q6H PRN PO 12/25/17 11:00 12/29/17 06:56 (Morphine Inj) 4 mg Q3H PRN IV PUSH 12/25/17 11:00 12/28/17 19:28 (Narcan Inj) 0.4 mg UNSCH PRN IV PUSH 12/25/17 10:15 (Imdur) 30 mg DAILY@07 PO 12/26/17 07:00 12/29/17 06:45 (Vitamin B12 Inj) 1,000 mcg Q30D IM 12/25/17 15:00 12/25/17 14:45 (Folate) 1 mg DAILY PO 12/26/17 09:00 12/28/17 08:36 (Vitamin B12) 1,000 mcg DAILY PO 12/26/17 09:00 12/28/17 10:48 (Duoneb Neb) 1 ampule Q4HR NEB PRN NEB 12/26/17 05:45 (Mucinex Er) 600 mg BID PO 12/26/17 21:00 12/28/17 22:21 (Lasix Inj) 20 mg BID@0900,1800 IV PUSH 12/27/17 18:00 12/28/17 18:22 (Tylenol) 650 mg Q4H PRN PO 12/28/17 10:45 12/28/17 14:07 (Benadryl) 25 mg Q4H PRN PO 12/28/17 10:45 12/28/17 14:07 Assessment and Plan Assessment and Plan Urologic impression: 1. History metastatic renal CA being followed by oncology 2. History bladder cancer status post chemo and radiation therapy 3. Status post recent direct visual internal urethrotomy of urethral stricture and bladder biopsy which was negative 4. Slowly resolving gross hematuria related to his recent urologic procedures and exacerbated by a low platelet count Recommendations: 1. Continue with continuous bladder irrigation and slowly titrate off as urine clears. 2. Continue with indwelling Blas catheter after continuous bladder irrigation discontinued until urine remains clear yellow for at least 48 hours 3. Irrigate Blas catheter as necessary. Richie Vallejo MD Dec 29, 2017 08:09
[2017-12-29] MEDS: SODIUM CHLORIDE 0.9% FLUSH 10 ML FLUSH IV FLUSH SCH ×2 (08:57→21:01)
[2017-12-29] MEDS: FUROSEMIDE 20 MG/2 ML VIAL IV PUSH SCH ×2 (08:57→21:01)
[2017-12-29] MEDS: MORPHINE SULFATE 2 MG/ML SYRINGE IV PUSH PRN ×2 (08:57→21:01)
[2017-12-29] MEDS: guaiFENesin E.R. 600 MG TAB PO SCH ×2 (08:58→21:00)
[2017-12-29] MEDS: ATORVASTATIN 40 MG TAB PO SCH (08:58)
[2017-12-29] MEDS: TRIAMCINOLONE ACETONIDE 0.1% OINT 15 GM TUBE TOPICAL SCH ×4 (08:58→21:07)
[2017-12-29] MEDS: FOLIC ACID 1 MG TAB PO SCH (08:58)
[2017-12-29] MEDS: DOCUSATE SODIUM 50 MG/SENNA 8.6 MG TAB PO SCH ×2 (08:58→21:00)
[2017-12-29] MEDS: CYANOCOBALAMIN 1,000 MCG TAB PO SCH (08:58)
[2017-12-29] MEDS: CARVEDILOL 12.5 MG TAB PO SCH ×2 (08:58→21:00)
[2017-12-29] MEDS: PANTOPRAZOLE SOD 20 MG DELAYED RELEASE TAB PO SCH (08:58)
--- NOTE | 2017-12-29 09:20 | PD.ONC.PN ---
Subjective Subjective Remarks Afebrile overnight. Patient resting in room, working with physical therapy. No complaints. able to walk a few steps without assistance. continues to have bloody urine. Objective Data Date Time Temp Pulse Resp B/P (MAP) Pulse Ox O2 Delivery O2 Flow Rate FiO2 12/29/17 09:08 93 Nasal Cannula 4.00 12/29/17 08:44 96.2 97 18 144/63 (90) 93 12/29/17 06:50 95 Nasal Cannula 3.00 12/29/17 04:40 96.1 73 17 137/81 (99) 94 12/29/17 01:49 74 12/29/17 00:28 95 Nasal Cannula 3.00 Humidified 12/29/17 00:14 98.1 76 18 135/57 (83) 95 12/28/17 23:29 18 12/28/17 22:22 18 12/28/17 21:48 96 Nasal Cannula 3.00 12/28/17 18:18 97.8 81 18 132/62 98 12/28/17 15:49 97.6 75 18 129/58 100 12/28/17 15:38 97 Nasal Cannula 4.00 12/28/17 15:20 96.5 77 18 123/60 98 12/28/17 15:00 80 12/28/17 12:41 96.4 79 18 121/56 95 12/28/17 12:10 96.7 76 18 125/58 95 12/28/17 11:12 94 Nasal Cannula 4.00 12/28/17 11:04 97.6 81 18 132/60 96 12/28/17 11:00 73 12/28/17 10:44 97.3 76 18 131/55 94 12/29/17 12/29/17 12/29/17 07:00 15:00 23:00 Intake Total 290 ml 50 ml Output Total 150 ml Balance 140 ml 50 ml Result Diagram: 12/29/17 0545 12/29/17 0545 Laboratory Results Laboratory Tests Test 12/29/17 05:45 White Blood Count 3.0 TH/MM3 Red Blood Count 2.12 MIL/MM3 Hemoglobin 7.0 GM/DL Hematocrit 21.2 % Mean Corpuscular Volume 99.9 FL Mean Corpuscular Hemoglobin 33.2 PG Mean Corpuscular Hemoglobin Concent 33.2 % Red Cell Distribution Width 22.5 % Platelet Count 82 TH/MM3 Mean Platelet Volume 8.6 FL Neutrophils (%) (Auto) 58.5 % Lymphocytes (%) (Auto) 20.0 % Monocytes (%) (Auto) 9.8 % Eosinophils (%) (Auto) 11.1 % Basophils (%) (Auto) 0.6 % Neutrophils # (Auto) 1.7 TH/MM3 Lymphocytes # (Auto) 0.6 TH/MM3 Monocytes # (Auto) 0.3 TH/MM3 Eosinophils # (Auto) 0.3 TH/MM3 Basophils # (Auto) 0.0 TH/MM3 CBC Comment AUTO DIFF Differential Comment AUTO DIFF CONFIRMED Platelet Estimate LOW Platelet Morphology Comment NORMAL Blood Urea Nitrogen 36 MG/DL Creatinine 3.06 MG/DL Random Glucose 107 MG/DL Total Protein 6.5 GM/DL Albumin 2.3 GM/DL Calcium Level 8.3 MG/DL Phosphorus Level 4.1 MG/DL Magnesium Level 2.1 MG/DL Alkaline Phosphatase 87 U/L Aspartate Amino Transf (AST/SGOT) 36 U/L Alanine Aminotransferase (ALT/SGPT) 24 U/L Total Bilirubin 0.7 MG/DL Sodium Level 133 MEQ/L Potassium Level 3.7 MEQ/L Chloride Level 95 MEQ/L Carbon Dioxide Level 31.1 MEQ/L Anion Gap 7 MEQ/L Estimat Glomerular Filtration Rate 20 ML/MIN Administered Medications Medications (Trade) Dose Ordered Sig/Richie Route PRN Reason Start Time Stop Time Status Last Admin Dose Admin Sodium Chloride (NS Flush) 2 ml BID IV FLUSH 12/23/17 21:00 12/29/17 08:57 Piperacillin Sod/ Tazobactam Sod 50 ml @ 100 mls/hr Q6H IV 12/23/17 18:00 12/29/17 06:45 Senna/Docusate Sodium (Chikis-Colace) 1 tab BID PO 12/23/17 21:00 12/28/17 22:21 Carvedilol (Coreg) 25 mg BID PO 12/23/17 21:00 12/29/17 08:58 Levothyroxine Sodium (Synthroid) 150 mcg MoWeFr@0600 PO 12/23/17 16:30 12/28/17 05:11 Triamcinolone Acetonide (Aristocort 0.1% Oint) 1 applic QID TOPICAL 12/23/17 18:00 12/29/17 08:58 Levothyroxine Sodium (Synthroid) 75 mcg SuTuThSa@0600 PO 12/24/17 06:00 12/29/17 06:46 Levothyroxine Sodium (Synthroid) 100 mcg SuTuThSa@0600 PO 12/24/17 06:00 12/29/17 06:49 Pantoprazole Sodium (Protonix) 20 mg DAILY PO 12/24/17 09:00 12/29/17 08:58 Atorvastatin Calcium (Lipitor) 40 mg DAILY PO 12/24/17 09:00 12/29/17 08:58 Belladonna Alkaloids/Opium (B & O Supp) 60 mg Q6H PRN RECTAL bladder spasm 12/23/17 18:00 12/25/17 18:14 Calcium Carbonate (Tums Chew) 500 mg Q2H PRN CHEW indigestion 12/24/17 23:45 12/26/17 20:02 Oxycodone/ Acetaminophen (Percocet 10-325 Mg) 1 tab Q6H PRN PO PAIN SCALE 6 TO 10 12/25/17 11:00 12/29/17 06:56 Morphine Sulfate (Morphine Inj) 4 mg Q3H PRN IV PUSH BREAKTHROUGH PAIN 12/25/17 11:00 12/29/17 08:57 Isosorbide Mononitrate (Imdur) 30 mg DAILY@07 PO 12/26/17 07:00 12/29/17 06:45 Cyanocobalamin (Vitamin B12 Inj) 1,000 mcg Q30D IM 12/25/17 15:00 12/25/17 14:45 Folic Acid (Folate) 1 mg DAILY PO 12/26/17 09:00 12/29/17 08:58 Cyanocobalamin (Vitamin B12) 1,000 mcg DAILY PO 12/26/17 09:00 12/29/17 08:58 Guaifenesin (Mucinex Er) 600 mg BID PO 12/26/17 21:00 12/29/17 08:58 Furosemide (Lasix Inj) 20 mg BID@0900,1800 IV PUSH 12/27/17 18:00 12/29/17 08:57 Acetaminophen (Tylenol) 650 mg Q4H PRN PO SEE LABEL COMMENTS 12/28/17 10:45 12/28/17 14:07 Diphenhydramine HCl (Benadryl) 25 mg Q4H PRN PO SEE LABEL COMMENTS 12/28/17 10:45 12/28/17 14:07 Objective Remarks GENERAL: Elderly male, upright in chair next to bed in nad. SKIN: Warm and dry. HEAD: Normocephalic. EYES: No injection or drainage. NECK: Supple, trachea midline. CARDIOVASCULAR: Regular rate and rhythm RESPIRATORY: diminished at bases, anterior garcia with occasional rhonchi. on 4L O2 via NC GASTROINTESTINAL: Abdomen soft, non-tender, nondistended. : [address], draining sanguinous urine. EXTREMITIES: No cyanosis MUSCULOSKELETAL: Adequate muscle tone. NEUROLOGICAL: awake and alert. normal speech. able to ambulate a few steps Assessment/Plan Problem List: (1) Pancytopenia ICD Codes: D61.818 - Other pancytopenia Plan: --monitor and transfuse as needed ++partly due to Votrient-->Votrient was stopped about 3 weeks ago. ++significant anemia likely due to chronic kidney disease as well as chronic inflammatory disease. --given Epogen on 12/24 --B12 low, will replace and start on folate daily (2) Metastatic renal cell carcinoma ICD Codes: C64.9 - Malignant neoplasm of unspecified kidney, except renal pelvis Plan: --continue monitoring for now. History: --presented with bilateral renal cell carcinoma and had right nephrectomy in February 2010. 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 --had a biopsy of the left kidney mass, which also showed renal cell carcinoma. He started Votrient, with good response. The Votrient was held for awhile when he was receiving treatment for bladder cancer. --recently was found to have progression of disease and restarted Votrient at the end of 2014. CT scan done in early November which did not show clear evidence of progression of disease. The Votrient has been on hold since the urologic procedure. (3) Bladder cancer ICD Codes: C67.9 - Malignant neoplasm of urinary bladder Status: Acute Plan: -- Bladder invasive transitional cell carcinoma, treated with radiation and chemotherapy. --had another cystoscopy 3 weeks ago with biopsy which did not show any recurrent disease. Assessment 72y/o male with thrombocytopenia, anemia and history of metastatic renal cell cancer. h/o Congestive heart failure. Chronic obstructive pulmonary disease, oxygen dependent. Bladder cancer. Urethral stricture. Pancytopenia. Hypertension. Hypothyroidism. Hyperlipidemia. Gastroesophageal reflux disease. Osteoarthritis. Gout Plan 1. bladder irrigation per urology. could consider starting amicar with bladder irrigation is considered indicated by urology 2. monitor CBC 3. continue supportive care Attending Statement The exam, history, and the medical decision-making described in the above note were completed with the assistance of the mid-level provider. I reviewed and agree with the findings presented. I attest that I had a [id number] encounter with the patient on the same day, and personally performed and documented my assessment and findings in the medical record. Has more LE edema after the transfusion yesterday. Urine is still pinkish. Continue diuresis. Can consider adding amicar to bladder irrigation. Continue to monitor CBC and transfusion prn. will give procrit weekly. Discussed with pt and his . Desire Samuels Dec 29, 2017 09:20 Ernesto Yousif MD Dec 29, 2017 16:30
--- NOTE | 2017-12-29 10:32 | PQ ---
Physician Query Response Document PATIENT: SOFIA BESS : 1945 ADMIT DATE: 12/24/2017 5:49 PM DISCH DATE: RESPONDING PROVIDER #: MADDISON QUERY TEXT: CDS Clarification Infection and inflammatory reaction due to indwelling urinary catheter POA requiring replacement of c atheter irrigation and CBI initial encounter Other explanation of clinical findings. Unable to determine (no explanation for clinical findings). The medical record reflects the following clinical findings, treatment, and risk factors. * Clinical Indicators UTI sepsis with indwelling catheter POA * Risk Factors Catheter Present Prior to [facility] Admission Yes * Treatment change michael CBI IV Zosyn The patient's Clinical Indicators include: Please clarify and document your clinical opinion in the progress notes and discharge summary includi ng the definitive and/or presumptive diagnosis (suspected or probable), related to the above clinical findings. Please include clinical findings supporting your diagnosis. Thank you, : Nuha Castillo CDS Contact Number: CDS/RN ext. [phone] Patient Unit: [facility] Room: 239 Query created by: Nuha Castillo on 12/29/2017 10:23 AM RESPONSE TEXT: PATIENT HAS HEMATURIA WITH CLOTS AND HAD TO HAVE MICHAEL CHANGED DUE TO NEEDING A BIGGER MICHAEL DUE TO C LOTS FROM HIS BLADDER AND CONTINUOUS BLADDER IRRIGATION. PATIENT IS BEING TREATED FOR HIS UTI ALSO Electronically signed by: Evens Butcher 12/29/2017 10:29 AM
[2017-12-29] MEDS ORDERED: SODIUM CHLOR 0.9% 250 ML INJ 250 ML IV ONE (11:45)
[2017-12-29] MEDS ORDERED: ACETAMINOPHEN 325 MG TAB PO PRN (11:45)
[2017-12-29] MEDS ORDERED: diphenhydrAMINE HCL 25 MG CAP PO PRN (11:45)
--- NOTE | 2017-12-29 11:47 | HHI.PR ---
Subjective Remarks This is a 72-year-old male who was sent from his urologist office because of edema. Patient states that for the past 3 weeks he has developed bilateral lower extremity edema including his genitalia. He also complains of dyspnea on exertion. States he has been advised to increase fluid intake secondary to hematuria in his Michael catheter. He is compliant with salt restriction and has been taking Lasix daily. He has a history of chronic respiratory failure on nasal cannula, CHF and COPD. Denies fever, chills, cough, wheezing and chest pain. Patient has a history of metastatic renal cell carcinoma status post right radical nephrectomy with removal of tumor thrombus in September 2009. Also noted to have left renal cell carcinoma on chemotherapy. He also has bladder cancer diagnosed over 2 years ago and received radiation and chemotherapy. Last November 30, 2017, he underwent cystoscopy and was noted to have urethral stricture status post urethrotomy. He also had a small bladder lesion was biopsied negative for malignancy. Since the procedure, patient has been having intermittent gross hematuria. Denies being on antiplatelets and anticoagulants. He was taken off Plavix 1 week before the procedure. All other systems reviewed negative 4-5 Patient says he is feeling all right. Reports Michael pain. Denies any chest pain or shortness of breath. Denies any nausea or vomiting 4-6 Patient says he is feeling all right. Reports Michael pain continues, but has not received any belladonna suppositories. Denies any chest pain or shortness of breath. 4-7 off of bipap BREATHING A LITTLE BETTER LEGS LESS RED STILL HAS CBI IN PLACE FRUIT PUNCH APPEARANCE AM LABS INCREASE ACTIVITY SHAW RN AND PT INCENTIVE SPIROMETRY MUCINEX 4-8 SEEN BY CARDIOLOGY BEING TRANSFUSED STILL HAS CBI SHAW RN AND PT AND FAMILY AND CM AM LABS 4-9 WILL TRANSFUSE 2 UNIT PRBC HAVING CLOTS IN MICHAEL URINE IS CROSSCUTTER IN COLOR BUT MAY BE DUE TO CLOTS DW RN AND PT AND CM 4-10 STILL HAVING BLEEDING FROM MICHAEL CATHETER DARK BLOOD STILL SHAW RN AND PT AND CASE MANAGEMENT URINE CULTURES POSITIVE - ADJUST MEDS Enterococcus faecalis and Klebsiella pneumoniae in his urine Adjust to Rocephin and Unasyn We will need another transfusion Objective Vitals Vital Signs Date Time Temp Pulse Resp B/P (MAP) Pulse Ox O2 Delivery O2 Flow Rate FiO2 12/29/17 09:08 93 Nasal Cannula 4.00 12/29/17 08:44 96.2 97 18 144/63 (90) 93 12/29/17 07:00 82 12/29/17 06:50 95 Nasal Cannula 3.00 12/29/17 04:40 96.1 73 17 137/81 (99) 94 12/29/17 01:49 74 12/29/17 00:28 95 Nasal Cannula 3.00 Humidified 12/29/17 00:14 98.1 76 18 135/57 (83) 95 12/28/17 23:29 18 12/28/17 22:22 18 12/28/17 21:48 96 Nasal Cannula 3.00 12/28/17 18:18 97.8 81 18 132/62 98 12/28/17 15:49 97.6 75 18 129/58 100 12/28/17 15:38 97 Nasal Cannula 4.00 12/28/17 15:20 96.5 77 18 123/60 98 12/28/17 15:00 80 12/28/17 12:41 96.4 79 18 121/56 95 12/28/17 12:10 96.7 76 18 125/58 95 I/O 12/28/17 12/28/17 12/28/17 12/29/17 12/29/17 12/29/17 07:00 15:00 23:00 07:00 15:00 23:00 Intake Total 100 ml 457 ml 1720 ml 290 ml 50 ml Output Total 3000 ml 3000 ml 3900 ml 150 ml Balance -2900 ml -2543 ml -2180 ml 140 ml 50 ml Intake Oral 240 ml 720 ml 240 ml IV Total 100 ml 50 ml 50 ml Packed Cells 800 ml Platelets 217 ml Blood Product IV Normal Saline Flush 200 ml Output Urine Total 3000 ml 3000 ml 3900 ml 150 ml # Bowel Movements 2 1 Result Diagram: 12/29/17 0545 12/29/17 0545 Other Results Laboratory Tests Test 12/26/17 12:08 12/27/17 07:40 12/28/17 05:11 12/29/17 05:45 White Blood Count 3.2 TH/MM3 3.0 TH/MM3 3.2 TH/MM3 3.0 TH/MM3 Red Blood Count 2.13 MIL/MM3 1.99 MIL/MM3 2.14 MIL/MM3 2.12 MIL/MM3 Hemoglobin 7.5 GM/DL 7.0 GM/DL 7.5 GM/DL 7.0 GM/DL Hematocrit 22.9 % 21.3 % 22.2 % 21.2 % Mean Corpuscular Volume 107.9 FL 107.1 FL 103.5 FL 99.9 FL Mean Corpuscular Hemoglobin 35.3 PG 35.2 PG 35.1 PG 33.2 PG Mean Corpuscular Hemoglobin Concent 32.7 % 32.9 % 33.9 % 33.2 % Red Cell Distribution Width 17.5 % 17.2 % 19.6 % 22.5 % Platelet Count 88 TH/MM3 80 TH/MM3 83 TH/MM3 82 TH/MM3 Mean Platelet Volume 8.5 FL 8.4 FL 8.9 FL 8.6 FL Neutrophils (%) (Auto) 68.5 % 55.8 % 56.7 % 58.5 % Lymphocytes (%) (Auto) 10.3 % 18.7 % 20.2 % 20.0 % Monocytes (%) (Auto) 11.1 % 11.5 % 12.2 % 9.8 % Eosinophils (%) (Auto) 9.3 % 12.8 % 10.2 % 11.1 % Basophils (%) (Auto) 0.8 % 1.2 % 0.7 % 0.6 % Neutrophils # (Auto) 2.2 TH/MM3 1.7 TH/MM3 1.8 TH/MM3 1.7 TH/MM3 Lymphocytes # (Auto) 0.3 TH/MM3 0.6 TH/MM3 0.6 TH/MM3 0.6 TH/MM3 Monocytes # (Auto) 0.4 TH/MM3 0.3 TH/MM3 0.4 TH/MM3 0.3 TH/MM3 Eosinophils # (Auto) 0.3 TH/MM3 0.4 TH/MM3 0.3 TH/MM3 0.3 TH/MM3 Basophils # (Auto) 0.0 TH/MM3 0.0 TH/MM3 0.0 TH/MM3 0.0 TH/MM3 CBC Comment AUTO DIFF AUTO DIFF AUTO DIFF AUTO DIFF Differential Comment AUTO DIFF CONFIRMED AUTO DIFF CONFIRMED AUTO DIFF CONFIRMED AUTO DIFF CONFIRMED Platelet Estimate LOW LOW LOW Platelet Morphology Comment ENLARGED NORMAL NORMAL Blood Urea Nitrogen 35 MG/DL 35 MG/DL 36 MG/DL 36 MG/DL Creatinine 2.60 MG/DL 2.84 MG/DL 2.91 MG/DL 3.06 MG/DL Random Glucose 128 MG/DL 137 MG/DL 113 MG/DL 107 MG/DL Albumin 1.8 GM/DL 1.8 GM/DL 2.0 GM/DL 2.3 GM/DL Calcium Level 8.2 MG/DL 7.8 MG/DL 8.0 MG/DL 8.3 MG/DL Phosphorus Level 3.5 MG/DL 2.9 MG/DL 3.4 MG/DL 4.1 MG/DL Magnesium Level 2.1 MG/DL 1.9 MG/DL 2.1 MG/DL 2.1 MG/DL Sodium Level 136 MEQ/L 135 MEQ/L 137 MEQ/L 133 MEQ/L Potassium Level 3.3 MEQ/L 3.5 MEQ/L 3.4 MEQ/L 3.7 MEQ/L Chloride Level 92 MEQ/L 93 MEQ/L 94 MEQ/L 95 MEQ/L Carbon Dioxide Level 37.7 MEQ/L 33.8 MEQ/L 35.9 MEQ/L 31.1 MEQ/L Anion Gap 6 MEQ/L 8 MEQ/L 7 MEQ/L 7 MEQ/L Estimat Glomerular Filtration Rate 24 ML/MIN 22 ML/MIN 21 ML/MIN 20 ML/MIN Prothrombin Time 11.3 SEC Prothromb Time International Ratio 1.1 RATIO Activated Partial Thromboplast Time 31.0 SEC Total Protein 5.5 GM/DL 5.7 GM/DL 6.5 GM/DL Alkaline Phosphatase 79 U/L 82 U/L 87 U/L Aspartate Amino Transf (AST/SGOT) 23 U/L 25 U/L 36 U/L Alanine Aminotransferase (ALT/SGPT) 18 U/L 20 U/L 24 U/L Total Bilirubin 0.5 MG/DL 0.5 MG/DL 0.7 MG/DL Hemoglobin A1c 5.5 % B-Type Natriuretic Peptide 932 PG/ML Free Thyroxine 1.58 NG/DL Thyroid Stimulating Hormone 3rd Gen 4.030 uIU/ML Imaging Last Impressions Chest X-Ray 12/26/17 0000 Signed Impressions: Service Date/Time: Tuesday, December 26, 2017 05:42 - CONCLUSION: Bilateral pulmonary opacity likely representing pulmonary edema, slightly increased from the comparison study. Adrian Black MD Objective Remarks GENERAL: Awake alert and oriented 3 talkative and cooperative in mild distress SKIN: Warm and dry. Bilateral lower extremity erythema and skin changes appears peripheral vascular occlusive disease HEAD: Atraumatic. Normocephalic. EYES: Pupils equal and round. No scleral icterus. No injection or drainage. Extraocular muscles intact ENT: No nasal bleeding or discharge. Mucous membranes pink and moist. Tongue is midline NECK: Trachea midline. No JVD. Supple CARDIOVASCULAR: Regular rate and rhythm. S1-S2 no S3 or S4 RESPIRATORY: No accessory muscle use. Clear to auscultation. Breath sounds equal bilaterally. Few scattered rhonchi and some rales at base GASTROINTESTINAL: Abdomen soft, non-tender, nondistended. Hepatic and splenic margins not palpable. MUSCULOSKELETAL: Extremities without clubbing, cyanosis, or edema. No obvious deformities. Maybe +1 lower extremity edema with some redness and erythema bilateral lower extremities NEUROLOGICAL: Awake and alert. No obvious cranial nerve deficits. Motor grossly within normal limits. 4 out of 5 muscle strength in the arms and legs. Normal speech. PSYCHIATRIC: Appropriate mood and affect; insight and judgment normal. Procedures CBI BIPAP Medications and IVs Current Medications Furosemide (Lasix Inj) 60 mg ONCE ONCE IV PUSH Last administered on 12/23/17at 13:21; Start 12/23/17 at 12:30; Stop 12/23/17 at 12:31; Status DC Nitroglycerin (Nitroglycerin 2% Oint) 0.5 inch ONCE ONCE TOP Last administered on 12/23/17at 13:21; Start 12/23/17 at 12:30; Stop 12/23/17 at 12:31; Status DC Ceftriaxone Sodium 1000 mg/ Sodium Chloride 100 ml @ 200 mls/hr ONCE ONCE IV Last administered on 12/23/17at 14:44; Start 12/23/17 at 14:05; Stop 12/23/17 at 14: 34; Status DC Sodium Chloride (NS Flush) 2 ml UNSCH PRN IV FLUSH FLUSH AFTER USING IV ACCESS ; Start 12/23/17 at 14:30 Sodium Chloride (NS Flush) 2 ml BID IV FLUSH Last administered on 12/29/17at 08: 57; Start 12/23/17 at 21:00 Furosemide (Lasix Inj) 40 mg BID@,18 IVP Last administered on 12/26/17at 17:29 ; Start 12/23/17 at 18:00; Stop 12/27/17 at 09:06; Status DC Piperacillin Sod/ Tazobactam Sod 50 ml @ 100 mls/hr Q6H IV Last administered on 12/29/17at 06:45; Start 12/23/17 at 18:00 Acetaminophen (Tylenol) 650 mg Q4H PRN PO TEMP > 100.4; Start 12/23/17 at 14:30 Ondansetron HCl (Zofran Inj) 4 mg Q6H PRN IVP NAUSEA OR VOMITING; Start at 14:30 Acetaminophen (Tylenol) 650 mg Q6H PRN PO PAIN SCALE 1 TO 2; Start 12/23/17 at 14:30 Naloxone HCl (Narcan Inj) 0.4 mg UNSCH PRN IV PUSH SEE LABEL COMMENTS; Start at 14:30; Stop 12/25/17 at 10:55; Status DC Senna/Docusate Sodium (Chikis-Colace) 1 tab BID PO Last administered on 12/28/17at 22:21; Start 12/23/17 at 21:00 Sennosides (Senokot) 17.2 mg Q12H PRN PO Moderate constipation; Start 12/23/17 at 14:30 Bisacodyl (Dulcolax Supp) 10 mg DAILY PRN RECTAL SEVERE CONSITIPATION; Start at 14:30 Lactulose (Lactulose Liq) 30 ml DAILY PRN PO SEVERE CONSITIPATION; Start at 14:30 Amlodipine Besylate (Norvasc) 5 mg DAILY PO Last administered on 12/25/17at 09:12 ; Start 12/24/17 at 09:00; Stop 12/25/17 at 11:26; Status DC Carvedilol (Coreg) 25 mg BID PO Last administered on 12/29/17at 08:58; Start 12/23/17 at 21:00 Diphenoxylate HCl/ Atropine (Lomotil Tab) 1 tab Q6H PRN PO DIARRHEA; Start 12/23 at 14:30 Levothyroxine Sodium (Synthroid) 150 mcg MoWeFr@0600 PO Last administered on 12/28/17at 05:11; Start 12/23/17 at 16:30 Oxycodone/ Acetaminophen (Percocet 10-325 Mg) 1 tab QID PRN PO BREAKTHROUGH PAIN Last administered on 12/25/17at 06:02; Start 12/23/17 at 14:30; Stop 12/25/17 at 10:13; Status DC Triamcinolone Acetonide (Aristocort 0.1% Oint) 1 applic QID TOPICAL Last administered on 12/29/17at 08:58; Start 12/23/17 at 18:00 Non-Formulary Medication 175 mcg SuTuThSa PO ; Start 12/24/17 at 14:30; Stop 12/24 at 14:30; Status DC Non-Formulary Medication 50 mg DAILY PO ; Start 12/24/17 at 09:00; Status UNV Non-Formulary Medication 20 mg DAILY PO ; Start 12/24/17 at 09:00; Status UNV Non-Formulary Medication 20 mg DAILY PO ; Start 12/24/17 at 09:00; Status UNV Non-Formulary Medication 1 puff DAILY INH ; Start 12/24/17 at 09:00; Status UNV Levothyroxine Sodium (Synthroid) 75 mcg SuTuThSa@0600 PO Last administered on at 06:46; Start 12/24/17 at 06:00 Levothyroxine Sodium (Synthroid) 100 mcg SuTuThSa@0600 PO Last administered on 12/29/17at 06:49; Start 12/24/17 at 06:00 Patient Own Medication PT OWN MED: MYRBET... DAILY PO ; Start 12/24/17 at 09:00; Status Future Hold Pantoprazole Sodium (Protonix) 20 mg DAILY PO Last administered on 12/29/17at 08 :58; Start 12/24/17 at 09:00 Atorvastatin Calcium (Lipitor) 40 mg DAILY PO Last administered on 12/29/17at 08 :58; Start 12/24/17 at 09:00 Patient Own Medication PT OWN MED: STIOLTO RESPIMAT--... DAILY INH ; Start at 09:00; Status Future Hold Morphine Sulfate (Morphine Inj) 2 mg ONCE ONCE IV PUSH Last administered on 12/23/17at 17:54; Start 12/23/17 at 17:45; Stop 12/23/17 at 17:49; Status DC Belladonna Alkaloids/Opium (B & O Supp) 60 mg Q6H PRN RECTAL bladder spasm Last administered on 12/25/17at 18:14; Start 12/23/17 at 18:00 Morphine Sulfate (Morphine Inj) 4 mg ONCE ONCE IV PUSH Last administered on 15:57; Start 12/24/17 at 15:35; Stop 12/24/17 at 15:36; Status DC Epoetin [place] (Epogen Inj) 20,000 units ONCE ONCE SQ Last administered on at 22:47; Start 12/24/17 at 20:00; Stop 12/24/17 at 20:01; Status DC Calcium Carbonate (Tums Chew) 500 mg Q2H PRN CHEW indigestion Last administered on 12/26/17at 20:02; Start 12/24/17 at 23:45 Oxycodone/ Acetaminophen (Percocet 5-325 Mg) 1 tab Q6H PRN PO PAIN SCALE 3 TO 5; Start 12/25/17 at 11:00 Oxycodone/ Acetaminophen (Percocet 10-325 Mg) 1 tab Q6H PRN PO PAIN SCALE 6 TO 10 Last administered on 12/29/17at 06:56; Start 12/25/17 at 11:00 Morphine Sulfate (Morphine Inj) 4 mg Q3H PRN IV PUSH BREAKTHROUGH PAIN Last administered on 12/29/17 08:57; Start 12/25/17 at 11:00 Naloxone HCl (Narcan Inj) 0.4 mg UNSCH PRN IV PUSH SEE LABEL COMMENTS; Start at 10:15 Potassium Chloride (KCl) 10 meq ONCE ONCE PO Last administered on 12/25/17at 11: 20; Start 12/25/17 at 11:00; Stop 12/25/17 at 11:01; Status DC Isosorbide Mononitrate (Imdur) 30 mg DAILY@07 PO Last administered on 06:45; Start 12/26/17 at 07:00 Cyanocobalamin (Vitamin B12 Inj) 1,000 mcg Q30D IM Last administered on 14:45; Start 12/25/17 at 15:00 Folic Acid (Folate) 1 mg DAILY PO Last administered on 12/29/17 08:58; Start 12/26/17 at 09:00 Cyanocobalamin (Vitamin B12) 1,000 mcg DAILY PO Last administered on 4/10/18at 08:58; Start 12/26/17 at 09:00 Albuterol/ Ipratropium (Duoneb Neb) 1 ampule Q4HR NEB PRN NEB SOB/WHEEZING; Start 12/26/17 at 05:45 Potassium Chloride (KCl) 60 meq ONCE ONCE PO Last administered on 12/26/17at 15: 00; Start 12/26/17 at 15:00; Stop 12/26/17 at 15:04; Status DC Guaifenesin (Mucinex Er) 600 mg BID PO Last administered on 12/29/17at 08:58; Start 12/26/17 at 21:00 Sodium Chloride 250 ml @ 15 mls/hr ONCE ONCE IV Last administered on at 08:30; Start 12/27/17 at 08:30; Stop 12/28/17 at 01:09; Status DC Acetaminophen (Tylenol) 650 mg Q4H PRN PO SEE LABEL COMMENTS; Start 12/27/17 at 08:30; Stop 12/27/17 at 23:59; Status DC Diphenhydramine HCl (Benadryl) 25 mg Q4H PRN PO SEE LABEL COMMENTS; Start at 08:30; Stop 12/27/17 at 23:59; Status DC Furosemide (Lasix Inj) 20 mg BID@0900,1800 IV PUSH Last administered on at 08:57; Start 12/27/17 at 18:00 Sodium Chloride 250 ml @ 15 mls/hr ONCE ONCE IV ; Start 12/28/17 at 08:00; Stop 12/29/17 at 00:39; Status DC Diphenhydramine HCl (Benadryl) 25 mg Q4H PRN PO BLOOD PRODUCT TRANSFUSION Last administered on 12/28/17at 10:04; Start 12/28/17 at 10:00; Stop 12/28/17 at 10:37; Status DC Acetaminophen (Tylenol) 650 mg Q4H PRN PO BLOOD PRODUCT TRANSFUSION Last administered on 12/28/17at 10:05; Start 12/28/17 at 10:00; Stop 12/28/17 at 10:36; Status DC Sodium Chloride 250 ml @ 15 mls/hr ONCE ONCE IV Last administered on at 12:08; Start 12/28/17 at 10:45; Stop 12/29/17 at 03:24; Status DC Acetaminophen (Tylenol) 650 mg Q4H PRN PO SEE LABEL COMMENTS Last administered on 12/28/17at 14:07; Start 12/28/17 at 10:45 Diphenhydramine HCl (Benadryl) 25 mg Q4H PRN PO SEE LABEL COMMENTS Last administered on 12/28/17at 14:07; Start 12/28/17 at 10:45 Potassium Chloride (KCl) 40 meq ONCE ONCE PO Last administered on 12/28/17at 11: 34; Start 12/28/17 at 10:45; Stop 12/28/17 at 10:46; Status DC Aminocaproic Acid 3000 mg/Sodium Chloride 3,012 ml @ 0 mls/hr TITRATE IRRIGATION ; Start 12/29/17 at 11:15 A/P Problem List: (1) Hematuria, gross ICD Code: R31.0 - Gross hematuria Status: Acute (2) Chronic kidney disease (CKD) ICD Code: N18.9 - Chronic kidney disease Status: Chronic (3) Acute exacerbation of CHF (congestive heart failure) ICD Code: I50.9 - Heart failure, unspecified Status: Acute (4) Acute renal failure ICD Code: N17.9 - Acute kidney failure, unspecified Assessment and Plan This is a 72-year-old male who was sent from his urologist office because of edema. Patient states that for the past 3 weeks he has developed bilateral lower extremity edema including his genitalia. He also complains of dyspnea on exertion. States he has been advised to increase fluid intake secondary to hematuria in his Michael catheter. He is compliant with salt restriction and has been taking Lasix daily. //CHF exacerbation likely secondary to increased fluid intake. Continue diuresis with IV Lasix, CHF education, I/O and monitor weight. 1.5 L fluid restriction. Obtain 2D echo Patient has chronic diastolic heart failure with 3+ pitting edema that is decreased and had elevated BNP on admission and history of pulmonary edema treated with Lasix and I's and O's = Echo pending. Continue IV Lasix, fluid restrictions. Continue to monitor closely. = 12/25. Moderate aortic stenosis on echo. Consult cardiology. Recommended continued medical management //Chronic kidney disease stage IV with hyponatremia. He is asymptomatic. Nonoliguric. nephrology consult. Avoid nephrotoxins = Creatinine continues stable around previous baseline. //Pancytopenia on Votrient with worsening anemia secondary to acute blood loss. Repeat CBC in the morning keep hemoglobin at least 8 with history of CAD = Consult patient's oncologist for pancytopenia. Appreciate assistance. = /6. Oncology following. Appreciate assistance. //Chronic respiratory failure on nasal cannula, CHF and COPD. Continue oxygen keep saturations at least 92% //Hypokalemia. 3.3. Replace. Will replace again magnesium WNL //Gross hematuria //Sepsis //complex UTI =with a history of metastatic renal cell carcinoma status post right radical nephrectomy with removal of tumor thrombus in September 2009. left renal cell carcinoma on chemotherapy Votrient and bladder cancer diagnosed over 2 years ago and received radiation and chemotherapy. Last November 30, 2017, he underwent cystoscopy and was noted to have urethral stricture status post urethrotomy. He also had a small bladder lesion was biopsied negative for malignancy. Since the procedure, patient has been having intermittent gross hematuria. Denies being on antiplatelets and anticoagulants. He was taken off Plavix 1 week before the procedure. Patient had a Michael exchanged by Dr. Huddleston today. He also has abnormal urinalysis suggestive of UTI and meets criteria for sepsis. Will start IV Zosyn. I will not be able to hydrate patient because of CHF exacerbation. Check blood cultures = 12/24. Sepsis Leukopenia, tachypnea, complicated UTI. Continue Zosyn. gram- negative rods on urine culture.Follow up cultures. Continue bladder irrigation. Still with blood. = 12/25. Hematuria improving. Urology following. Follow-up urine culture results. //Multiple medical conditions PAD, hypothyroidism, hypertension, hyperlipidemia , GERD, IBS, gout and osteoarthritis. Continue outpatient medications as appropriate ANEMIA DUE TO BLOOD LOSS FROM HEMATURIA- WILL BE TRANSFUSED AGAIN 4-9 HYPOKALEMIA REPLACE //DVT prophylaxis with SCD. Pharmacological prophylaxis held due to bleeding PATIENT HAS HEMATURIA WITH CLOTS AND HAD TO HAVE MICHAEL CHANGED DUE TO NEEDING A BIGGER MICHAEL DUE TO CLOTS FROM HIS BLADDER AND CONTINUOUS BLADDER IRRIGATION. PATIENT IS BEING TREATED FOR HIS UTI ALSO with Klebsiella pneumoniae and Enterococcus faecalis on Rocephin and now Unasyn Discharge Planning Bladder irrigation We'll need hemoglobin stable Will need antibiotics for UTI Cardiology following for aortic stenosis recommend continue same Hematology and urology following Discharge Planning Await clearance from urology already has clearance from cardiology no clearance yet from nephrology Problem Qualifiers (1) Chronic kidney disease (CKD): Qualified Codes: N18.3 - Chronic kidney disease, stage 3 (moderate) (2) Acute exacerbation of CHF (congestive heart failure): Qualified Codes: I50.9 - Heart failure, unspecified Evens Butcher DO Dec 29, 2017 11:47
[2017-12-29] MEDS ORDERED: cefTRIAXone INJ 1,000 MG in SODIUM CHLORIDE 0.9% INJ 100 ML IV SCH (12:00)
[2017-12-29] MEDS: AMPICILLIN-SULBACTAM INJ 3 GM in SODIUM CHLORIDE 0.9% INJ 100 ML IV SCH ×2 (12:07→17:00)
[2017-12-29] MEDS: AMINOCAPROIC ACID INJ 3,000 MG in SODIUM CHLORIDE 0.9% IRR BAG 3,000 ML IRRIGATION SCH ×2 (12:07→21:00)
[2017-12-29] MEDS ORDERED: FUROSEMIDE 40 MG/5 ML UNIT DOSE CUP NG ONE (12:30)
--- NOTE | 2017-12-29 12:31 | HHI.NPPN ---
Subjective History of Present Illness 72-year-old with metastatic renal cell cancer, acute renal failure, previous nephrectomy, hematuria on CBI Objective Data Data 12/29/17 12/30/17 19:00 07:00 Intake Total 50 ml Balance 50 ml IV Total 50 ml Vital Signs Date Time Temp Pulse Resp B/P (MAP) Pulse Ox O2 Delivery O2 Flow Rate FiO2 12/29/17 11:44 97 Nasal Cannula 4.00 12/29/17 11:36 98.2 89 18 136/62 (86) 97 12/29/17 09:08 93 Nasal Cannula 4.00 12/29/17 08:44 96.2 97 18 144/63 (90) 93 12/29/17 07:00 82 12/29/17 06:50 95 Nasal Cannula 3.00 12/29/17 04:40 96.1 73 17 137/81 (99) 94 12/29/17 01:49 74 12/29/17 00:28 95 Nasal Cannula 3.00 Humidified 12/29/17 00:14 98.1 76 18 135/57 (83) 95 12/28/17 23:29 18 12/28/17 22:22 18 12/28/17 21:48 96 Nasal Cannula 3.00 12/28/17 18:18 97.8 81 18 132/62 98 12/28/17 15:49 97.6 75 18 129/58 100 12/28/17 15:38 97 Nasal Cannula 4.00 12/28/17 15:20 96.5 77 18 123/60 98 12/28/17 15:00 80 12/28/17 12:41 96.4 79 18 121/56 95 -: 12/29/17 0545 12/29/17 0545 Physical Exam General Appearance: Well Developed, Well Nourished Neck Neck Exam: Neck Supple Pulmonary Resp Exam: Decreased Bases Cardiology CV Exam: Tachycardia Gastrointestinal/Abdomen GI Exam: Soft, Non-Tender, Bowel Sounds Present Extremeties Extremities Exam: Moderate Edema Assessment/Plan Problem List: (1) Acute renal failure ICD Codes: N17.9 - Acute kidney failure, unspecified Plan: Patient is on Lasix 20 mg IV twice a day. He uses his creatinine is 3.06 Need extra Lasix 20 with PRBC follow CMP US ordered for L kidney He is on bladder irrigation Hematuria continues He has advanced metastatic renal cell cancer Prognosis appears guarded to poor Patient hematuria continues he is on CBI amicar added (2) Metastatic renal cell carcinoma ICD Codes: C64.9 - Malignant neoplasm of unspecified kidney, except renal pelvis Plan: Treated by oncology (3) Hyponatremia ICD Codes: E87.1 - Hyponatremia Status: Acute Plan: Improved to 136 (4) Hematuria, gross ICD Codes: R31.0 - Gross hematuria Status: Acute Plan: On continuous bladder irrigation Noel Dykes MD Dec 29, 2017 12:31
[2017-12-29] MEDS: ACETAMINOPHEN 325 MG TAB PO PRN (12:41)
[2017-12-29] MEDS ORDERED: FUROSEMIDE 20 MG/2 ML VIAL IV PUSH ONE (13:00)
[2017-12-29] MEDS: diphenhydrAMINE HCL 25 MG CAP PO PRN (17:00)
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
[2017-12-30] VITALS (17 sets, daily range): BP systolic 138–148; BP diastolic 64–70; PULSE 74–96; RESP 18–22; TEMP 97.8–98.6; O2SAT 94–99
[2017-12-30] MEDS: AMPICILLIN-SULBACTAM INJ 3 GM in SODIUM CHLORIDE 0.9% INJ 100 ML IV SCH ×3 (00:07→18:15)
[2017-12-30] MEDS: MORPHINE SULFATE 2 MG/ML SYRINGE IV PUSH PRN ×5 (00:10→20:34)
[2017-12-30] MEDS: AMINOCAPROIC ACID INJ 3,000 MG in SODIUM CHLORIDE 0.9% IRR BAG 3,000 ML IRRIGATION SCH ×4 (03:03→17:05)
[2017-12-30] MEDS: oxyCODONE/ACETAMINOPHEN 10 MG/325 MG TAB PO PRN ×2 (05:45→18:16)
[2017-12-30] MEDS: LEVOTHYROXINE SODIUM 150 MCG TAB PO SCH (05:45)
[2017-12-30] MEDS: ISOSORBIDE MONONITRATE 30 MG CR TAB (IMDUR) PO SCH (05:45)
[2017-12-30 06:58] LABS: AUTOMATED NEUTROPHIL # 3.1 TH/MM3 (1.8-7.7); BASOPHIL # 0.1 TH/MM3 (0-0.2); BASOPHIL % 1.3 % (0.0-2.0); EOSINOPHIL # 0.5 TH/MM3 (0-0.4); EOSINOPHIL % 10.7 % (0.0-4.0); HEMATOCRIT 32.1 % (39.0-51.0); HEMOGLOBIN 10.9 GM/DL (13.0-17.0); LYMPH % 16.4 % (9.0-44.0); LYMPHOCYTE # 0.8 TH/MM3 (1.0-4.8); MEAN CELL VOLUME 97.2 FL (80.0-100.0); MEAN CORPUSCULAR HEMOGLOBIN 32.9 PG (27.0-34.0); MEAN CORPUSCULAR HGB CONC 33.8 % (32.0-36.0); MEAN PLATELET VOLUME 8.8 FL (7.0-11.0); MONO % 8.3 % (0.0-8.0); MONOCYTE # 0.4 TH/MM3 (0-0.9); NEUT % 63.3 % (16.0-70.0); PLATELET COUNT 108 TH/MM3 (150-450); RED BLOOD COUNT 3.31 MIL/MM3 (4.50-5.90); RED CELL DISTRIBUTION WIDTH 21.8 % (11.6-17.2); WHITE BLOOD COUNT 4.8 TH/MM3 (4.0-11.0)
[2017-12-30 07:15] LABS: ALBUMIN 2.2 GM/DL (3.4-5.0); AST (GOT) 33 U/L (15-37); BICARBONATE 29.7 MEQ/L (21.0-32.0); BLOOD UREA NITROGEN 37 MG/DL (7-18); CALCIUM 8.4 MG/DL (8.5-10.1); CHLORIDE 97 MEQ/L (98-107); CREATININE 2.86 MG/DL (0.60-1.30); GLOMERULAR FILTRATION RATE 22 ML/MIN (>89); GLUCOSE,RANDOM 96 MG/DL (74-106); MAGNESIUM 2.1 MG/DL (1.5-2.5); SODIUM (NA) 135 MEQ/L (136-145)
[2017-12-30 07:20] LABS: ALKALINE PHOSPHATASE 92 U/L (45-117); ALT (GPT) 21 U/L (12-78); PHOSPHORUS 3.8 MG/DL (2.5-4.9); TOTAL BILIRUBIN ADULT 0.6 MG/DL (0.2-1.0); TOTAL PROTEIN 6.3 GM/DL (6.4-8.2)
[2017-12-30] MEDS: DOCUSATE SODIUM 50 MG/SENNA 8.6 MG TAB PO SCH ×2 (09:00→20:34)
[2017-12-30] MEDS: guaiFENesin E.R. 600 MG TAB PO SCH ×2 (09:02→20:34)
[2017-12-30] MEDS: CARVEDILOL 12.5 MG TAB PO SCH ×2 (09:02→20:34)
[2017-12-30] MEDS: SODIUM CHLORIDE 0.9% FLUSH 10 ML FLUSH IV FLUSH SCH ×2 (09:03→20:35)
[2017-12-30] MEDS: ATORVASTATIN 40 MG TAB PO SCH (09:03)
[2017-12-30] MEDS: FOLIC ACID 1 MG TAB PO SCH (09:03)
[2017-12-30] MEDS: PANTOPRAZOLE SOD 20 MG DELAYED RELEASE TAB PO SCH (09:03)
[2017-12-30] MEDS: CYANOCOBALAMIN 1,000 MCG TAB PO SCH (09:03)
[2017-12-30] MEDS: FUROSEMIDE 20 MG/2 ML VIAL IV PUSH SCH ×2 (09:05→18:15)
--- NOTE | 2017-12-30 09:17 | PD.ONC.PN ---
Subjective Subjective Remarks Afebrile overnight. 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 also received 2 units pRBC yesterday. patient tired of being in the hospital. Objective Data Date Time Temp Pulse Resp B/P (MAP) Pulse Ox O2 Delivery O2 Flow Rate FiO2 12/30/17 08:43 97.8 82 18 144/70 (94) 94 12/30/17 06:25 16 12/30/17 06:00 78 12/30/17 05:41 98.6 81 18 145/67 (93) 99 12/30/17 05:00 74 12/30/17 03:55 83 12/30/17 03:11 16 12/30/17 03:05 Nasal Cannula 3.00 12/30/17 03:00 82 12/30/17 02:00 76 12/30/17 01:00 86 12/30/17 00:08 89 12/29/17 23:08 Nasal Cannula 3.00 50 12/29/17 23:08 98.7 83 21 155/70 (98) 98 12/29/17 23:00 84 12/29/17 22:00 86 12/29/17 21:00 88 12/29/17 20:55 Nasal Cannula 3.00 50 12/29/17 20:52 99.0 85 20 153/66 (95) 94 12/29/17 20:08 89 12/29/17 20:04 92 Nasal Cannula 4.00 12/29/17 17:57 98.5 85 18 138/64 95 12/29/17 17:38 98.6 82 18 150/70 94 12/29/17 16:57 98.7 84 18 148/67 95 12/29/17 15:00 88 12/29/17 15:00 93 Nasal Cannula 4.00 12/29/17 14:16 98.3 89 18 132/62 93 12/29/17 13:38 98.4 87 20 145/67 91 12/29/17 11:44 97 Nasal Cannula 4.00 12/29/17 11:36 98.2 89 18 136/62 (86) 97 12/29/17 11:00 80 12/30/17 12/30/17 12/30/17 07:00 15:00 23:00 Intake Total 480 ml Output Total 7500 ml Balance -7020 ml Result Diagram: 12/30/17 0554 12/30/17 0554 Laboratory Results Laboratory Tests Test 12/30/17 05:54 White Blood Count 4.8 TH/MM3 Red Blood Count 3.31 MIL/MM3 Hemoglobin 10.9 GM/DL Hematocrit 32.1 % Mean Corpuscular Volume 97.2 FL Mean Corpuscular Hemoglobin 32.9 PG Mean Corpuscular Hemoglobin Concent 33.8 % Red Cell Distribution Width 21.8 % Platelet Count 108 TH/MM3 Mean Platelet Volume 8.8 FL Neutrophils (%) (Auto) 63.3 % Lymphocytes (%) (Auto) 16.4 % Monocytes (%) (Auto) 8.3 % Eosinophils (%) (Auto) 10.7 % Basophils (%) (Auto) 1.3 % Neutrophils # (Auto) 3.1 TH/MM3 Lymphocytes # (Auto) 0.8 TH/MM3 Monocytes # (Auto) 0.4 TH/MM3 Eosinophils # (Auto) 0.5 TH/MM3 Basophils # (Auto) 0.1 TH/MM3 CBC Comment DIFF FINAL Differential Comment Blood Urea Nitrogen 37 MG/DL Creatinine 2.86 MG/DL Random Glucose 96 MG/DL Total Protein 6.3 GM/DL Albumin 2.2 GM/DL Calcium Level 8.4 MG/DL Phosphorus Level 3.8 MG/DL Magnesium Level 2.1 MG/DL Alkaline Phosphatase 92 U/L Aspartate Amino Transf (AST/SGOT) 33 U/L Alanine Aminotransferase (ALT/SGPT) 21 U/L Total Bilirubin 0.6 MG/DL Sodium Level 135 MEQ/L Potassium Level 3.7 MEQ/L Chloride Level 97 MEQ/L Carbon Dioxide Level 29.7 MEQ/L Anion Gap 8 MEQ/L Estimat Glomerular Filtration Rate 22 ML/MIN Administered Medications Medications (Trade) Dose Ordered Sig/Richie Route PRN Reason Start Time Stop Time Status Last Admin Dose Admin Sodium Chloride (NS Flush) 2 ml BID IV FLUSH 12/23/17 21:00 12/30/17 09:03 Senna/Docusate Sodium (Chikis-Colace) 1 tab BID PO 12/23/17 21:00 12/29/17 21:00 Carvedilol (Coreg) 25 mg BID PO 12/23/17 21:00 12/30/17 09:02 Levothyroxine Sodium (Synthroid) 150 mcg MoWeFr@0600 PO 12/23/17 16:30 12/30/17 05:45 Triamcinolone Acetonide (Aristocort 0.1% Oint) 1 applic QID TOPICAL 12/23/17 18:00 12/29/17 17:02 Levothyroxine Sodium (Synthroid) 75 mcg SuTuThSa@0600 PO 12/24/17 06:00 12/29/17 06:46 Levothyroxine Sodium (Synthroid) 100 mcg SuTuThSa@0600 PO 12/24/17 06:00 12/29/17 06:49 Pantoprazole Sodium (Protonix) 20 mg DAILY PO 12/24/17 09:00 12/30/17 09:03 Atorvastatin Calcium (Lipitor) 40 mg DAILY PO 12/24/17 09:00 12/30/17 09:03 Belladonna Alkaloids/Opium (B & O Supp) 60 mg Q6H PRN RECTAL bladder spasm 12/23/17 18:00 12/25/17 18:14 Calcium Carbonate (Tums Chew) 500 mg Q2H PRN CHEW indigestion 12/24/17 23:45 12/26/17 20:02 Oxycodone/ Acetaminophen (Percocet 10-325 Mg) 1 tab Q6H PRN PO PAIN SCALE 6 TO 10 12/25/17 11:00 12/30/17 05:45 Morphine Sulfate (Morphine Inj) 4 mg Q3H PRN IV PUSH BREAKTHROUGH PAIN 12/25/17 11:00 12/30/17 09:03 Isosorbide Mononitrate (Imdur) 30 mg DAILY@07 PO 12/26/17 07:00 12/30/17 05:45 Cyanocobalamin (Vitamin B12 Inj) 1,000 mcg Q30D IM 12/25/17 15:00 12/25/17 14:45 Folic Acid (Folate) 1 mg DAILY PO 12/26/17 09:00 12/30/17 09:03 Cyanocobalamin (Vitamin B12) 1,000 mcg DAILY PO 12/26/17 09:00 12/30/17 09:03 Guaifenesin (Mucinex Er) 600 mg BID PO 12/26/17 21:00 12/30/17 09:02 Furosemide (Lasix Inj) 20 mg BID@0900,1800 IV PUSH 12/27/17 18:00 12/30/17 09:05 Aminocaproic Acid 3000 mg/Sodium Chloride 3,012 ml @ 0 mls/hr TITRATE IRRIGATION 12/29/17 11:15 12/30/17 07:59 Ceftriaxone Sodium 1000 mg/ Sodium Chloride 100 ml @ 200 mls/hr Q24H IV 12/29/17 12:00 12/29/17 12:42 Ampicillin Sodium/ Sulbactam Sodium 3 gm/Sodium Chloride 100 ml @ 200 mls/hr Q6H IV 12/29/17 12:00 12/30/17 05:45 Acetaminophen (Tylenol) 650 mg Q4H PRN PO SEE LABEL COMMENTS 12/29/17 11:45 12/29/17 17:00 Objective Remarks GENERAL: Elderly male, sitting up in chair in nad. SKIN: Warm and dry. HEAD: Normocephalic. EYES: No injection or drainage. NECK: Supple, trachea midline. CARDIOVASCULAR: Regular rate and rhythm RESPIRATORY: scattered rhonchi. on O2 via [place] GASTROINTESTINAL: Abdomen soft, non-tender, nondistended. : [address], draining light red urine. EXTREMITIES: No cyanosis NEUROLOGICAL: awake, alert. normal speech. Assessment/Plan Problem List: (1) Pancytopenia ICD Codes: D61.818 - Other pancytopenia Plan: --improving. --monitor and transfuse as needed ++partly due to Votrient-->Votrient was stopped about 3 weeks ago. ++significant anemia likely due to chronic kidney disease as well as chronic inflammatory disease. --given Epogen on 12/24 --B12 low, will replace and start on folate daily (2) Metastatic renal cell carcinoma ICD Codes: C64.9 - Malignant neoplasm of unspecified kidney, except renal pelvis Plan: --continue monitoring for now. History: --presented with bilateral renal cell carcinoma and had right nephrectomy in February 2010. 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 --had a biopsy of the left kidney mass, which also showed renal cell carcinoma. He started Votrient, with good response. The Votrient was held for awhile when he was receiving treatment for bladder cancer. --recently was found to have progression of disease and restarted Votrient at the end of 2014. CT scan done in early November which did not show clear evidence of progression of disease. The Votrient has been on hold since the urologic procedure. (3) Bladder cancer ICD Codes: C67.9 - Malignant neoplasm of urinary bladder Status: Acute Plan: -- Bladder invasive transitional cell carcinoma, treated with radiation and chemotherapy. --had another cystoscopy 3 weeks ago with biopsy which did not show any recurrent disease. Assessment 72y/o male with thrombocytopenia, anemia and history of metastatic renal cell cancer. h/o Congestive heart failure. Chronic obstructive pulmonary disease, oxygen dependent. Bladder cancer. Urethral stricture. Pancytopenia. Hypertension. Hypothyroidism. Hyperlipidemia. Gastroesophageal reflux disease. Osteoarthritis. Gout Plan 1. monitor CBC 2. continue supportive care 3. gill management per urology. Attending Statement The exam, history, and the medical decision-making described in the above note were completed with the assistance of the mid-level provider. I reviewed and agree with the findings presented. I attest that I had a [id number] encounter with the patient on the same day, and personally performed and documented my assessment and findings in the medical record. Still has weakness. 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 Hgb and platelet have trended up with transfusion. Continue to monitor CBC. Continue bladder irrigation with amicar per urology. Desire Samuels Dec 30, 2017 09:17 Ernesto Yousif MD Dec 30, 2017 13:07
--- NOTE | 2017-12-30 11:05 | HHI.PR ---
Subjective Remarks This is a 72-year-old male who was sent from his urologist office because of edema. Patient states that for the past 3 weeks he has developed bilateral lower extremity edema including his genitalia. He also complains of dyspnea on exertion. States he has been advised to increase fluid intake secondary to hematuria in his Michael catheter. He is compliant with salt restriction and has been taking Lasix daily. He has a history of chronic respiratory failure on nasal cannula, CHF and COPD. Denies fever, chills, cough, wheezing and chest pain. Patient has a history of metastatic renal cell carcinoma status post right radical nephrectomy with removal of tumor thrombus in September 2009. Also noted to have left renal cell carcinoma on chemotherapy. He also has bladder cancer diagnosed over 2 years ago and received radiation and chemotherapy. Last November 30, 2017, he underwent cystoscopy and was noted to have urethral stricture status post urethrotomy. He also had a small bladder lesion was biopsied negative for malignancy. Since the procedure, patient has been having intermittent gross hematuria. Denies being on antiplatelets and anticoagulants. He was taken off Plavix 1 week before the procedure. All other systems reviewed negative 4-5 Patient says he is feeling all right. Reports Michael pain. Denies any chest pain or shortness of breath. Denies any nausea or vomiting 4-6 Patient says he is feeling all right. Reports Michael pain continues, but has not received any belladonna suppositories. Denies any chest pain or shortness of breath. 4-7 off of bipap BREATHING A LITTLE BETTER LEGS LESS RED STILL HAS CBI IN PLACE FRUIT PUNCH APPEARANCE AM LABS INCREASE ACTIVITY SHAW RN AND PT INCENTIVE SPIROMETRY MUCINEX 4-8 SEEN BY CARDIOLOGY BEING TRANSFUSED STILL HAS CBI SHAW RN AND PT AND FAMILY AND CM AM LABS 4-9 WILL TRANSFUSE 2 UNIT PRBC HAVING CLOTS IN MICHAEL URINE IS INSTALLATION AND SERVICE TECHNICIAN IN COLOR BUT MAY BE DUE TO CLOTS SHAW RN AND PT AND CM 4-10 STILL HAVING BLEEDING FROM MICHAEL CATHETER DARK BLOOD STILL SHAW RN AND PT AND CASE MANAGEMENT URINE CULTURES POSITIVE - ADJUST MEDS Enterococcus faecalis and Klebsiella pneumoniae in his urine Adjust to Rocephin and Unasyn We will need another transfusion 4-11 COMPLAINS OF "MY BAUTISTA IS ON FIRE" PAIN IN HIS PENIS AREA WILL TRY MEDICATIONS FOR SPASMS TO SEE IF IT WILL HELP STILL HAVING HEMATURIA ON UNASYN FOR ENTEROCOCCUS faecalis and Klebsiella pneumonia in his urine SHAW RN AND PT AND CM Objective Vitals Vital Signs Date Time Temp Pulse Resp B/P (MAP) Pulse Ox O2 Delivery O2 Flow Rate FiO2 12/30/17 08:43 97.8 82 18 144/70 (94) 94 12/30/17 06:25 16 12/30/17 06:00 78 12/30/17 05:41 98.6 81 18 145/67 (93) 99 12/30/17 05:00 74 12/30/17 03:55 83 12/30/17 03:11 16 12/30/17 03:05 Nasal Cannula 3.00 12/30/17 03:00 82 12/30/17 02:00 76 12/30/17 01:00 86 12/30/17 00:08 89 12/29/17 23:08 Nasal Cannula 3.00 50 12/29/17 23:08 98.7 83 21 155/70 (98) 98 12/29/17 23:00 84 12/29/17 22:00 86 12/29/17 21:00 88 12/29/17 20:55 Nasal Cannula 3.00 50 12/29/17 20:52 99.0 85 20 153/66 (95) 94 12/29/17 20:08 89 12/29/17 20:04 92 Nasal Cannula 4.00 12/29/17 17:57 98.5 85 18 138/64 95 12/29/17 17:38 98.6 82 18 150/70 94 12/29/17 16:57 98.7 84 18 148/67 95 12/29/17 15:00 88 12/29/17 15:00 93 Nasal Cannula 4.00 12/29/17 14:16 98.3 89 18 132/62 93 12/29/17 13:38 98.4 87 20 145/67 91 12/29/17 11:44 97 Nasal Cannula 4.00 12/29/17 11:36 98.2 89 18 136/62 (86) 97 I/O 12/29/17 12/29/17 12/29/17 12/30/17 12/30/17 12/30/17 07:00 15:00 23:00 07:00 15:00 23:00 Intake Total 290 ml 1010 ml 900 ml 480 ml Output Total 150 ml 2100 ml 950 ml 7500 ml Balance 140 ml -1090 ml -50 ml -7020 ml Intake Oral 240 ml 960 ml 480 ml IV Total 50 ml 50 ml Packed Cells 800 ml Blood Product IV Normal Saline Flush 100 ml Output Urine Total 150 ml 2100 ml 950 ml 7500 ml # Bowel Movements 1 4 Result Diagram: 12/30/17 0554 12/30/17 0554 Other Results Laboratory Tests Test 12/28/17 05:11 12/29/17 05:45 12/30/17 05:54 White Blood Count 3.2 TH/MM3 3.0 TH/MM3 4.8 TH/MM3 Red Blood Count 2.14 MIL/MM3 2.12 MIL/MM3 3.31 MIL/MM3 Hemoglobin 7.5 GM/DL 7.0 GM/DL 10.9 GM/DL Hematocrit 22.2 % 21.2 % 32.1 % Mean Corpuscular Volume 103.5 FL 99.9 FL 97.2 FL Mean Corpuscular Hemoglobin 35.1 PG 33.2 PG 32.9 PG Mean Corpuscular Hemoglobin Concent 33.9 % 33.2 % 33.8 % Red Cell Distribution Width 19.6 % 22.5 % 21.8 % Platelet Count 83 TH/MM3 82 TH/MM3 108 TH/MM3 Mean Platelet Volume 8.9 FL 8.6 FL 8.8 FL Neutrophils (%) (Auto) 56.7 % 58.5 % 63.3 % Lymphocytes (%) (Auto) 20.2 % 20.0 % 16.4 % Monocytes (%) (Auto) 12.2 % 9.8 % 8.3 % Eosinophils (%) (Auto) 10.2 % 11.1 % 10.7 % Basophils (%) (Auto) 0.7 % 0.6 % 1.3 % Neutrophils # (Auto) 1.8 TH/MM3 1.7 TH/MM3 3.1 TH/MM3 Lymphocytes # (Auto) 0.6 TH/MM3 0.6 TH/MM3 0.8 TH/MM3 Monocytes # (Auto) 0.4 TH/MM3 0.3 TH/MM3 0.4 TH/MM3 Eosinophils # (Auto) 0.3 TH/MM3 0.3 TH/MM3 0.5 TH/MM3 Basophils # (Auto) 0.0 TH/MM3 0.0 TH/MM3 0.1 TH/MM3 CBC Comment AUTO DIFF AUTO DIFF DIFF FINAL Differential Comment AUTO DIFF CONFIRMED AUTO DIFF CONFIRMED Platelet Estimate LOW LOW Platelet Morphology Comment NORMAL NORMAL Blood Urea Nitrogen 36 MG/DL 36 MG/DL 37 MG/DL Creatinine 2.91 MG/DL 3.06 MG/DL 2.86 MG/DL Random Glucose 113 MG/DL 107 MG/DL 96 MG/DL Total Protein 5.7 GM/DL 6.5 GM/DL 6.3 GM/DL Albumin 2.0 GM/DL 2.3 GM/DL 2.2 GM/DL Calcium Level 8.0 MG/DL 8.3 MG/DL 8.4 MG/DL Phosphorus Level 3.4 MG/DL 4.1 MG/DL 3.8 MG/DL Magnesium Level 2.1 MG/DL 2.1 MG/DL 2.1 MG/DL Alkaline Phosphatase 82 U/L 87 U/L 92 U/L Aspartate Amino Transf (AST/SGOT) 25 U/L 36 U/L 33 U/L Alanine Aminotransferase (ALT/SGPT) 20 U/L 24 U/L 21 U/L Total Bilirubin 0.5 MG/DL 0.7 MG/DL 0.6 MG/DL Sodium Level 137 MEQ/L 133 MEQ/L 135 MEQ/L Potassium Level 3.4 MEQ/L 3.7 MEQ/L 3.7 MEQ/L Chloride Level 94 MEQ/L 95 MEQ/L 97 MEQ/L Carbon Dioxide Level 35.9 MEQ/L 31.1 MEQ/L 29.7 MEQ/L Anion Gap 7 MEQ/L 7 MEQ/L 8 MEQ/L Estimat Glomerular Filtration Rate 21 ML/MIN 20 ML/MIN 22 ML/MIN Imaging Last Impressions Renal Ultrasound 12/29/17 0000 Signed Impressions: Service Date/Time: Friday, December 29, 2017 13:34 - CONCLUSION: 1. Status post right nephrectomy with out sonographic evidence for gross mass in the nephrectomy bed. 2. Unremarkable sonographic appearance of the left kidney. No hydronephrosis. Elton Bo MD Chest X-Ray 12/26/17 0000 Signed Impressions: Service Date/Time: Tuesday, December 26, 2017 05:42 - CONCLUSION: Bilateral pulmonary opacity likely representing pulmonary edema, slightly increased from the comparison study. Adrian Black MD Objective Remarks GENERAL: Awake alert and oriented 3 talkative and cooperative in mild distress SKIN: Warm and dry. Bilateral lower extremity erythema and skin changes appears peripheral vascular occlusive disease HEAD: Atraumatic. Normocephalic. EYES: Pupils equal and round. No scleral icterus. No injection or drainage. Extraocular muscles intact ENT: No nasal bleeding or discharge. Mucous membranes pink and moist. Tongue is midline NECK: Trachea midline. No JVD. Supple CARDIOVASCULAR: Regular rate and rhythm. S1-S2 no S3 or S4 RESPIRATORY: No accessory muscle use. Clear to auscultation. Breath sounds equal bilaterally. Few scattered rhonchi and some rales at base GASTROINTESTINAL: Abdomen soft, non-tender, nondistended. Hepatic and splenic margins not palpable. MUSCULOSKELETAL: Extremities without clubbing, cyanosis, or edema. No obvious deformities. Maybe +1 lower extremity edema with some redness and erythema bilateral lower extremities NEUROLOGICAL: Awake and alert. No obvious cranial nerve deficits. Motor grossly within normal limits. 4 out of 5 muscle strength in the arms and legs. Normal speech. PSYCHIATRIC: Appropriate mood and affect; insight and judgment normal. Procedures CBI BIPAP Medications and IVs Current Medications Furosemide (Lasix Inj) 60 mg ONCE ONCE IV PUSH Last administered on 12/23/17at 13:21; Start 12/23/17 at 12:30; Stop 12/23/17 at 12:31; Status DC Nitroglycerin (Nitroglycerin 2% Oint) 0.5 inch ONCE ONCE TOP Last administered on 12/23/17at 13:21; Start 12/23/17 at 12:30; Stop 12/23/17 at 12:31; Status DC Ceftriaxone Sodium 1000 mg/ Sodium Chloride 100 ml @ 200 mls/hr ONCE ONCE IV Last administered on 12/23/17at 14:44; Start 12/23/17 at 14:05; Stop 12/23/17 at 14: 34; Status DC Sodium Chloride (NS Flush) 2 ml UNSCH PRN IV FLUSH FLUSH AFTER USING IV ACCESS ; Start 12/23/17 at 14:30 Sodium Chloride (NS Flush) 2 ml BID IV FLUSH Last administered on 12/30/17at 09: 03; Start 12/23/17 at 21:00 Furosemide (Lasix Inj) 40 mg BID@09,18 IVP Last administered on 12/26/17at 17:29 ; Start 12/23/17 at 18:00; Stop 12/27/17 at 09:06; Status DC Piperacillin Sod/ Tazobactam Sod 50 ml @ 100 mls/hr Q6H IV Last administered on 12/29/17at 06:45; Start 12/23/17 at 18:00; Stop 12/29/17 at 11:41; Status DC Acetaminophen (Tylenol) 650 mg Q4H PRN PO TEMP > 100.4; Start 12/23/17 at 14:30 Ondansetron HCl (Zofran Inj) 4 mg Q6H PRN IVP NAUSEA OR VOMITING; Start at 14:30 Acetaminophen (Tylenol) 650 mg Q6H PRN PO PAIN SCALE 1 TO 2; Start 12/23/17 at 14:30 Naloxone HCl (Narcan Inj) 0.4 mg UNSCH PRN IV PUSH SEE LABEL COMMENTS; Start at 14:30; Stop 12/25/17 at 10:55; Status DC Senna/Docusate Sodium (Chikis-Colace) 1 tab BID PO Last administered on at 21:00; Start 12/23/17 at 21:00 Sennosides (Senokot) 17.2 mg Q12H PRN PO Moderate constipation; Start 12/23/17 at 14:30 Bisacodyl (Dulcolax Supp) 10 mg DAILY PRN RECTAL SEVERE CONSITIPATION; Start at 14:30 Lactulose (Lactulose Liq) 30 ml DAILY PRN PO SEVERE CONSITIPATION; Start at 14:30 Amlodipine Besylate (Norvasc) 5 mg DAILY PO Last administered on 12/25/17at 09:12 ; Start 12/24/17 at 09:00; Stop 12/25/17 at 11:26; Status DC Carvedilol (Coreg) 25 mg BID PO Last administered on 12/30/17at 09:02; Start 12/23/17 at 21:00 Diphenoxylate HCl/ Atropine (Lomotil Tab) 1 tab Q6H PRN PO DIARRHEA; Start 12/23 at 14:30 Levothyroxine Sodium (Synthroid) 150 mcg MoWeFr@0600 PO Last administered on 08/08at 05:45; Start 12/23/17 at 16:30 Oxycodone/ Acetaminophen (Percocet 10-325 Mg) 1 tab QID PRN PO BREAKTHROUGH PAIN Last administered on 12/25/17at 06:02; Start 12/23/17 at 14:30; Stop 12/25/17 at 10:13; Status DC Triamcinolone Acetonide (Aristocort 0.1% Oint) 1 applic QID TOPICAL Last administered on 12/29/17at 17:02; Start 12/23/17 at 18:00 Non-Formulary Medication 175 mcg SuTuThSa PO ; Start 12/24/17 at 14:30; Stop 12/24 at 14:30; Status DC Non-Formulary Medication 50 mg DAILY PO ; Start 12/24/17 at 09:00; Status UNV Non-Formulary Medication 20 mg DAILY PO ; Start 12/24/17 at 09:00; Status UNV Non-Formulary Medication 20 mg DAILY PO ; Start 12/24/17 at 09:00; Status UNV Non-Formulary Medication 1 puff DAILY INH ; Start 12/24/17 at 09:00; Status UNV Levothyroxine Sodium (Synthroid) 75 mcg SuTuThSa@0600 PO Last administered on at 06:46; Start 12/24/17 at 06:00 Levothyroxine Sodium (Synthroid) 100 mcg SuTuThSa@0600 PO Last administered on 12/29/17at 06:49; Start 12/24/17 at 06:00 Patient Own Medication PT OWN MED: MYRBET... DAILY PO ; Start 12/24/17 at 09:00; Status Future Hold Pantoprazole Sodium (Protonix) 20 mg DAILY PO Last administered on 12/30/17at 09 :03; Start 12/24/17 at 09:00 Atorvastatin Calcium (Lipitor) 40 mg DAILY PO Last administered on 12/30/17at 09 :03; Start 12/24/17 at 09:00 Patient Own Medication PT OWN MED: STIOLTO RESPIMAT--... DAILY INH ; Start at 09:00; Status Future Hold Morphine Sulfate (Morphine Inj) 2 mg ONCE ONCE IV PUSH Last administered on 12/23/17at 17:54; Start 12/23/17 at 17:45; Stop 12/23/17 at 17:49; Status DC Belladonna Alkaloids/Opium (B & O Supp) 60 mg Q6H PRN RECTAL bladder spasm Last administered on 12/25/17 18:14; Start 12/23/17 at 18:00 Morphine Sulfate (Morphine Inj) 4 mg ONCE ONCE IV PUSH Last administered on 15:57; Start 12/24/17 at 15:35; Stop 12/24/17 at 15:36; Status DC Epoetin Alton (Epogen Inj) 20,000 units ONCE ONCE SQ Last administered on 22:47; Start 12/24/17 at 20:00; Stop 12/24/17 at 20:01; Status DC Calcium Carbonate (Tums Chew) 500 mg Q2H PRN CHEW indigestion Last administered on 12/26/17 20:02; Start 12/24/17 at 23:45 Oxycodone/ Acetaminophen (Percocet 5-325 Mg) 1 tab Q6H PRN PO PAIN SCALE 3 TO 5; Start 12/25/17 at 11:00 Oxycodone/ Acetaminophen (Percocet 10-325 Mg) 1 tab Q6H PRN PO PAIN SCALE 6 TO 10 Last administered on 12/30/17 05:45; Start 12/25/17 at 11:00 Morphine Sulfate (Morphine Inj) 4 mg Q3H PRN IV PUSH BREAKTHROUGH PAIN Last administered on 12/30/17 09:03; Start 12/25/17 at 11:00 Naloxone HCl (Narcan Inj) 0.4 mg UNSCH PRN IV PUSH SEE LABEL COMMENTS; Start at 10:15 Potassium Chloride (KCl) 10 meq ONCE ONCE PO Last administered on 12/25/17at 11: 20; Start 12/25/17 at 11:00; Stop 12/25/17 at 11:01; Status DC Isosorbide Mononitrate (Imdur) 30 mg DAILY@07 PO Last administered on 05:45; Start 12/26/17 at 07:00 Cyanocobalamin (Vitamin B12 Inj) 1,000 mcg Q30D IM Last administered on 14:45; Start 12/25/17 at 15:00 Folic Acid (Folate) 1 mg DAILY PO Last administered on 12/30/17at 09:03; Start 12/26/17 at 09:00 Cyanocobalamin (Vitamin B12) 1,000 mcg DAILY PO Last administered on 12/30/17at 09:03; Start 12/26/17 at 09:00 Albuterol/ Ipratropium (Duoneb Neb) 1 ampule Q4HR NEB PRN NEB SOB/WHEEZING; Start 12/26/17 at 05:45 Potassium Chloride (KCl) 60 meq ONCE ONCE PO Last administered on 12/26/17at 15: 00; Start 12/26/17 at 15:00; Stop 12/26/17 at 15:04; Status DC Guaifenesin (Mucinex Er) 600 mg BID PO Last administered on 12/30/17at 09:02; Start 12/26/17 at 21:00 Sodium Chloride 250 ml @ 15 mls/hr ONCE ONCE IV Last administered on at 08:30; Start 12/27/17 at 08:30; Stop 12/28/17 at 01:09; Status DC Acetaminophen (Tylenol) 650 mg Q4H PRN PO SEE LABEL COMMENTS; Start 12/27/17 at 08:30; Stop 12/27/17 at 23:59; Status DC Diphenhydramine HCl (Benadryl) 25 mg Q4H PRN PO SEE LABEL COMMENTS; Start at 08:30; Stop 12/27/17 at 23:59; Status DC Furosemide (Lasix Inj) 20 mg BID@0900,1800 IV PUSH Last administered on at 09:05; Start 12/27/17 at 18:00 Sodium Chloride 250 ml @ 15 mls/hr ONCE ONCE IV ; Start 12/28/17 at 08:00; Stop 12/29/17 at 00:39; Status DC Diphenhydramine HCl (Benadryl) 25 mg Q4H PRN PO BLOOD PRODUCT TRANSFUSION Last administered on 12/28/17at 10:04; Start 12/28/17 at 10:00; Stop 12/28/17 at 10:37; Status DC Acetaminophen (Tylenol) 650 mg Q4H PRN PO BLOOD PRODUCT TRANSFUSION Last administered on 12/28/17at 10:05; Start 12/28/17 at 10:00; Stop 12/28/17 at 10:36; Status DC Sodium Chloride 250 ml @ 15 mls/hr ONCE ONCE IV Last administered on 12:08; Start 12/28/17 at 10:45; Stop 12/29/17 at 03:24; Status DC Acetaminophen (Tylenol) 650 mg Q4H PRN PO SEE LABEL COMMENTS Last administered on 12/29/17at 12:41; Start 12/28/17 at 10:45; Stop 12/29/17 at 12:42; Status DC Diphenhydramine HCl (Benadryl) 25 mg Q4H PRN PO SEE LABEL COMMENTS Last administered on 12/29/17at 17:00; Start 12/28/17 at 10:45; Stop 12/29/17 at 17:02 ; Status DC Potassium Chloride (KCl) 40 meq ONCE ONCE PO Last administered on 12/28/17 11: 34; Start 12/28/17 at 10:45; Stop 12/28/17 at 10:46; Status DC Aminocaproic Acid 3000 mg/Sodium Chloride 3,012 ml @ 0 mls/hr TITRATE IRRIGATION Last administered on 12/30/17at 07:59; Start 12/29/17 at 11:15 Ceftriaxone Sodium 1000 mg/ Sodium Chloride 100 ml @ 200 mls/hr Q24H IV Last administered on 12/29/17 12:42; Start 12/29/17 at 12:00; Stop 12/30/17 at 10:32 ; Status DC Ampicillin Sodium/ Sulbactam Sodium 3 gm/Sodium Chloride 100 ml @ 200 mls/hr Q6H IV Last administered on 12/30/17at 05:45; Start 12/29/17 at 12:00; Stop 08/08 at 10:41; Status DC Sodium Chloride 250 ml @ 15 mls/hr ONCE ONCE IV Last administered on at 17:43; Start 12/29/17 at 11:45; Stop 12/30/17 at 04:24; Status DC Acetaminophen (Tylenol) 650 mg Q4H PRN PO SEE LABEL COMMENTS Last administered on 12/29/17at 17:00; Start 12/29/17 at 11:45 Diphenhydramine HCl (Benadryl) 25 mg Q4H PRN PO SEE LABEL COMMENTS; Start 12/29 at 11:45 Furosemide (Lasix Liq) 20 mg ONCE ONCE NG ; Start 12/29/17 at 12:30; Stop 07/08 at 12:33; Status DC Furosemide (Lasix Inj) 20 mg ONCE ONCE IV PUSH Last administered on 12/29/17at 17:01; Start 12/29/17 at 13:00; Stop 12/29/17 at 13:01; Status DC Ampicillin Sodium/ Sulbactam Sodium 3 gm/Sodium Chloride 100 ml @ 200 mls/hr Q12H IV ; Start 12/30/17 at 18:00 A/P Problem List: (1) Hematuria, gross ICD Code: R31.0 - Gross hematuria Status: Acute (2) Chronic kidney disease (CKD) ICD Code: N18.9 - Chronic kidney disease Status: Chronic (3) Acute exacerbation of CHF (congestive heart failure) ICD Code: I50.9 - Heart failure, unspecified Status: Acute (4) Acute renal failure ICD Code: N17.9 - Acute kidney failure, unspecified Assessment and Plan This is a 72-year-old male who was sent from his urologist office because of edema. Patient states that for the past 3 weeks he has developed bilateral lower extremity edema including his genitalia. He also complains of dyspnea on exertion. States he has been advised to increase fluid intake secondary to hematuria in his Michael catheter. He is compliant with salt restriction and has been taking Lasix daily. //CHF exacerbation likely secondary to increased fluid intake. Continue diuresis with IV Lasix, CHF education, I/O and monitor weight. 1.5 L fluid restriction. Obtain 2D echo Patient has chronic diastolic heart failure with 3+ pitting edema that is decreased and had elevated BNP on admission and history of pulmonary edema treated with Lasix and I's and O's = Echo pending. Continue IV Lasix, fluid restrictions. Continue to monitor closely. = 12/25. Moderate aortic stenosis on echo. Consult cardiology. Recommended continued medical management //Chronic kidney disease stage IV with hyponatremia. He is asymptomatic. Nonoliguric. nephrology consult. Avoid nephrotoxins = Creatinine continues stable around previous baseline. //Pancytopenia on Votrient with worsening anemia secondary to acute blood loss. Repeat CBC in the morning keep hemoglobin at least 8 with history of CAD = Consult patient's oncologist for pancytopenia. Appreciate assistance. = 12/25. Oncology following. Appreciate assistance. //Chronic respiratory failure on nasal cannula, CHF and COPD. Continue oxygen keep saturations at least 92% //Hypokalemia. 3.3. Replace. Will replace again magnesium WNL //Gross hematuria //Sepsis //complex UTI =with a history of metastatic renal cell carcinoma status post right radical nephrectomy with removal of tumor thrombus in September 2009. left renal cell carcinoma on chemotherapy Votrient and bladder cancer diagnosed over 2 years ago and received radiation and chemotherapy. Last November 30, 2017, he underwent cystoscopy and was noted to have urethral stricture status post urethrotomy. He also had a small bladder lesion was biopsied negative for malignancy. Since the procedure, patient has been having intermittent gross hematuria. Denies being on antiplatelets and anticoagulants. He was taken off Plavix 1 week before the procedure. Patient had a Michael exchanged by Dr. Huddleston today. He also has abnormal urinalysis suggestive of UTI and meets criteria for sepsis. Will start IV Zosyn. I will not be able to hydrate patient because of CHF exacerbation. Check blood cultures = 12/24. Sepsis Leukopenia, tachypnea, complicated UTI. Continue Zosyn. gram- negative rods on urine culture.Follow up cultures. Continue bladder irrigation. Still with blood. = 12/25. Hematuria improving. Urology following. Follow-up urine culture results. //Multiple medical conditions PAD, hypothyroidism, hypertension, hyperlipidemia , GERD, IBS, gout and osteoarthritis. Continue outpatient medications as appropriate ANEMIA DUE TO BLOOD LOSS FROM HEMATURIA- WILL BE TRANSFUSED AGAIN 4-9 HYPOKALEMIA REPLACE //DVT prophylaxis with SCD. Pharmacological prophylaxis held due to bleeding PATIENT HAS HEMATURIA WITH CLOTS AND HAD TO HAVE MICHAEL CHANGED DUE TO NEEDING A BIGGER MICHAEL DUE TO CLOTS FROM HIS BLADDER AND CONTINUOUS BLADDER IRRIGATION. PATIENT IS BEING TREATED FOR HIS UTI ALSO with Klebsiella pneumoniae and Enterococcus faecalis on Unasyn HAS BLADDER SPASM WILL ADD MEDS Discharge Planning Bladder irrigation We'll need hemoglobin stable Will need antibiotics for UTI Cardiology following for aortic stenosis recommend continue same Hematology and urology following Discharge Planning Await clearance from urology already has clearance from cardiology no clearance yet from nephrology Problem Qualifiers (1) Chronic kidney disease (CKD): Qualified Codes: N18.3 - Chronic kidney disease, stage 3 (moderate) (2) Acute exacerbation of CHF (congestive heart failure): Qualified Codes: I50.9 - Heart failure, unspecified Evens Butcher DO Dec 30, 2017 11:05
[2017-12-30] MEDS: TRIAMCINOLONE ACETONIDE 0.1% OINT 15 GM TUBE TOPICAL SCH ×4 (13:00→20:39)
[2017-12-30] MEDS: PHENAZOPYRIDINE HCL 200 MG TAB PO SCH ×2 (13:15→20:34)
--- NOTE | 2017-12-30 13:23 | HHI.PR ---
Subjective Patient symptoms today Reports resolving hematuria. Also complains of some discomfort involving the penis Objective Vital Signs Vital Signs Date Time Temp Pulse Resp B/P (MAP) Pulse Ox O2 Delivery O2 Flow Rate FiO2 12/30/17 11:08 Nasal Cannula 3.00 12/30/17 08:43 97.8 82 18 144/70 (94) 94 12/30/17 06:25 16 12/30/17 06:00 78 12/30/17 05:41 98.6 81 18 145/67 (93) 99 12/30/17 05:00 74 12/30/17 03:55 83 12/30/17 03:11 16 12/30/17 03:05 Nasal Cannula 3.00 12/30/17 03:00 82 12/30/17 02:00 76 12/30/17 01:00 86 12/30/17 00:08 89 12/29/17 23:08 Nasal Cannula 3.00 50 12/29/17 23:08 98.7 83 21 155/70 (98) 98 12/29/17 23:00 84 12/29/17 22:00 86 12/29/17 21:00 88 12/29/17 20:55 Nasal Cannula 3.00 50 12/29/17 20:52 99.0 85 20 153/66 (95) 94 12/29/17 20:08 89 12/29/17 20:04 92 Nasal Cannula 4.00 12/29/17 17:57 98.5 85 18 138/64 95 12/29/17 17:38 98.6 82 18 150/70 94 12/29/17 16:57 98.7 84 18 148/67 95 12/29/17 15:00 88 12/29/17 15:00 93 Nasal Cannula 4.00 12/29/17 14:16 98.3 89 18 132/62 93 12/29/17 13:38 98.4 87 20 145/67 91 Intake & Output 12/30/17 12/30/17 07:00 19:00 Intake Total 930 ml Output Total 7500 ml Balance -6570 ml Intake Oral 480 ml Packed Cells 400 ml Blood Product IV Normal Saline Flush 50 ml Output Urine Total 7500 ml Result Diagram: 12/30/17 0554 12/30/17 0554 Objective Remarks Amicar continuous bladder irrigation running at a slow rate with light pink output Bladder not distended Pitting edema to lower extremities Medications and IVs Current Medications Medications (Trade) Dose Ordered Sig/Richie Route Start Time Stop Time Status Last Admin (NS Flush) 2 ml UNSCH PRN IV FLUSH 12/23/17 14:30 (NS Flush) 2 ml BID IV FLUSH 12/23/17 21:00 12/30/17 09:03 (Tylenol) 650 mg Q4H PRN PO 12/23/17 14:30 (Zofran Inj) 4 mg Q6H PRN IVP 12/23/17 14:30 (Tylenol) 650 mg Q6H PRN PO 12/23/17 14:30 (Chikis-Colace) 1 tab BID PO 12/23/17 21:00 12/29/17 21:00 (Senokot) 17.2 mg Q12H PRN PO 12/23/17 14:30 (Dulcolax Supp) 10 mg DAILY PRN RECTAL 12/23/17 14:30 (Lactulose Liq) 30 ml DAILY PRN PO 12/23/17 14:30 (Coreg) 25 mg BID PO 12/23/17 21:00 12/30/17 09:02 (Lomotil Tab) 1 tab Q6H PRN PO 12/23/17 14:30 (Synthroid) 150 mcg MoWeFr@0600 PO 12/23/17 16:30 12/30/17 05:45 (Aristocort 0.1% Oint) 1 applic QID TOPICAL 12/23/17 18:00 12/30/17 13:17 (Synthroid) 75 mcg SuTuThSa@0600 PO 12/24/17 06:00 12/29/17 06:46 (Synthroid) 100 mcg SuTuThSa@0600 PO 12/24/17 06:00 12/29/17 06:49 Patient Own Medication PT OWN MED: MYRBET... DAILY PO 12/24/17 09:00 Future Hold (Protonix) 20 mg DAILY PO 12/24/17 09:00 12/30/17 09:03 (Lipitor) 40 mg DAILY PO 12/24/17 09:00 12/30/17 09:03 Patient Own Medication PT OWN MED: STIOLTO RESPIMAT--... DAILY INH 12/24/17 09:00 Future Hold (B & O Supp) 60 mg Q6H PRN RECTAL 12/23/17 18:00 12/25/17 18:14 (Tums Chew) 500 mg Q2H PRN CHEW 12/24/17 23:45 12/26/17 20:02 (Percocet 5-325 Mg) 1 tab Q6H PRN PO 12/25/17 11:00 (Percocet 10-325 Mg) 1 tab Q6H PRN PO 12/25/17 11:00 12/30/17 05:45 (Morphine Inj) 4 mg Q3H PRN IV PUSH 12/25/17 11:00 12/30/17 13:16 (Narcan Inj) 0.4 mg UNSCH PRN IV PUSH 12/25/17 10:15 (Imdur) 30 mg DAILY@07 PO 12/26/17 07:00 12/30/17 05:45 (Vitamin B12 Inj) 1,000 mcg Q30D IM 12/25/17 15:00 12/25/17 14:45 (Folate) 1 mg DAILY PO 12/26/17 09:00 12/30/17 09:03 (Vitamin B12) 1,000 mcg DAILY PO 12/26/17 09:00 12/30/17 09:03 (Duoneb Neb) 1 ampule Q4HR NEB PRN NEB 12/26/17 05:45 (Mucinex Er) 600 mg BID PO 12/26/17 21:00 12/30/17 09:02 (Lasix Inj) 20 mg BID@0900,1800 IV PUSH 12/27/17 18:00 12/30/17 09:05 Aminocaproic Acid 3000 mg/Sodium Chloride 3,012 ml @ 0 mls/hr TITRATE IRRIGATION 12/29/17 11:15 12/30/17 13:15 (Tylenol) 650 mg Q4H PRN PO 12/29/17 11:45 12/29/17 17:00 (Benadryl) 25 mg Q4H PRN PO 12/29/17 11:45 Ampicillin Sodium/ Sulbactam Sodium 3 gm/Sodium Chloride 100 ml @ 200 mls/hr Q12H IV 12/30/17 18:00 (Pyridium) 200 mg Q8HR PO 12/30/17 14:00 12/30/17 13:15 Assessment and Plan Assessment and Plan Urologic impression: 1. History metastatic renal CA being followed by oncology 2. History bladder cancer status post chemo and radiation therapy 3. Status post recent direct visual internal urethrotomy of urethral stricture and bladder biopsy which was negative 4. Slowly resolving gross hematuria related to his recent urologic procedures and exacerbated by a low platelet count Recommendations: 1. Continue with Amicar continuous bladder irrigation and slowly titrate off as urine clears. 2. Continue with indwelling Blas catheter after continuous bladder irrigation discontinued until urine remains clear yellow for at least 48 hours 3. Irrigate Blas catheter as necessary. 4. Pyridium for bladder spasm/penile pain as needed 5. Okay to discharge home with indwelling Blas to gravity drainage once CBI discontinued. Richie Vallejo MD Dec 30, 2017 13:23
--- NOTE | 2017-12-30 19:22 | HHI.NPPN ---
Subjective History of Present Illness 72-year-old with metastatic renal cell cancer, acute renal failure, previous nephrectomy, hematuria on CBI Objective Data Data Vital Signs Date Time Temp Pulse Resp B/P (MAP) Pulse Ox O2 Delivery O2 Flow Rate FiO2 12/30/17 16:14 Nasal Cannula 3.00 12/30/17 16:03 92 12/30/17 12:30 81 12/30/17 12:00 98.2 78 18 138/64 (88) 95 12/30/17 11:08 Nasal Cannula 3.00 12/30/17 08:43 97.8 82 18 144/70 (94) 94 12/30/17 08:30 86 12/30/17 06:25 16 12/30/17 06:00 78 12/30/17 05:41 98.6 81 18 145/67 (93) 99 12/30/17 05:00 74 12/30/17 03:55 83 12/30/17 03:11 16 12/30/17 03:05 Nasal Cannula 3.00 12/30/17 03:00 82 12/30/17 02:00 76 12/30/17 01:00 86 12/30/17 00:08 89 12/29/17 23:08 Nasal Cannula 3.00 50 12/29/17 23:08 98.7 83 21 155/70 (98) 98 12/29/17 23:00 84 12/29/17 22:00 86 12/29/17 21:00 88 12/29/17 20:55 Nasal Cannula 3.00 50 12/29/17 20:52 99.0 85 20 153/66 (95) 94 12/29/17 20:08 89 12/29/17 20:04 92 Nasal Cannula 4.00 -: 12/30/17 0554 12/30/17 0554 Physical Exam General Appearance: Well Developed, Well Nourished Neck Neck Exam: Neck Supple Pulmonary Resp Exam: Decreased Bases Cardiology CV Exam: Tachycardia Gastrointestinal/Abdomen GI Exam: Soft, Non-Tender, Bowel Sounds Present Extremeties Extremities Exam: Moderate Edema Assessment/Plan Problem List: (1) Acute renal failure ICD Codes: N17.9 - Acute kidney failure, unspecified Plan: Patient is on Lasix 20 mg IV twice a day. He uses his creatinine is . follow CMP US ordered for L kidney He is on bladder irrigation Hematuria continues He has advanced metastatic renal cell cancer Prognosis appears guarded to poor Patient hematuria continues he is on CBI amicar added (2) Metastatic renal cell carcinoma ICD Codes: C64.9 - Malignant neoplasm of unspecified kidney, except renal pelvis Plan: Treated by oncology (3) Hyponatremia ICD Codes: E87.1 - Hyponatremia Status: Acute Plan: Improved to 136 (4) Hematuria, gross ICD Codes: R31.0 - Gross hematuria Status: Acute Plan: On continuous bladder irrigation Noel Dykes MD Dec 30, 2017 19:22
[2017-12-31] VITALS (17 sets, daily range): BP systolic 119–157; BP diastolic 63–74; PULSE 73–94; RESP 16–20; TEMP 97.6–98.8; O2SAT 92–99
[2017-12-31] MEDS: oxyCODONE/ACETAMINOPHEN 10 MG/325 MG TAB PO PRN ×4 (02:59→21:38)
[2017-12-31] MEDS: AMINOCAPROIC ACID INJ 3,000 MG in SODIUM CHLORIDE 0.9% IRR BAG 3,000 ML IRRIGATION SCH ×3 (03:39→20:28)
[2017-12-31] MEDS: MORPHINE SULFATE 2 MG/ML SYRINGE IV PUSH PRN ×3 (03:40→19:48)
[2017-12-31] MEDS: PHENAZOPYRIDINE HCL 200 MG TAB PO SCH ×3 (06:14→21:38)
[2017-12-31] MEDS: ISOSORBIDE MONONITRATE 30 MG CR TAB (IMDUR) PO SCH (06:14)
[2017-12-31] MEDS: LEVOTHYROXINE SODIUM 75 MCG TAB PO SCH (06:16)
[2017-12-31] MEDS: AMPICILLIN-SULBACTAM INJ 3 GM in SODIUM CHLORIDE 0.9% INJ 100 ML IV SCH ×2 (06:16→18:21)
[2017-12-31] MEDS: LEVOTHYROXINE SODIUM 100 MCG TAB PO SCH (06:16)
[2017-12-31 07:36] LABS: ALT (GPT) 19 U/L (12-78); AST (GOT) 26 U/L (15-37); BICARBONATE 31.3 MEQ/L (21.0-32.0); BLOOD UREA NITROGEN 36 MG/DL (7-18); CHLORIDE 99 MEQ/L (98-107); CREATININE 2.76 MG/DL (0.60-1.30); GLOMERULAR FILTRATION RATE 23 ML/MIN (>89); GLUCOSE,RANDOM 151 MG/DL (74-106); MAGNESIUM 2.1 MG/DL (1.5-2.5); PHOSPHORUS 3.3 MG/DL (2.5-4.9); SODIUM (NA) 137 MEQ/L (136-145)
[2017-12-31 07:38] LABS: ALKALINE PHOSPHATASE 85 U/L (45-117); AUTOMATED NEUTROPHIL # 2.9 TH/MM3 (1.8-7.7); EOSINOPHIL # 0.3 TH/MM3 (0-0.4); HEMATOCRIT 30.3 % (39.0-51.0); HEMOGLOBIN 10.3 GM/DL (13.0-17.0); LYMPH % 16.1 % (9.0-44.0); LYMPHOCYTE # 0.7 TH/MM3 (1.0-4.8); MEAN CELL VOLUME 98.1 FL (80.0-100.0); MEAN CORPUSCULAR HEMOGLOBIN 33.2 PG (27.0-34.0); MEAN CORPUSCULAR HGB CONC 33.9 % (32.0-36.0); MEAN PLATELET VOLUME 9.1 FL (7.0-11.0); MONO % 7.6 % (0.0-8.0); MONOCYTE # 0.3 TH/MM3 (0-0.9); NEUT % 67.3 % (16.0-70.0); PLATELET COUNT 103 TH/MM3 (150-450); RED BLOOD COUNT 3.09 MIL/MM3 (4.50-5.90); RED CELL DISTRIBUTION WIDTH 21.1 % (11.6-17.2); TOTAL BILIRUBIN ADULT 0.4 MG/DL (0.2-1.0); TOTAL PROTEIN 5.6 GM/DL (6.4-8.2); WHITE BLOOD COUNT 4.3 TH/MM3 (4.0-11.0)
[2017-12-31] MEDS: TRIAMCINOLONE ACETONIDE 0.1% OINT 15 GM TUBE TOPICAL SCH ×4 (09:00→20:01)
[2017-12-31] MEDS: DOCUSATE SODIUM 50 MG/SENNA 8.6 MG TAB PO SCH ×2 (09:07→20:01)
[2017-12-31] MEDS: CYANOCOBALAMIN 1,000 MCG TAB PO SCH (09:07)
[2017-12-31] MEDS: FOLIC ACID 1 MG TAB PO SCH (09:07)
[2017-12-31] MEDS: guaiFENesin E.R. 600 MG TAB PO SCH ×2 (09:07→19:47)
[2017-12-31] MEDS: CARVEDILOL 12.5 MG TAB PO SCH ×2 (09:07→19:47)
[2017-12-31] MEDS: PANTOPRAZOLE SOD 20 MG DELAYED RELEASE TAB PO SCH (09:07)
[2017-12-31] MEDS: ATORVASTATIN 40 MG TAB PO SCH (09:08)
[2017-12-31] MEDS: SODIUM CHLORIDE 0.9% FLUSH 10 ML FLUSH IV FLUSH SCH ×2 (09:10→20:01)
[2017-12-31] MEDS: FUROSEMIDE 20 MG/2 ML VIAL IV PUSH SCH ×2 (09:11→18:20)
--- NOTE | 2017-12-31 09:15 | PD.ONC.PN ---
Subjective Subjective Remarks Afebrile overnight. patient is in better spirits today. he states he doesn't have pain in his penis anymore. urine is orange now. Objective Data Date Time Temp Pulse Resp B/P (MAP) Pulse Ox O2 Delivery O2 Flow Rate FiO2 12/31/17 07:57 89 12/31/17 07:55 73 12/31/17 04:08 79 12/31/17 03:59 18 12/31/17 03:59 18 12/31/17 03:07 Nasal Cannula 4.00 12/31/17 03:01 98.0 73 16 149/65 (93) 95 12/31/17 00:03 97.7 76 16 140/65 (90) 99 12/31/17 00:01 82 12/30/17 23:00 Nasal Cannula 4.00 12/30/17 20:35 Nasal Cannula 4.00 12/30/17 20:31 98.5 96 22 148/65 (92) 95 12/30/17 20:10 97 Nasal Cannula 4.00 12/30/17 20:02 94 12/30/17 16:45 98.4 80 18 142/68 (92) 98 12/30/17 16:14 Nasal Cannula 3.00 12/30/17 16:03 92 12/30/17 12:30 81 12/30/17 12:00 98.2 78 18 138/64 (88) 95 12/30/17 11:08 Nasal Cannula 3.00 12/31/17 12/31/17 12/31/17 07:00 15:00 23:00 Output Total 6400 ml Balance -6400 ml Result Diagram: 12/31/1762512/31/17625 Laboratory Results Laboratory Tests Test 12/31/17 06:26 White Blood Count 4.3 TH/MM3 Red Blood Count 3.09 MIL/MM3 Hemoglobin 10.3 GM/DL Hematocrit 30.3 % Mean Corpuscular Volume 98.1 FL Mean Corpuscular Hemoglobin 33.2 PG Mean Corpuscular Hemoglobin Concent 33.9 % Red Cell Distribution Width 21.1 % Platelet Count 103 TH/MM3 Mean Platelet Volume 9.1 FL Neutrophils (%) (Auto) 67.3 % Lymphocytes (%) (Auto) 16.1 % Monocytes (%) (Auto) 7.6 % Eosinophils (%) (Auto) 8.0 % Basophils (%) (Auto) 1.0 % Neutrophils # (Auto) 2.9 TH/MM3 Lymphocytes # (Auto) 0.7 TH/MM3 Monocytes # (Auto) 0.3 TH/MM3 Eosinophils # (Auto) 0.3 TH/MM3 Basophils # (Auto) 0.0 TH/MM3 CBC Comment DIFF FINAL Differential Comment Blood Urea Nitrogen 36 MG/DL Creatinine 2.76 MG/DL Random Glucose 151 MG/DL Total Protein 5.6 GM/DL Albumin 2.0 GM/DL Calcium Level 8.0 MG/DL Phosphorus Level 3.3 MG/DL Magnesium Level 2.1 MG/DL Alkaline Phosphatase 85 U/L Aspartate Amino Transf (AST/SGOT) 26 U/L Alanine Aminotransferase (ALT/SGPT) 19 U/L Total Bilirubin 0.4 MG/DL Sodium Level 137 MEQ/L Potassium Level 3.4 MEQ/L Chloride Level 99 MEQ/L Carbon Dioxide Level 31.3 MEQ/L Anion Gap 7 MEQ/L Estimat Glomerular Filtration Rate 23 ML/MIN B-Type Natriuretic Peptide 1593 PG/ML Administered Medications Medications (Trade) Dose Ordered Sig/Richie Route PRN Reason Start Time Stop Time Status Last Admin Dose Admin Sodium Chloride (NS Flush) 2 ml BID IV FLUSH 12/23/17 21:00 12/31/17 09:10 Senna/Docusate Sodium (Chikis-Colace) 1 tab BID PO 12/23/17 21:00 12/31/17 09:07 Carvedilol (Coreg) 25 mg BID PO 12/23/17 21:00 12/31/17 09:07 Levothyroxine Sodium (Synthroid) 150 mcg MoWeFr@0600 PO 12/23/17 16:30 12/30/17 05:45 Triamcinolone Acetonide (Aristocort 0.1% Oint) 1 applic QID TOPICAL 12/23/17 18:00 12/31/17 09:00 Levothyroxine Sodium (Synthroid) 75 mcg SuTuThSa@0600 PO 12/24/17 06:00 12/31/17 06:16 Levothyroxine Sodium (Synthroid) 100 mcg SuTuThSa@0600 PO 12/24/17 06:00 12/31/17 06:16 Pantoprazole Sodium (Protonix) 20 mg DAILY PO 12/24/17 09:00 12/31/17 09:07 Atorvastatin Calcium (Lipitor) 40 mg DAILY PO 12/24/17 09:00 12/31/17 09:08 Belladonna Alkaloids/Opium (B & O Supp) 60 mg Q6H PRN RECTAL bladder spasm 12/23/17 18:00 12/25/17 18:14 Calcium Carbonate (Tums Chew) 500 mg Q2H PRN CHEW indigestion 12/24/17 23:45 12/26/17 20:02 Oxycodone/ Acetaminophen (Percocet 10-325 Mg) 1 tab Q6H PRN PO PAIN SCALE 6 TO 10 12/25/17 11:00 12/31/17 09:08 Morphine Sulfate (Morphine Inj) 4 mg Q3H PRN IV PUSH BREAKTHROUGH PAIN 12/25/17 11:00 12/31/17 03:40 Isosorbide Mononitrate (Imdur) 30 mg DAILY@07 PO 12/26/17 07:00 12/31/17 06:14 Cyanocobalamin (Vitamin B12 Inj) 1,000 mcg Q30D IM 12/25/17 15:00 12/25/17 14:45 Folic Acid (Folate) 1 mg DAILY PO 12/26/17 09:00 12/31/17 09:07 Cyanocobalamin (Vitamin B12) 1,000 mcg DAILY PO 12/26/17 09:00 12/31/17 09:07 Guaifenesin (Mucinex Er) 600 mg BID PO 12/26/17 21:00 12/31/17 09:07 Furosemide (Lasix Inj) 20 mg BID@0900,1800 IV PUSH 12/27/17 18:00 12/31/17 09:11 Aminocaproic Acid 3000 mg/Sodium Chloride 3,012 ml @ 0 mls/hr TITRATE IRRIGATION 12/29/17 11:15 12/31/17 03:39 Acetaminophen (Tylenol) 650 mg Q4H PRN PO SEE LABEL COMMENTS 12/29/17 11:45 12/29/17 17:00 Ampicillin Sodium/ Sulbactam Sodium 3 gm/Sodium Chloride 100 ml @ 200 mls/hr Q12H IV 12/30/17 18:00 12/31/17 06:16 Phenazopyridine HCl (Pyridium) 200 mg Q8HR PO 12/30/17 14:00 4/12/18 06:14 Objective Remarks GENERAL: Elderly male, upright in chair in nad. SKIN: Warm and dry. HEAD: Normocephalic. EYES: No injection or drainage. NECK: Supple, trachea midline. CARDIOVASCULAR: Regular rate and rhythm RESPIRATORY: anterior garcia clear GASTROINTESTINAL: Abdomen soft, non-tender, nondistended. : 3 way [address], draining light orange urine. EXTREMITIES: No cyanosis. ble with mild edema and rash. NEUROLOGICAL: awake, alert. normal speech. Assessment/Plan Problem List: (1) Pancytopenia ICD Codes: D61.818 - Other pancytopenia Status: Resolved Plan: --improving. --monitor and transfuse as needed ++partly due to Votrient-->Votrient was stopped about 3 weeks ago. ++significant anemia likely due to chronic kidney disease as well as chronic inflammatory disease. --given Epogen on 12/24 (2) Metastatic renal cell carcinoma ICD Codes: C64.9 - Malignant neoplasm of unspecified kidney, except renal pelvis Plan: --continue monitoring for now. History: --presented with bilateral renal cell carcinoma and had right nephrectomy in February 2010. 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 --had a biopsy of the left kidney mass, which also showed renal cell carcinoma. He started Votrient, with good response. The Votrient was held for awhile when he was receiving treatment for bladder cancer. --recently was found to have progression of disease and restarted Votrient at the end of 2014. CT scan done in early November which did not show clear evidence of progression of disease. The Votrient has been on hold since the urologic procedure. (3) Bladder cancer ICD Codes: C67.9 - Malignant neoplasm of urinary bladder Status: Acute Plan: -- Bladder invasive transitional cell carcinoma, treated with radiation and chemotherapy. --had another cystoscopy 3 weeks ago with biopsy which did not show any recurrent disease. Assessment 72y/o male with thrombocytopenia, anemia and history of metastatic renal cell cancer. h/o Congestive heart failure. Chronic obstructive pulmonary disease, oxygen dependent. Bladder cancer. Urethral stricture. Pancytopenia. Hypertension. Hypothyroidism. Hyperlipidemia. Gastroesophageal reflux disease. Osteoarthritis. Gout Plan 1. continue supportive care 2. monitor CBC 3. ok to d/c from hematology perspective when cleared by urology. Attending Statement The exam, history, and the medical decision-making described in the above note were completed with the assistance of the mid-level provider. I reviewed and agree with the findings presented. I attest that I had a [id number] encounter with the patient on the same day, and personally performed and documented my assessment and findings in the medical record. Feeling better. LE edema improved. Urine is now orange color. Hgb stable. Platelet stable 103. Continue supportive care. Can be d/c once clear by urology. Desire Samuels Dec 31, 2017 09:15 Ernesto Yousif MD Dec 31, 2017 15:54
--- NOTE | 2017-12-31 13:03 | HHI.PR ---
Subjective Remarks up in chair no complains of pain, nausea or vomiting gill draining grossly dark yellow urine per staff some small clots earlier Objective Vitals Vital Signs Date Time Temp Pulse Resp B/P (MAP) Pulse Ox O2 Delivery O2 Flow Rate FiO2 12/31/17 12:55 98.5 82 18 130/63 (85) 95 12/31/17 09:23 94 Nasal Cannula 4.00 12/31/17 09:19 97.6 82 20 119/69 (86) 94 12/31/17 07:57 89 12/31/17 07:55 73 12/31/17 04:08 79 12/31/17 03:59 18 12/31/17 03:59 18 12/31/17 03:07 Nasal Cannula 4.00 12/31/17 03:01 98.0 73 16 149/65 (93) 95 12/31/17 00:03 97.7 76 16 140/65 (90) 99 12/31/17 00:01 82 12/30/17 23:00 Nasal Cannula 4.00 12/30/17 20:35 Nasal Cannula 4.00 12/30/17 20:31 98.5 96 22 148/65 (92) 95 12/30/17 20:10 97 Nasal Cannula 4.00 12/30/17 20:02 94 12/30/17 16:45 98.4 80 18 142/68 (92) 98 12/30/17 16:14 Nasal Cannula 3.00 12/30/17 16:03 92 I/O 12/30/17 12/30/17 12/30/17 12/31/17 12/31/17 12/31/17 07:00 15:00 23:00 07:00 15:00 23:00 Intake Total 480 ml 1200 ml Output Total 7500 ml 1700 ml 6400 ml 950 ml Balance -7020 ml -500 ml -6400 ml -950 ml Intake Oral 480 ml 1200 ml Output Urine Total 7500 ml 1700 ml 6400 ml 950 ml # Bowel Movements 3 1 Result Diagram: 12/31/17 0626 12/31/17 0626 Imaging Last Impressions Renal Ultrasound 12/29/17 0000 Signed Impressions: Service Date/Time: Friday, December 29, 2017 13:34 - CONCLUSION: 1. Status post right nephrectomy with out sonographic evidence for gross mass in the nephrectomy bed. 2. Unremarkable sonographic appearance of the left kidney. No hydronephrosis. Elton Bo MD Chest X-Ray 12/26/17 0000 Signed Impressions: Service Date/Time: Tuesday, December 26, 2017 05:42 - CONCLUSION: Bilateral pulmonary opacity likely representing pulmonary edema, slightly increased from the comparison study. Adrian Black MD Objective Remarks awake and alert, no acute distress anicteric neck supple port- chest wall- no sings of infection no rales, decrease breath sounds bilateral regular rhythm abdomen soft, good bowel sounds + scrotal/penile edema- per patient feels better, decreased swelling ++ edema gill in place Procedures CBI BIPAP Urinary Catheter: Yes Assessment to: Continue Gill insert reason: Obstruction/Retention Date of Insertion: Dec 03, 2017 A/P Problem List: (1) Hematuria, gross ICD Code: R31.0 - Gross hematuria Status: Acute (2) Chronic kidney disease (CKD) ICD Code: N18.9 - Chronic kidney disease Status: Chronic (3) Acute exacerbation of CHF (congestive heart failure) ICD Code: I50.9 - Heart failure, unspecified Status: Acute (4) Acute renal failure ICD Code: N17.9 - Acute kidney failure, unspecified Assessment and Plan This is a 72-year-old male who was sent from his urologist office because of edema. Patient states that for the past 3 weeks he has developed bilateral lower extremity edema including his genitalia. He also complains of dyspnea on exertion. States he has been advised to increase fluid intake secondary to hematuria in his Gill catheter. He is compliant with salt restriction and has been taking Lasix daily. CHF exacerbation likely secondary to increased fluid intake. Continue diuresis with IV Lasix, CHF education, I/O and monitor weight. 1.5 L fluid restriction. Patient has chronic diastolic heart failure with 3+ pitting edema that is decreased and had elevated BNP on admission and history of pulmonary edema treated with Lasix and I's and O's = Echo- EF 60% Continue IV Lasix, bid fluid restrictions. Continue to monitor closely. = 12/25. Moderate aortic stenosis on echo. Recommended continued medical management //Chronic kidney disease stage IV with hyponatremia. S/P right nephrectomy - He is asymptomatic. Nonoliguric. Avoid nephrotoxins = Creatinine continues stable around previous baseline. - Nephrology ff //Pancytopenia on Votrient with worsening anemia secondary to acute blood loss from gross hematuria . keep hemoglobin at least 8 with history of CAD = Consult patient's oncologist for pancytopenia. Appreciate assistance. = 12/25. Oncology following. Appreciate assistance. //Chronic respiratory failure on nasal cannula, CHF and COPD. Continue oxygen keep saturations at least 92% //Hypokalemia. 3.3. Replace. Will replace again magnesium WNL //Gross hematuria //Sepsis //complex UTI- Klebsiella =with a history of metastatic renal cell carcinoma status post right radical nephrectomy with removal of tumor thrombus in September 2009. left renal cell carcinoma on chemotherapy Votrient and bladder cancer diagnosed over 2 years ago and received radiation and chemotherapy. Last November 30, 2017, he underwent cystoscopy and was noted to have urethral stricture status post urethrotomy. He also had a small bladder lesion was biopsied negative for malignancy. Since the procedure, patient has been having intermittent gross hematuria. Denies being on antiplatelets and anticoagulants. He was taken off Plavix 1 week before the procedure. Patient had a Gill exchanged by Dr. Huddleston today. He also has abnormal urinalysis suggestive of UTI and meets criteria for sepsis. Will start IV Zosyn. I will not be able to hydrate patient because of CHF exacerbation. Check blood cultures = 12/24. Sepsis Leukopenia, tachypnea, complicated UTI. - got Zosyn. 12/23- 12/29. Now On Unasyn. recheck UA - Continue bladder irrigation. d/w staff nurse- to taper off = 12/25. Hematuria improving. Urology following. Follow-up urine culture results. //Multiple medical conditions PAD, hypothyroidism, hypertension, hyperlipidemia , GERD, IBS, gout and osteoarthritis. Continue outpatient medications as appropriate HYPOKALEMIA REPLACE //DVT prophylaxis with SCD. Pharmacological prophylaxis held due to bleeding Discharge Planning Bladder irrigation We'll need hemoglobin stable Will need antibiotics for UTI Cardiology following for aortic stenosis recommend continue same Hematology and urology following Discharge Planning home with home health Problem Qualifiers (1) Chronic kidney disease (CKD): Qualified Codes: N18.3 - Chronic kidney disease, stage 3 (moderate) (2) Acute exacerbation of CHF (congestive heart failure): Qualified Codes: I50.9 - Heart failure, unspecified David Reyes MD Dec 31, 2017 13:03
[2017-12-31] MEDS ORDERED: POTASSIUM CHLORIDE 10 MEQ CONTROLLED RELEASE TAB PO ONE (14:30)
[2017-12-31] MEDS ORDERED: SODIUM CHLORIDE 0.9% FLUSH 10 ML FLUSH IV FLUSH PRN (16:00)
[2017-12-31 16:44] LABS: AMORPHOUS SEDIMENT, URINE RARE; BACTERIA, URINE RARE /hpf; BLOOD, URINE MOD (NEG); GLUCOSE,URINE NEG (NEG); KETONE, URINE NEG (NEG); NITRITE,URINE POS (NEG); URINE LEUKOCYTE ESTERASE TRACE (NEG)
[2017-12-31 16:46] LABS: BILIRUBIN, URINE NEG (NEG); URINE COLOR DARK-BROWN (YELLW/STRAW)
--- NOTE | 2017-12-31 18:41 | HHI.NPPN ---
Subjective History of Present Illness 72-year-old with metastatic renal cell cancer, acute renal failure, previous nephrectomy, hematuria on CBI Objective Data Data 12/31/17 01/01/18 19:00 07:00 Intake Total 3012 ml Output Total 3400 ml Balance -388 ml IV Total 3012 ml Output Urine Total 3400 ml # Bowel Movements 1 Vital Signs Date Time Temp Pulse Resp B/P (MAP) Pulse Ox O2 Delivery O2 Flow Rate FiO2 12/31/17 18:26 98.5 87 18 135/74 (94) 95 12/31/17 15:00 87 12/31/17 13:02 Nasal Cannula 4.00 12/31/17 12:55 98.5 82 18 130/63 (85) 95 12/31/17 12:00 87 12/31/17 09:23 94 Nasal Cannula 4.00 12/31/17 09:19 97.6 82 20 119/69 (86) 94 12/31/17 07:57 89 12/31/17 07:55 73 12/31/17 04:08 79 12/31/17 03:59 18 12/31/17 03:59 18 12/31/17 03:07 Nasal Cannula 4.00 12/31/17 03:01 98.0 73 16 149/65 (93) 95 12/31/17 00:03 97.7 76 16 140/65 (90) 99 12/31/17 00:01 82 12/30/17 23:00 Nasal Cannula 4.00 12/30/17 20:35 Nasal Cannula 4.00 12/30/17 20:31 98.5 96 22 148/65 (92) 95 12/30/17 20:10 97 Nasal Cannula 4.00 12/30/17 20:02 94 -: 12/31/17 0626 12/31/17 0626 Microbiology 12/31/17 Urine Culture, Received Pending Physical Exam General Appearance: Well Developed, Well Nourished Neck Neck Exam: Neck Supple Pulmonary Resp Exam: Decreased Bases Cardiology CV Exam: Tachycardia Gastrointestinal/Abdomen GI Exam: Soft, Non-Tender, Bowel Sounds Present Extremeties Extremities Exam: Moderate Edema Assessment/Plan Problem List: (1) Acute renal failure ICD Codes: N17.9 - Acute kidney failure, unspecified Plan: Patient is on Lasix 20 mg IV twice a day. follow CMP US for L kidney negative He is on bladder irrigation Hematuria stopped He has advanced metastatic renal cell cancer K replaced ARF improved (2) Metastatic renal cell carcinoma ICD Codes: C64.9 - Malignant neoplasm of unspecified kidney, except renal pelvis Plan: Treated by oncology (3) Hyponatremia ICD Codes: E87.1 - Hyponatremia Status: Acute Plan: Improved to 136 (4) Hematuria, gross ICD Codes: R31.0 - Gross hematuria Status: Acute Plan: On continuous bladder irrigation Noel Dykes MD Dec 31, 2017 18:41
[2018-01-01] VITALS (22 sets, daily range): BP systolic 132–163; BP diastolic 61–79; PULSE 70–98; RESP 16–24; TEMP 96.9–98.6; O2SAT 91–96
[2018-01-01] MEDS: MORPHINE SULFATE 2 MG/ML SYRINGE IV PUSH PRN ×2 (01:18→05:48)
[2018-01-01] MEDS: oxyCODONE/ACETAMINOPHEN 10 MG/325 MG TAB PO PRN ×4 (03:57→21:30)
[2018-01-01] MEDS: AMPICILLIN-SULBACTAM INJ 3 GM in SODIUM CHLORIDE 0.9% INJ 100 ML IV SCH (05:39)
[2018-01-01] MEDS: PHENAZOPYRIDINE HCL 200 MG TAB PO SCH ×2 (05:39→12:31)
[2018-01-01] MEDS: ISOSORBIDE MONONITRATE 30 MG CR TAB (IMDUR) PO SCH (05:39)
[2018-01-01] MEDS: LEVOTHYROXINE SODIUM 150 MCG TAB PO SCH (05:47)
[2018-01-01] MEDS: AMINOCAPROIC ACID INJ 3,000 MG in SODIUM CHLORIDE 0.9% IRR BAG 3,000 ML IRRIGATION SCH (05:55)
[2018-01-01] MEDS: FUROSEMIDE 20 MG/2 ML VIAL IV PUSH SCH (08:54)
[2018-01-01] MEDS: CARVEDILOL 12.5 MG TAB PO SCH ×2 (08:54→21:28)
[2018-01-01] MEDS: guaiFENesin E.R. 600 MG TAB PO SCH ×2 (08:54→21:27)
[2018-01-01] MEDS: ATORVASTATIN 40 MG TAB PO SCH (08:54)
[2018-01-01] MEDS: FOLIC ACID 1 MG TAB PO SCH (08:54)
[2018-01-01] MEDS: CYANOCOBALAMIN 1,000 MCG TAB PO SCH (08:55)
[2018-01-01] MEDS: PANTOPRAZOLE SOD 20 MG DELAYED RELEASE TAB PO SCH (08:55)
[2018-01-01] MEDS: DOCUSATE SODIUM 50 MG/SENNA 8.6 MG TAB PO SCH ×2 (09:00→21:00)
[2018-01-01] MEDS: SODIUM CHLORIDE 0.9% FLUSH 10 ML FLUSH IV FLUSH SCH ×2 (09:06→21:27)
[2018-01-01] MEDS: TRIAMCINOLONE ACETONIDE 0.1% OINT 15 GM TUBE TOPICAL SCH ×4 (09:20→21:00)
[2018-01-01] MEDS ORDERED: LEVOFLOXACIN 250 MG TAB PO SCH (10:30)
--- NOTE | 2018-01-01 10:42 | HHI.PR ---
Subjective Remarks awake and alert no complains gill draining- grossly clear urine off CBI since yesterday Objective Vitals Vital Signs Date Time Temp Pulse Resp B/P (MAP) Pulse Ox O2 Delivery O2 Flow Rate FiO2 01/01/18 08:15 81 01/01/18 07:48 97.4 81 24 153/65 (94) 94 01/01/18 07:24 81 01/01/18 07:24 Nasal Cannula 4.00 97 01/01/18 06:00 82 01/01/18 05:00 76 01/01/18 05:00 76 01/01/18 04:00 96.9 79 16 153/74 (100) 95 01/01/18 04:00 76 01/01/18 04:00 72 01/01/18 04:00 95 Nasal Cannula 4.00 01/01/18 03:00 70 01/01/18 02:00 76 01/01/18 01:00 80 01/01/18 00:21 95 4.00 01/01/18 00:20 98.5 78 16 139/65 (89) 95 01/01/18 00:00 78 01/01/18 00:00 76 12/31/17 23:00 88 12/31/17 22:00 88 12/31/17 21:00 94 12/31/17 20:00 90 12/31/17 20:00 98.8 94 18 157/71 (99) 92 12/31/17 20:00 92 Nasal Cannula 4.00 12/31/17 20:00 92 12/31/17 19:00 88 12/31/17 18:26 98.5 87 18 135/74 (94) 95 12/31/17 16:00 Nasal Cannula 4.00 12/31/17 15:00 87 12/31/17 13:02 Nasal Cannula 4.00 12/31/17 12:55 98.5 82 18 130/63 (85) 95 12/31/17 12:00 87 I/O 12/31/17 12/31/17 12/31/17 01/01/18 01/01/18 01/01/18 07:00 15:00 23:00 07:00 15:00 23:00 Intake Total 3012 ml 100 ml 3820 ml Output Total 6400 ml 950 ml 2450 ml 2200 ml Balance -6400 ml 2062 ml -2350 ml 1620 ml Intake Oral 720 ml IV Total 3012 ml 100 ml 3100 ml Output Urine Total 6400 ml 950 ml 2450 ml 2200 ml # Bowel Movements 1 2 1 Result Diagram: 12/31/17 0626 12/31/17 0626 Imaging Last Impressions Renal Ultrasound 12/29/17 0000 Signed Impressions: Service Date/Time: Friday, December 29, 2017 13:34 - CONCLUSION: 1. Status post right nephrectomy with out sonographic evidence for gross mass in the nephrectomy bed. 2. Unremarkable sonographic appearance of the left kidney. No hydronephrosis. Elton Bo MD Chest X-Ray 12/26/17 0000 Signed Impressions: Service Date/Time: Tuesday, December 26, 2017 05:42 - CONCLUSION: Bilateral pulmonary opacity likely representing pulmonary edema, slightly increased from the comparison study. Adrian Black MD Objective Remarks awake and alert, no acute distress anicteric neck supple port- chest wall- no sings of infection no rales, decrease breath sounds bilateral regular rhythm abdomen soft, good bowel sounds + scrotal/penile edema- per patient feels better, decreased swelling- improving + edema gill in place Procedures CBI BIPAP Assessment to: Continue Gill insert reason: Obstruction/Retention Date of Insertion: Dec 03, 2017 A/P Problem List: (1) Hematuria, gross ICD Code: R31.0 - Gross hematuria Status: Acute (2) Chronic kidney disease (CKD) ICD Code: N18.9 - Chronic kidney disease Status: Chronic (3) Acute exacerbation of CHF (congestive heart failure) ICD Code: I50.9 - Heart failure, unspecified Status: Acute (4) Acute renal failure ICD Code: N17.9 - Acute kidney failure, unspecified Assessment and Plan This is a 72-year-old male who was sent from his urologist office because of edema. Patient states that for the past 3 weeks he has developed bilateral lower extremity edema including his genitalia. He also complains of dyspnea on exertion. States he has been advised to increase fluid intake secondary to hematuria in his Gill catheter. He is compliant with salt restriction and has been taking Lasix daily. CHF exacerbation likely secondary to increased fluid intake. Continue diuresis with IV Lasix, CHF education, I/O and monitor weight. 1.5 L fluid restriction. Patient has chronic diastolic heart failure with 3+ pitting edema that is decreased and had elevated BNP on admission and history of pulmonary edema treated with Lasix and I's and O's = Echo- EF 60% = 12/25. Moderate aortic stenosis on echo. Recommended continued medical management - change to po Lasix Gross hematuria - improving =with a history of metastatic renal cell carcinoma status post right radical nephrectomy with removal of tumor thrombus in September 2009. left renal cell carcinoma on chemotherapy Votrient and bladder cancer diagnosed over 2 years ago and received radiation and chemotherapy. Last November 30, 2017, he underwent cystoscopy and was noted to have urethral stricture status post urethrotomy. He also had a small bladder lesion was biopsied negative for malignancy. Since the procedure, patient has been having intermittent gross hematuria. Denies being on antiplatelets and anticoagulants. He was taken off Plavix 1 week before the procedure. Patient had a Gill exchanged by Dr. Huddleston Sepsis secondary to complicated UTI. - got Zosyn. 12/23- 12/29. Now On Unasyn. repeat C and s pending - Continue bladder irrigation. d/w staff nurse- to taper off - on Unasyn q 12 - will dc and change to po antibiotics - change to po levaquin 250 mg po daily-- DC- + allergy listed to ciprofloxacin - per patient swelling - get ID consult for recommendation for po antibiotics //Chronic kidney disease stage IV S/P right nephrectomy - He is asymptomatic. Nonoliguric. Avoid nephrotoxins = Creatinine continues stable around previous baseline. - Nephrology ff //Pancytopenia on Votrient with worsening anemia secondary to acute blood loss from gross hematuria . keep hemoglobin at least 8 with history of CAD = Consult patient's oncologist for pancytopenia. Appreciate assistance. = 12/25. Oncology following. Appreciate assistance. //Chronic respiratory failure on nasal cannula, CHF and COPD. Continue oxygen keep saturations at least 92% //Hypokalemia. 3.3. Replace. recheck this am //Multiple medical conditions PAD, hypothyroidism, hypertension, hyperlipidemia , GERD, IBS, gout and osteoarthritis. Continue outpatient medications as appropriate //DVT prophylaxis with SCD. Pharmacological prophylaxis held due to bleeding Discharge Planning - SBF ideally but patient refused- agrees - she picked out SNF choice We'll need hemoglobin stable Will need antibiotics for UTI Cardiology following for aortic stenosis recommend continue same Hematology and urology following home with home health Problem Qualifiers (1) Chronic kidney disease (CKD): Qualified Codes: N18.3 - Chronic kidney disease, stage 3 (moderate) (2) Acute exacerbation of CHF (congestive heart failure): Qualified Codes: I50.9 - Heart failure, unspecified David Reyes MD Jan 01, 2018 10:42
[2018-01-01 12:06] LABS: BICARBONATE 34.9 MEQ/L (21.0-32.0); CALCIUM 8.6 MG/DL (8.5-10.1); CREATININE 2.8 MG/DL (0.60-1.30)
--- NOTE | 2018-01-01 12:39 | HHI.PR ---
Subjective Patient symptoms today Sitting up in chair and sleeping. Objective Vital Signs Vital Signs Date Time Temp Pulse Resp B/P (MAP) Pulse Ox O2 Delivery O2 Flow Rate FiO2 01/01/18 11:30 98.6 85 16 132/61 (84) 96 01/01/18 08:15 81 01/01/18 07:48 97.4 81 24 153/65 (94) 94 01/01/18 07:24 81 01/01/18 07:24 Nasal Cannula 4.00 97 01/01/18 06:00 82 01/01/18 05:00 76 01/01/18 05:00 76 01/01/18 04:00 96.9 79 16 153/74 (100) 95 01/01/18 04:00 76 01/01/18 04:00 72 01/01/18 04:00 95 Nasal Cannula 4.00 01/01/18 03:00 70 01/01/18 02:00 76 01/01/18 01:00 80 01/01/18 00:21 95 4.00 01/01/18 00:20 98.5 78 16 139/65 (89) 95 01/01/18 00:00 78 01/01/18 00:00 76 12/31/17 23:00 88 12/31/17 22:00 88 12/31/17 21:00 94 12/31/17 20:00 90 12/31/17 20:00 98.8 94 18 157/71 (99) 92 12/31/17 20:00 92 Nasal Cannula 4.00 12/31/17 20:00 92 12/31/17 19:00 88 12/31/17 18:26 98.5 87 18 135/74 (94) 95 12/31/17 16:00 Nasal Cannula 4.00 12/31/17 15:00 87 12/31/17 13:02 Nasal Cannula 4.00 12/31/17 12:55 98.5 82 18 130/63 (85) 95 Intake & Output 01/01/18 01/01/18 06:59 18:59 Intake Total 3920 ml Output Total 2200 ml Balance 1720 ml Intake Oral 720 ml IV Total 3200 ml Output Urine Total 2200 ml # Bowel Movements 2 1 Result Diagram: 12/31/17 0626 01/01/18 1126 Objective Remarks Blas catheter draining yellow urine. Bladder not distended Medications and IVs Current Medications Medications (Trade) Dose Ordered Sig/Richie Route Start Time Stop Time Status Last Admin (NS Flush) 2 ml UNSCH PRN IV FLUSH 12/23/17 14:30 (NS Flush) 2 ml BID IV FLUSH 12/23/17 21:00 01/01/18 09:06 (Tylenol) 650 mg Q4H PRN PO 12/23/17 14:30 (Zofran Inj) 4 mg Q6H PRN IVP 12/23/17 14:30 (Tylenol) 650 mg Q6H PRN PO 12/23/17 14:30 (Chikis-Colace) 1 tab BID PO 12/23/17 21:00 12/31/17 09:07 (Senokot) 17.2 mg Q12H PRN PO 12/23/17 14:30 (Dulcolax Supp) 10 mg DAILY PRN RECTAL 12/23/17 14:30 (Lactulose Liq) 30 ml DAILY PRN PO 12/23/17 14:30 (Coreg) 25 mg BID PO 12/23/17 21:00 01/01/18 08:54 (Lomotil Tab) 1 tab Q6H PRN PO 12/23/17 14:30 (Synthroid) 150 mcg MoWeFr@0600 PO 12/23/17 16:30 01/01/18 05:47 (Aristocort 0.1% Oint) 1 applic QID TOPICAL 12/23/17 18:00 01/01/18 12:31 (Synthroid) 75 mcg SuTuThSa@0600 PO 12/24/17 06:00 12/31/17 06:16 (Synthroid) 100 mcg SuTuThSa@0600 PO 12/24/17 06:00 12/31/17 06:16 Patient Own Medication PT OWN MED: MYRBET... DAILY PO 12/24/17 09:00 Future Hold (Protonix) 20 mg DAILY PO 12/24/17 09:00 01/01/18 08:55 (Lipitor) 40 mg DAILY PO 12/24/17 09:00 01/01/18 08:54 Patient Own Medication PT OWN MED: STIOLTO RESPIMAT--... DAILY INH 12/24/17 09:00 Future Hold (B & O Supp) 60 mg Q6H PRN RECTAL 12/23/17 18:00 12/25/17 18:14 (Tums Chew) 500 mg Q2H PRN CHEW 12/24/17 23:45 12/26/17 20:02 (Percocet 5-325 Mg) 1 tab Q6H PRN PO 12/25/17 11:00 (Percocet 10-325 Mg) 1 tab Q6H PRN PO 12/25/17 11:00 01/01/18 12:30 (Narcan Inj) 0.4 mg UNSCH PRN IV PUSH 12/25/17 10:15 (Imdur) 30 mg DAILY@07 PO 12/26/17 07:00 01/01/18 05:39 (Vitamin B12 Inj) 1,000 mcg Q30D IM 12/25/17 15:00 12/25/17 14:45 (Folate) 1 mg DAILY PO 12/26/17 09:00 01/01/18 08:54 (Vitamin B12) 1,000 mcg DAILY PO 12/26/17 09:00 01/01/18 08:55 (Duoneb Neb) 1 ampule Q4HR NEB PRN NEB 12/26/17 05:45 (Mucinex Er) 600 mg BID PO 12/26/17 21:00 01/01/18 08:54 Aminocaproic Acid 3000 mg/Sodium Chloride 3,012 ml @ 0 mls/hr TITRATE IRRIGATION 12/29/17 11:15 01/01/18 05:55 (Tylenol) 650 mg Q4H PRN PO 12/29/17 11:45 12/29/17 17:00 (Benadryl) 25 mg Q4H PRN PO 12/29/17 11:45 (Pyridium) 200 mg Q8HR PO 12/30/17 14:00 01/01/18 15:00 01/01/18 12:31 (NS Flush) 5 ml UNSCH PRN IV FLUSH 12/31/17 16:00 (Heparin Central Flush) 250 units UNSCH PRN IV FLUSH 12/31/17 16:00 01/01/18 06:46 (Heparin Central Flush) 500 units UNSCH IV FLUSH 12/31/17 16:00 01/01/18 08:57 (Levaquin) 250 mg DAILY PO 01/01/18 10:30 UNV (Lasix) 20 mg BID@,18 PO 01/01/18 18:00 Assessment and Plan Assessment and Plan Urologic impression: 1. History metastatic renal CA being followed by oncology 2. History bladder cancer status post chemo and radiation therapy 3. Status post recent direct visual internal urethrotomy of urethral stricture and bladder biopsy which was negative 4. Resolved gross hematuria Recommendations: 1. Okay to DC Blas catheter tomorrow if urine remains yellow in appearance 2. Continue with Pyridium for bladder spasm/penile pain as needed 3. Urologically stable for discharge 4. Will be out of town for the next 10 days, please contact my office with any questions [phone]. Richie Vallejo MD Jan 01, 2018 12:39
--- NOTE | 2018-01-01 13:16 | HHI.NPPN ---
Subjective History of Present Illness 72-year-old with metastatic renal cell cancer, acute renal failure, previous nephrectomy, hematuria on CBI Objective Data Data 01/01/18 01/02/18 19:00 07:00 # Bowel Movements 1 Vital Signs Date Time Temp Pulse Resp B/P (MAP) Pulse Ox O2 Delivery O2 Flow Rate FiO2 01/01/18 11:30 98.6 85 16 132/61 (84) 96 01/01/18 08:15 81 01/01/18 07:48 97.4 81 24 153/65 (94) 94 01/01/18 07:24 81 01/01/18 07:24 Nasal Cannula 4.00 97 01/01/18 06:00 82 01/01/18 05:00 76 01/01/18 05:00 76 01/01/18 04:00 96.9 79 16 153/74 (100) 95 01/01/18 04:00 76 01/01/18 04:00 72 01/01/18 04:00 95 Nasal Cannula 4.00 01/01/18 03:00 70 01/01/18 02:00 76 01/01/18 01:00 80 01/01/18 00:21 95 4.00 01/01/18 00:20 98.5 78 16 139/65 (89) 95 01/01/18 00:00 78 01/01/18 00:00 76 12/31/17 23:00 88 12/31/17 22:00 88 12/31/17 21:00 94 12/31/17 20:00 90 12/31/17 20:00 98.8 94 18 157/71 (99) 92 12/31/17 20:00 92 Nasal Cannula 4.00 12/31/17 20:00 92 12/31/17 19:00 88 12/31/17 18:26 98.5 87 18 135/74 (94) 95 12/31/17 16:00 Nasal Cannula 4.00 12/31/17 15:00 87 -: 12/31/17 0626 01/01/18 1126 Microbiology 12/31/17 Urine Culture - Preliminary, Resulted NO GROWTH IN 24 HOURS. Physical Exam General Appearance: Well Developed, Well Nourished Neck Neck Exam: Neck Supple Pulmonary Resp Exam: Decreased Bases Cardiology CV Exam: Tachycardia Gastrointestinal/Abdomen GI Exam: Soft, Non-Tender, Bowel Sounds Present Extremeties Extremities Exam: Moderate Edema Assessment/Plan Problem List: (1) Acute renal failure ICD Codes: N17.9 - Acute kidney failure, unspecified Plan: Patient is on Lasix 20 mg IV twice a day. follow CMP US for L kidney negative He is on bladder irrigation Hematuria stopped He has advanced metastatic renal cell cancer Renal functions remained stable creatinine 2.8 CBI to be discontinued tomorrow Follow up BMP (2) Metastatic renal cell carcinoma ICD Codes: C64.9 - Malignant neoplasm of unspecified kidney, except renal pelvis Plan: Treated by oncology (3) Hyponatremia ICD Codes: E87.1 - Hyponatremia Status: Acute Plan: Improved to 136 (4) Hematuria, gross ICD Codes: R31.0 - Gross hematuria Status: Acute Plan: On continuous bladder irrigation Noel Dykes MD Jan 01, 2018 13:16
--- NOTE | 2018-01-01 14:57 | PD.ONC.PN ---
Subjective Subjective Remarks Afebrile overnight. Patient reporting he does not want to go home with gill catheter in place. per nurse, when she stops his CBI, his urine becomes bloody again. she has not be able to stop it for more than a period of a few hours. Objective Data Date Time Temp Pulse Resp B/P (MAP) Pulse Ox O2 Delivery O2 Flow Rate FiO2 01/01/18 11:30 98.6 85 16 132/61 (84) 96 01/01/18 08:15 81 01/01/18 07:48 97.4 81 24 153/65 (94) 94 01/01/18 07:24 81 01/01/18 07:24 Nasal Cannula 4.00 97 01/01/18 06:00 82 01/01/18 05:00 76 01/01/18 05:00 76 01/01/18 04:00 96.9 79 16 153/74 (100) 95 01/01/18 04:00 76 01/01/18 04:00 72 01/01/18 04:00 95 Nasal Cannula 4.00 01/01/18 03:00 70 01/01/18 02:00 76 01/01/18 01:00 80 01/01/18 00:21 95 4.00 01/01/18 00:20 98.5 78 16 139/65 (89) 95 01/01/18 00:00 78 01/01/18 00:00 76 12/31/17 23:00 88 12/31/17 22:00 88 12/31/17 21:00 94 12/31/17 20:00 90 12/31/17 20:00 98.8 94 18 157/71 (99) 92 12/31/17 20:00 92 Nasal Cannula 4.00 12/31/17 20:00 92 12/31/17 19:00 88 12/31/17 18:26 98.5 87 18 135/74 (94) 95 12/31/17 16:00 Nasal Cannula 4.00 12/31/17 15:00 87 01/01/18 01/01/18 01/01/18 07:00 15:00 23:00 Intake Total 3820 ml Output Total 2200 ml Balance 1620 ml Result Diagram: 12/31/17 0626 01/01/18 1126 Laboratory Results Laboratory Tests Test 12/31/17 15:40 4/13/18 11:26 Urine Color DARK-BROWN Urine Turbidity CLEAR Urine pH 6.0 Urine Specific Leblanc 1.013 Urine Protein 100 mg/dL Urine Glucose (UA) NEG mg/dL Urine Ketones NEG mg/dL Urine Occult Blood MOD Urine Nitrite POS Urine Bilirubin NEG Urine Urobilinogen 2.0 MG/DL Urine Leukocyte Esterase TRACE Urine RBC /hpf Urine WBC 117 /hpf Urine Amorphous Sediment RARE Urine Bacteria RARE /hpf Microscopic Urinalysis Comment CATH-CULTURE IND Blood Urea Nitrogen 39 MG/DL Creatinine 2.80 MG/DL Random Glucose 170 MG/DL Calcium Level 8.6 MG/DL Sodium Level 135 MEQ/L Potassium Level 3.6 MEQ/L Chloride Level 97 MEQ/L Carbon Dioxide Level 34.9 MEQ/L Anion Gap 3 MEQ/L Estimat Glomerular Filtration Rate 22 ML/MIN Culture Results Microbiology Date/Time Source Procedure Growth Status 12/31/17 15:40 Urine Catheterized Urine Urine Culture - Preliminary NO GROWTH IN 24 HOURS. Resulted Administered Medications Medications (Trade) Dose Ordered Sig/Richie Route PRN Reason Start Time Stop Time Status Last Admin Dose Admin Sodium Chloride (NS Flush) 2 ml BID IV FLUSH 12/23/17 21:00 01/01/18 09:06 Senna/Docusate Sodium (Chikis-Colace) 1 tab BID PO 12/23/17 21:00 12/31/17 09:07 Carvedilol (Coreg) 25 mg BID PO 12/23/17 21:00 01/01/18 08:54 Levothyroxine Sodium (Synthroid) 150 mcg MoWeFr@0600 PO 12/23/17 16:30 01/01/18 05:47 Triamcinolone Acetonide (Aristocort 0.1% Oint) 1 applic QID TOPICAL 12/23/17 18:00 01/01/18 12:31 Levothyroxine Sodium (Synthroid) 75 mcg SuTuThSa@0600 PO 12/24/17 06:00 12/31/17 06:16 Levothyroxine Sodium (Synthroid) 100 mcg SuTuThSa@0600 PO 12/24/17 06:00 12/31/17 06:16 Pantoprazole Sodium (Protonix) 20 mg DAILY PO 12/24/17 09:00 01/01/18 08:55 Atorvastatin Calcium (Lipitor) 40 mg DAILY PO 12/24/17 09:00 01/01/18 08:54 Belladonna Alkaloids/Opium (B & O Supp) 60 mg Q6H PRN RECTAL bladder spasm 12/23/17 18:00 12/25/17 18:14 Calcium Carbonate (Tums Chew) 500 mg Q2H PRN CHEW indigestion 12/24/17 23:45 12/26/17 20:02 Oxycodone/ Acetaminophen (Percocet 10-325 Mg) 1 tab Q6H PRN PO PAIN SCALE 6 TO 10 12/25/17 11:00 01/01/18 12:30 Isosorbide Mononitrate (Imdur) 30 mg DAILY@07 PO 12/26/17 07:00 01/01/18 05:39 Cyanocobalamin (Vitamin B12 Inj) 1,000 mcg Q30D IM 12/25/17 15:00 12/25/17 14:45 Folic Acid (Folate) 1 mg DAILY PO 12/26/17 09:00 01/01/18 08:54 Cyanocobalamin (Vitamin B12) 1,000 mcg DAILY PO 12/26/17 09:00 01/01/18 08:55 Guaifenesin (Mucinex Er) 600 mg BID PO 12/26/17 21:00 01/01/18 08:54 Aminocaproic Acid 3000 mg/Sodium Chloride 3,012 ml @ 0 mls/hr TITRATE IRRIGATION 12/29/17 11:15 01/01/18 05:55 Acetaminophen (Tylenol) 650 mg Q4H PRN PO SEE LABEL COMMENTS 12/29/17 11:45 12/29/17 17:00 Phenazopyridine HCl (Pyridium) 200 mg Q8HR PO 12/30/17 14:00 01/01/18 15:00 01/01/18 12:31 Heparin Sodium (Porcine) (Heparin Central Flush) 250 units UNSCH PRN IV FLUSH SEE PROTOCOL TABLE 12/31/17 16:00 01/01/18 06:46 Heparin Sodium (Porcine) (Heparin Central Flush) 500 units UNSCH IV FLUSH 12/31/17 16:00 01/01/18 08:57 Objective Remarks GENERAL: Elderly male, sitting up in chair. SKIN: Warm and dry. HEAD: Normocephalic. EYES: No injection or drainage. NECK: Supple, trachea midline. CARDIOVASCULAR: Regular rate and rhythm RESPIRATORY: anterior garcia clear GASTROINTESTINAL: Abdomen soft, non-tender, nondistended. : gill draining light red urine. EXTREMITIES: No cyanosis. lower extremities with mild edema. NEUROLOGICAL: no obvious focal deficit. Assessment/Plan Problem List: (1) Pancytopenia ICD Codes: D61.818 - Other pancytopenia Status: Resolved Plan: --improving. --monitor and transfuse as needed ++partly due to Votrient-->Votrient was stopped about 3 weeks ago. ++significant anemia likely due to chronic kidney disease as well as chronic inflammatory disease. --given Epogen on 12/24 (2) Metastatic renal cell carcinoma ICD Codes: C64.9 - Malignant neoplasm of unspecified kidney, except renal pelvis Plan: --continue monitoring for now. History: --presented with bilateral renal cell carcinoma and had right nephrectomy in February 2010. 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 --had a biopsy of the left kidney mass, which also showed renal cell carcinoma. He started Votrient, with good response. The Votrient was held for awhile when he was receiving treatment for bladder cancer. --recently was found to have progression of disease and restarted Votrient at the end of 2014. CT scan done in early November which did not show clear evidence of progression of disease. The Votrient has been on hold since the urologic procedure. (3) Bladder cancer ICD Codes: C67.9 - Malignant neoplasm of urinary bladder Status: Acute Plan: -- Bladder invasive transitional cell carcinoma, treated with radiation and chemotherapy. --had another cystoscopy 3 weeks ago with biopsy which did not show any recurrent disease. Assessment 72y/o male with thrombocytopenia, anemia and history of metastatic renal cell cancer. h/o Congestive heart failure. Chronic obstructive pulmonary disease, oxygen dependent. Bladder cancer. Urethral stricture. Pancytopenia. Hypertension. Hypothyroidism. Hyperlipidemia. Gastroesophageal reflux disease. Osteoarthritis. Gout Plan 1. oncology clear for discharge when cleared by urology 2. monitor H/H Attending Statement The exam, history, and the medical decision-making described in the above note were completed with the assistance of the mid-level provider. I reviewed and agree with the findings presented. I attest that I had a [id number] encounter with the patient on the same day, and personally performed and documented my assessment and findings in the medical record. Urine was orange in color this am. LE edema stable. Continue to hold Votrient. Can be d/c once clear by urology. Desire Samuels Jan 01, 2018 14:57 Ernesto Yousif MD Jan 01, 2018 15:04
--- NOTE | 2018-01-01 15:38 | PD.CONS ---
History of Present Illness Service Infectious disease Consult Requested By Dr Juan Reyes Reason for Consult Evaluate patient with UTI, make recommendation on antibiotics Primary Care Physician Nicolas Fuller DO Diagnoses: History of Present Illness Patient seen and examined. Records reviewed. Patient is a 72-year-old male, presented to the hospital after he was seen by his urologist. He has known metastatic renal cell carcinoma and has had previous radical nephrectomy. 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 Around November 30 he underwent cystoscopy and at that time he was found urethral stricture. He underwent urethrotomy, and since that time he has had problem with intermittent gross hematuria. Patient also in the last 3 weeks has been having problem with bilateral lower extremity edema as well as swelling in his genitalia. He apparently has been compliant with his diet, and he has been getting Lasix. Patient also has been getting more shortness of breath. He has not had any fever chills or sweats. Denies any congestion or any coughing. Patient since admission has been started on CBI, as well as medication with aminocaproic acid. His creatinine has been elevated. His chest x-ray showed pulmonary edema. His urinalysis showed evidence of UTI, and the culture grew Klebsiella and enterococcus. Patient has been on IV Unasyn. His hematuria has improved, and patient is being switched to oral antibiotics. Infectious disease consultation has been requested to make recommendation on antibiotic. Patient has not been febrile. His CBI is currently on hold, and his urine currently in his Gill cath shows very dark urine with no gross hematuria. His breathing is better. However he is still complaining of significant swelling in both lower extremities. Review of Systems Constitutional: COMPLAINS OF: Weight gain, DENIES: Fever, Chills Eyes: DENIES: Eye pain Ears, nose, mouth, throat: DENIES: Nasal discharge, Oral lesions, Throat pain, Sinus Pain Respiratory: COMPLAINS OF: Shortness of breath, DENIES: Cough, Sputum production Cardiovascular: COMPLAINS OF: Dyspnea on Exertion, Lower Extremity Edema, Orthopnea, DENIES: Chest pain, Palpitations Gastrointestinal: DENIES: Abdominal pain, Diarrhea, Nausea, Vomiting, Difficulty Swallowing Genitourinary: COMPLAINS OF: Hematuria Musculoskeletal: COMPLAINS OF: Joint Swelling Integumentary: COMPLAINS OF: Rash Neurologic: DENIES: Localized weakness Psychiatric: DENIES: Hallucinations Past Family Social History Allergies: Coded Allergies: ciprofloxacin (Verified Allergy, Severe, Swelling, 12/23/17) Past Medical History Renal Cell CA, previous nephrectomy, now with mets Bladder CA Pancytopenia secondary to chemotherapy (Votrient) Hypothyroidism Hypertension CHF COPD Hyperlipidemia GERD IBS Gout Osteoarthritis Past Surgical History R nephrectomy Multiple cystoscopy Tonsillectomy Facial plastic surgery Port placement Urethrotomy CABG Active Ordered Medications Current Medications Medications (Trade) Dose Ordered Sig/Richie Route Start Time Stop Time Status Last Admin (NS Flush) 2 ml UNSCH PRN IV FLUSH 12/23/17 14:30 (NS Flush) 2 ml BID IV FLUSH 12/23/17 21:00 01/01/18 09:06 (Tylenol) 650 mg Q4H PRN PO 12/23/17 14:30 (Zofran Inj) 4 mg Q6H PRN IVP 12/23/17 14:30 (Tylenol) 650 mg Q6H PRN PO 12/23/17 14:30 (Chikis-Colace) 1 tab BID PO 12/23/17 21:00 12/31/17 09:07 (Senokot) 17.2 mg Q12H PRN PO 12/23/17 14:30 (Dulcolax Supp) 10 mg DAILY PRN RECTAL 12/23/17 14:30 (Lactulose Liq) 30 ml DAILY PRN PO 12/23/17 14:30 (Coreg) 25 mg BID PO 12/23/17 21:00 01/01/18 08:54 (Lomotil Tab) 1 tab Q6H PRN PO 12/23/17 14:30 (Synthroid) 150 mcg MoWeFr@0600 PO 12/23/17 16:30 01/01/18 05:47 (Aristocort 0.1% Oint) 1 applic QID TOPICAL 12/23/17 18:00 01/01/18 12:31 (Synthroid) 75 mcg SuTuThSa@0600 PO 12/24/17 06:00 12/31/17 06:16 (Synthroid) 100 mcg SuTuThSa@0600 PO 12/24/17 06:00 12/31/17 06:16 Patient Own Medication PT OWN MED: MYRBET... DAILY PO 12/24/17 09:00 Future Hold (Protonix) 20 mg DAILY PO 12/24/17 09:00 01/01/18 08:55 (Lipitor) 40 mg DAILY PO 12/24/17 09:00 01/01/18 08:54 Patient Own Medication PT OWN MED: STIOLTO RESPIMAT--... DAILY INH 12/24/17 09:00 Future Hold (B & O Supp) 60 mg Q6H PRN RECTAL 12/23/17 18:00 12/25/17 18:14 (Tums Chew) 500 mg Q2H PRN CHEW 12/24/17 23:45 12/26/17 20:02 (Percocet 5-325 Mg) 1 tab Q6H PRN PO 12/25/17 11:00 (Percocet 10-325 Mg) 1 tab Q6H PRN PO 12/25/17 11:00 01/01/18 12:30 (Narcan Inj) 0.4 mg UNSCH PRN IV PUSH 12/25/17 10:15 (Imdur) 30 mg DAILY@07 PO 12/26/17 07:00 01/01/18 05:39 (Vitamin B12 Inj) 1,000 mcg Q30D IM 12/25/17 15:00 12/25/17 14:45 (Folate) 1 mg DAILY PO 12/26/17 09:00 01/01/18 08:54 (Vitamin B12) 1,000 mcg DAILY PO 12/26/17 09:00 01/01/18 08:55 (Duoneb Neb) 1 ampule Q4HR NEB PRN NEB 12/26/17 05:45 (Mucinex Er) 600 mg BID PO 12/26/17 21:00 01/01/18 08:54 Aminocaproic Acid 3000 mg/Sodium Chloride 3,012 ml @ 0 mls/hr TITRATE IRRIGATION 12/29/17 11:15 01/01/18 05:55 (Tylenol) 650 mg Q4H PRN PO 12/29/17 11:45 12/29/17 17:00 (Benadryl) 25 mg Q4H PRN PO 12/29/17 11:45 (NS Flush) 5 ml UNSCH PRN IV FLUSH 12/31/17 16:00 (Heparin Central Flush) 250 units UNSCH PRN IV FLUSH 12/31/17 16:00 01/01/18 06:46 (Heparin Central Flush) 500 units UNSCH IV FLUSH 12/31/17 16:00 01/01/18 08:57 (Levaquin) 250 mg DAILY PO 01/01/18 10:30 UNV (Lasix) 20 mg BID@09,18 PO 01/01/18 18:00 (Augmentin) 500 mg Q12HR PO 01/01/18 21:00 01/08/18 20:59 UNV Family History Non-contributory Social History Ex smoker No recent ETOH No illicit drug use Physical Exam Vital Signs Vital Signs Date Time Temp Pulse Resp B/P (MAP) Pulse Ox O2 Delivery O2 Flow Rate FiO2 01/01/18 11:30 98.6 85 16 132/61 (84) 96 01/01/18 08:15 81 01/01/18 07:48 97.4 81 24 153/65 (94) 94 01/01/18 07:24 81 01/01/18 07:24 Nasal Cannula 4.00 97 01/01/18 06:00 82 01/01/18 05:00 76 01/01/18 05:00 76 01/01/18 04:00 96.9 79 16 153/74 (100) 95 01/01/18 04:00 76 01/01/18 04:00 72 01/01/18 04:00 95 Nasal Cannula 4.00 01/01/18 03:00 70 01/01/18 02:00 76 01/01/18 01:00 80 01/01/18 00:21 95 4.00 01/01/18 00:20 98.5 78 16 139/65 (89) 95 01/01/18 00:00 78 01/01/18 00:00 76 12/31/17 23:00 88 12/31/17 22:00 88 12/31/17 21:00 94 12/31/17 20:00 90 12/31/17 20:00 98.8 94 18 157/71 (99) 92 12/31/17 20:00 92 Nasal Cannula 4.00 12/31/17 20:00 92 12/31/17 19:00 88 12/31/17 18:26 98.5 87 18 135/74 (94) 95 12/31/17 16:00 Nasal Cannula 4.00 Physical Exam GENERAL: Patient is a well-nourished, well-developed male, awake and alert, not in respiratory distress. Comfortable, sitting up in a chair. SKIN: Cool and dry. Has keratotic rash in botrh UE. HEAD: Atraumatic. Normocephalic. No temporal wasting, or tenderness. EYES: [place] conjunctiva. No petechia or hemorrhage. Pupils equal, round and reactive to light. Extraocular movements full and intact. No scleral icterus. No injection or drainage. EARS, NOSE AND THROAT: Nose without bleeding or purulent nasal discharge. No sinus tenderness. Mucous membranes pink and moist. No oral lesions noted. He is edentulous. NECK: Trachea midline. Supple and not tender, no meningeal signs CARDIOVASCULAR: Regular rate and rhythm. He has a very harsh left ear murmur heard at the apex as well as in the left sternal border RESPIRATORY: Coarse breath sounds bilaterally, decreased at the bases. His port is in the upper chest with no evidence of infection. ABDOMEN: Soft, non-tender, nondistended. Bowel sounds present and normoactive. No guarding. No rebound. No organomegaly. : Gill catheter in place, with very dark yellow urine, and no gross hematuria. His scrotum is edematous, but no induration of the skin or redness noted. EXTREMITIES: No clubbing, cyanosis. Has significant edema in both lower extremity, and his skin is very tight. He has a nonblanching area of erythema from the knee all the way to the feet. It is not warm to touch. No calf tenderness. NEUROLOGICAL: Awake and alert. Cranial nerves grossly intact. Motor grossly within normal limits. PSYCHIATRIC: Normal affect, calm and cooperative. LINE: No evidence of infection Laboratory Laboratory Tests Test 12/31/17 15:40 01/01/18 11:26 Urine Color DARK-BROWN Urine Turbidity CLEAR Urine pH 6.0 Urine Specific [place] 1.013 Urine Protein 100 Urine Glucose (UA) NEG Urine Ketones NEG Urine Occult Blood MOD Urine Nitrite POS Urine Bilirubin NEG Urine Urobilinogen 2.0 Urine Leukocyte Esterase TRACE Urine RBC Urine WBC 117 Urine Amorphous Sediment RARE Urine Bacteria RARE Microscopic Urinalysis Comment CATH-CULTURE IND Blood Urea Nitrogen 39 Creatinine 2.80 Random Glucose 170 Calcium Level 8.6 Sodium Level 135 Potassium Level 3.6 Chloride Level 97 Carbon Dioxide Level 34.9 Anion Gap 3 Estimat Glomerular Filtration Rate 22 Date/Time Source Procedure Growth Status 12/24/17 08:55 Blood Peripheral Aerobic Blood Culture - Final NO GROWTH IN 5 DAYS Complete 12/24/17 08:55 Blood Peripheral Anaerobic Blood Culture - Final NO GROWTH IN 5 DAYS Complete 12/31/17 15:40 Urine Catheterized Urine Urine Culture - Preliminary NO GROWTH IN 24 HOURS. Resulted Result Diagram: 12/31/17 0626 01/01/18 1126 Imaging RADIOLOGY STUDIES/FILMS REVIEWED Renal Ultrasound 12/29/17 0000 Signed Impressions: Service Date/Time: Friday, December 29, 2017 13:34 - CONCLUSION: 1. Status post right nephrectomy with out sonographic evidence for gross mass in the nephrectomy bed. 2. Unremarkable sonographic appearance of the left kidney. No hydronephrosis. Elton Bo MD Chest X-Ray 12/26/17 0000 Signed Impressions: Service Date/Time: Tuesday, December 26, 2017 05:42 - CONCLUSION: Bilateral pulmonary opacity likely representing pulmonary edema, slightly increased from the comparison study. Adrian Black MD Assessment and Plan Assessment and Plan IMPRESSION UTI, has gill at home, C/S Klebsiella and Enterococcus Hematuria, post urethrotomy for urethral stricture Has metastatic renal cell CA, undergoing chemo Thrombocytopenia Renal insufficiency CHF Aortic stenosis RECOMMENDATION Augmentin 500 BID x 7 days D/W patient re: CAMACHO stockings to try and see if this will help some of his LE edema, since he has trouble doing leg elevation Urology following his hematuria; CBI currently on hold He is clinically stable from ID standpoint Thank you for this consultation Discussed Condition With Explained plan to the patient Mayda Weems MD Jan 01, 2018 15:38
[2018-01-01] MEDS: FUROSEMIDE 20 MG TAB PO SCH (16:47)
[2018-01-01] MEDS: AMOXICILLIN/CLAVULANATE K 500 MG TAB PO SCH (23:06)
[2018-01-02] VITALS (14 sets, daily range): BP systolic 134–153; BP diastolic 62–76; PULSE 74–102; RESP 18–22; TEMP 97.3–98.4; O2SAT 91–98
[2018-01-02] MEDS: oxyCODONE/ACETAMINOPHEN 10 MG/325 MG TAB PO PRN ×5 (03:38→23:18)
[2018-01-02 06:04] LABS: BICARBONATE 30.5 MEQ/L (21.0-32.0); CALCIUM 8.6 MG/DL (8.5-10.1); CREATININE 2.71 MG/DL (0.60-1.30)
[2018-01-02] MEDS: ISOSORBIDE MONONITRATE 30 MG CR TAB (IMDUR) PO SCH (06:13)
[2018-01-02] MEDS: LEVOTHYROXINE SODIUM 100 MCG TAB PO SCH (06:13)
[2018-01-02] MEDS: LEVOTHYROXINE SODIUM 75 MCG TAB PO SCH (06:14)
[2018-01-02] MEDS: DOCUSATE SODIUM 50 MG/SENNA 8.6 MG TAB PO SCH ×2 (09:00→21:00)
[2018-01-02] MEDS: CARVEDILOL 12.5 MG TAB PO SCH ×2 (09:14→22:38)
[2018-01-02] MEDS: ATORVASTATIN 40 MG TAB PO SCH (09:14)
[2018-01-02] MEDS: PANTOPRAZOLE SOD 20 MG DELAYED RELEASE TAB PO SCH (09:14)
[2018-01-02] MEDS: AMOXICILLIN/CLAVULANATE K 500 MG TAB PO SCH ×2 (09:14→22:38)
[2018-01-02] MEDS: FOLIC ACID 1 MG TAB PO SCH (09:14)
[2018-01-02] MEDS: TRIAMCINOLONE ACETONIDE 0.1% OINT 15 GM TUBE TOPICAL SCH ×4 (09:15→21:00)
[2018-01-02] MEDS: FUROSEMIDE 20 MG TAB PO SCH (09:15)
[2018-01-02] MEDS: CYANOCOBALAMIN 1,000 MCG TAB PO SCH (09:15)
[2018-01-02] MEDS: SODIUM CHLORIDE 0.9% FLUSH 10 ML FLUSH IV FLUSH SCH ×2 (09:15→22:39)
[2018-01-02] MEDS: guaiFENesin E.R. 600 MG TAB PO SCH ×2 (09:15→22:38)
--- NOTE | 2018-01-02 09:46 | HHI.NPPN ---
Subjective History of Present Illness 72-year-old with metastatic renal cell cancer, acute renal failure, previous right nephrectomy, hematuria Objective Data Data Vital Signs Date Time Temp Pulse Resp B/P (MAP) Pulse Ox O2 Delivery O2 Flow Rate FiO2 01/02/18 07:56 97.8 82 19 151/67 (95) 97 01/02/18 07:00 91 01/02/18 05:00 76 01/02/18 04:40 Nasal Cannula 4.00 97 01/02/18 04:00 80 01/02/18 04:00 78 01/02/18 04:00 98.3 78 20 153/68 (96) 91 01/02/18 03:00 74 01/02/18 02:00 76 01/02/18 01:00 76 01/02/18 00:00 86 01/02/18 00:00 98.3 102 22 141/76 (97) 94 01/02/18 00:00 Nasal Cannula 4.00 97 01/02/18 00:00 80 01/01/18 23:00 82 01/01/18 22:22 Nasal Cannula 4.00 01/01/18 22:12 93 Nasal Cannula 4.00 01/01/18 22:00 84 01/01/18 21:14 98.6 98 20 163/76 (105) 93 01/01/18 21:00 90 01/01/18 20:00 78 01/01/18 20:00 93 01/01/18 19:00 86 01/01/18 17:45 83 01/01/18 17:45 96 Nasal Cannula 4.00 01/01/18 15:15 98.3 87 16 141/79 (99) 91 01/01/18 12:00 83 01/01/18 12:00 96 Nasal Cannula 4.00 01/01/18 11:30 98.6 85 16 132/61 (84) 96 -: 12/31/17 0626 01/02/18 0459 Physical Exam General Appearance: Well Developed, Well Nourished Neck Neck Exam: Neck Supple Pulmonary Resp Exam: Decreased Bases Cardiology CV Exam: Tachycardia Gastrointestinal/Abdomen GI Exam: Soft, Non-Tender, Bowel Sounds Present Extremeties Extremities Exam: Moderate Edema Assessment/Plan Problem List: (1) Acute renal failure ICD Codes: N17.9 - Acute kidney failure, unspecified Plan: Patient is now on Lasix 20 mg PO twice a day. He is s/p right nephrectomy. He is on bladder irrigation Hematuria stopped He has advanced metastatic renal cell cancer Renal function is stable. (2) Metastatic renal cell carcinoma ICD Codes: C64.9 - Malignant neoplasm of unspecified kidney, except renal pelvis Plan: Oncology on the case. (3) Hyponatremia ICD Codes: E87.1 - Hyponatremia Status: Acute Plan: Improved (4) Hematuria, gross ICD Codes: R31.0 - Gross hematuria Status: Acute Plan: Improved. William Maynard MD Jan 02, 2018 09:46
--- NOTE | 2018-01-02 11:28 | HHI.PR ---
Subjective Remarks up in chair earlier- gill fell out then passed clots x 2 - seen by nurse minimal pain penile his main concern is his swelling Uro was informed- and ordered gill replaced and start CBI - patient refused gill he stood up and voided- light red tinged Objective Vitals Vital Signs Date Time Temp Pulse Resp B/P (MAP) Pulse Ox O2 Delivery O2 Flow Rate FiO2 01/02/18 07:56 97.8 82 19 151/67 (95) 97 01/02/18 07:00 91 01/02/18 05:00 76 01/02/18 04:40 Nasal Cannula 4.00 97 01/02/18 04:00 80 01/02/18 04:00 78 01/02/18 04:00 98.3 78 20 153/68 (96) 91 01/02/18 03:00 74 01/02/18 02:00 76 01/02/18 01:00 76 01/02/18 00:00 86 01/02/18 00:00 98.3 102 22 141/76 (97) 94 01/02/18 00:00 Nasal Cannula 4.00 97 01/02/18 00:00 80 01/01/18 23:00 82 01/01/18 22:22 Nasal Cannula 4.00 01/01/18 22:12 93 Nasal Cannula 4.00 01/01/18 22:00 84 01/01/18 21:14 98.6 98 20 163/76 (105) 93 01/01/18 21:00 90 01/01/18 20:00 78 01/01/18 20:00 93 01/01/18 19:00 86 01/01/18 17:45 83 01/01/18 17:45 96 Nasal Cannula 4.00 01/01/18 15:15 98.3 87 16 141/79 (99) 91 01/01/18 12:00 83 01/01/18 12:00 96 Nasal Cannula 4.00 01/01/18 11:30 98.6 85 16 132/61 (84) 96 I/O 01/01/18 01/01/18 01/01/18 01/02/18 01/02/18 01/02/18 07:00 15:00 23:00 07:00 15:00 23:00 Intake Total 3820 ml 1320 ml Output Total 2200 ml 500 ml 350 ml Balance 1620 ml -500 ml 970 ml Intake Oral 720 ml 720 ml IV Total 3100 ml 600 ml Output Urine Total 2200 ml 500 ml 350 ml # Bowel Movements 2 1 Result Diagram: 12/31/17 0626 01/02/18 0459 Imaging Last Impressions Renal Ultrasound 12/29/17 0000 Signed Impressions: Service Date/Time: Friday, December 29, 2017 13:34 - CONCLUSION: 1. Status post right nephrectomy with out sonographic evidence for gross mass in the nephrectomy bed. 2. Unremarkable sonographic appearance of the left kidney. No hydronephrosis. Elton Bo MD Chest X-Ray 12/26/17 0000 Signed Impressions: Service Date/Time: Tuesday, December 26, 2017 05:42 - CONCLUSION: Bilateral pulmonary opacity likely representing pulmonary edema, slightly increased from the comparison study. Adrian Black MD Objective Remarks awake and alert, no acute distress anicteric neck supple port- chest wall- no sings of infection no rales, decrease breath sounds bilateral regular rhythm abdomen soft, good bowel sounds + scrotal/penile edema- + edema Procedures CBI BIPAP Date of Removal: Jan 02, 2018 A/P Problem List: (1) Hematuria, gross ICD Code: R31.0 - Gross hematuria Status: Acute (2) Chronic kidney disease (CKD) ICD Code: N18.9 - Chronic kidney disease Status: Chronic (3) Acute exacerbation of CHF (congestive heart failure) ICD Code: I50.9 - Heart failure, unspecified Status: Acute (4) Acute renal failure ICD Code: N17.9 - Acute kidney failure, unspecified Assessment and Plan This is a 72-year-old male who was sent from his urologist office because of edema. Patient states that for the past 3 weeks he has developed bilateral lower extremity edema including his genitalia. He also complains of dyspnea on exertion. States he has been advised to increase fluid intake secondary to hematuria in his Gill catheter. He is compliant with salt restriction and has been taking Lasix daily. CHF exacerbation likely secondary to increased fluid intake. Continue diuresis with IV Lasix, CHF education, I/O and monitor weight. 1.5 L fluid restriction. Patient has chronic diastolic heart failure with 3+ pitting edema that is decreased and had elevated BNP on admission and history of pulmonary edema treated with Lasix and I's and O's = Echo- EF 60% = 12/25. Moderate aortic stenosis on echo. Recommended continued medical management - change to po Lasix - give x 1 Albumin + lasix today IV - hold po Lasix today- restart in am Gross hematuria - recurrent =with a history of metastatic renal cell carcinoma status post right radical nephrectomy with removal of tumor thrombus in September 2009. left renal cell carcinoma on chemotherapy Votrient and bladder cancer diagnosed over 2 years ago and received radiation and chemotherapy. Last November 30, 2017, he underwent cystoscopy and was noted to have urethral stricture status post urethrotomy. He also had a small bladder lesion was biopsied negative for malignancy. Since the procedure, patient has been having intermittent gross hematuria. Denies being on antiplatelets and anticoagulants. He was taken off Plavix 1 week before the procedure. Patient had a Gill exchanged by Dr. Huddleston Sepsis secondary to complicated UTI with inde=welling gill cather with history of RCC - got Zosyn. 12/23- 12/29. Now On Unasyn. repeat C and s pending - Continue bladder irrigation. d/w staff nurse- to taper off - on Unasyn q 12 - will dc and change to po antibiotics - change to po levaquin 250 mg po daily-- DC- + allergy listed to ciprofloxacin - per patient swelling - get ID consult for recommendation for po antibiotics //Chronic kidney disease stage IV S/P right nephrectomy - He is asymptomatic. Nonoliguric. Avoid nephrotoxins = Creatinine continues stable around previous baseline. - Nephrology ff //Pancytopenia on Votrient with worsening anemia secondary to acute blood loss from gross hematuria . keep hemoglobin at least 8 with history of CAD = Consult patient's oncologist for pancytopenia. Appreciate assistance. = 12/25. Oncology following. Appreciate assistance. //Chronic respiratory failure on nasal cannula, CHF and COPD. Continue oxygen keep saturations at least 92% //Hypokalemia. improved. ff //Multiple medical conditions PAD, hypothyroidism, hypertension, hyperlipidemia , GERD, IBS, gout and osteoarthritis. Continue outpatient medications as appropriate //DVT prophylaxis with SCD. Pharmacological prophylaxis held due to bleeding Discharge Planning - [facility] ideally but patient refused- agrees - she picked out SNF choice We'll need hemoglobin stable Will need antibiotics for UTI Cardiology following for aortic stenosis recommend continue same Hematology and urology following home with home health Problem Qualifiers (1) Chronic kidney disease (CKD): Qualified Codes: N18.3 - Chronic kidney disease, stage 3 (moderate) (2) Acute exacerbation of CHF (congestive heart failure): Qualified Codes: I50.9 - Heart failure, unspecified David Reyes MD Jan 02, 2018 11:28
[2018-01-02] MEDS ORDERED: ALBUMIN 25% INJ 50 ML IV ONE (11:30)
[2018-01-02] MEDS ORDERED: FUROSEMIDE 40 MG/4 ML VIAL IV PUSH ONE (11:30)
[2018-01-02 12:22] LABS: AUTOMATED NEUTROPHIL # 3.1 TH/MM3 (1.8-7.7); EOSINOPHIL # 0.1 TH/MM3 (0-0.4); EOSINOPHIL % 2.9 % (0.0-4.0); HEMATOCRIT 29.9 % (39.0-51.0); HEMOGLOBIN 9.9 GM/DL (13.0-17.0); LYMPH % 12.1 % (9.0-44.0); LYMPHOCYTE # 0.5 TH/MM3 (1.0-4.8); MEAN CELL VOLUME 99.6 FL (80.0-100.0); MEAN CORPUSCULAR HEMOGLOBIN 33.1 PG (27.0-34.0); MEAN CORPUSCULAR HGB CONC 33.2 % (32.0-36.0); MEAN PLATELET VOLUME 9.2 FL (7.0-11.0); MONO % 7.2 % (0.0-8.0); MONOCYTE # 0.3 TH/MM3 (0-0.9); NEUT % 76.8 % (16.0-70.0); PLATELET COUNT 94 TH/MM3 (150-450); RED CELL DISTRIBUTION WIDTH 21.2 % (11.6-17.2)
[2018-01-03] VITALS (7 sets, daily range): BP systolic 130–156; BP diastolic 60–70; PULSE 75–88; RESP 16–20; TEMP 98.2–98.6; O2SAT 93–98
[2018-01-03] MEDS: oxyCODONE/ACETAMINOPHEN 10 MG/325 MG TAB PO PRN ×4 (03:34→18:41)
[2018-01-03 05:43] LABS: BICARBONATE 31.6 MEQ/L (21.0-32.0); CALCIUM 8.6 MG/DL (8.5-10.1); CREATININE 2.83 MG/DL (0.60-1.30)
[2018-01-03] MEDS: LEVOTHYROXINE SODIUM 75 MCG TAB PO SCH (07:32)
[2018-01-03] MEDS: LEVOTHYROXINE SODIUM 100 MCG TAB PO SCH (07:32)
[2018-01-03] MEDS: DOCUSATE SODIUM 50 MG/SENNA 8.6 MG TAB PO SCH ×2 (07:39→20:45)
[2018-01-03] MEDS: SODIUM CHLORIDE 0.9% FLUSH 10 ML FLUSH IV FLUSH SCH ×2 (08:53→20:43)
[2018-01-03] MEDS: ISOSORBIDE MONONITRATE 30 MG CR TAB (IMDUR) PO SCH (08:53)
[2018-01-03] MEDS: PANTOPRAZOLE SOD 20 MG DELAYED RELEASE TAB PO SCH (08:53)
[2018-01-03] MEDS: CARVEDILOL 12.5 MG TAB PO SCH ×2 (08:53→20:43)
[2018-01-03] MEDS: guaiFENesin E.R. 600 MG TAB PO SCH ×2 (08:54→20:43)
[2018-01-03] MEDS: ATORVASTATIN 40 MG TAB PO SCH (08:54)
[2018-01-03] MEDS: CYANOCOBALAMIN 1,000 MCG TAB PO SCH (08:54)
[2018-01-03] MEDS: TRIAMCINOLONE ACETONIDE 0.1% OINT 15 GM TUBE TOPICAL SCH ×4 (08:54→20:46)
[2018-01-03] MEDS: FOLIC ACID 1 MG TAB PO SCH (08:54)
[2018-01-03] MEDS: AMOXICILLIN/CLAVULANATE K 500 MG TAB PO SCH ×2 (08:54→20:43)
--- NOTE | 2018-01-03 11:22 | HHI.NPPN ---
Subjective History of Present Illness 72-year-old with metastatic renal cell cancer, acute renal failure, previous right nephrectomy, hematuria Interval History patient reports that gross hematuria has improved. Continues to have scrotal, penile and lower extremity edema. Creatinine is slightly worse. Objective Data Data Vital Signs Date Time Temp Pulse Resp B/P (MAP) Pulse Ox O2 Delivery O2 Flow Rate FiO2 01/03/18 08:58 95 Nasal Cannula 2.00 01/03/18 08:01 98.4 75 18 156/70 (98) 95 01/03/18 05:03 16 01/03/18 04:00 79 16 155/67 (96) 98 01/03/18 04:00 Nasal Cannula 3.00 97 01/03/18 00:00 Nasal Cannula 3.00 97 01/02/18 21:20 97 Nasal Cannula 3.00 01/02/18 20:45 Nasal Cannula 3.00 97 01/02/18 20:45 98.4 83 18 98 01/02/18 16:00 97.7 80 18 138/69 (92) 95 01/02/18 16:00 95 Nasal Cannula 3.00 01/02/18 11:39 97.3 84 19 134/62 (86) 94 01/02/18 11:26 Nasal Cannula 3.00 -: 01/02/18 1200 01/03/18 0340 Physical Exam General Appearance: Well Developed, Well Nourished Neck Neck Exam: Neck Supple Pulmonary Resp Exam: Decreased Bases Cardiology CV Exam: Tachycardia Gastrointestinal/Abdomen GI Exam: Soft, Non-Tender, Bowel Sounds Present Extremeties Extremities Exam: Moderate Edema Assessment/Plan Problem List: (1) Acute renal failure ICD Codes: N17.9 - Acute kidney failure, unspecified Plan: Patient is now on Lasix 20 mg PO twice a day. He is s/p right nephrectomy. Hematuria has improved. He has advanced metastatic renal cell cancer Renal function may be at baseline? Prognosis is guarded. (2) Metastatic renal cell carcinoma ICD Codes: C64.9 - Malignant neoplasm of unspecified kidney, except renal pelvis Plan: Oncology on the case. (3) Hyponatremia ICD Codes: E87.1 - Hyponatremia Status: Acute Plan: Improved (4) Hematuria, gross ICD Codes: R31.0 - Gross hematuria Status: Acute Plan: Improved. William Maynard MD Jan 03, 2018 11:22
[2018-01-03] MEDS: FUROSEMIDE 40 MG/4 ML VIAL IV PUSH SCH ×2 (14:05→20:43)
--- NOTE | 2018-01-03 15:06 | HHI.PR ---
Subjective Remarks hematuria resolved- patient voiding spontaneously - grossly yellow urine up and ambulating still with leg swelling- improving gradually scrotal swelling is improving- now it is bouncing when i tap it from the bottom - before was firm and indurated Objective Vitals Vital Signs Date Time Temp Pulse Resp B/P (MAP) Pulse Ox O2 Delivery O2 Flow Rate FiO2 01/03/18 11:44 98.4 86 18 130/60 (83) 93 01/03/18 08:58 95 Nasal Cannula 2.00 01/03/18 08:01 98.4 75 18 156/70 (98) 95 01/03/18 05:03 16 01/03/18 04:00 79 16 155/67 (96) 98 01/03/18 04:00 Nasal Cannula 3.00 97 01/03/18 00:00 Nasal Cannula 3.00 97 01/02/18 21:20 97 Nasal Cannula 3.00 01/02/18 20:45 Nasal Cannula 3.00 97 01/02/18 20:45 98.4 83 18 98 01/02/18 16:00 97.7 80 18 138/69 (92) 95 01/02/18 16:00 95 Nasal Cannula 3.00 I/O 01/02/18 01/02/18 01/02/18 01/03/18 01/03/18 01/03/18 07:00 15:00 23:00 07:00 15:00 23:00 Intake Total 1320 ml 50 ml 1300 ml 820 ml Output Total 350 ml 925 ml 450 ml 50 ml Balance 970 ml 50 ml 375 ml 370 ml -50 ml Intake Oral 720 ml 1300 ml 820 ml IV Total 600 ml 50 ml Output Urine Total 350 ml 925 ml 450 ml 50 ml # Bowel Movements 4 2 1 Result Diagram: 01/02/18 1200 01/03/18 0340 Imaging Last Impressions Renal Ultrasound 12/29/17 0000 Signed Impressions: Service Date/Time: Friday, December 29, 2017 13:34 - CONCLUSION: 1. Status post right nephrectomy with out sonographic evidence for gross mass in the nephrectomy bed. 2. Unremarkable sonographic appearance of the left kidney. No hydronephrosis. Elton Bo MD Chest X-Ray 12/26/17 0000 Signed Impressions: Service Date/Time: Tuesday, December 26, 2017 05:42 - CONCLUSION: Bilateral pulmonary opacity likely representing pulmonary edema, slightly increased from the comparison study. Adrian Black MD Objective Remarks awake and alert, no acute distress anicteric neck supple port- chest wall- no signs of infection no rales, decrease breath sounds bilateral regular rhythm abdomen soft, good bowel sounds + scrotal/penile edema- improving gradually + edema- improving Procedures CBI BIPAP Date of Removal: Jan 02, 2018 A/P Problem List: (1) Hematuria, gross ICD Code: R31.0 - Gross hematuria Status: Acute (2) Chronic kidney disease (CKD) ICD Code: N18.9 - Chronic kidney disease Status: Chronic (3) Acute exacerbation of CHF (congestive heart failure) ICD Code: I50.9 - Heart failure, unspecified Status: Acute (4) Acute renal failure ICD Code: N17.9 - Acute kidney failure, unspecified Assessment and Plan This is a 72-year-old male who was sent from his urologist office because of edema. Patient states that for the past 3 weeks he has developed bilateral lower extremity edema including his genitalia. He also complains of dyspnea on exertion. States he has been advised to increase fluid intake secondary to hematuria in his Gill catheter. He is compliant with salt restriction and has been taking Lasix daily. CHF exacerbation likely secondary to increased fluid intake. Continue diuresis with IV Lasix, CHF education, I/O and monitor weight. 1.5 L fluid restriction. Patient has chronic diastolic heart failure with 3+ pitting edema that is decreased and had elevated BNP on admission and history of pulmonary edema treated with Lasix and I's and O's = Echo- EF 60% = 12/25. Moderate aortic stenosis on echo. 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 left renal cell carcinoma on chemotherapy Votrient and bladder cancer diagnosed over 2 years ago and received radiation and chemotherapy. Last November 30, 2017, he underwent cystoscopy and was noted to have urethral stricture status post urethrotomy. He also had a small bladder lesion was biopsied negative for malignancy. Since the procedure, patient has been having intermittent gross hematuria. Denies being on antiplatelets and anticoagulants. He was taken off Plavix 1 week before the procedure. Patient had a Gill exchanged by Dr. Huddleston Sepsis secondary to complicated UTI with indwelling gill catheter with RCC Cellulitis both LE - got Zosyn. 12/23- 12/29 then Unasyn - Continue bladder irrigation. d/w staff nurse- to taper off -now on augmentin 500 mg po bid till 01/08 //Chronic kidney disease stage IV S/P right nephrectomy - He is asymptomatic. Nonoliguric. Avoid nephrotoxins = Creatinine continues stable around previous baseline. - Nephrology ff- on Lasix //Pancytopenia on Votrient with worsening anemia secondary to acute blood loss from gross hematuria . keep hemoglobin at least 8 with history of CAD = Consult patient's oncologist for pancytopenia. Appreciate assistance. = 12/25. Oncology following. Appreciate assistance. //Chronic respiratory failure on nasal cannula, CHF and COPD. Continue oxygen keep saturations at least 92% //Hypokalemia. improved. ff //Multiple medical conditions PAD, hypothyroidism, hypertension, hyperlipidemia , GERD, IBS, gout and osteoarthritis. Continue outpatient medications as appropriate //DVT prophylaxis with SCD. Pharmacological prophylaxis held due to bleeding Discharge Planning - SBF ideally but patient refused- agrees - she picked out SNF choice We'll need hemoglobin stable Will need antibiotics for UTI Cardiology following for aortic stenosis recommend continue same Hematology and urology following home with home health VS snf Problem Qualifiers (1) Chronic kidney disease (CKD): Qualified Codes: N18.3 - Chronic kidney disease, stage 3 (moderate) (2) Acute exacerbation of CHF (congestive heart failure): Qualified Codes: I50.9 - Heart failure, unspecified David Reyes MD Jan 03, 2018 15:06
[2018-01-03] MEDS: oxyCODONE/ACETAMINOPHEN 5 MG/325 MG TAB PO PRN (20:44)
[2018-01-04] MEDS: oxyCODONE/ACETAMINOPHEN 10 MG/325 MG TAB PO PRN ×5 (00:46→20:27)
[2018-01-04 05:08] VITALS: BP 126/60; PULSE 86; RESP 22; TEMP 97.7; O2SAT 93
[2018-01-04] MEDS: LEVOTHYROXINE SODIUM 150 MCG TAB PO SCH (05:13)
[2018-01-04] MEDS: ISOSORBIDE MONONITRATE 30 MG CR TAB (IMDUR) PO SCH (05:13)
[2018-01-04 05:48] LABS: AUTOMATED NEUTROPHIL # 1.8 TH/MM3 (1.8-7.7); BASOPHIL % 1.3 % (0.0-2.0); EOSINOPHIL # 0.1 TH/MM3 (0-0.4); EOSINOPHIL % 2.8 % (0.0-4.0); HEMATOCRIT 29.4 % (39.0-51.0); HEMOGLOBIN 9.7 GM/DL (13.0-17.0); LYMPH % 23.2 % (9.0-44.0); LYMPHOCYTE # 0.7 TH/MM3 (1.0-4.8); MEAN CELL VOLUME 99.6 FL (80.0-100.0); MEAN CORPUSCULAR HEMOGLOBIN 32.9 PG (27.0-34.0); MEAN PLATELET VOLUME 9.1 FL (7.0-11.0); MONO % 11.7 % (0.0-8.0); MONOCYTE # 0.3 TH/MM3 (0-0.9); PLATELET COUNT 117 TH/MM3 (150-450); RED BLOOD COUNT 2.95 MIL/MM3 (4.50-5.90); RED CELL DISTRIBUTION WIDTH 20.9 % (11.6-17.2); WHITE BLOOD COUNT 2.9 TH/MM3 (4.0-11.0)
[2018-01-04 06:10] LABS: BICARBONATE 28.5 MEQ/L (21.0-32.0); CALCIUM 8.6 MG/DL (8.5-10.1); CREATININE 2.95 MG/DL (0.60-1.30)
[2018-01-04 07:50] VITALS: BP 130/58; PULSE 82; RESP 20; TEMP 97.7; O2SAT 94
[2018-01-04] MEDS: AMOXICILLIN/CLAVULANATE K 500 MG TAB PO SCH ×2 (07:56→20:27)
[2018-01-04] MEDS: CARVEDILOL 12.5 MG TAB PO SCH ×2 (07:56→20:27)
[2018-01-04] MEDS: ATORVASTATIN 40 MG TAB PO SCH (07:56)
[2018-01-04] MEDS: FUROSEMIDE 40 MG/4 ML VIAL IV PUSH SCH ×2 (07:57→20:27)
[2018-01-04] MEDS: guaiFENesin E.R. 600 MG TAB PO SCH ×2 (07:57→20:26)
[2018-01-04] MEDS: FOLIC ACID 1 MG TAB PO SCH (07:57)
[2018-01-04] MEDS: PANTOPRAZOLE SOD 20 MG DELAYED RELEASE TAB PO SCH (07:57)
[2018-01-04] MEDS: SODIUM CHLORIDE 0.9% FLUSH 10 ML FLUSH IV FLUSH SCH ×2 (07:58→20:27)
[2018-01-04] MEDS: DOCUSATE SODIUM 50 MG/SENNA 8.6 MG TAB PO SCH ×2 (08:04→20:28)
--- NOTE | 2018-01-04 08:44 | PD.ONC.PN ---
Subjective Subjective Remarks Afebrile overnight. Patient resting in room. states he continues to have swelling in his legs and scrotum. his gill catheter came out over the weekend, but he is urinating clear urine without problems. Objective Data Date Time Temp Pulse Resp B/P (MAP) Pulse Ox O2 Delivery O2 Flow Rate FiO2 01/04/18 08:07 Nasal Cannula 2.00 01/04/18 07:50 97.7 82 20 130/58 (82) 94 01/04/18 06:13 18 01/04/18 05:21 Nasal Cannula 2.00 01/04/18 05:08 97.7 86 22 126/60 (82) 93 01/03/18 23:54 Nasal Cannula 2.00 01/03/18 23:48 98.2 85 16 134/64 (87) 97 01/03/18 21:57 94 Nasal Cannula 2.00 01/03/18 21:44 16 01/03/18 20:41 Nasal Cannula 2.00 01/03/18 20:41 98.5 88 20 151/68 (95) 97 01/03/18 18:28 2.00 01/03/18 16:44 98.6 88 18 134/64 (87) 94 01/03/18 11:44 Nasal Cannula 2.00 01/03/18 11:44 98.4 86 18 130/60 (83) 93 01/03/18 08:58 95 Nasal Cannula 2.00 01/04/18 01/04/18 01/04/18 07:00 15:00 23:00 Intake Total 930 ml Output Total 1300 ml Balance -370 ml Result Diagram: 01/04/1851901/04/18 0520 Laboratory Results Laboratory Tests Test 01/04/18 05:20 White Blood Count 2.9 TH/MM3 Red Blood Count 2.95 MIL/MM3 Hemoglobin 9.7 GM/DL Hematocrit 29.4 % Mean Corpuscular Volume 99.6 FL Mean Corpuscular Hemoglobin 32.9 PG Mean Corpuscular Hemoglobin Concent 33.0 % Red Cell Distribution Width 20.9 % Platelet Count 117 TH/MM3 Mean Platelet Volume 9.1 FL Neutrophils (%) (Auto) 61.0 % Lymphocytes (%) (Auto) 23.2 % Monocytes (%) (Auto) 11.7 % Eosinophils (%) (Auto) 2.8 % Basophils (%) (Auto) 1.3 % Neutrophils # (Auto) 1.8 TH/MM3 Lymphocytes # (Auto) 0.7 TH/MM3 Monocytes # (Auto) 0.3 TH/MM3 Eosinophils # (Auto) 0.1 TH/MM3 Basophils # (Auto) 0.0 TH/MM3 CBC Comment DIFF FINAL Differential Comment Blood Urea Nitrogen 40 MG/DL Creatinine 2.95 MG/DL Random Glucose 141 MG/DL Calcium Level 8.6 MG/DL Sodium Level 137 MEQ/L Potassium Level 3.7 MEQ/L Chloride Level 100 MEQ/L Carbon Dioxide Level 28.5 MEQ/L Anion Gap 9 MEQ/L Estimat Glomerular Filtration Rate 21 ML/MIN Administered Medications Medications (Trade) Dose Ordered Sig/Richie Route PRN Reason Start Time Stop Time Status Last Admin Dose Admin Sodium Chloride (NS Flush) 2 ml BID IV FLUSH 12/23/17 21:00 01/04/18 07:58 Senna/Docusate Sodium (Chikis-Colace) 1 tab BID PO 12/23/17 21:00 12/31/17 09:07 Carvedilol (Coreg) 25 mg BID PO 12/23/17 21:00 01/04/18 07:56 Levothyroxine Sodium (Synthroid) 150 mcg MoWeFr@0600 PO 12/23/17 16:30 01/04/18 05:13 Triamcinolone Acetonide (Aristocort 0.1% Oint) 1 applic QID TOPICAL 12/23/17 18:00 01/03/18 17:05 Levothyroxine Sodium (Synthroid) 75 mcg SuTuThSa@0600 PO 12/24/17 06:00 01/03/18 07:32 Levothyroxine Sodium (Synthroid) 100 mcg SuTuThSa@0600 PO 12/24/17 06:00 01/03/18 07:32 Pantoprazole Sodium (Protonix) 20 mg DAILY PO 12/24/17 09:00 01/04/18 07:57 Atorvastatin Calcium (Lipitor) 40 mg DAILY PO 12/24/17 09:00 01/04/18 07:56 Belladonna Alkaloids/Opium (B & O Supp) 60 mg Q6H PRN RECTAL bladder spasm 12/23/17 18:00 12/25/17 18:14 Calcium Carbonate (Tums Chew) 500 mg Q2H PRN CHEW indigestion 12/24/17 23:45 12/26/17 20:02 Oxycodone/ Acetaminophen (Percocet 5-325 Mg) 1 tab Q6H PRN PO PAIN SCALE 3 TO 5 12/25/17 11:00 01/03/18 20:44 Isosorbide Mononitrate (Imdur) 30 mg DAILY@07 PO 12/26/17 07:00 01/04/18 05:13 Cyanocobalamin (Vitamin B12 Inj) 1,000 mcg Q30D IM 12/25/17 15:00 12/25/17 14:45 Folic Acid (Folate) 1 mg DAILY PO 12/26/17 09:00 01/04/18 07:57 Cyanocobalamin (Vitamin B12) 1,000 mcg DAILY PO 12/26/17 09:00 01/03/18 08:54 Guaifenesin (Mucinex Er) 600 mg BID PO 12/26/17 21:00 01/04/18 07:57 Aminocaproic Acid 3000 mg/Sodium Chloride 3,012 ml @ 0 mls/hr TITRATE IRRIGATION 12/29/17 11:15 01/01/18 05:55 Acetaminophen (Tylenol) 650 mg Q4H PRN PO SEE LABEL COMMENTS 12/29/17 11:45 12/29/17 17:00 Heparin Sodium (Porcine) (Heparin Central Flush) 250 units UNSCH PRN IV FLUSH SEE PROTOCOL TABLE 12/31/17 16:00 01/03/18 20:43 Heparin Sodium (Porcine) (Heparin Central Flush) 500 units UNSCH IV FLUSH 12/31/17 16:00 01/01/18 08:57 Furosemide (Lasix) 20 mg BID@,18 PO 01/01/18 18:00 Future Hold 01/02/18 09:15 Amoxicillin/ Clavulanate Potassium (Augmentin) 500 mg Q12HR PO 01/01/18 21:00 01/08/18 20:59 01/04/18 07:56 Oxycodone/ Acetaminophen (Percocet 10-325 Mg) 1 tab Q4HR PRN PO PAIN SCALE 6 TO 10 01/01/18 16:30 01/04/18 05:13 Furosemide (Lasix Inj) 40 mg BID IV PUSH 01/03/18 14:15 01/04/18 07:57 Objective Remarks GENERAL: Elderly male, walking in room in nad. SKIN: Warm and dry. HEAD: Normocephalic. EYES: No injection or drainage. NECK: Supple, trachea midline. CARDIOVASCULAR: Regular rate and rhythm RESPIRATORY: occasional rhonchi. On 2L O2 via NC GASTROINTESTINAL: Abdomen soft, non-tender, nondistended. EXTREMITIES: No cyanosis. mild edema in dependent lower extremities. NEUROLOGICAL: awake and alert. normal speech. Assessment/Plan Problem List: (1) Metastatic renal cell carcinoma ICD Codes: C64.9 - Malignant neoplasm of unspecified kidney, except renal pelvis Plan: --continue monitoring for now. History: --presented with bilateral renal cell carcinoma and had right nephrectomy in February 2010. 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 --had a biopsy of the left kidney mass, which also showed renal cell carcinoma. He started Votrient, with good response. The Votrient was held for awhile when he was receiving treatment for bladder cancer. --recently was found to have progression of disease and restarted Votrient at the end of 2014. CT scan done in early November which did not show clear evidence of progression of disease. The Votrient has been on hold since the urologic procedure. (2) Bladder cancer ICD Codes: C67.9 - Malignant neoplasm of urinary bladder Status: Acute Plan: -- Bladder invasive transitional cell carcinoma, treated with radiation and chemotherapy. --had another cystoscopy 3 weeks ago with biopsy which did not show any recurrent disease. (3) Pancytopenia ICD Codes: D61.818 - Other pancytopenia Status: Resolved Plan: --improving. --monitor and transfuse as needed ++partly due to Votrient-->Votrient was stopped about 3 weeks ago. ++significant anemia likely due to chronic kidney disease as well as chronic inflammatory disease. --given Epogen on 12/24 Assessment 72y/o male with thrombocytopenia, anemia and history of metastatic renal cell cancer. h/o Congestive heart failure. Chronic obstructive pulmonary disease, oxygen dependent. Bladder cancer. Urethral stricture. Pancytopenia. Hypertension. Hypothyroidism. Hyperlipidemia. Gastroesophageal reflux disease. Osteoarthritis. Gout Plan 1. monitor CBC 2. oncology clear for discharge. 3. will defer to primary for management of edema. Attending Statement The exam, history, and the medical decision-making described in the above note were completed with the assistance of the mid-level provider. I reviewed and agree with the findings presented. I attest that I had a [id number] encounter with the patient on the same day, and personally performed and documented my assessment and findings in the medical record. Gill cath fell out over the weekend. Urine is clear, no more hematuria. CBC stable. Can be d /c from Oncology standpoint. Restart Votrient as outpt. F/u Oncology after d/ c. Desire Samuels Jan 04, 2018 08:44 Ernesto Yousif MD Jan 04, 2018 15:46
[2018-01-04] MEDS: CYANOCOBALAMIN 1,000 MCG TAB PO SCH (09:42)
[2018-01-04] MEDS: TRIAMCINOLONE ACETONIDE 0.1% OINT 15 GM TUBE TOPICAL SCH ×4 (09:43→20:28)
[2018-01-04 12:20] VITALS: BP 139/65; PULSE 80; RESP 20; TEMP 98.1; O2SAT 93
[2018-01-04 12:25] VITALS: O2SAT 94
--- NOTE | 2018-01-04 17:43 | HHI.NPPN ---
Subjective History of Present Illness 72-year-old with metastatic renal cell cancer, acute renal failure, previous right nephrectomy, hematuria Objective Data Data Vital Signs Date Time Temp Pulse Resp B/P (MAP) Pulse Ox O2 Delivery O2 Flow Rate FiO2 01/04/18 13:29 94 Nasal Cannula 2.00 01/04/18 12:25 94 2.00 01/04/18 12:20 98.1 80 20 139/65 (89) 93 01/04/18 08:07 Nasal Cannula 2.00 01/04/18 07:50 97.7 82 20 130/58 (82) 94 01/04/18 06:13 18 01/04/18 05:21 Nasal Cannula 2.00 01/04/18 05:08 97.7 86 22 126/60 (82) 93 01/03/18 23:54 Nasal Cannula 2.00 01/03/18 23:48 98.2 85 16 134/64 (87) 97 01/03/18 21:57 94 Nasal Cannula 2.00 01/03/18 21:44 16 01/03/18 20:41 Nasal Cannula 2.00 01/03/18 20:41 98.5 88 20 151/68 (95) 97 01/03/18 18:28 2.00 -: 01/04/18 0520 01/04/18 0520 Physical Exam General Appearance: Well Developed, Well Nourished Neck Neck Exam: Neck Supple Pulmonary Resp Exam: Decreased Bases Cardiology CV Exam: Regular, Murmur Gastrointestinal/Abdomen GI Exam: Soft, Non-Tender, Bowel Sounds Present Extremeties Extremities Exam: Pitting Edema, Dependent Edema Assessment/Plan Problem List: (1) Acute renal failure ICD Codes: N17.9 - Acute kidney failure, unspecified Plan: Patient is now on Lasix 40 mg IV twice a day. He is s/p right nephrectomy. Hematuria has improved. He has advanced metastatic renal cell cancer Renal function may be at baseline? Continue with Lasix Prognosis is guarded. (2) Metastatic renal cell carcinoma ICD Codes: C64.9 - Malignant neoplasm of unspecified kidney, except renal pelvis Plan: Oncology on the case. (3) Hyponatremia ICD Codes: E87.1 - Hyponatremia Status: Acute Plan: Improved (4) Hematuria, gross ICD Codes: R31.0 - Gross hematuria Status: Acute Plan: Improved. Noel Dykes MD Jan 04, 2018 17:43
[2018-01-04 17:53] VITALS: BP 165/82; PULSE 95; RESP 18; TEMP 97.8; O2SAT 98
[2018-01-04 20:33] VITALS: BP 158/68; PULSE 91; RESP 20; TEMP 98.5; O2SAT 96
--- NOTE | 2018-01-04 21:48 | HHI.PR ---
Subjective Remarks Patient states he is feeling well today, passed a single small clot in his urine this morning. Chief complaint is scrotal edema. Objective Vitals Vital Signs Date Time Temp Pulse Resp B/P (MAP) Pulse Ox O2 Delivery O2 Flow Rate FiO2 01/04/18 21:27 16 01/04/18 20:33 98.5 91 20 158/68 (98) 96 01/04/18 17:53 97.8 95 18 165/82 (109) 98 01/04/18 13:29 94 Nasal Cannula 2.00 01/04/18 12:25 94 2.00 01/04/18 12:20 98.1 80 20 139/65 (89) 93 01/04/18 08:07 Nasal Cannula 2.00 01/04/18 07:50 97.7 82 20 130/58 (82) 94 01/04/18 05:21 Nasal Cannula 2.00 01/04/18 05:08 97.7 86 22 126/60 (82) 93 01/03/18 23:54 Nasal Cannula 2.00 01/03/18 23:48 98.2 85 16 134/64 (87) 97 01/03/18 21:57 94 Nasal Cannula 2.00 01/03/18 21:44 16 I/O 01/03/18 01/03/18 01/03/18 01/04/18 01/04/18 01/04/18 07:00 15:00 23:00 07:00 15:00 23:00 Intake Total 820 ml 1560 ml 930 ml 1340 ml Output Total 450 ml 50 ml 1550 ml 1300 ml 950 ml Balance 370 ml -50 ml 10 ml -370 ml 390 ml Intake Oral 820 ml 1560 ml 930 ml 1340 ml Output Urine Total 450 ml 50 ml 1550 ml 1300 ml 950 ml # Voids 2 1 # Bowel Movements 2 1 2 3 6 Result Diagram: 01/04/1851901/04/18 05 Objective Remarks GENERAL: Obese man SKIN: Warm and dry. : scrotal edema EYES: No scleral icterus. No injection or drainage. NECK: Supple, trachea midline. No JVD or lymphadenopathy. CARDIOVASCULAR: Regular rate and rhythm without murmurs, gallops, or rubs. RESPIRATORY: Breath sounds equal bilaterally. No accessory muscle use. GASTROINTESTINAL: Abdomen soft, non-tender, nondistended. EXTREMITIES: No cyanosis, or edema. NEUROLOGICAL: Awake, alert, and oriented x 3. Non-focal. Procedures CBI BIPAP Date of Removal: Jan 02, 2018 A/P Problem List: (1) Hematuria, gross ICD Code: R31.0 - Gross hematuria Status: Acute (2) Chronic kidney disease (CKD) ICD Code: N18.9 - Chronic kidney disease Status: Chronic (3) Acute exacerbation of CHF (congestive heart failure) ICD Code: I50.9 - Heart failure, unspecified Status: Acute (4) Acute renal failure ICD Code: N17.9 - Acute kidney failure, unspecified Assessment and Plan This is a 72-year-old male who was sent from his urologist office because of edema. CHF exacerbation likely secondary to increased fluid intake. ECHO EF = 60% Continue diuresis with IV Lasix 1.5L fluid restriction, strict I/O's LE edema is improving, scrotal edema is not Recommend compressive shorts/underwear Gross hematuria Resolved h/o renal cell carcinoma, and bladder lesions that turned out to be scars Complex UTI Covered by zosyn and unasyn and Augmentin Cellulitis Bilat LE's Continue Unasyn and Augmentin, improving Chronic kidney disease stage IV S/P right nephrectomy Asymptomatic. Nonoliguric. Avoid nephrotoxins Pancytopenia on Votrient Worsened by hematuria losses keep hemoglobin at least 8 with history of CAD Appreciate oncology consult CHF and COPD. Continue oxygen keep saturations at least 92% PAD, hypothyroidism, hypertension, hyperlipidemia, GERD, IBS, gout and osteoarthritis. Continue outpatient medications as appropriate DVT prophylaxis SCDs due to hematuria Problem Qualifiers (1) Chronic kidney disease (CKD): Qualified Codes: N18.3 - Chronic kidney disease, stage 3 (moderate) (2) Acute exacerbation of CHF (congestive heart failure): Qualified Codes: I50.9 - Heart failure, unspecified Rocky Fuller MD Jan 04, 2018 21:48
[2018-01-05] VITALS (8 sets, daily range): BP systolic 139–161; BP diastolic 63–75; PULSE 75–96; RESP 16–20; TEMP 97.5–98.5; O2SAT 91–99
[2018-01-05] MEDS: oxyCODONE/ACETAMINOPHEN 10 MG/325 MG TAB PO PRN ×6 (00:34→22:05)
[2018-01-05] MEDS: LEVOTHYROXINE SODIUM 75 MCG TAB PO SCH (04:30)
[2018-01-05] MEDS: ISOSORBIDE MONONITRATE 30 MG CR TAB (IMDUR) PO SCH (04:30)
[2018-01-05] MEDS: LEVOTHYROXINE SODIUM 100 MCG TAB PO SCH (04:30)
[2018-01-05 06:17] LABS: BICARBONATE 31.4 MEQ/L (21.0-32.0); CALCIUM 8.5 MG/DL (8.5-10.1); CREATININE 2.75 MG/DL (0.60-1.30)
--- NOTE | 2018-01-05 08:32 | PD.ONC.PN ---
Subjective Subjective Remarks Afebrile overnight. Patient resting in room. wants to know why he is so swollen all over. still urinating well. no blood in urine. Objective Data Date Time Temp Pulse Resp B/P (MAP) Pulse Ox O2 Delivery O2 Flow Rate FiO2 01/05/18 08:00 94 Nasal Cannula 3.00 01/05/18 05:30 16 01/05/18 04:35 98.4 75 20 150/68 (95) 96 01/05/18 00:40 Nasal Cannula 2.00 01/05/18 00:28 98.5 83 20 151/67 (95) 96 01/04/18 20:35 Nasal Cannula 2.00 01/04/18 20:33 98.5 91 20 158/68 (98) 96 01/04/18 20:10 Nasal Cannula 2.00 01/04/18 17:53 97.8 95 18 165/82 (109) 98 01/04/18 13:29 94 Nasal Cannula 2.00 01/04/18 12:25 94 2.00 01/04/18 12:20 98.1 80 20 139/65 (89) 93 01/05/18 01/05/18 01/05/18 07:00 15:00 23:00 Intake Total 440 ml Output Total 800 ml Balance -360 ml Result Diagram: 01/04/18 0520 01/05/18 0439 Laboratory Results Laboratory Tests Test 01/05/18 04:39 Blood Urea Nitrogen 43 MG/DL Creatinine 2.75 MG/DL Random Glucose 98 MG/DL Calcium Level 8.5 MG/DL Sodium Level 139 MEQ/L Potassium Level 3.8 MEQ/L Chloride Level 100 MEQ/L Carbon Dioxide Level 31.4 MEQ/L Anion Gap 8 MEQ/L Estimat Glomerular Filtration Rate 23 ML/MIN Administered Medications Medications (Trade) Dose Ordered Sig/Richie Route PRN Reason Start Time Stop Time Status Last Admin Dose Admin Sodium Chloride (NS Flush) 2 ml BID IV FLUSH 12/23/17 21:00 01/04/18 20:27 Senna/Docusate Sodium (Chikis-Colace) 1 tab BID PO 12/23/17 21:00 12/31/17 09:07 Carvedilol (Coreg) 25 mg BID PO 12/23/17 21:00 01/04/18 20:27 Levothyroxine Sodium (Synthroid) 150 mcg MoWeFr@0600 PO 12/23/17 16:30 01/04/18 05:13 Triamcinolone Acetonide (Aristocort 0.1% Oint) 1 applic QID TOPICAL 12/23/17 18:00 01/04/18 17:53 Levothyroxine Sodium (Synthroid) 75 mcg SuTuThSa@0600 PO 12/24/17 06:00 01/05/18 04:30 Levothyroxine Sodium (Synthroid) 100 mcg SuTuThSa@0600 PO 12/24/17 06:00 01/05/18 04:30 Pantoprazole Sodium (Protonix) 20 mg DAILY PO 12/24/17 09:00 01/04/18 07:57 Atorvastatin Calcium (Lipitor) 40 mg DAILY PO 12/24/17 09:00 01/04/18 07:56 Belladonna Alkaloids/Opium (B & O Supp) 60 mg Q6H PRN RECTAL bladder spasm 12/23/17 18:00 12/25/17 18:14 Calcium Carbonate (Tums Chew) 500 mg Q2H PRN CHEW indigestion 12/24/17 23:45 12/26/17 20:02 Oxycodone/ Acetaminophen (Percocet 5-325 Mg) 1 tab Q6H PRN PO PAIN SCALE 3 TO 5 12/25/17 11:00 01/03/18 20:44 Isosorbide Mononitrate (Imdur) 30 mg DAILY@07 PO 12/26/17 07:00 01/05/18 04:30 Cyanocobalamin (Vitamin B12 Inj) 1,000 mcg Q30D IM 12/25/17 15:00 12/25/17 14:45 Folic Acid (Folate) 1 mg DAILY PO 12/26/17 09:00 01/04/18 07:57 Cyanocobalamin (Vitamin B12) 1,000 mcg DAILY PO 12/26/17 09:00 01/04/18 09:42 Guaifenesin (Mucinex Er) 600 mg BID PO 12/26/17 21:00 01/04/18 20:26 Aminocaproic Acid 3000 mg/Sodium Chloride 3,012 ml @ 0 mls/hr TITRATE IRRIGATION 12/29/17 11:15 01/01/18 05:55 Acetaminophen (Tylenol) 650 mg Q4H PRN PO SEE LABEL COMMENTS 12/29/17 11:45 12/29/17 17:00 Heparin Sodium (Porcine) (Heparin Central Flush) 250 units UNSCH PRN IV FLUSH SEE PROTOCOL TABLE 12/31/17 16:00 01/04/18 20:27 Heparin Sodium (Porcine) (Heparin Central Flush) 500 units UNSCH IV FLUSH 12/31/17 16:00 01/01/18 08:57 Furosemide (Lasix) 20 mg BID@18 PO 01/01/18 18:00 Future Hold 01/02/18 09:15 Amoxicillin/ Clavulanate Potassium (Augmentin) 500 mg Q12HR PO 01/01/18 21:00 01/08/18 20:59 01/04/18 20:27 Oxycodone/ Acetaminophen (Percocet 10-325 Mg) 1 tab Q4HR PRN PO PAIN SCALE 6 TO 10 01/01/18 16:30 01/05/18 04:31 Furosemide (Lasix Inj) 40 mg BID IV PUSH 01/03/18 14:15 01/04/18 20:27 Objective Remarks GENERAL: Elderly male, sitting up in chair in nad. On 3L O2 via NC SKIN: Warm and dry. HEAD: Normocephalic. EYES: No injection or drainage. NECK: Supple, trachea midline. CARDIOVASCULAR: Regular rate and rhythm RESPIRATORY: scattered rhonchi. GASTROINTESTINAL: Abdomen soft, non-tender, nondistended. EXTREMITIES: No cyanosis. very mild edema in dependent legs. NEUROLOGICAL: awake and alert. normal speech. moving extremities. no obvious focal deficit. Assessment/Plan Problem List: (1) Metastatic renal cell carcinoma ICD Codes: C64.9 - Malignant neoplasm of unspecified kidney, except renal pelvis Plan: --continue monitoring for now. History: --presented with bilateral renal cell carcinoma and had right nephrectomy in February 2010. 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 --had a biopsy of the left kidney mass, which also showed renal cell carcinoma. He started Votrient, with good response. The Votrient was held for awhile when he was receiving treatment for bladder cancer. --recently was found to have progression of disease and restarted Votrient at the end of 2014. CT scan done in early November which did not show clear evidence of progression of disease. The Votrient has been on hold since the urologic procedure. (2) Bladder cancer ICD Codes: C67.9 - Malignant neoplasm of urinary bladder Status: Acute Plan: -- Bladder invasive transitional cell carcinoma, treated with radiation and chemotherapy. --had another cystoscopy 3 weeks ago with biopsy which did not show any recurrent disease. (3) Pancytopenia ICD Codes: D61.818 - Other pancytopenia Status: Resolved Plan: --improving. --monitor and transfuse as needed ++partly due to Votrient-->Votrient was stopped about 3 weeks ago. ++significant anemia likely due to chronic kidney disease as well as chronic inflammatory disease. --given Epogen on 12/24 Assessment 72y/o male with thrombocytopenia, anemia and history of metastatic renal cell cancer. h/o Congestive heart failure. Chronic obstructive pulmonary disease, oxygen dependent. Bladder cancer. Urethral stricture. Pancytopenia. Hypertension. Hypothyroidism. Hyperlipidemia. Gastroesophageal reflux disease. Osteoarthritis. Gout Plan 1. no transfusion needed today 2. monitor urine for worsening hematuria or inability to urinate 3. oncology clear for discharge Attending Statement The exam, history, and the medical decision-making described in the above note were completed with the assistance of the mid-level provider. I reviewed and agree with the findings presented. I attest that I had a [id number] encounter with the patient on the same day, and personally performed and documented my assessment and findings in the medical record. No hematuria. He appears stronger. Still has BLE edema but his weight is stable. Continue diuresis per primary and nephrology. Can be d/c from oncology standpoint. Desire Samuels Jan 05, 2018 08:32 Ernesto Yousif MD Jan 05, 2018 11:53
[2018-01-05] MEDS: DOCUSATE SODIUM 50 MG/SENNA 8.6 MG TAB PO SCH (09:00)
[2018-01-05] MEDS: FUROSEMIDE 40 MG/4 ML VIAL IV PUSH SCH ×3 (09:12→18:17)
[2018-01-05] MEDS: FOLIC ACID 1 MG TAB PO SCH (09:12)
[2018-01-05] MEDS: guaiFENesin E.R. 600 MG TAB PO SCH ×2 (09:12→22:01)
[2018-01-05] MEDS: ATORVASTATIN 40 MG TAB PO SCH (09:12)
[2018-01-05] MEDS: AMOXICILLIN/CLAVULANATE K 500 MG TAB PO SCH ×2 (09:12→22:01)
[2018-01-05] MEDS: CYANOCOBALAMIN 1,000 MCG TAB PO SCH (09:12)
[2018-01-05] MEDS: SODIUM CHLORIDE 0.9% FLUSH 10 ML FLUSH IV FLUSH SCH ×2 (09:12→22:01)
[2018-01-05] MEDS: PANTOPRAZOLE SOD 20 MG DELAYED RELEASE TAB PO SCH (09:12)
[2018-01-05] MEDS: CARVEDILOL 12.5 MG TAB PO SCH ×2 (09:12→22:01)
[2018-01-05] MEDS: TRIAMCINOLONE ACETONIDE 0.1% OINT 15 GM TUBE TOPICAL SCH ×4 (09:13→21:00)
--- NOTE | 2018-01-05 10:45 | HHI.NPPN ---
Subjective History of Present Illness 72-year-old with metastatic renal cell cancer, acute renal failure, previous right nephrectomy, hematuria Objective Data Data Vital Signs Date Time Temp Pulse Resp B/P (MAP) Pulse Ox O2 Delivery O2 Flow Rate FiO2 01/05/18 08:38 99 Nasal Cannula 3.00 01/05/18 08:30 98.3 81 18 139/64 (89) 94 01/05/18 08:00 94 Nasal Cannula 3.00 01/05/18 05:30 16 01/05/18 04:35 98.4 75 20 150/68 (95) 96 01/05/18 00:40 Nasal Cannula 2.00 01/05/18 00:28 98.5 83 20 151/67 (95) 96 01/04/18 20:35 Nasal Cannula 2.00 01/04/18 20:33 98.5 91 20 158/68 (98) 96 01/04/18 20:10 Nasal Cannula 2.00 01/04/18 17:53 97.8 95 18 165/82 (109) 98 01/04/18 13:29 94 Nasal Cannula 2.00 01/04/18 12:25 94 2.00 01/04/18 12:20 98.1 80 20 139/65 (89) 93 -: 01/04/18 0520 01/05/18 0439 Physical Exam General Appearance: Well Developed, Well Nourished Neck Neck Exam: Neck Supple Pulmonary Resp Exam: Decreased Bases Cardiology CV Exam: Regular, Murmur Gastrointestinal/Abdomen GI Exam: Soft, Non-Tender, Bowel Sounds Present Extremeties Extremities Exam: Pitting Edema, Dependent Edema Assessment/Plan Problem List: (1) Acute renal failure ICD Codes: N17.9 - Acute kidney failure, unspecified Plan: Patient is now on Lasix 40 mg IV twice a day. He is s/p right nephrectomy. Hematuria has improved. He has advanced metastatic renal cell cancer Renal function may be at baseline? low WBC and platelets diuresing well 1.7 L off Continue with Lasix increased to 40 mg IV Q 6 follow BMP Prognosis is guarded. (2) Metastatic renal cell carcinoma ICD Codes: C64.9 - Malignant neoplasm of unspecified kidney, except renal pelvis Plan: Oncology on the case. (3) Hyponatremia ICD Codes: E87.1 - Hyponatremia Status: Acute Plan: Improved (4) Hematuria, gross ICD Codes: R31.0 - Gross hematuria Status: Acute Plan: Improved. Noel Dykes MD Jan 05, 2018 10:45
--- NOTE | 2018-01-05 15:20 | HHI.PR ---
Subjective Remarks Patient states that he finally receive the correct size of shorts for scrotal support. He still complains of ankle edema, shortness of breath, scrotal swelling. Objective Vitals Vital Signs Date Time Temp Pulse Resp B/P (MAP) Pulse Ox O2 Delivery O2 Flow Rate FiO2 01/05/18 12:07 97.5 82 16 139/63 (88) 91 01/05/18 11:26 Nasal Cannula 3.00 01/05/18 08:38 99 Nasal Cannula 3.00 01/05/18 08:30 98.3 81 18 139/64 (89) 94 01/05/18 08:00 94 Nasal Cannula 3.00 01/05/18 05:30 16 01/05/18 04:35 98.4 75 20 150/68 (95) 96 01/05/18 00:40 Nasal Cannula 2.00 01/05/18 00:28 98.5 83 20 151/67 (95) 96 01/04/18 20:35 Nasal Cannula 2.00 01/04/18 20:33 98.5 91 20 158/68 (98) 96 01/04/18 20:10 Nasal Cannula 2.00 01/04/18 17:53 97.8 95 18 165/82 (109) 98 I/O 01/04/18 01/04/18 01/04/18 01/05/18 01/05/18 01/05/18 07:00 15:00 23:00 07:00 15:00 23:00 Intake Total 930 ml 1340 ml 440 ml Output Total 1300 ml 950 ml 800 ml Balance -370 ml 390 ml -360 ml Intake Oral 930 ml 1340 ml 440 ml Output Urine Total 1300 ml 950 ml 800 ml # Voids 1 1 # Bowel Movements 3 6 2 Result Diagram: 01/04/18 0520 01/05/18 0439 Objective Remarks GENERAL: Obese man SKIN: Warm and dry. : scrotal edema EYES: No scleral icterus. No injection or drainage. NECK: Supple, trachea midline. No JVD or lymphadenopathy. CARDIOVASCULAR: Regular rate and rhythm without murmurs, gallops, or rubs. RESPIRATORY: Breath sounds equal bilaterally. No accessory muscle use. GASTROINTESTINAL: Abdomen soft, non-tender, nondistended. EXTREMITIES: No cyanosis, or edema. NEUROLOGICAL: Awake, alert, and oriented x 3. Non-focal. Procedures CBI BIPAP Date of Removal: Jan 02, 2018 A/P Problem List: (1) Hematuria, gross ICD Code: R31.0 - Gross hematuria Status: Acute (2) Chronic kidney disease (CKD) ICD Code: N18.9 - Chronic kidney disease Status: Chronic (3) Acute exacerbation of CHF (congestive heart failure) ICD Code: I50.9 - Heart failure, unspecified Status: Acute (4) Acute renal failure ICD Code: N17.9 - Acute kidney failure, unspecified Assessment and Plan This is a 72-year-old male who was sent from his urologist office because of edema. CHF exacerbation, Scrotal Edema ECHO EF = 60% 1.5L fluid restriction, strict I/O's Lasix increased to 40 mg IV every 6 hours Recommend compressive shorts/underwear Acute on Chronic Renal Failure He only has one kidney (left), CKD Stage IV Creatinine is 2.75 today, Lasix increased, will follow trend Avoid nephrotoxins Pancytopenia on Votrient Worsened by hematuria losses keep hemoglobin at least 8 with history of CAD Appreciate oncology consult Gross hematuria - Resolved h/o renal cell carcinoma, and bladder lesions that turned out to be scars Complex UTI Presented with UTI in the presence of gross hematuria and indwelling gill (for irrigation) Exact etiology uncertain, most likely blood changing pH vs. contamination from gill insertion (or cystoscopy procedures) Covered by zosyn and unasyn and Augmentin during this stay Cellulitis Bilat LE's Continue Unasyn and Augmentin, improving CHF and COPD. Continue oxygen keep saturations at least 92% PAD, hypothyroidism, hypertension, hyperlipidemia, GERD, IBS, gout and osteoarthritis. Continue outpatient medications as appropriate DVT prophylaxis SCDs due to hematuria Problem Qualifiers (1) Chronic kidney disease (CKD): Qualified Codes: N18.3 - Chronic kidney disease, stage 3 (moderate) (2) Acute exacerbation of CHF (congestive heart failure): Qualified Codes: I50.9 - Heart failure, unspecified Rocky Fuller MD Jan 05, 2018 15:20
[2018-01-06] VITALS: BP 153/70; PULSE 85; RESP 16; TEMP 98; O2SAT 93
[2018-01-06] MEDS: FUROSEMIDE 40 MG/4 ML VIAL IV PUSH SCH ×2 (00:18→05:00)
[2018-01-06 04:00] VITALS: BP 161/69; PULSE 80; RESP 15; TEMP 98; O2SAT 96
[2018-01-06] MEDS: LEVOTHYROXINE SODIUM 150 MCG TAB PO SCH (04:59)
[2018-01-06] MEDS: oxyCODONE/ACETAMINOPHEN 10 MG/325 MG TAB PO PRN ×4 (04:59→21:50)
[2018-01-06] MEDS: ISOSORBIDE MONONITRATE 30 MG CR TAB (IMDUR) PO SCH ×2 (05:00→08:59)
[2018-01-06 07:44] VITALS: O2SAT 98
[2018-01-06 08:00] VITALS: BP 164/77; PULSE 86; RESP 18; TEMP 97.3; O2SAT 93
[2018-01-06] MEDS: PANTOPRAZOLE SOD 20 MG DELAYED RELEASE TAB PO SCH (08:59)
[2018-01-06] MEDS: AMOXICILLIN/CLAVULANATE K 500 MG TAB PO SCH ×2 (08:59→21:50)
[2018-01-06] MEDS: FOLIC ACID 1 MG TAB PO SCH (08:59)
[2018-01-06] MEDS: CARVEDILOL 12.5 MG TAB PO SCH ×2 (08:59→21:51)
[2018-01-06] MEDS: guaiFENesin E.R. 600 MG TAB PO SCH ×2 (08:59→21:51)
[2018-01-06] MEDS: ATORVASTATIN 40 MG TAB PO SCH (08:59)
[2018-01-06] MEDS: CYANOCOBALAMIN 1,000 MCG TAB PO SCH (08:59)
[2018-01-06] MEDS: TRIAMCINOLONE ACETONIDE 0.1% OINT 15 GM TUBE TOPICAL SCH ×3 (09:00→21:00)
[2018-01-06] MEDS: SODIUM CHLORIDE 0.9% FLUSH 10 ML FLUSH IV FLUSH SCH ×2 (09:00→21:52)
--- NOTE | 2018-01-06 10:20 | HHI.NPPN ---
Subjective History of Present Illness 72-year-old with metastatic renal cell cancer, acute renal failure, previous right nephrectomy, hematuria Objective Data Data Vital Signs Date Time Temp Pulse Resp B/P (MAP) Pulse Ox O2 Delivery O2 Flow Rate FiO2 01/06/18 07:44 98 Nasal Cannula 3.00 01/06/18 04:00 Nasal Cannula 3.00 01/06/18 04:00 98.0 80 15 161/69 (99) 96 01/06/18 00:00 98.0 85 16 153/70 (97) 93 01/06/18 00:00 Nasal Cannula 3.00 01/05/18 20:37 95 Nasal Cannula 3.00 01/05/18 20:00 98.2 96 16 161/75 (103) 92 01/05/18 20:00 Nasal Cannula 3.00 01/05/18 16:25 97.7 81 16 147/67 (93) 93 01/05/18 16:12 Nasal Cannula 3.00 01/05/18 12:07 97.5 82 16 139/63 (88) 91 01/05/18 11:26 Nasal Cannula 3.00 -: 01/04/18 0520 01/05/18 0439 Physical Exam General Appearance: Well Developed, Well Nourished Neck Neck Exam: Neck Supple Pulmonary Resp Exam: Decreased Bases Cardiology CV Exam: Regular, Murmur Gastrointestinal/Abdomen GI Exam: Soft, Non-Tender, Bowel Sounds Present Extremeties Extremities Exam: Pitting Edema, Dependent Edema Assessment/Plan Problem List: (1) Acute renal failure ICD Codes: N17.9 - Acute kidney failure, unspecified Plan: Patient is now on Lasix 40 mg IV q6 hrs day. He is s/p right nephrectomy. Hematuria has improved. He has advanced metastatic renal cell cancer Renal function may be at baseline? low WBC and platelets diuresing well 2.7 L off Continue with Lasix 40 mg IV Q 6 follow BMP Prognosis is guarded. (2) Metastatic renal cell carcinoma ICD Codes: C64.9 - Malignant neoplasm of unspecified kidney, except renal pelvis Plan: Oncology on the case. (3) Hyponatremia ICD Codes: E87.1 - Hyponatremia Status: Acute Plan: Improved (4) Hematuria, gross ICD Codes: R31.0 - Gross hematuria Status: Acute Plan: Improved. Noel Dykes MD Jan 06, 2018 10:20
[2018-01-06 11:07] LABS: BICARBONATE 31.9 MEQ/L (21.0-32.0); CALCIUM 8.7 MG/DL (8.5-10.1); CREATININE 2.83 MG/DL (0.60-1.30)
[2018-01-06 12:00] VITALS: BP 103/77; PULSE 77; RESP 18; TEMP 97.1; O2SAT 99
--- NOTE | 2018-01-06 12:38 | PD.ONC.PN ---
Subjective Subjective Remarks Afebrile Patient reports his new briefs are doing well with giving him scrotal support Pointing out he still has a lot of edema to his upper legs Thinks he had one small blood clot yesterday in his urine Objective Data Date Time Temp Pulse Resp B/P (MAP) Pulse Ox O2 Delivery O2 Flow Rate FiO2 01/06/18 08:00 97.3 86 18 164/77 (106) 93 01/06/18 07:44 98 Nasal Cannula 3.00 01/06/18 04:00 Nasal Cannula 3.00 01/06/18 04:00 98.0 80 15 161/69 (99) 96 01/06/18 00:00 98.0 85 16 153/70 (97) 93 01/06/18 00:00 Nasal Cannula 3.00 01/05/18 20:37 95 Nasal Cannula 3.00 01/05/18 20:00 98.2 96 16 161/75 (103) 92 01/05/18 20:00 Nasal Cannula 3.00 01/05/18 16:25 97.7 81 16 147/67 (93) 93 01/05/18 16:12 Nasal Cannula 3.00 01/06/18 01/06/18 01/06/18 06:59 14:59 22:59 Output Total 1450 ml Balance -1450 ml Result Diagram: 01/04/18 0520 01/06/18 1020 Laboratory Results Laboratory Tests Test 01/06/18 10:20 Blood Urea Nitrogen 42 MG/DL Creatinine 2.83 MG/DL Random Glucose 180 MG/DL Calcium Level 8.7 MG/DL Sodium Level 140 MEQ/L Potassium Level 3.4 MEQ/L Chloride Level 99 MEQ/L Carbon Dioxide Level 31.9 MEQ/L Anion Gap 9 MEQ/L Estimat Glomerular Filtration Rate 22 ML/MIN Administered Medications Medications (Trade) Dose Ordered Sig/Richie Route PRN Reason Start Time Stop Time Status Last Admin Dose Admin Sodium Chloride (NS Flush) 2 ml BID IV FLUSH 12/23/17 21:00 01/06/18 09:00 Carvedilol (Coreg) 25 mg BID PO 12/23/17 21:00 01/06/18 08:59 Levothyroxine Sodium (Synthroid) 150 mcg MoWeFr@0600 PO 12/23/17 16:30 01/06/18 04:59 Triamcinolone Acetonide (Aristocort 0.1% Oint) 1 applic QID TOPICAL 12/23/17 18:00 01/05/18 21:00 Levothyroxine Sodium (Synthroid) 75 mcg SuTuThSa@0600 PO 12/24/17 06:00 01/05/18 04:30 Levothyroxine Sodium (Synthroid) 100 mcg SuTuThSa@0600 PO 12/24/17 06:00 01/05/18 04:30 Pantoprazole Sodium (Protonix) 20 mg DAILY PO 12/24/17 09:00 01/06/18 08:59 Atorvastatin Calcium (Lipitor) 40 mg DAILY PO 12/24/17 09:00 01/06/18 08:59 Belladonna Alkaloids/Opium (B & O Supp) 60 mg Q6H PRN RECTAL bladder spasm 12/23/17 18:00 12/25/17 18:14 Calcium Carbonate (Tums Chew) 500 mg Q2H PRN CHEW indigestion 12/24/17 23:45 12/26/17 20:02 Oxycodone/ Acetaminophen (Percocet 5-325 Mg) 1 tab Q6H PRN PO PAIN SCALE 3 TO 5 12/25/17 11:00 01/03/18 20:44 Isosorbide Mononitrate (Imdur) 30 mg DAILY@07 PO 12/26/17 07:00 01/06/18 08:59 Cyanocobalamin (Vitamin B12 Inj) 1,000 mcg Q30D IM 12/25/17 15:00 12/25/17 14:45 Folic Acid (Folate) 1 mg DAILY PO 12/26/17 09:00 01/06/18 08:59 Cyanocobalamin (Vitamin B12) 1,000 mcg DAILY PO 12/26/17 09:00 01/06/18 08:59 Guaifenesin (Mucinex Er) 600 mg BID PO 12/26/17 21:00 01/06/18 08:59 Aminocaproic Acid 3000 mg/Sodium Chloride 3,012 ml @ 0 mls/hr TITRATE IRRIGATION 12/29/17 11:15 01/01/18 05:55 Acetaminophen (Tylenol) 650 mg Q4H PRN PO SEE LABEL COMMENTS 12/29/17 11:45 12/29/17 17:00 Heparin Sodium (Porcine) (Heparin Central Flush) 250 units UNSCH PRN IV FLUSH SEE PROTOCOL TABLE 12/31/17 16:00 01/04/18 20:27 Heparin Sodium (Porcine) (Heparin Central Flush) 500 units UNSCH IV FLUSH 12/31/17 16:00 01/01/18 08:57 Furosemide (Lasix) 20 mg BID@,18 PO 01/01/18 18:00 Future Hold 01/02/18 09:15 Amoxicillin/ Clavulanate Potassium (Augmentin) 500 mg Q12HR PO 01/01/18 21:00 01/08/18 20:59 01/06/18 08:59 Oxycodone/ Acetaminophen (Percocet 10-325 Mg) 1 tab Q4HR PRN PO PAIN SCALE 6 TO 10 01/01/18 16:30 01/06/18 09:12 Objective Remarks GENERAL: Elderly male, sitting up in chair in no obvious distress. SKIN: Warm and dry. HEAD: Normocephalic. EYES: No injection or drainage. NECK: Supple, trachea midline. CARDIOVASCULAR: Regular rate and rhythm RESPIRATORY: Scattered rhonchi anteriorly. GASTROINTESTINAL: Abdomen soft, non-tender, nondistended. EXTREMITIES: No cyanosis. Patient with erythema and mild swelling to bilateral lower extremities NEUROLOGICAL: Awake and alert. normal speech. moving extremities. no obvious focal deficit. Assessment/Plan Problem List: (1) Metastatic renal cell carcinoma ICD Codes: C64.9 - Malignant neoplasm of unspecified kidney, except renal pelvis Plan: --continue monitoring for now. History: --presented with bilateral renal cell carcinoma and had right nephrectomy in February 2010. 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 --had a biopsy of the left kidney mass, which also showed renal cell carcinoma. He started Votrient, with good response. The Votrient was held for awhile when he was receiving treatment for bladder cancer. --recently was found to have progression of disease and restarted Votrient at the end of 2014. CT scan done in early November which did not show clear evidence of progression of disease. The Votrient has been on hold since the urologic procedure. (2) Bladder cancer ICD Codes: C67.9 - Malignant neoplasm of urinary bladder Status: Acute Plan: -- Bladder invasive transitional cell carcinoma, treated with radiation and chemotherapy. --had another cystoscopy 3 weeks ago with biopsy which did not show any recurrent disease. (3) Pancytopenia ICD Codes: D61.818 - Other pancytopenia Status: Resolved Plan: --improving. --monitor and transfuse as needed ++partly due to Votrient-->Votrient was stopped about 3 weeks ago. ++significant anemia likely due to chronic kidney disease as well as chronic inflammatory disease. --given Epogen on 12/24 Assessment 72y/o male with thrombocytopenia, anemia and history of metastatic renal cell cancer. h/o Congestive heart failure. Chronic obstructive pulmonary disease, oxygen dependent. Bladder cancer. Urethral stricture. Pancytopenia. Hypertension. Hypothyroidism. Hyperlipidemia. Gastroesophageal reflux disease. Osteoarthritis. Gout Plan 1. CBC in a.m. 2. Follow-up in clinic once discharged Attending Statement The exam, history, and the medical decision-making described in the above note were completed with the assistance of the mid-level provider. I reviewed and agree with the findings presented. I attest that I had a [id number] encounter with the patient on the same day, and personally performed and documented my assessment and findings in the medical record. Feeling better. Edema legs improving. No hematuria. Can be d/c from oncology standpoint and f/ u oncology clinic. Restart Votrient once he gets home. Ruba Thomas Jan 06, 2018 12:38 Ernesto Yousif MD Jan 06, 2018 13:02
--- NOTE | 2018-01-06 16:14 | HHI.PR ---
Subjective Remarks Patient is pleased with the improvement of his edema following increased Lasix dose. His brought him some spandex underwear which is helping his scrotal edema as well. Objective Vitals Vital Signs Date Time Temp Pulse Resp B/P (MAP) Pulse Ox O2 Delivery O2 Flow Rate FiO2 01/06/18 12:00 97.1 77 18 103/77 (86) 99 01/06/18 08:00 97.3 86 18 164/77 (106) 93 01/06/18 07:44 98 Nasal Cannula 3.00 01/06/18 07:30 Nasal Cannula 3.00 01/06/18 04:00 Nasal Cannula 3.00 01/06/18 04:00 98.0 80 15 161/69 (99) 96 01/06/18 00:00 98.0 85 16 153/70 (97) 93 01/06/18 00:00 Nasal Cannula 3.00 01/05/18 20:37 95 Nasal Cannula 3.00 01/05/18 20:00 98.2 96 16 161/75 (103) 92 01/05/18 20:00 Nasal Cannula 3.00 01/05/18 16:25 97.7 81 16 147/67 (93) 93 01/05/18 16:12 Nasal Cannula 3.00 I/O 01/05/18 01/05/18 01/05/18 01/06/18 01/06/18 01/06/18 07:00 15:00 23:00 07:00 15:00 23:00 Intake Total 440 ml 960 ml Output Total 800 ml 1275 ml 1450 ml Balance -360 ml -315 ml -1450 ml Intake Oral 440 ml 960 ml Output Urine Total 800 ml 1275 ml 1450 ml # Voids 1 1 1 # Bowel Movements 2 5 2 Result Diagram: 01/04/18 0520 01/06/18 1020 Objective Remarks GENERAL: Obese man SKIN: Warm and dry. : scrotal edema EYES: No scleral icterus. No injection or drainage. NECK: Supple, trachea midline. No JVD or lymphadenopathy. CARDIOVASCULAR: Regular rate and rhythm without murmurs, gallops, or rubs. RESPIRATORY: Breath sounds equal bilaterally. No accessory muscle use. GASTROINTESTINAL: Abdomen soft, non-tender, nondistended. EXTREMITIES: No cyanosis, improving edema in bilateral lower extremities, large scrotal edema NEUROLOGICAL: Awake, alert, and oriented x 3. Non-focal. Procedures CBI BIPAP Date of Removal: Jan 02, 2018 A/P Problem List: (1) Hematuria, gross ICD Code: R31.0 - Gross hematuria Status: Acute (2) Chronic kidney disease (CKD) ICD Code: N18.9 - Chronic kidney disease Status: Chronic (3) Acute exacerbation of CHF (congestive heart failure) ICD Code: I50.9 - Heart failure, unspecified Status: Acute (4) Acute renal failure ICD Code: N17.9 - Acute kidney failure, unspecified Assessment and Plan This is a 72-year-old male who was sent from his urologist office because of edema. CHF exacerbation, Scrotal Edema ECHO EF = 60% 1.5L fluid restriction, strict I/O's Lasix held and replaced by Bumex p.o. for discharge planning Add back Lasix if edema worsens Continue with compressive shorts/underwear for scrotal edema Acute on Chronic Renal Failure He only has one kidney (left), CKD Stage IV Creatinine is 2.75, following trend Avoid nephrotoxins Pancytopenia on Votrient Worsened by hematuria losses keep hemoglobin at least 8 with history of CAD Appreciate oncology consult Gross hematuria - Resolved h/o renal cell carcinoma, and bladder lesions that turned out to be scars Complex UTI Presented with UTI in the presence of gross hematuria and indwelling gill (for irrigation) Exact etiology uncertain, most likely blood changing pH vs. contamination from gill insertion (or cystoscopy procedures) Covered by zosyn and unasyn and Augmentin during this stay Cellulitis Bilat LE's Continue Unasyn and Augmentin, improving CHF and COPD. Continue oxygen keep saturations at least 92% PAD, hypothyroidism, hypertension, hyperlipidemia, GERD, IBS, gout and osteoarthritis. Continue outpatient medications as appropriate DVT prophylaxis SCDs due to hematuria Problem Qualifiers (1) Chronic kidney disease (CKD): Qualified Codes: N18.3 - Chronic kidney disease, stage 3 (moderate) (2) Acute exacerbation of CHF (congestive heart failure): Qualified Codes: I50.9 - Heart failure, unspecified Rocky Fuller MD Jan 06, 2018 16:14
[2018-01-06] MEDS: BUMETANIDE 1 MG TAB PO SCH (17:30)
[2018-01-06 20:55] VITALS: BP 155/68; PULSE 87; TEMP 96.8; O2SAT 97
[2018-01-07] VITALS (8 sets, daily range): BP systolic 130–153; BP diastolic 63–90; PULSE 75–88; RESP 18–22; TEMP 96.1–98.6; O2SAT 94–98
[2018-01-07] MEDS: oxyCODONE/ACETAMINOPHEN 5 MG/325 MG TAB PO PRN (04:44)
[2018-01-07] MEDS: LEVOTHYROXINE SODIUM 100 MCG TAB PO SCH (04:44)
[2018-01-07] MEDS: LEVOTHYROXINE SODIUM 75 MCG TAB PO SCH (04:44)
[2018-01-07 05:43] LABS: AUTOMATED NEUTROPHIL # 1.9 TH/MM3 (1.8-7.7); BASOPHIL % 1.4 % (0.0-2.0); EOSINOPHIL # 0.1 TH/MM3 (0-0.4); EOSINOPHIL % 3.6 % (0.0-4.0); HEMATOCRIT 29.8 % (39.0-51.0); HEMOGLOBIN 9.7 GM/DL (13.0-17.0); LYMPH % 25.1 % (9.0-44.0); LYMPHOCYTE # 0.8 TH/MM3 (1.0-4.8); MEAN CELL VOLUME 100.4 FL (80.0-100.0); MEAN CORPUSCULAR HEMOGLOBIN 32.6 PG (27.0-34.0); MEAN CORPUSCULAR HGB CONC 32.5 % (32.0-36.0); MEAN PLATELET VOLUME 9.4 FL (7.0-11.0); MONO % 11.5 % (0.0-8.0); MONOCYTE # 0.4 TH/MM3 (0-0.9); NEUT % 58.4 % (16.0-70.0); PLATELET COUNT 129 TH/MM3 (150-450); RED BLOOD COUNT 2.97 MIL/MM3 (4.50-5.90); RED CELL DISTRIBUTION WIDTH 20.9 % (11.6-17.2); WHITE BLOOD COUNT 3.3 TH/MM3 (4.0-11.0)
[2018-01-07 06:16] LABS: BICARBONATE 32.4 MEQ/L (21.0-32.0); CALCIUM 8.4 MG/DL (8.5-10.1); CREATININE 2.84 MG/DL (0.60-1.30)
--- NOTE | 2018-01-07 07:34 | PD.ONC.PN ---
Subjective Subjective Remarks Feeling better. LE and scrotal edema improving. No more hematuria. Objective Data Date Time Temp Pulse Resp B/P (MAP) Pulse Ox O2 Delivery O2 Flow Rate FiO2 01/07/18 06:26 Nasal Cannula 3.00 97 01/07/18 04:40 96.1 77 20 153/69 (97) 96 01/07/18 02:14 Nasal Cannula 3.00 97 01/07/18 01:08 98.6 77 144/63 (90) 98 01/06/18 20:55 96.8 87 155/68 (97) 97 01/06/18 20:00 Nasal Cannula 3.00 97 01/06/18 19:43 Nasal Cannula 3.00 01/06/18 12:00 97.1 77 18 103/77 (86) 99 01/06/18 08:00 97.3 86 18 164/77 (106) 93 01/06/18 07:44 98 Nasal Cannula 3.00 01/07/18 01/07/18 01/07/18 07:00 15:00 23:00 Intake Total 150 ml Output Total 200 ml 200 ml Balance -50 ml -200 ml Result Diagram: 01/07/18 0500 01/07/18 0500 Laboratory Results Laboratory Tests Test 01/06/18 10:20 01/07/18 05:00 Blood Urea Nitrogen 42 MG/DL 44 MG/DL Creatinine 2.83 MG/DL 2.84 MG/DL Random Glucose 180 MG/DL 105 MG/DL Calcium Level 8.7 MG/DL 8.4 MG/DL Sodium Level 140 MEQ/L 140 MEQ/L Potassium Level 3.4 MEQ/L 3.5 MEQ/L Chloride Level 99 MEQ/L 100 MEQ/L Carbon Dioxide Level 31.9 MEQ/L 32.4 MEQ/L Anion Gap 9 MEQ/L 8 MEQ/L Estimat Glomerular Filtration Rate 22 ML/MIN 22 ML/MIN White Blood Count 3.3 TH/MM3 Red Blood Count 2.97 MIL/MM3 Hemoglobin 9.7 GM/DL Hematocrit 29.8 % Mean Corpuscular Volume 100.4 FL Mean Corpuscular Hemoglobin 32.6 PG Mean Corpuscular Hemoglobin Concent 32.5 % Red Cell Distribution Width 20.9 % Platelet Count 129 TH/MM3 Mean Platelet Volume 9.4 FL Neutrophils (%) (Auto) 58.4 % Lymphocytes (%) (Auto) 25.1 % Monocytes (%) (Auto) 11.5 % Eosinophils (%) (Auto) 3.6 % Basophils (%) (Auto) 1.4 % Neutrophils # (Auto) 1.9 TH/MM3 Lymphocytes # (Auto) 0.8 TH/MM3 Monocytes # (Auto) 0.4 TH/MM3 Eosinophils # (Auto) 0.1 TH/MM3 Basophils # (Auto) 0.0 TH/MM3 CBC Comment DIFF FINAL Differential Comment Administered Medications Medications (Trade) Dose Ordered Sig/Richie Route PRN Reason Start Time Stop Time Status Last Admin Dose Admin Sodium Chloride (NS Flush) 2 ml BID IV FLUSH 12/23/17 21:00 01/06/18 21:52 Carvedilol (Coreg) 25 mg BID PO 12/23/17 21:00 01/06/18 21:51 Levothyroxine Sodium (Synthroid) 150 mcg MoWeFr@0600 PO 12/23/17 16:30 01/06/18 04:59 Triamcinolone Acetonide (Aristocort 0.1% Oint) 1 applic QID TOPICAL 12/23/17 18:00 01/06/18 21:00 Levothyroxine Sodium (Synthroid) 75 mcg SuTuThSa@0600 PO 12/24/17 06:00 01/07/18 04:44 Levothyroxine Sodium (Synthroid) 100 mcg SuTuThSa@0600 PO 12/24/17 06:00 01/07/18 04:44 Pantoprazole Sodium (Protonix) 20 mg DAILY PO 12/24/17 09:00 01/06/18 08:59 Atorvastatin Calcium (Lipitor) 40 mg DAILY PO 12/24/17 09:00 01/06/18 08:59 Belladonna Alkaloids/Opium (B & O Supp) 60 mg Q6H PRN RECTAL bladder spasm 12/23/17 18:00 12/25/17 18:14 Calcium Carbonate (Tums Chew) 500 mg Q2H PRN CHEW indigestion 12/24/17 23:45 12/26/17 20:02 Oxycodone/ Acetaminophen (Percocet 5-325 Mg) 1 tab Q6H PRN PO PAIN SCALE 3 TO 5 12/25/17 11:00 01/07/18 04:44 Isosorbide Mononitrate (Imdur) 30 mg DAILY@07 PO 12/26/17 07:00 01/06/18 08:59 Cyanocobalamin (Vitamin B12 Inj) 1,000 mcg Q30D IM 12/25/17 15:00 12/25/17 14:45 Folic Acid (Folate) 1 mg DAILY PO 12/26/17 09:00 01/06/18 08:59 Cyanocobalamin (Vitamin B12) 1,000 mcg DAILY PO 12/26/17 09:00 01/06/18 08:59 Guaifenesin (Mucinex Er) 600 mg BID PO 12/26/17 21:00 01/06/18 21:51 Aminocaproic Acid 3000 mg/Sodium Chloride 3,012 ml @ 0 mls/hr TITRATE IRRIGATION 12/29/17 11:15 01/01/18 05:55 Acetaminophen (Tylenol) 650 mg Q4H PRN PO SEE LABEL COMMENTS 12/29/17 11:45 12/29/17 17:00 Heparin Sodium (Porcine) (Heparin Central Flush) 250 units UNSCH PRN IV FLUSH SEE PROTOCOL TABLE 12/31/17 16:00 01/04/18 20:27 Heparin Sodium (Porcine) (Heparin Central Flush) 500 units UNSCH IV FLUSH 12/31/17 16:00 01/01/18 08:57 Furosemide (Lasix) 20 mg BID@ PO 01/01/18 18:00 Future Hold 01/02/18 09:15 Amoxicillin/ Clavulanate Potassium (Augmentin) 500 mg Q12HR PO 01/01/18 21:00 01/08/18 20:59 01/06/18 21:50 Oxycodone/ Acetaminophen (Percocet 10-325 Mg) 1 tab Q4HR PRN PO PAIN SCALE 6 TO 10 01/01/18 16:30 01/06/18 21:50 Bumetanide (Bumetanide) 2 mg BID@,18 PO 01/06/18 18:00 01/06/18 17:30 Objective Remarks GENERAL: Well-nourished, well-developed patient. Sitting in chair. SKIN: Warm and dry. HEAD: Normocephalic. EYES: No scleral icterus. No injection or drainage. NECK: Supple, trachea midline. No JVD or lymphadenopathy. LYMPHATIC: No adenopathy. CARDIOVASCULAR: Regular rate and rhythm without murmurs. RESPIRATORY: Breath sounds equal bilaterally. No accessory muscle use. GASTROINTESTINAL: Abdomen soft, non-tender, nondistended. EXTREMITIES: No cyanosis, BLE 2+edema. MUSCULOSKELETAL: Adequate muscle tone. NEUROLOGICAL: No obvious focal deficit. Awake, alert, and oriented x3. PSYCHIATRIC: Appropriate mood and affect; insight and judgment normal. Assessment/Plan Problem List: (1) Metastatic renal cell carcinoma ICD Codes: C64.9 - Malignant neoplasm of unspecified kidney, except renal pelvis Plan: --continue monitoring for now. Votient on hold. History: --presented with bilateral renal cell carcinoma and had right nephrectomy in February 2010. 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 --had a biopsy of the left kidney mass, which also showed renal cell carcinoma. He started Votrient, with good response. The Votrient was held for awhile when he was receiving treatment for bladder cancer. --recently was found to have progression of disease and restarted Votrient at the end of 2014. CT scan done in early November which did not show clear evidence of progression of disease. The Votrient has been on hold since the urologic procedure. (2) Bladder cancer ICD Codes: C67.9 - Malignant neoplasm of urinary bladder Status: Acute Plan: -- Bladder invasive transitional cell carcinoma, treated with radiation and chemotherapy. --had another cystoscopy 3 weeks ago with biopsy which did not show any recurrent disease. (3) Pancytopenia ICD Codes: D61.818 - Other pancytopenia Status: Resolved Plan: --improving. --monitor and transfuse as needed ++partly due to Votrient-->Votrient was stopped about 3 weeks ago. ++significant anemia likely due to chronic kidney disease as well as chronic inflammatory disease. --given Epogen on 12/24 Assessment 72y/o male with thrombocytopenia, anemia and history of metastatic renal cell cancer. h/o Congestive heart failure. Chronic obstructive pulmonary disease, oxygen dependent. Bladder cancer. Urethral stricture. Pancytopenia. Hypertension. Hypothyroidism. Hyperlipidemia. Gastroesophageal reflux disease. Osteoarthritis. Gout Plan 1. Monitor CBC 2. Follow-up in clinic once discharged 3.. Restart Votrient outpatient. Ernesto Yousif MD Jan 07, 2018 07:34
[2018-01-07] MEDS: oxyCODONE/ACETAMINOPHEN 10 MG/325 MG TAB PO PRN ×4 (08:42→23:32)
[2018-01-07] MEDS: AMOXICILLIN/CLAVULANATE K 500 MG TAB PO SCH ×2 (08:43→23:31)
[2018-01-07] MEDS: CARVEDILOL 12.5 MG TAB PO SCH ×2 (08:43→23:32)
[2018-01-07] MEDS: guaiFENesin E.R. 600 MG TAB PO SCH ×2 (08:43→23:32)
[2018-01-07] MEDS: BUMETANIDE 1 MG TAB PO SCH ×2 (08:43→18:14)
[2018-01-07] MEDS: PANTOPRAZOLE SOD 20 MG DELAYED RELEASE TAB PO SCH (08:43)
[2018-01-07] MEDS: FOLIC ACID 1 MG TAB PO SCH (08:44)
[2018-01-07] MEDS: ATORVASTATIN 40 MG TAB PO SCH (08:44)
[2018-01-07] MEDS: SODIUM CHLORIDE 0.9% FLUSH 10 ML FLUSH IV FLUSH SCH ×2 (08:44→21:00)
[2018-01-07] MEDS: CYANOCOBALAMIN 1,000 MCG TAB PO SCH (08:44)
[2018-01-07] MEDS: TRIAMCINOLONE ACETONIDE 0.1% OINT 15 GM TUBE TOPICAL SCH ×4 (08:48→21:00)
--- NOTE | 2018-01-07 10:21 | HHI.NPPN ---
Subjective History of Present Illness 72-year-old with metastatic renal cell cancer, acute renal failure, previous right nephrectomy, hematuria Objective Data Data 01/07/18 01/08/18 19:00 07:00 Output Total 200 ml Balance -200 ml Output Urine Total 200 ml Vital Signs Date Time Temp Pulse Resp B/P (MAP) Pulse Ox O2 Delivery O2 Flow Rate FiO2 01/07/18 07:55 98.6 88 18 130/63 (85) 98 01/07/18 07:55 Nasal Cannula 3.00 01/07/18 06:26 Nasal Cannula 3.00 97 01/07/18 04:40 96.1 77 20 153/69 (97) 96 01/07/18 02:14 Nasal Cannula 3.00 97 01/07/18 01:08 98.6 77 144/63 (90) 98 01/06/18 20:55 96.8 87 155/68 (97) 97 01/06/18 20:00 Nasal Cannula 3.00 97 01/06/18 19:43 Nasal Cannula 3.00 01/06/18 12:00 97.1 77 18 103/77 (86) 99 -: 01/07/18 0500 01/07/18 0500 Physical Exam General Appearance: Well Developed, Well Nourished Neck Neck Exam: Neck Supple Pulmonary Resp Exam: Decreased Bases Cardiology CV Exam: Regular, Murmur Gastrointestinal/Abdomen GI Exam: Soft, Non-Tender, Bowel Sounds Present Extremeties Extremities Exam: Pitting Edema, Dependent Edema Assessment/Plan Problem List: (1) Acute renal failure ICD Codes: N17.9 - Acute kidney failure, unspecified Plan: Patient is now on Bumex 2 mg twice daily He is s/p right nephrectomy. Hematuria has improved. He has advanced metastatic renal cell cancer Renal function may be at baseline? low WBC and platelets diuresing well started on Bumex 2 mg twice a day Creatinine 2.8 potassium 3.5 Potassium chloride 10 mEq daily follow BMP Prognosis is guarded. (2) Metastatic renal cell carcinoma ICD Codes: C64.9 - Malignant neoplasm of unspecified kidney, except renal pelvis Plan: Oncology on the case. (3) Hyponatremia ICD Codes: E87.1 - Hyponatremia Status: Acute Plan: Improved (4) Hematuria, gross ICD Codes: R31.0 - Gross hematuria Status: Acute Plan: Improved. Noel Dykes MD Jan 07, 2018 10:21
[2018-01-07] MEDS: POTASSIUM CHLORIDE 10 MEQ CONTROLLED RELEASE TAB PO SCH (13:59)
--- NOTE | 2018-01-07 17:48 | HHI.PR ---
Subjective Remarks Patient has no new complaints, he states that the Bumex seems to give him more predictability with his urinations. The compressive undergarments are helping his scrotal edema. Objective Vitals Vital Signs Date Time Temp Pulse Resp B/P (MAP) Pulse Ox O2 Delivery O2 Flow Rate FiO2 01/07/18 11:55 98.0 75 18 149/68 (95) 95 01/07/18 11:55 Nasal Cannula 3.00 01/07/18 09:47 98 Nasal Cannula 3.00 01/07/18 07:55 98.6 88 18 130/63 (85) 98 01/07/18 07:55 Nasal Cannula 3.00 01/07/18 06:26 Nasal Cannula 3.00 97 01/07/18 04:40 96.1 77 20 153/69 (97) 96 01/07/18 02:14 Nasal Cannula 3.00 97 01/07/18 01:08 98.6 77 144/63 (90) 98 01/06/18 20:55 96.8 87 155/68 (97) 97 01/06/18 20:00 Nasal Cannula 3.00 97 01/06/18 19:43 Nasal Cannula 3.00 I/O 01/06/18 01/06/18 01/06/18 01/07/18 01/07/18 01/07/18 07:00 15:00 23:00 07:00 15:00 23:00 Intake Total 630 ml 150 ml Output Total 1450 ml 1000 ml 200 ml 200 ml Balance -1450 ml -370 ml -50 ml -200 ml Intake Oral 630 ml 150 ml Output Urine Total 1450 ml 1000 ml 200 ml 200 ml # Voids 1 # Bowel Movements 2 2 Result Diagram: 01/07/18 0500 01/07/18 0500 Objective Remarks GENERAL: Obese man SKIN: Warm and dry. : scrotal edema EYES: No scleral icterus. No injection or drainage. NECK: Supple, trachea midline. No JVD or lymphadenopathy. CARDIOVASCULAR: Regular rate and rhythm without murmurs, gallops, or rubs. RESPIRATORY: Breath sounds equal bilaterally. No accessory muscle use. GASTROINTESTINAL: Abdomen soft, non-tender, nondistended. EXTREMITIES: No cyanosis, improving edema in bilateral lower extremities, large scrotal edema NEUROLOGICAL: Awake, alert, and oriented x 3. Non-focal. Procedures CBI BIPAP Date of Removal: Jan 02, 2018 A/P Problem List: (1) Hematuria, gross ICD Code: R31.0 - Gross hematuria Status: Acute (2) Chronic kidney disease (CKD) ICD Code: N18.9 - Chronic kidney disease Status: Chronic (3) Acute exacerbation of CHF (congestive heart failure) ICD Code: I50.9 - Heart failure, unspecified Status: Acute (4) Acute renal failure ICD Code: N17.9 - Acute kidney failure, unspecified Assessment and Plan This is a 72-year-old male who was sent from his urologist office because of edema. CHF exacerbation, Scrotal Edema ECHO EF = 60% 1.5L fluid restriction, strict I/O's Continue oral Bumex Add back Lasix if edema worsens Patient notes improvement with compressive shorts/underwear for scrotal edema Acute on Chronic Renal Failure He only has one kidney (left), CKD Stage IV Creatinine remains elevated, overall trend appears stable Repeat creatinine in the morning Pancytopenia on Votrient Worsened by hematuria losses keep hemoglobin at least 8 with history of CAD Appreciate oncology consult Gross hematuria - Resolved h/o renal cell carcinoma, and bladder lesions that turned out to be scars Complex UTI Presented with UTI in the presence of gross hematuria and indwelling gill (for irrigation) Exact etiology uncertain, most likely blood changing pH vs. contamination from gill insertion (or cystoscopy procedures) Covered by zosyn and unasyn and Augmentin during this stay Cellulitis Bilat LE's Continue Unasyn and Augmentin, improving CHF and COPD. Continue oxygen keep saturations at least 92% PAD, hypothyroidism, hypertension, hyperlipidemia, GERD, IBS, gout and osteoarthritis. Continue outpatient medications as appropriate DVT prophylaxis SCDs due to hematuria Discharge planning Patient feels at this rate he may be able to go home in the near future, his opinion is on Thursday, my opinion is on Thursday (still following creatinine) Problem Qualifiers (1) Chronic kidney disease (CKD): Qualified Codes: N18.3 - Chronic kidney disease, stage 3 (moderate) (2) Acute exacerbation of CHF (congestive heart failure): Qualified Codes: I50.9 - Heart failure, unspecified Rocky Fuller MD Jan 07, 2018 17:48
[2018-01-08] VITALS (8 sets, daily range): BP systolic 132–165; BP diastolic 60–97; PULSE 63–84; RESP 18–22; TEMP 96.5–98.2; O2SAT 93–97
[2018-01-08] MEDS: oxyCODONE/ACETAMINOPHEN 10 MG/325 MG TAB PO PRN ×5 (02:23→20:49)
[2018-01-08] MEDS: LEVOTHYROXINE SODIUM 150 MCG TAB PO SCH (05:28)
[2018-01-08] MEDS: ISOSORBIDE MONONITRATE 30 MG CR TAB (IMDUR) PO SCH (06:44)
--- NOTE | 2018-01-08 07:25 | PD.ONC.PN ---
Subjective Subjective Remarks Feeling better. LE and scrotal edema improving. No hematuria. Objective Data Date Time Temp Pulse Resp B/P (MAP) Pulse Ox O2 Delivery O2 Flow Rate FiO2 01/08/18 05:25 96.8 75 22 132/89 (103) 95 01/08/18 00:00 Nasal Cannula 3.00 97 01/08/18 00:00 96.5 84 20 165/72 (103) 93 01/07/18 22:25 96 Nasal Cannula 3.00 01/07/18 20:00 Nasal Cannula 3.00 97 01/07/18 20:00 98.5 88 22 150/90 (110) 94 01/07/18 15:55 Nasal Cannula 3.00 01/07/18 15:55 98.0 75 18 149/68 (95) 95 01/07/18 11:55 98.0 75 18 149/68 (95) 95 01/07/18 11:55 Nasal Cannula 3.00 01/07/18 09:47 98 Nasal Cannula 3.00 01/07/18 07:55 98.6 88 18 130/63 (85) 98 01/07/18 07:55 Nasal Cannula 3.00 01/08/18 01/08/18 01/08/18 07:00 15:00 23:00 Intake Total 680 ml Output Total 1080 ml Balance -400 ml Result Diagram: 01/07/18 0500 01/07/18 0500 Administered Medications Medications (Trade) Dose Ordered Sig/Richie Route PRN Reason Start Time Stop Time Status Last Admin Dose Admin Sodium Chloride (NS Flush) 2 ml BID IV FLUSH 12/23/17 21:00 01/07/18 21:00 Carvedilol (Coreg) 25 mg BID PO 12/23/17 21:00 01/07/18 23:32 Levothyroxine Sodium (Synthroid) 150 mcg MoWeFr@0600 PO 12/23/17 16:30 01/08/18 05:28 Triamcinolone Acetonide (Aristocort 0.1% Oint) 1 applic QID TOPICAL 12/23/17 18:00 01/07/18 21:00 Levothyroxine Sodium (Synthroid) 75 mcg SuTuThSa@0600 PO 12/24/17 06:00 01/07/18 04:44 Levothyroxine Sodium (Synthroid) 100 mcg SuTuThSa@0600 PO 12/24/17 06:00 01/07/18 04:44 Pantoprazole Sodium (Protonix) 20 mg DAILY PO 12/24/17 09:00 01/07/18 08:43 Atorvastatin Calcium (Lipitor) 40 mg DAILY PO 12/24/17 09:00 01/07/18 08:44 Belladonna Alkaloids/Opium (B & O Supp) 60 mg Q6H PRN RECTAL bladder spasm 12/23/17 18:00 12/25/17 18:14 Calcium Carbonate (Tums Chew) 500 mg Q2H PRN CHEW indigestion 12/24/17 23:45 12/26/17 20:02 Oxycodone/ Acetaminophen (Percocet 5-325 Mg) 1 tab Q6H PRN PO PAIN SCALE 3 TO 5 12/25/17 11:00 01/07/18 04:44 Isosorbide Mononitrate (Imdur) 30 mg DAILY@07 PO 12/26/17 07:00 01/08/18 06:44 Cyanocobalamin (Vitamin B12 Inj) 1,000 mcg Q30D IM 12/25/17 15:00 12/25/17 14:45 Folic Acid (Folate) 1 mg DAILY PO 12/26/17 09:00 01/07/18 08:44 Cyanocobalamin (Vitamin B12) 1,000 mcg DAILY PO 12/26/17 09:00 01/07/18 08:44 Guaifenesin (Mucinex Er) 600 mg BID PO 12/26/17 21:00 01/07/18 23:32 Aminocaproic Acid 3000 mg/Sodium Chloride 3,012 ml @ 0 mls/hr TITRATE IRRIGATION 12/29/17 11:15 01/01/18 05:55 Acetaminophen (Tylenol) 650 mg Q4H PRN PO SEE LABEL COMMENTS 12/29/17 11:45 12/29/17 17:00 Heparin Sodium (Porcine) (Heparin Central Flush) 250 units UNSCH PRN IV FLUSH SEE PROTOCOL TABLE 12/31/17 16:00 01/04/18 20:27 Heparin Sodium (Porcine) (Heparin Central Flush) 500 units UNSCH IV FLUSH 12/31/17 16:00 01/01/18 08:57 Furosemide (Lasix) 20 mg BID@09,18 PO 01/01/18 18:00 Future Hold 01/02/18 09:15 Amoxicillin/ Clavulanate Potassium (Augmentin) 500 mg Q12HR PO 01/01/18 21:00 01/08/18 20:59 01/07/18 23:31 Oxycodone/ Acetaminophen (Percocet 10-325 Mg) 1 tab Q4HR PRN PO PAIN SCALE 6 TO 10 01/01/18 16:30 01/08/18 06:44 Bumetanide (Bumetanide) 2 mg BID@, PO 01/06/18 18:00 01/07/18 18:14 Potassium Chloride (KCl) 10 meq DAILY PO 01/07/18 10:30 01/07/18 13:59 Objective Remarks GENERAL: Well-nourished, well-developed patient. SKIN: Warm and dry. HEAD: Normocephalic. EYES: No scleral icterus. No injection or drainage. NECK: Supple, trachea midline. No JVD or lymphadenopathy. LYMPHATIC: No adenopathy. CARDIOVASCULAR: Regular rate and rhythm without murmurs. RESPIRATORY: Breath sounds equal bilaterally. No accessory muscle use. GASTROINTESTINAL: Abdomen soft, non-tender, nondistended. EXTREMITIES: No cyanosis, BLE 2+edema. MUSCULOSKELETAL: Adequate muscle tone. NEUROLOGICAL: No obvious focal deficit. Awake, alert, and oriented x3. PSYCHIATRIC: Appropriate mood and affect; insight and judgment normal. Assessment/Plan Problem List: (1) Metastatic renal cell carcinoma ICD Codes: C64.9 - Malignant neoplasm of unspecified kidney, except renal pelvis Plan: --continue monitoring for now. Votrient on hold but can restart when he gets home. History: --presented with bilateral renal cell carcinoma and had right nephrectomy in February 2010. 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 --had a biopsy of the left kidney mass, which also showed renal cell carcinoma. He started Votrient, with good response. The Votrient was held for awhile when he was receiving treatment for bladder cancer. --recently was found to have progression of disease and restarted Votrient at the end of 2014. CT scan done in early November which did not show clear evidence of progression of disease. The Votrient has been on hold since the urologic procedure. (2) Bladder cancer ICD Codes: C67.9 - Malignant neoplasm of urinary bladder Status: Acute Plan: -- Bladder invasive transitional cell carcinoma, treated with radiation and chemotherapy. --had another cystoscopy 3 weeks ago with biopsy which did not show any recurrent disease. Hematuria resolved. (3) Pancytopenia ICD Codes: D61.818 - Other pancytopenia Status: Resolved Plan: --Continue to improve. Platelet >100k. --monitor and transfuse as needed ++partly due to Votrient-->Votrient was stopped about 3 weeks ago. ++significant anemia likely due to chronic kidney disease as well as chronic inflammatory disease. --given Epogen on 12/24 Assessment 72y/o male with thrombocytopenia, anemia and history of metastatic renal cell cancer. h/o Congestive heart failure. Chronic obstructive pulmonary disease, oxygen dependent. Bladder cancer. Urethral stricture. Pancytopenia. Hypertension. Hypothyroidism. Hyperlipidemia. Gastroesophageal reflux disease. Osteoarthritis. Gout Plan 1. Monitor CBC 2. Follow-up in clinic once discharged. Can be d/c from oncology standpoint. 3.. Restart Votrient outpatient. Ernesto Yousif MD Jan 08, 2018 07:25
[2018-01-08] MEDS: CARVEDILOL 12.5 MG TAB PO SCH ×2 (08:57→20:49)
[2018-01-08] MEDS: CYANOCOBALAMIN 1,000 MCG TAB PO SCH (08:57)
[2018-01-08] MEDS: POTASSIUM CHLORIDE 10 MEQ CONTROLLED RELEASE TAB PO SCH (08:57)
[2018-01-08] MEDS: FOLIC ACID 1 MG TAB PO SCH (08:58)
[2018-01-08] MEDS: BUMETANIDE 1 MG TAB PO SCH ×2 (08:58→18:06)
[2018-01-08] MEDS: PANTOPRAZOLE SOD 20 MG DELAYED RELEASE TAB PO SCH (08:58)
[2018-01-08] MEDS: guaiFENesin E.R. 600 MG TAB PO SCH ×2 (08:58→20:49)
[2018-01-08] MEDS: TRIAMCINOLONE ACETONIDE 0.1% OINT 15 GM TUBE TOPICAL SCH ×4 (08:58→20:52)
[2018-01-08] MEDS: ATORVASTATIN 40 MG TAB PO SCH (08:58)
[2018-01-08] MEDS: AMOXICILLIN/CLAVULANATE K 500 MG TAB PO SCH ×2 (08:58→20:49)
[2018-01-08] MEDS: SODIUM CHLORIDE 0.9% FLUSH 10 ML FLUSH IV FLUSH SCH ×2 (09:01→20:50)
[2018-01-08 09:49] LABS: BICARBONATE 32.3 MEQ/L (21.0-32.0); CALCIUM 8.7 MG/DL (8.5-10.1); CREATININE 2.84 MG/DL (0.60-1.30)
--- NOTE | 2018-01-08 15:33 | HHI.NPPN ---
Subjective History of Present Illness 72-year-old with metastatic renal cell cancer, acute renal failure, previous right nephrectomy, hematuria Objective Data Data Vital Signs Date Time Temp Pulse Resp B/P (MAP) Pulse Ox O2 Delivery O2 Flow Rate FiO2 01/08/18 12:00 97.7 70 18 132/63 (86) 95 01/08/18 11:42 Nasal Cannula 2.00 01/08/18 09:00 Nasal Cannula 2.00 01/08/18 08:00 98.0 72 18 136/63 (87) 96 01/08/18 05:25 96.8 75 22 132/89 (103) 95 01/08/18 00:00 Nasal Cannula 3.00 97 01/08/18 00:00 96.5 84 20 165/72 (103) 93 01/07/18 22:25 96 Nasal Cannula 3.00 01/07/18 20:00 Nasal Cannula 3.00 97 01/07/18 20:00 98.5 88 22 150/90 (110) 94 01/07/18 15:55 Nasal Cannula 3.00 01/07/18 15:55 98.0 75 18 149/68 (95) 95 -: 01/07/18 0500 01/08/18 0900 Physical Exam General Appearance: Well Developed, Well Nourished Neck Neck Exam: Neck Supple Pulmonary Resp Exam: Decreased Bases Cardiology CV Exam: Regular, Murmur Gastrointestinal/Abdomen GI Exam: Soft, Non-Tender, Bowel Sounds Present Extremeties Extremities Exam: Pitting Edema, Dependent Edema Assessment/Plan Problem List: (1) Acute renal failure ICD Codes: N17.9 - Acute kidney failure, unspecified Plan: Patient is now on Bumex 2 mg twice daily He is s/p right nephrectomy. Hematuria has improved. He has advanced metastatic renal cell cancer Renal function may be at baseline? low WBC and platelets diuresing well started on Bumex 2 mg twice a day Creatinine 2.8 potassium 3.7 Potassium chloride 10 mEq daily follow BMP Prognosis is guarded. (2) Metastatic renal cell carcinoma ICD Codes: C64.9 - Malignant neoplasm of unspecified kidney, except renal pelvis Plan: Oncology on the case. (3) Hyponatremia ICD Codes: E87.1 - Hyponatremia Status: Acute Plan: Improved (4) Hematuria, gross ICD Codes: R31.0 - Gross hematuria Status: Acute Plan: Improved. Noel Dykes MD Jan 08, 2018 15:33
--- NOTE | 2018-01-08 17:53 | HHI.PR ---
Subjective Remarks Patient is pleased with the results of the Bumex. He feels he has reduced edema in his lower extremities and his scrotum. He requested to be discharged tomorrow morning Objective Vitals Vital Signs Date Time Temp Pulse Resp B/P (MAP) Pulse Ox O2 Delivery O2 Flow Rate FiO2 01/08/18 16:51 Nasal Cannula 2.00 01/08/18 16:16 2.00 01/08/18 16:16 96 Nasal Cannula 2.00 01/08/18 16:00 98.2 74 18 135/60 (85) 96 01/08/18 12:00 97.7 70 18 132/63 (86) 95 01/08/18 11:42 Nasal Cannula 2.00 01/08/18 09:00 Nasal Cannula 2.00 01/08/18 08:00 98.0 72 18 136/63 (87) 96 01/08/18 05:25 96.8 75 22 132/89 (103) 95 01/08/18 00:00 Nasal Cannula 3.00 97 01/08/18 00:00 96.5 84 20 165/72 (103) 93 01/07/18 22:25 96 Nasal Cannula 3.00 01/07/18 20:00 Nasal Cannula 3.00 97 01/07/18 20:00 98.5 88 22 150/90 (110) 94 I/O 01/07/18 01/07/18 01/07/18 01/08/18 01/08/18 01/08/18 07:00 15:00 23:00 07:00 15:00 23:00 Intake Total 150 ml 1200 ml 680 ml Output Total 200 ml 200 ml 550 ml 1080 ml Balance -50 ml -200 ml 650 ml -400 ml Intake Oral 150 ml 1200 ml 680 ml Output Urine Total 200 ml 200 ml 550 ml 1080 ml # Bowel Movements 3 2 Result Diagram: 01/07/18 0500 01/08/18 0900 Objective Remarks GENERAL: Obese man SKIN: Warm and dry. : scrotal edema 50% improved EYES: No scleral icterus. No injection or drainage. NECK: Supple, trachea midline. No JVD or lymphadenopathy. CARDIOVASCULAR: Regular rate and rhythm without murmurs, gallops, or rubs. RESPIRATORY: Breath sounds equal bilaterally. No accessory muscle use. GASTROINTESTINAL: Abdomen soft, non-tender, nondistended. EXTREMITIES: No cyanosis, improving edema in bilateral lower extremities, scrotal edema improving NEUROLOGICAL: Awake, alert, and oriented x 3. Non-focal. Procedures CBI BIPAP Date of Removal: Jan 02, 2018 A/P Problem List: (1) Hematuria, gross ICD Code: R31.0 - Gross hematuria Status: Acute (2) Chronic kidney disease (CKD) ICD Code: N18.9 - Chronic kidney disease Status: Chronic (3) Acute exacerbation of CHF (congestive heart failure) ICD Code: I50.9 - Heart failure, unspecified Status: Acute (4) Acute renal failure ICD Code: N17.9 - Acute kidney failure, unspecified Assessment and Plan This is a 72-year-old male who was sent from his urologist office because of edema. CHF exacerbation, Scrotal Edema ECHO EF = 60% 1.5L fluid restriction, strict I/O's Continue oral Bumex Patient notes improvement with compressive shorts/underwear for scrotal edema, states it is 50% better Acute on Chronic Renal Failure He only has one kidney (left), CKD Stage IV Creatinine remains elevated, overall trend appears stable Final creatinine tomorrow morning, follow creatinine as outpatient Pancytopenia on Votrient Worsened by hematuria losses keep hemoglobin at least 8 with history of CAD Appreciate oncology consult Gross hematuria - Resolved h/o renal cell carcinoma, and bladder lesions that turned out to be scars Complex UTI Presented with UTI in the presence of gross hematuria and indwelling gill (for irrigation) Exact etiology uncertain, most likely blood changing pH vs. contamination from gill insertion (or cystoscopy procedures) Covered by zosyn and unasyn and Augmentin during this stay Cellulitis Bilat LE's Continue Unasyn and Augmentin, improving CHF and COPD. Continue oxygen keep saturations at least 92% PAD, hypothyroidism, hypertension, hyperlipidemia, GERD, IBS, gout and osteoarthritis. Continue outpatient medications as appropriate DVT prophylaxis SCDs due to hematuria Discharge planning Discharge home tomorrow morning with home health care Problem Qualifiers (1) Chronic kidney disease (CKD): Qualified Codes: N18.3 - Chronic kidney disease, stage 3 (moderate) (2) Acute exacerbation of CHF (congestive heart failure): Qualified Codes: I50.9 - Heart failure, unspecified Rocky Fuller MD Jan 08, 2018 17:53
--- NOTE | 2018-01-08 17:55 | HHI.FF ---
Face to Face Verification Diagnosis: (1) Acute exacerbation of CHF (congestive heart failure) (2) Chronic kidney disease (CKD) (3) Metastatic renal cell carcinoma (4) Bladder cancer Physical Therapy Order: Evaluate and Treat Home Health Nursing Order: Medical education Signs/symptoms of disease process CHF education Oxygen administration education Telehealth I have seen patient Israel Solano on 01/08/18. My clinical findings support the need for the requested home health care services because: Ltd mobility - disease progression Patient has SOB Deconditioned w/ increased weakness I certify that my clinical findings support that this patient is homebound because: Hx COPD- exertion dyspnea/weakness Unsteady gait/balance Unsafe to leave home unassisted Unable to use public transportation Telehealth for CHF, with daily weights (scale) Rocky Fuller MD Jan 08, 2018 17:55
[2018-01-09] VITALS: BP 132/58; PULSE 76; RESP 20; TEMP 96.5; O2SAT 94
[2018-01-09] MEDS: oxyCODONE/ACETAMINOPHEN 5 MG/325 MG TAB PO PRN (03:20)
[2018-01-09 04:00] VITALS: BP 142/65; PULSE 78; RESP 20; TEMP 96.5; O2SAT 96
[2018-01-09] MEDS: ISOSORBIDE MONONITRATE 30 MG CR TAB (IMDUR) PO SCH (05:24)
[2018-01-09] MEDS: LEVOTHYROXINE SODIUM 75 MCG TAB PO SCH (05:24)
[2018-01-09] MEDS: LEVOTHYROXINE SODIUM 100 MCG TAB PO SCH (05:24)
[2018-01-09] MEDS: SODIUM CHLORIDE 0.9% FLUSH 10 ML FLUSH IV FLUSH SCH (09:00)
[2018-01-09] MEDS: TRIAMCINOLONE ACETONIDE 0.1% OINT 15 GM TUBE TOPICAL SCH (09:00)
[2018-01-09] MEDS: CYANOCOBALAMIN 1,000 MCG TAB PO SCH (09:00)
[2018-01-09] MEDS: BUMETANIDE 1 MG TAB PO SCH (09:46)
[2018-01-09] MEDS: ATORVASTATIN 40 MG TAB PO SCH (09:46)
[2018-01-09] MEDS: oxyCODONE/ACETAMINOPHEN 10 MG/325 MG TAB PO PRN (09:47)
[2018-01-09] MEDS: FOLIC ACID 1 MG TAB PO SCH (09:47)
[2018-01-09] MEDS: guaiFENesin E.R. 600 MG TAB PO SCH (09:47)
[2018-01-09] MEDS: POTASSIUM CHLORIDE 10 MEQ CONTROLLED RELEASE TAB PO SCH (09:47)
[2018-01-09] MEDS: CARVEDILOL 12.5 MG TAB PO SCH (09:47)
[2018-01-09] MEDS: PANTOPRAZOLE SOD 20 MG DELAYED RELEASE TAB PO SCH (09:47)
[2018-01-09 09:51] VITALS: BP 133/63; PULSE 93; RESP 18; TEMP 97.5; O2SAT 94; O2SAT 95
[2018-01-09] MEDS ORDERED: OXYGENDME NAS.CANULA (10:01)
[2018-01-09] MEDS ORDERED: KLOR10TA PO (10:01)
[2018-01-09] MEDS ORDERED: ISOS30TA3 PO (10:01)
[2018-01-09] MEDS ORDERED: BUME1TAB PO (10:01)
--- NOTE | 2018-01-09 10:11 | HHI.NPPN ---
Subjective History of Present Illness 72-year-old with metastatic renal cell cancer, acute renal failure, previous right nephrectomy, hematuria Additional Remarks Sitting up in chair. Denies any shortness of breath. Lower extremity edema. (Teresa Chinchilla) Renal Failure: Chronic, Stage III (Quinn Tripp MD) Review of Systems Respiratory Respiratory Remarks Denies shortness of breath (Teresa Chinchilla) Cardiovascular Cardiac Remarks No chest pain.` (Teresa Chinchilla) Gastrointestinal GI Remarks Denies abdominal pain (Teresa Chinchilla) Objective Data Data Vital Signs Date Time Temp Pulse Resp B/P (MAP) Pulse Ox O2 Delivery O2 Flow Rate FiO2 01/09/18 09:51 Nasal Cannula 2.00 01/09/18 09:51 97.5 93 18 133/63 (86) 95 01/09/18 09:51 94 Nasal Cannula 3.00 01/09/18 04:00 Nasal Cannula 2.00 97 01/09/18 04:00 96.5 78 20 142/65 (90) 96 01/09/18 00:00 96.5 76 20 132/58 (82) 94 01/09/18 00:00 Nasal Cannula 2.00 97 01/08/18 22:51 95 Nasal Cannula 2.00 01/08/18 20:00 97.5 63 20 134/97 (109) 97 01/08/18 20:00 Nasal Cannula 2.00 97 01/08/18 16:51 Nasal Cannula 2.00 01/08/18 16:16 2.00 01/08/18 16:16 96 Nasal Cannula 2.00 01/08/18 16:00 98.2 74 18 135/60 (85) 96 01/08/18 12:00 97.7 70 18 132/63 (86) 95 01/08/18 11:42 Nasal Cannula 2.00 (Teresa Chinchilla) -: 01/07/18 0500 01/08/18 0900 Imaging Last Impressions Renal Ultrasound 12/29/17 0000 Signed Impressions: Service Date/Time: Friday, December 29, 2017 13:34 - CONCLUSION: 1. Status post right nephrectomy with out sonographic evidence for gross mass in the nephrectomy bed. 2. Unremarkable sonographic appearance of the left kidney. No hydronephrosis. Elton Bo MD Chest X-Ray 12/26/17 0000 Signed Impressions: Service Date/Time: Tuesday, December 26, 2017 05:42 - CONCLUSION: Bilateral pulmonary opacity likely representing pulmonary edema, slightly increased from the comparison study. Adrian Black MD (Teresa Chinchilla. CLOCK REPAIR TECHNICIAN) Physical Exam General Appearance: Well Developed, Well Nourished (Teresa Chinchilla. CLOCK REPAIR TECHNICIAN) Neck Neck Exam: Neck Supple (BraedenlerTeresa henao. CLOCK REPAIR TECHNICIAN) Pulmonary Resp Exam: Decreased Bases (Teresa Chinchilla. CLOCK REPAIR TECHNICIAN) Cardiology CV Exam: Regular, Murmur (Teresa Chinchilla. CLOCK REPAIR TECHNICIAN) Gastrointestinal/Abdomen GI Exam: Soft, Non-Tender, Bowel Sounds Present (Teresa Chinchilla CLOCK REPAIR TECHNICIAN) Extremeties Extremities Exam: Pitting Edema, Dependent Edema (Teresa Chinchilla CLOCK REPAIR TECHNICIAN) Assessment/Plan Problem List: (1) Acute renal failure ICD Codes: N17.9 - Acute kidney failure, unspecified Plan: He is s/p right nephrectomy. Hematuria has improved. He has advanced metastatic renal cell cancer Renal function may be at baseline? Creatinine 2.8 potassium 3.7 Continue Bumex 2 mg twice a day Continue Potassium chloride 10 mEq daily Continue fluid restriction. Prognosis is guarded. Reports that he will be discharged today will need to follow up with Dr. Donis vail. (2) Metastatic renal cell carcinoma ICD Codes: C64.9 - Malignant neoplasm of unspecified kidney, except renal pelvis Plan: Oncology on the case. (3) Hyponatremia ICD Codes: E87.1 - Hyponatremia Status: Acute Plan: Improved (4) Hematuria, gross ICD Codes: R31.0 - Gross hematuria Status: Acute Plan: Improved. (Teresa Chinchilla CLOCK REPAIR TECHNICIAN) Problem List: (1) Acute renal failure ICD Codes: N17.9 - Acute kidney failure, unspecified Plan: He is s/p right nephrectomy. Hematuria has improved. He has advanced metastatic renal cell cancer Renal function may be at baseline? Creatinine 2.8 potassium 3.7 Continue Bumex 2 mg twice a day Continue Potassium chloride 10 mEq daily Continue fluid restriction. Prognosis is guarded. Reports that he will be discharged today will need to follow up with Dr. Dykes outpatient. Patient seen and examined, agree with above. For discharge, to follow with Dr. Dykes. (2) Metastatic renal cell carcinoma ICD Codes: C64.9 - Malignant neoplasm of unspecified kidney, except renal pelvis Plan: Oncology on the case. (3) Hyponatremia ICD Codes: E87.1 - Hyponatremia Status: Acute Plan: Improved (4) Hematuria, gross ICD Codes: R31.0 - Gross hematuria Status: Acute Plan: Improved. (Quinn Tripp MD) Problem Qualifiers (1) Metastatic renal cell carcinoma: Qualified Codes: C64.9 - Malignant neoplasm of unspecified kidney, except renal pelvis Teresa Chinchilla Jan 09, 2018 10:11 Quinn Tripp MD Jan 10, 2018 14:28
--- NOTE | 2018-01-09 10:12 | HHI.DS ---
Discharge Summary Admission Date Dec 24, 2017 at 17:49 Discharge Date: Jan 09, 2018 Admitting Diagnosis CHF EXACERBATION, GROSS HEMATURIA WITH MICHAEL (1) Hematuria, gross ICD Code: R31.0 - Gross hematuria Status: Acute (2) Chronic kidney disease (CKD) ICD Code: N18.9 - Chronic kidney disease Status: Chronic (3) Acute exacerbation of CHF (congestive heart failure) ICD Code: I50.9 - Heart failure, unspecified Status: Acute (4) Acute renal failure ICD Code: N17.9 - Acute kidney failure, unspecified Procedures CBI BIPAP Brief History - From Admission This is a 72-year-old male who was sent from his urologist office because of edema. Patient states that for the past 3 weeks he has developed bilateral lower extremity edema including his genitalia. He also complains of dyspnea on exertion. States he has been advised to increase fluid intake secondary to hematuria in his Michael catheter. He is compliant with salt restriction and has been taking Lasix daily. He has a history of chronic respiratory failure on nasal cannula, CHF and COPD. Denies fever, chills, cough, wheezing and chest pain. Patient has a history of metastatic renal cell carcinoma status post right radical nephrectomy with removal of tumor thrombus in September 2009. Also noted to have left renal cell carcinoma on chemotherapy. He also has bladder cancer diagnosed over 2 years ago and received radiation and chemotherapy. Last November 30, 2017, he underwent cystoscopy and was noted to have urethral stricture status post urethrotomy. He also had a small bladder lesion was biopsied negative for malignancy. Since the procedure, patient has been having intermittent gross hematuria. Denies being on antiplatelets and anticoagulants. He was taken off Plavix 1 week before the procedure. All other systems reviewed negative CBC/BMP: 01/07/18 0500 01/08/18 0900 Significant Findings Laboratory Tests Test 01/06/18 10:20 01/07/18 05:00 01/08/18 09:00 Blood Urea Nitrogen 42 MG/DL (7-18) 44 MG/DL (7-18) 44 MG/DL (7-18) Creatinine 2.83 MG/DL (0.60-1.30) 2.84 MG/DL (0.60-1.30) 2.84 MG/DL (0.60-1.30) Random Glucose 180 MG/DL (74-106) 172 MG/DL (74-106) Potassium Level 3.4 MEQ/L (3.5-5.1) Estimat Glomerular Filtration Rate 22 ML/MIN (>89) 22 ML/MIN (>89) 22 ML/MIN (>89) White Blood Count 3.3 TH/MM3 (4.0-11.0) Red Blood Count 2.97 MIL/MM3 (4.50-5.90) Hemoglobin 9.7 GM/DL (13.0-17.0) Hematocrit 29.8 % (39.0-51.0) Mean Corpuscular Volume 100.4 FL (80.0-100.0) Red Cell Distribution Width 20.9 % (11.6-17.2) Platelet Count 129 TH/MM3 (150-450) Monocytes (%) (Auto) 11.5 % (0.0-8.0) Lymphocytes # (Auto) 0.8 TH/MM3 (1.0-4.8) Calcium Level 8.4 MG/DL (8.5-10.1) Carbon Dioxide Level 32.4 MEQ/L (21.0-32.0) 32.3 MEQ/L (21.0-32.0) PE at Discharge GENERAL: Obese man SKIN: Warm and dry. : scrotal edema 50% improved EYES: No scleral icterus. No injection or drainage. NECK: Supple, trachea midline. No JVD or lymphadenopathy. CARDIOVASCULAR: Regular rate and rhythm without murmurs, gallops, or rubs. RESPIRATORY: Breath sounds equal bilaterally. No accessory muscle use. GASTROINTESTINAL: Abdomen soft, non-tender, nondistended. EXTREMITIES: No cyanosis, improving edema in bilateral lower extremities, scrotal edema improving NEUROLOGICAL: Awake, alert, and oriented x 3. Non-focal. Hospital Course 72-year-old male with a history of metastatic renal cell carcinoma presented to the ER with excessive edema related to a combination of acute renal failure and CHF exacerbation. He responded favorably to IV doses of Lasix and was transitioned to p.o. doses of Bumex 3 days ago. He is pleased with the results of his Bumex. His leg swelling is much reduced as is his scrotal swelling. He has been looking forward to going home today. He will be followed by home health care at home, I recommended and provided a prescription for twice weekly BMP monitoring to follow his creatinine level as well as his potassium level. He has follow-up with nephrology in 1 week and follow-up with oncology in 2 weeks. He is stable for discharge today. Pt Condition on Discharge: Good Discharge Disposition: Disch w/ Home Health Serv Discharge Time: <= 30 minutes Discharge Instructions DIET: Follow Instructions for: Heart Healthy Diet Activities you can perform: Weight Bearing as Rocky Thomas MD Jan 09, 2018 10:12
== END 2018-01-09 13:11 | disposition home health service (06) | DRG 871 ==
LOC: NEPE 11:41 → NEDA 14:31 → NEPGCP 15:59 → OBSVTOIN 12-24 17:49 → HCIS 12-26 10:49 → UNDODISIN 12-26 21:50 → HCIN 12-27 15:00
PROVIDERS: ADMIT Family Medicine; ATTEND Family Medicine
PROC: 30233N1 Transfusion of Nonautologous Red Blood Cells into Peripheral Vein, Percutaneous Approach (ICD-10-PCS; 2017-12-27)
PROC: 30233R1 Transfusion of Nonautologous Platelets into Peripheral Vein, Percutaneous Approach (ICD-10-PCS; principal; 2017-12-28)
DX: A41.9 Sepsis, unspecified organism (principal); D61.810 Antineoplastic chemotherapy induced pancytopenia; I50.33 Acute on chronic diastolic (congestive) heart failure; J96.10 Chronic respiratory failure, unspecified whether with hypoxia or hypercapnia; N18.4 Chronic kidney disease, stage 4 (severe); N17.9 Acute kidney failure, unspecified; C64.2 Malignant neoplasm of left kidney, except renal pelvis; N02.9 Recurrent and persistent hematuria with unspecified morphologic changes; N39.0 Urinary tract infection, site not specified; D62 Acute posthemorrhagic anemia; I13.0 Hypertensive heart and chronic kidney disease with heart failure and stage 1 through stage 4 chronic kidney disease, or unspecified chronic kidney disease; L03.116 Cellulitis of left lower limb; L03.115 Cellulitis of right lower limb; T83.84XA Pain due to genitourinary prosthetic devices, implants and grafts, initial encounter; E87.1 Hypo-osmolality and hyponatremia; J44.9 Chronic obstructive pulmonary disease, unspecified; D63.1 Anemia in chronic kidney disease; B96.1 Klebsiella pneumoniae [K. pneumoniae] as the cause of diseases classified elsewhere; K58.9 Irritable bowel syndrome, unspecified; K21.9 Gastro-esophageal reflux disease without esophagitis; E78.5 Hyperlipidemia, unspecified; E03.9 Hypothyroidism, unspecified; M19.90 Unspecified osteoarthritis, unspecified site; I25.10 Atherosclerotic heart disease of native coronary artery without angina pectoris; Y84.6 Urinary catheterization as the cause of abnormal reaction of the patient, or of later complication, without mention of misadventure at the time of the procedure; Z99.81 Dependence on supplemental oxygen; N32.89 Other specified disorders of bladder; M10.9 Gout, unspecified; B95.2 Enterococcus as the cause of diseases classified elsewhere; I35.0 Nonrheumatic aortic (valve) stenosis; M06.9 Rheumatoid arthritis, unspecified; T45.1X5A Adverse effect of antineoplastic and immunosuppressive drugs, initial encounter; E87.6 Hypokalemia; Z90.5 Acquired absence of kidney; Z95.1 Presence of aortocoronary bypass graft; Z86.73 Personal history of transient ischemic attack (TIA), and cerebral infarction without residual deficits; Z88.1 Allergy status to other antibiotic agents; Z85.528 Personal history of other malignant neoplasm of kidney; Z85.51 Personal history of malignant neoplasm of bladder; Z92.3 Personal history of irradiation; Z87.891 Personal history of nicotine dependence; Z80.51 Family history of malignant neoplasm of kidney
CPT/HCPCS: 36430; 36600; 71045; 76775; 80048; 80053; 80069; 81001; 82607; 82728; 82746; 82805; 83036; 83540; 83550; 83690; 83735; 83880; 84100; 84439; 84443; 84484; 85025; 85044; 85610; 85730; 86850; 86900; 86901; 86920; 87040; 87077; 87086; 87186; 93005; 93306; 94618; G8987-GP; G8988-GP; J0295; J0696; J1642; J1940; J2270; J2543; J3420; J7050; P9016; P9035; P9047; Q4081